=== PATIENT | female | born 2000 | race African-American/Black ===

== ENCOUNTER 2020-12-12 09:48 | Emergency (ER) | payer OTHER, SELFPAY ==
--- NOTE | ~2020-12-12 | US_ITS ---
EXAMINATION: US pelvic complete DATE: 12/12/2020 11:50 INDICATION: Vaginal bleeding with pain Comparison:No prior studies for comparison. TECHNIQUE: Multiple transabdominal sonographic images of the pelvis performed. FINDINGS: The uterus measures 7 x 3 x 3.8 cm. There is a tampon in the vagina causing posterior shado wing. The endometrial complex measures 2 mm. The right ovary measures 3.9 x 3.6 x 2.8 cm and the left ovary measures 2.6 x 1.7 x 1.5 cm. There is a right ovarian cyst measuring 2.6 x 1.7 x 1.5 cm. There are small follicles in each ovary. Normal do ppler signal in both ovaries. There is no free fluid in the pelvis. There are no abnormal masses seen on either side. IMPRESSION: 1. Right ovarian cyst measuring 2.6 cm. Reviewed, dictated and finalized at location B.
[2020-12-12 09:58] VITALS: BP 118/83; PULSE 98; RESP 18; TEMP 36.8; O2SAT 99
[2020-12-12 10:36] LABS: Basophils Percent Auto 0.8 % (0.2-1.2); Eosinophils Absolute Auto 0.1 K/mm3 (0-0.3); Eosinophils Percent Auto 2.1 % (0-4.4); Hematocrit 41.3 % (37.0-47.0); Hemoglobin 13.7 g/dL (12.0-15.0); Immature Granulocyte Absolute 0.01 K/mm3 (0.00-0.031); Immature Granulocyte Percent A 0.2 % (0-0.5); Immature Platelet Fraction Pct 18.7 % (0.9-11.2); Lymphocytes Absolute Auto 1.39 K/mm3 (0.9-3.2); Lymphocytes Percent Auto 26.4 % (18.3-44.2); Mean Corpuscular HGB Conc 33.2 g/dl (32-36); Mean Corpuscular Hemoglobin 30.8 pg (26-34); Mean Corpuscular Volume 92.8 fl (80-100); Mean Platelet Volume 13.5 fl (7.4-10.4); Monocytes Absolute Auto 0.6 K/mm3 (0.1-0.6); Neutrophils Absolute Auto 3.1 K/mm3 (1.3-6.7); Neutrophils Percent Auto 58.5 % (45.5-73.1); Platelet Count Result 163 k/mm3 (150-375); Red Blood Count 4.45 M/mm3 (4.2-5.4); White Blood Count 5.3 K/mm3 (4.5-10.0)
[2020-12-12 10:53] LABS: Add Urine Microscopic? YES; Appearance Urine Clear (Clear); Bilirubin Urine Negative (Negative); Blood Urine 1+ (Negative); Color Urine Yellow (Yellow); Glucose Urine UA Negative (Negative); Ketones Urine Negative (Negative); Leukocyte Esterase Ur Negative LEU/UL (Negative); Mucus Urine Rare /lpf; Nitrate Urine Negative (Negative); Protein Urine 2+ mg/dL (Negative); RBC Urine 0-2 /hpf (0-2); Specific Grav Ur 1.024 (1.001-1.035); Squamous Epithelial Cell Urine Occasional /hpf (Few); Urobilinogen Urine Negative mg/dL (<2.0); WBC Urine 0-3 /hpf
--- NOTE | 2020-12-12 11:21 | ED.GENADULT ---
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 Patient notes she has an Implanon control has typically had very irregular periods. Patient denies injury or trauma vaginal discharge urinary symptoms or other complaints or similar occurrence in the past. On arrival patient in the room in no distress resting comfortably Related Data Allergies Allergy/AdvReac Type Severity Reaction Status Date / Time No Known Allergies Allergy Mild Unverified 11/24/10 11:35 Review of Systems Review of Systems: All systems reviewed & are unremarkable except as noted in HPI and below PMFSH Social History Social History (Updated 12/12/20 @ 11:23 by Alber Honeycutt PA-C) Smoking status: Current every day smoker Exam Narrative: Exam Narrative: GENERAL: Well-appearing, well-nourished, and in no acute distress. HEAD: Normocephalic, atraumatic. EYES: PERRLA and EOMI. ENT: Nares clear, no rhinorrhea or epistaxis. Mucous membranes moist. CHEST: Clear to auscultation. No respiratory distress. No wheezes rales or rhonchi HEART: Regular rate and rhythm. No murmur heard. Normal peripheral pulses. ABDOMEN: Soft, nontender, nondistended EXTREMITIES: Normal range of motion. No edema. SKIN: Warm, dry, no rash. NEURO: No focal deficits. Alert and oriented x3. PSYCH: Normal mood and affect. Course Course Emergency Course: Patient is a 20-year-old female who presents to emergency department for evaluation of vaginal bleeding no high risk changes in the imaging or blood work does have an ovarian cyst unsure as to whether or not this plays into her symptomology patient with unremarkable pelvic exam cultures were taken will be given follow-up with gynecology agrees with this plan ABCs and vital signs intact and stable Vital Signs Vital signs: Vital Signs Temperature 98.3 F 12/12/20 09:58 Pulse Rate 98 12/12/20 09:58 Respiratory Rate 18 12/12/20 09:58 Blood Pressure 118/83 06/08/21 09:58 Pulse Oximetry 99 12/12/20 09:58 Temperature 98.3 F 12/12/20 09:58 Pulse Rate 98 12/12/20 09:58 Respiratory Rate 18 12/12/20 09:58 Blood Pressure 118/83 12/12/20 09:58 Pulse Oximetry 99 12/12/20 09:58 Medical Decision Making MDM Narrative Medical decision making narrative: Patient with vaginal bleeding hemodynamically stable will follow up with gynecology found to have ovarian cyst Vital Signs Vital Signs: Vital Signs Temperature 98.3 F 12/12/20 09:58 Pulse Rate 98 12/12/20 09:58 Respiratory Rate 18 12/12/20 09:58 Blood Pressure 118/83 12/12/20 09:58 Pulse Oximetry 99 12/12/20 09:58 Temperature 98.3 F 12/12/20 09:58 Pulse Rate 98 12/12/20 09:58 Respiratory Rate 18 12/12/20 09:58 Blood Pressure 118/83 12/12/20 09:58 Pulse Oximetry 99 12/12/20 09:58 Lab Data Result diagrams: 12/12/20 10:25 Labs: Lab Results 12/12/20 12/12/20 12/12/20 Range/Units 10:25 10:32 13:08 WBC 5.3 (4.5-10.0) K/mm3 RBC 4.45 (4.2-5.4) M/mm3 Hgb 13.7 (12.0-15.0) g/dL Hct 41.3 (37.0-47.0) % MCV 92.8 (80-100) fl MCH 30.8 (26-34) pg MCHC 33.2 (32-36) g/dl RDW 13.0 (11.5-14.5) % Plt Count 163 (150-375) k/mm3 MPV 13.5 H (7.4-10.4) fl Immature Gran % (Auto) 0.2 (0-0.5) % Neut % (Auto) 58.5 (45.5-73.1) % Lymph % (Auto) 26.4 (18.3-44.2) % [place] % (Auto) 12.0 H (2.6-8.5) % Eos % (Auto) 2.1 (0-4.4) % Baso % (Auto) 0.8 (0.2-1.2) % Lymph # (Auto) 1.39 (0.9-3.2) K/mm3
--- NOTE | 2020-12-12 12:00 | PC.NURSE ---
Arrives via triage accompanied by family, c/o LMP two weeks ago, has been ongoing heavy bleeding now x3 days. Denies urinary s/s. Denies , has implanted BC in arm
[2020-12-12 14:06] VITALS: BP 122/74; PULSE 73; RESP 17; O2SAT 100
== END 2020-12-12 14:10 | disposition home or self-care (01) ==
PROVIDERS: Emergency Medicine Emergency Medical Services; Emergency Provider Emergency Medicine
DX: N83.209 Unspecified ovarian cyst, unspecified side (principal); N93.9 Abnormal uterine and vaginal bleeding, unspecified; F17.210 Nicotine dependence, cigarettes, uncomplicated
CPT/HCPCS: 36415; 76856; 81001; 81025; 85025; 85055; 87070; 87077; 87491; 87591; 87808; 99284

== ENCOUNTER 2021-01-27 11:34 | Emergency (ER) | payer OTHER, SELFPAY ==
--- NOTE | ~2021-01-27 | XR_ITS ---
XR foot LT 2V DATE: 01/27/2021 11:50 INDICATION: Left foot pain, swelling TECHNIQUE: AP and lateral views COMPARISON: None FINDINGS: There is a linear intra-articular fracture of the base of the fifth metatarsal bone. The pr oximal lateral base is mildly laterally displaced. No other fracture or dislocation. No periosteal reaction or bone destruction. Joint spaces are preser chidi. IMPRESSION: Linear intra-articular fracture of the base of the fifth metatarsal bone, with mild later al displacement of the lateral base fracture fragment Reviewed, dictated and finalized at location A. IMPRESSION: Linear intra-articular fracture of the base of the fifth metatarsal bone, with mild lateral displacement of the lateral base fracture fragment
[2021-01-27 11:37] VITALS: BP 132/82; PULSE 88; RESP 18; TEMP 36.6; O2SAT 99
--- NOTE | 2021-01-27 12:30 | ED.LOWEXIN ---
HPI - Extremity Injury (Lower) General Chief Complaint: Extremity Injury, Lower Stated Complaint: left foot pain Time Seen by Provider: 01/27/21 11:48 History of Present Illness HPI Narrative: 20 yo female presents from home for a foot injury. Pain in the left foot after stepping in a hole while running in the yard. minimal at rest. Much worse with bearing weight. No wound, numbness, weakness. Related Data Home Medications Medication Instructions Recorded Confirmed sertraline mg 01/27/21 Allergies Allergy/AdvReac Type Severity Reaction Status Date / Time No Known Allergies Allergy Mild Unverified 01/27/21 11:39 Review of Systems Constitutional: Constitutional: Denies fever(s) Respiratory: Respiratory: Denies dyspnea Musculoskeletal: Musculoskeletal: Denies back pain Neurologic: Denies numbness and Denies weakness Psychiatric: Psychiatric: Reports anxiety and Reports depression [facility] Social History Social History Smoking status: Current every day smoker Exam Const: General: healthy appearing, no acute distress and alert Orientation/consciousness: patient oriented x3 Resp: Effort & Inspection: normal respiratory effort Auscultation: clear to auscultation bilaterally Cardio: Rate: regular rate Rhythm: regular rhythm Skin: General skin exam: normal color Wounds: no wounds Neuro: General: patient oriented x3 and moves all extremities Speech: normal speech Extrem: Other: lateral left foot tenderness. no deformity Course Vital Signs Vital signs: Vital Signs Temperature 36.6 C 01/27/21 11:37 Pulse Rate 88 01/27/21 11:37 Respiratory Rate 18 01/27/21 11:37 Blood Pressure 132/82 01/27/21 11:37 Pulse Oximetry 99 01/27/21 11:37 Temperature 36.6 C 01/27/21 11:37 Pulse Rate 80 01/27/21 12:50 Respiratory Rate 16 01/27/21 12:50 Blood Pressure 126/80 01/27/21 12:50 Pulse Oximetry 100 01/27/21 12:50 MDM - Extremity Injury (Lower) Differential Diagnosis Differential diagnosis: Likely fracture of toe Medical Records Attestation: I reviewed the patient's medical records. Imaging Data Radiologist's impression: ITS Impressions Foot X-Ray 01/27/21 11:53 IMPRESSION: Linear intra-articular fracture of the base of the fifth metatarsal bone, with mild lateral displacement of the lateral base fracture fragment Discharge Plan Discharge Clinical Impression: Metatarsal fracture Qualifiers: Encounter type: initial encounter Metatarsal bone: fifth Fracture type: closed Fracture alignment: displaced Laterality: left Qualified Code(s): S92.352A - Displaced fracture of fifth metatarsal bone, left foot, initial encounter for closed fracture Patient Disposition: Home, Self-Care Condition: Stable Instructions: Foot Fracture in Adults (ED) Prescriptions: New hydrocodone-acetaminophen 5-325 mg tablet 1 tablet PO Q6H PRN (Reason: pain) Qty: 5 RF: 0 No Action sertraline 25 mg tablet RF: 0 Follow-up/Referrals: Shlomo Santana MD [Primary Care Provider] - Ja Roe MD [Physician] -
[2021-01-27 12:50] VITALS: BP 126/80; PULSE 80; RESP 16; O2SAT 100
== END 2021-01-27 12:40 | disposition home or self-care (01) ==
PROVIDERS: Emergency Provider Emergency Medicine; PCP Emergency Medicine
DX: S92.352A Displaced fracture of fifth metatarsal bone, left foot, initial encounter for closed fracture (principal); F17.200 Nicotine dependence, unspecified, uncomplicated; X50.9XXA Other and unspecified overexertion or strenuous movements or postures, initial encounter
CPT/HCPCS: 73620; 99284

== ENCOUNTER 2021-03-10 12:40 | Emergency (ER) | payer OTHER, SELFPAY ==
[2021-03-10 12:44] VITALS: BP 137/91; PULSE 73; RESP 20; TEMP 37.1; O2SAT 100
--- NOTE | 2021-03-10 13:20 | ED.FEMALEGU ---
HPI - Female Genitourinary General Chief complaint: Urogenital-Female Stated complaint: urinary symptoms Time Seen by Provider: 03/10/21 12:53 Source: patient Mode of arrival: ambulatory Limitations: no limitations History of Present Illness HPI Narrative: This is a 21 year old female that presents to the ER for dysuria x 1 week. Reports urinary frequency as well. Reports no concern for STDs. Denies fever, flank pain, vomiting, or hematuria. Related Data Home Medications Medication Instructions Recorded Confirmed sertraline mg 01/27/21 Allergies Allergy/AdvReac Type Severity Reaction Status Date / Time poison luna extract Allergy Unknown Unknown Verified 03/10/21 12:46 Review of Systems Review of Systems: CONSTITUTIONAL: Denies fever GASTROINTESTINAL: Denies abdominal pain, nausea, vomiting GENITOURINARY: Reports dysuria. Denies hematuria. SKIN: Denies rash All systems reviewed & are unremarkable except as noted in HPI and below PMFSH Social History Social History (Updated 03/10/21 @ 13:21 by Leonela uLgo PA-C) Alcohol intake: current Substance use: current Substance use type: marijuana Exam Narrative: GENERAL: Well-appearing, well-nourished, and in no acute distress. HEAD: Normocephalic, atraumatic. EYES: EOMI. CHEST: Clear to auscultation. No respiratory distress. No wheezes rales or rhonchi HEART: Regular rate and rhythm. No murmur heard. Normal peripheral pulses. ABDOMEN: Soft, nontender, nondistended, normal active bowel sounds. No CVA tenderness EXTREMITIES: Normal range of motion. No edema. SKIN: Warm, dry, no rash. NEURO: No focal deficits. Alert and oriented x3. PSYCH: Normal mood and affect Course Vital Signs Vital signs: Vital Signs Temperature 98.7 F 03/10/21 12:44 Pulse Rate 73 03/10/21 12:44 Respiratory Rate 20 03/10/21 12:44 Blood Pressure 137/91 H 03/10/21 12:44 Pulse Oximetry 100 03/10/21 12:44 Temperature 98.7 F 03/10/21 12:44 Pulse Rate 73 03/10/21 12:44 Respiratory Rate 20 03/10/21 12:44 Blood Pressure 137/91 H 03/10/21 12:44 Pulse Oximetry 100 03/10/21 12:44 MDM - Female Genitourinary MDM Narrative Medical decision making narrative: Patient presents emergency department for urinary symptoms noted over the last week. She is afebrile and nontoxic-appearing. Denies any flank pain or abdominal pain. UA with evidence of possible urinary tract infection. This will be sent for culture. Bedside test is negative. Patient will be started on oral antibiotics. She is stable and felt appropriate for further outpatient evaluation. She was given warnings to return to the ER Lab Data Attestation: I reviewed the patient's lab results. Labs: Lab Results 03/10/21 Range/Units 14:40 Urine Color Straw (Yellow) Urine Appearance Clear (Clear) Urine pH 7.0 (5.0-9.0) Ur Specific [place] 1.005 (1.001-1.035) Urine Protein Negative (Negative) mg/dL Urine Glucose (UA) Negative (Negative) mg/dL Urine Ketones Negative (Negative) mg/dL Ur Blood (Man) Negative (Negative) Urine Nitrate Negative (Negative) Urine Bilirubin Negative (Negative) Urine Urobilinogen Negative (<2.0) mg/dL Leukocyte Esterase Rfl 1+ H (Negative) RAYMON/UL Urine RBC 0-2 (0-2) /hpf Urine WBC 7-9 H /hpf Ur Squamous Epith Cells Occasional (Few) /hpf Urine Bacteria Trace /hpf Critical Care Time Critical Care Time Critical Care Time: No Discharge Plan Discharge Clinical Impression: UTI (urinary tract infection) Qualifiers: Urinary tract infection type: acute cystitis Hematuria presence: without hematuria Qualified Code(s): N30.00 - Acute cystitis without hematuria Patient Disposition: Home, Self-Care Condition: Stable Instructions: Antibiotic Form, Urinary Tract Infection in Women (ED) Additional Instructions: Return to the ER if you experience fever, abdominal pain with nausea and vomiting, you are
[2021-03-10 14:55] LABS: Add Urine Microscopic? YES; Appearance Urine Clear (Clear); Bacteria Urine Trace /hpf; Bilirubin Urine Negative (Negative); Color Urine Straw (Yellow); Glucose Urine UA Negative (Negative); Ketones Urine Negative (Negative); Leukocyte Esterase Ur 1+ LEU/UL (Negative); Nitrate Urine Negative (Negative); Protein Urine Negative (Negative); RBC Urine 0-2 /hpf (0-2); Specific Grav Ur 1.005 (1.001-1.035); Squamous Epithelial Cell Urine Occasional /hpf (Few); Urobilinogen Urine Negative mg/dL (<2.0)
[2021-03-10 14:57] LABS: Blood Urine Negative (Negative)
== END 2021-03-10 16:34 | disposition home or self-care (01) ==
PROVIDERS: Physician Assistant; Emergency Provider Emergency Medicine; PCP Emergency Medicine
DX: N30.00 Acute cystitis without hematuria (principal)
CPT/HCPCS: 81001; 81025; 87086; 87088; 87147; 99283

== ENCOUNTER 2021-05-03 15:12 | Emergency (ER) | payer OTHER, SELFPAY ==
[2021-05-03 15:25] VITALS: BP 139/89; PULSE 85; RESP 16; TEMP 36.8; O2SAT 99
[2021-05-03 17:23] VITALS: O2SAT 99
--- NOTE | 2021-05-03 17:33 | ED.GENADULT ---
HPI - General Adult General Chief complaint: Upper Respiratory Infection Stated complaint: soto/abd pain/wants covid testing Time Seen by Provider: 05/03/21 16:28 Source: patient Mode of arrival: ambulatory Limitations: no limitations History of Present Illness HPI narrative: Patient is a 21-year-old female presenting with chief complaint of headache and abdominal cramping today. Patient reports that she was exposed to a Covid positive person last night and wants to be Covid tested. Patient denies any vomiting, fever, chills, shortness of breath or chest pain. She states her symptoms could be premenstrual symptoms but she wants to make sure since she was exposed. Patient reports she is vaccinated. Related Data Home Medications Medication Instructions Recorded Confirmed sertraline mg 01/27/21 Allergies Allergy/AdvReac Type Severity Reaction Status Date / Time poison luna extract Allergy Unknown Unknown Verified 03/10/21 12:46 Review of Systems Review of Systems: CONSTITUTIONAL: Denies fever, chills, or sweats. EYES: Denies visual changes, redness, or discharge. ENT: Denies rhinorrhea, congestion, sore throat, or otalgia. CARDIOVASCULAR: Denies chest pain, palpitations, or edema. RESPIRATORY: Denies cough or dyspnea. GASTROINTESTINAL: Reports abdominal cramps denies nausea, vomiting, or diarrhea. GENITOURINARY: Denies dysuria or hematuria. SKIN: Denies rash or itching. MUSCULOSKELETAL: Denies back pain, joint pain, or myalgia. NEUROLOGIC: Reports mild headache denies numbness, dizziness, or weakness. PSYCHIATRIC: Denies anxiety or depression. [facility] Social History Social History (Updated 03/10/21 @ 13:21 by Leonela Lugo PA-C) Alcohol intake: current Substance use: current Substance use type: marijuana Exam Narrative: GENERAL: Well-appearing, well-nourished, and in no acute distress. HEAD: Normocephalic, atraumatic. EYES: PERRLA and EOMI. NECK: Supple. ROM intact CHEST: Clear to auscultation. No respiratory distress. No wheezes rales or rhonchi HEART: Regular rate and rhythm. No murmur heard. Normal peripheral pulses. EXTREMITIES: Normal range of motion. No edema. SKIN: Warm, dry, no rash. NEURO: No focal deficits. Alert and oriented x3. PSYCH: Normal mood and affect. Course Vital Signs Vital signs: Vital Signs Temperature 98.3 F 05/03/21 15:25 Pulse Rate 85 05/03/21 15:25 Respiratory Rate 16 05/03/21 15:25 Blood Pressure 139/89 05/03/21 15:25 Pulse Oximetry 99 05/03/21 15:25 Temperature 98.3 F 05/03/21 15:25 Pulse Rate 85 05/03/21 15:25 Respiratory Rate 16 05/03/21 15:25 Blood Pressure 139/89 05/03/21 15:25 Pulse Oximetry 99 05/03/21 17:23 Medical Decision Making MDM Narrative Medical decision making narrative: Discussed with patient Covid quarantine instructions. Patient does not have any vomiting at this time. Patient reports her headache is mild. Patient does not show any neurologic deficits. Patient was to be Covid tested. Patient has been instructed to take Tylenol and ibuprofen for discomfort. Patient has been strict instructions to return to emergency department she has any emergent symptoms. Vital Signs Vital Signs: Vital Signs Temperature 98.3 F 05/03/21 15:25 Pulse Rate 85 05/03/21 15:25 Respiratory Rate 16 05/03/21 15:25 Blood Pressure 139/89 05/03/21 15:25 Pulse Oximetry 99 05/03/21 15:25 Temperature 98.3 F 05/03/21 15:25 Pulse Rate 85 05/03/21 15:25 Respiratory Rate 16 05/03/21 15:25 Blood Pressure 139/89 05/03/21 15:25 Pulse Oximetry 99 05/03/21 17:23 Discharge Plan Discharge Clinical Impression: Close exposure to COVID-19 virus Patient Disposition: Home, Self-Care Condition: Improved Instructions: Antibiotic Form, COVID-19 (Coronavirus Disease 2019) (ED) Additional Instructions: Take tylenol or ibuprofen for discomfort as instructed. Follow the health department guidelines r
[2021-05-03 17:50] VITALS: BP 114/82; PULSE 86; RESP 12; O2SAT 100
[2021-05-04 17:01] LABS: SARS-CoV-2 RNA PCR Negative
== END 2021-05-03 17:50 | disposition home or self-care (01) ==
PROVIDERS: Physician Assistant; Emergency Provider Emergency Medicine
DX: Z20.822 Contact with and (suspected) exposure to COVID-19 (principal)
CPT/HCPCS: 99283; C9803; U0003; U0005

== ENCOUNTER 2021-08-20 12:35 | Emergency (ER) | payer OTHER, SELFPAY ==
--- NOTE | ~2021-08-20 | US_ITS ---
EXAMINATION: US pelvic complete w TV DATE: 08/20/2021 14:51 INDICATION: Left adnexal pain, vaginal bleeding TECHNIQUE: Multiple transabdominal and endovaginal sonographic images of the pelvis were obtained. COMPARISON: 12/12/2020 FINDINGS: The uterus measures 6.0 x 2.3 x 4.3 cm. The endometrial complex measures 2 mm. The right ov deanna measures 2.0 x 1.5 x 1.5 cm. There are multiple small cysts of the right ovary, the largest of wh ich measures up to 1.8 cm, decreased in size since the prior examination. The left ovary measures 3.7 x 1.5 x 1.6 cm. There is normal vascular flow in the ovaries. There is no free fluid in the pelvis. IMPRESSION: 1. No sonographic correlate for the patient's symptoms. Reviewed, dictated and finalized at location A. 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
[2021-08-20 12:37] VITALS: BP 142/102; PULSE 91; RESP 18; TEMP 36.5; O2SAT 99
[2021-08-20 13:19] VITALS: BP 139/91; PULSE 87; RESP 12; O2SAT 99
[2021-08-20 13:25] LABS: Basophils Absolute Auto 0.1 K/mm3 (0.0-0.1); Basophils Percent Auto 0.5 % (0.2-1.2); Eosinophils Absolute Auto 0.2 K/mm3 (0-0.3); Eosinophils Percent Auto 2.1 % (0-4.4); Hematocrit 42.3 % (37.0-47.0); Hemoglobin 14.2 g/dL (12.0-15.0); Immature Granulocyte Absolute 0.02 K/mm3 (0.00-0.031); Immature Granulocyte Percent A 0.2 % (0-0.5); Lymphocytes Absolute Auto 2.18 K/mm3 (0.9-3.2); Lymphocytes Percent Auto 22.1 % (18.3-44.2); Mean Corpuscular HGB Conc 33.6 g/dl (32-36); Mean Corpuscular Hemoglobin 31.6 pg (26-34); Mean Platelet Volume 12.5 fl (7.4-10.4); Monocytes Absolute Auto 0.9 K/mm3 (0.1-0.6); Monocytes Percent Auto 8.8 % (2.6-8.5); Neutrophils Absolute Auto 6.5 K/mm3 (1.3-6.7); Neutrophils Percent Auto 66.3 % (45.5-73.1); Platelet Count Result 207 k/mm3 (150-375); Red Cell Distribution Width 13.2 % (11.5-14.5); White Blood Count 9.9 K/mm3 (4.5-10.0)
[2021-08-20 13:35] LABS: Add Urine Microscopic? NO; Appearance Urine Clear (Clear); Bilirubin Urine Negative (Negative); Blood Urine Negative (Negative); Color Urine Yellow (Yellow); Glucose Urine UA Negative (Negative); Ketones Urine Negative (Negative); Leukocyte Esterase Ur Negative LEU/UL (Negative); Nitrate Urine Negative (Negative); Protein Urine Negative (Negative); Specific Grav Ur 1.021 (1.001-1.035); Urobilinogen Urine Negative mg/dL (<2.0)
--- NOTE | 2021-08-20 15:14 | ED.GENADULT ---
HPI - General Adult General Chief complaint: Vaginal Bleeding Stated complaint: vaginal bleeding Time Seen by Provider: 08/20/21 12:50 Source: patient and RN notes reviewed Mode of arrival: ambulatory Limitations: no limitations History of Present Illness HPI narrative: Patient is a 21-year-old female who presents with lower abdominal cramping nine that she has been on her minces off-and-on for the last 2 to 3 weeks she has a history of Implanon she is not followed by gynecology she denies discharge urinary symptoms or other complaints presents nondistressed notes only light bleeding at this time Related Data Home Medications Medication Instructions Recorded Confirmed sertraline mg 01/27/21 Allergies Allergy/AdvReac Type Severity Reaction Status Date / Time poison luna extract Allergy Unknown Unknown Verified 03/10/21 12:46 Review of Systems Review of Systems: All systems reviewed & are unremarkable except as noted in HPI and below PMFSH Social History Social History Alcohol intake: current Substance use: current Substance use type: marijuana Exam Narrative: GENERAL: Well-appearing, well-nourished, and in no acute distress. HEAD: Normocephalic, atraumatic. EYES: PERRLA and EOMI. ENT: Nares clear, no rhinorrhea or epistaxis. Mucous membranes moist. CHEST: Clear to auscultation. No respiratory distress. No wheezes rales or rhonchi HEART: Regular rate and rhythm. No murmur heard. Normal peripheral pulses. ABDOMEN: Soft, left adnexal tenderness, nondistended EXTREMITIES: Normal range of motion. No edema. SKIN: Warm, dry, no rash. NEURO: No focal deficits. Alert and oriented x3. Cranial nerves II through XII grossly intact PSYCH: Normal mood and affect. Course Course Emergency Course: Patient presented with vaginal bleeding no concerning findings in the blood work or imaging vital signs are stable she will be discharged home with gynecological follow-up given indications for return afebrile nontoxic appearing nondistressed Vital Signs Vital signs: Vital Signs Temperature 97.7 F 08/20/21 12:37 Pulse Rate 91 08/20/21 12:37 Respiratory Rate 18 08/20/21 12:37 Blood Pressure 142/102 H 08/20/21 12:37 Pulse Oximetry 99 08/20/21 12:37 Temperature 97.7 F 08/20/21 12:37 Pulse Rate 87 08/20/21 13:19 Respiratory Rate 12 08/20/21 13:19 Blood Pressure 139/91 H 08/20/21 13:19 Pulse Oximetry 99 08/20/21 13:19 Medical Decision Making MDM Narrative Medical decision making narrative: Patient with vaginal bleeding will be discharged pelvic cramping felt consistent with her vaginal bleeding she is afebrile nontoxic-appearing nondistressed. She was given indication for return Vital Signs Vital Signs: Vital Signs Temperature 97.7 F 08/20/21 12:37 Pulse Rate 91 08/20/21 12:37 Respiratory Rate 18 08/20/21 12:37 Blood Pressure 142/102 H 08/20/21 12:37 Pulse Oximetry 99 08/20/21 12:37 Temperature 97.7 F 08/20/21 12:37 Pulse Rate 87 08/20/21 13:19 Respiratory Rate 12 08/20/21 13:19 Blood Pressure 139/91 H 08/20/21 13:19 Pulse Oximetry 99 08/20/21 13:19 Lab Data Result diagrams: 08/20/21 13:06 Labs: Lab Results 08/20/21 08/20/21 Range/Units 13:06 13:06 WBC 9.9 (4.5-10.0) K/mm3 RBC 4.50 (4.2-5.4) M/mm3 Hgb 14.2 (12.0-15.0) g/dL Hct 42.3 (37.0-47.0) % MCV 94.0 (80-100) fl MCH 31.6 (26-34) pg MCHC 33.6 (32-36) g/dl RDW 13.2 (11.5-14.5) % Plt Count 207 (150-375) k/mm3 MPV 12.5 H (7.4-10.4) fl Immature Gran % (Auto) 0.2 (0-0.5) % Neut % (Auto) 66.3 (45.5-73.1) % Lymph % (Auto) 22.1 (18.3-44.2) % [place] % (Auto) 8.8 H (2.6-8.5) % Eos % (Auto) 2.1 (0-4.4) % Baso % (Auto) 0.5 (0.2-1.2) % Lymph # (Auto) 2.18 (0.9-3.2) K/mm3 [place] # (Auto) 0.9 H (0.1-0.6) K/mm3 Eos # (Auto) 0.2 (0-0.3) K/mm3 Baso #
== END 2021-08-20 15:25 | disposition home or self-care (01) ==
PROVIDERS: Emergency Medicine Emergency Medical Services; Emergency Provider Emergency Medicine
DX: N93.9 Abnormal uterine and vaginal bleeding, unspecified (principal)
CPT/HCPCS: 36415; 76830; 76856; 81003; 81025; 85025; 99284

== ENCOUNTER 2022-02-07 22:20 | Emergency (ER) | payer OTHER, SELFPAY ==
[2022-02-07 22:25] VITALS: BP 130/90; PULSE 84; RESP 18; TEMP 36.6; O2SAT 100
[2022-02-07 23:29] LABS: Basophils Percent Auto 0.4 % (0.2-1.2); Eosinophils Absolute Auto 0.1 K/mm3 (0-0.3); Eosinophils Percent Auto 1.8 % (0-4.4); Hematocrit 39.1 % (37.0-47.0); Hemoglobin 12.8 g/dL (12.0-15.0); Immature Granulocyte Absolute 0.01 K/mm3 (0.00-0.031); Immature Granulocyte Percent A 0.1 % (0-0.5); Lymphocytes Absolute Auto 1.99 K/mm3 (0.9-3.2); Lymphocytes Percent Auto 26.3 % (18.3-44.2); Mean Corpuscular HGB Conc 32.7 g/dl (32-36); Mean Corpuscular Hemoglobin 30.8 pg (26-34); Mean Corpuscular Volume 94.2 fl (80-100); Mean Platelet Volume 12.8 fl (7.4-10.4); Monocytes Absolute Auto 0.7 K/mm3 (0.1-0.6); Monocytes Percent Auto 8.6 % (2.6-8.5); Neutrophils Absolute Auto 4.8 K/mm3 (1.3-6.7); Neutrophils Percent Auto 62.8 % (45.5-73.1); Platelet Count Result 170 k/mm3 (150-375); Red Blood Count 4.15 M/mm3 (4.2-5.4); Red Cell Distribution Width 12.8 % (11.5-14.5); White Blood Count 7.6 K/mm3 (4.5-10.0)
[2022-02-07 23:30] VITALS: BP 124/80; PULSE 66; RESP 18; O2SAT 100
[2022-02-07 23:31] LABS: Beta HCG Quantitative < 2.39 mIU/ML
--- NOTE | 2022-02-07 23:53 | ED.GENADULT ---
HPI - General Adult General Chief complaint: Vaginal Bleeding Stated complaint: poss , irreg periods, lethargy, ESPOSITO Time Seen by Provider: 02/07/22 22:43 History of Present Illness HPI narrative: Patient is a 22-year-old female who presents ER with concerns for being . She has been on her period for 5 days and reports that she has irregular periods. She has been sexually active without protection. She took multiple tests over the last couple days. Some of been positive some of been negative. She will urinate out them and then leave for hours and then come back to check them. She is unsure if they have been accurate. No pelvic pain. No vaginal discharge. On the reasons she thought she was as she was having some breast soreness but no redness or swelling or lumps. No additional concerns. Related Data Home Medications Medication Instructions Recorded Confirmed sertraline 25 mg tablet mg 01/27/21 Allergies Allergy/AdvReac Type Severity Reaction Status Date / Time poison luna extract Allergy Unknown Unknown Verified 02/07/22 22:31 Review of Systems Review of Systems: All systems reviewed & are unremarkable except as noted in HPI and below Constitutional: Constitutional: Denies chills and Denies fever(s) Gastrointestinal: Gastrointestinal: Denies abdominal pain, Denies nausea and Denies vomiting Genitourinary: Genitourinary: Reports abnormal vaginal bleeding, Denies nocturia, Denies dysuria and Denies flank pain Integumentary/Breasts: Skin/Breast: Reports breast pain, Denies breast mass, Denies erythema and Denies rash PMFSH Past Medical History Medical History (Updated 02/08/22 @ 00:18 by Earl Topete MD) Healthy female adult Surgical History Surgical History (Updated 02/08/22 @ 00:12 by Earl Topete MD) No pertinent past surgical history Social History Social History Alcohol intake: current Substance use: current Substance use type: marijuana Exam Narrative: GENERAL: Well-appearing, well-nourished, and in no acute distress. HEAD: Normocephalic, atraumatic. ENT: Mucous membranes moist. CHEST: Clear to auscultation. No respiratory distress. HEART: Regular rate and rhythm. Normal peripheral pulses. ABDOMEN: Soft, nontender, nondistended. EXTREMITIES: Normal range of motion. No edema. NEURO: Alert and oriented x3. PSYCH: Normal mood and affect. Course Course Emergency Course: Patient resting comfortably. Urine and blood test negative. Vital Signs Vital signs: Vital Signs Temperature 97.8 F 02/07/22 22:25 Pulse Rate 84 02/07/22 22:25 Respiratory Rate 18 02/07/22 22:25 Blood Pressure 130/90 02/07/22 22:25 Pulse Oximetry 100 02/07/22 22:25 Oxygen Delivery Room Air 02/07/22 22:25 Temperature 97.8 F 02/07/22 22:25 Pulse Rate 66 02/07/22 23:30 Respiratory Rate 18 02/07/22 23:30 Blood Pressure 124/80 02/07/22 23:30 Pulse Oximetry 100 02/07/22 23:30 Oxygen Delivery Room Air 02/07/22 22:25 Medical Decision Making Vital Signs Vital Signs: Vital Signs Temperature 97.8 F 02/07/22 22:25 Pulse Rate 84 02/07/22 22:25 Respiratory Rate 18 02/07/22 22:25 Blood Pressure 130/90 02/07/22 22:25 Pulse Oximetry 100 02/07/22 22:25 Oxygen Delivery Room Air 02/07/22 22:25 Temperature 97.8 F 02/07/22 22:25 Pulse Rate 66 02/07/22 23:30 Respiratory Rate 18 02/07/22 23:30 Blood Pressure 124/80 02/07/22 23:30 Pulse Oximetry 100 02/07/22 23:30 Oxygen Delivery Room Air 02/07/22 22:25 Lab Data Result diagrams: 02/07/22 23:22 Labs: Lab Results 02/07/22 02/07/22 02/07/22 Range/Units 22:56 22:56 23:22 WBC 7.6 (4.5-10.0) K/mm3 RBC 4.15 L (4.2-5.4) M/mm3 Hgb 12.8 (12.0-15.0) g/dL Hct 39.1 (37.0-47.0) % MCV 94.2 (80-100) fl MCH 30.8 (26-34) pg
== END 2022-02-08 00:28 | disposition home or self-care (01) ==
PROVIDERS: Emergency Provider Emergency Medicine
DX: N92.6 Irregular menstruation, unspecified (principal)
CPT/HCPCS: 36415; 84702; 85025; 85461; 99284

== ENCOUNTER 2022-06-07 13:29 | Emergency (ER) | payer OTHER, SELFPAY ==
[2022-06-07 13:35] VITALS: BP 134/87; PULSE 91; RESP 18; TEMP 36.8; O2SAT 100
--- NOTE | 2022-06-07 15:43 | ED.FEMALEGU ---
HPI - Female Genitourinary General Chief complaint: Urogenital-Female Stated complaint: Possible UTI, x1 month Time Seen by Provider: 06/07/22 15:29 History of Present Illness HPI Narrative: Patient is a 22-year-old female here for evaluation of urinary frequency over the past month. Patient states that she has been drinking her usual amount has noted voiding small amounts of urine multiple times an hour. She denies any dysuria, hematuria, back pain, fevers. She was seen in an urgent care upon symptom onset was told that her urinalysis was normal. Denies any shortness of breath, abdominal pain, nausea or vomiting. No concerns for STIs. Related Data Home Medications Medication Instructions Recorded Confirmed sertraline 25 mg tablet mg 01/27/21 Allergies Allergy/AdvReac Type Severity Reaction Status Date / Time poison luna extract Allergy Unknown Unknown Verified 06/07/22 13:38 Review of Systems Review of Systems: Gen.: Denies fevers or chills Eyes: Denies eye pain or visual change ENT: Denies congestion Respiratory: Denies shortness of breath or cough CV: Denies chest pain or palpitations GI: Denies abdominal pain nausea, emesis or diarrhea reports urinary frequency. Denies burning, urgency, or hematuria Musculoskeletal: Denies back pain or muscle pain Neuro: Denies numbness, tingling, weakness or focal weakness Skin: Denies rash Except as documented, all other systems reviewed and negative [facility] Past Medical History Medical History Healthy female adult Surgical History Surgical History No pertinent past surgical history Social History Social History Alcohol intake: current Substance use: current Substance use type: marijuana Exam Narrative: APPEARANCE: Well appearing, no pain in distress, well-nourished. Head: Normocephalic and atraumatic. EYES: PERRLA/EOMI, conjunctivae clear NOSE: No nasal drainage EARS: External ear normal in appearance THROAT: Oropharynx is clear. Mucous membranes are moist. NECK: Supple. No adenopathy, no masses. RESPIRATORY: Airway patent, respirations nonlabored. Clear to auscultation bilaterally, no rales, rhonchi, wheezing. CARDIOVASCULAR: Regular rate and rhythm without murmurs, rubs, or gallops. ABDOMINAL: Normoactive bowel sounds. Soft, nontender, nondistended. No rebound tenderness or guarding. MUSCULOSKELETAL: Extremities are warm and well-perfused. Moves all extremities well. No edema. NEURO: Normal speech. No focal neurologic deficits. SKIN: Skin is warm and dry. No rashes. PSYCHIATRIC: Normal affect/mood. Course Vital Signs Vital signs: Vital Signs Temperature 98.2 F 06/07/22 13:35 Pulse Rate 91 06/07/22 13:35 Respiratory Rate 18 06/07/22 13:35 Blood Pressure 134/87 06/07/22 13:35 Pulse Oximetry 100 06/07/22 13:35 Oxygen Delivery Room Air 06/07/22 13:35 Temperature 98.2 F 06/07/22 13:35 Pulse Rate 91 06/07/22 13:35 Respiratory Rate 18 06/07/22 13:35 Blood Pressure 134/87 06/07/22 13:35 Pulse Oximetry 100 06/07/22 13:35 Oxygen Delivery Room Air 06/07/22 13:35 MDM - Female Genitourinary MDM Narrative Medical decision making narrative: 22-year-old female here for evaluation of urinary frequency over the past month; urinating every 3 hours or so. She is nontoxic-appearing and has normal vital signs, no abdominal tenderness on exam or CVA tenderness. Urine without signs of infection; urinalysis is completely normal. fingerstick glucose is normal. Unclear etiology of patient's symptoms. She will be discharged home to follow-up with a primary care doctor. She was given return precautions and she voiced understanding. Lab Data Labs: Lab Results 06/07/22 06/07/22 Range/Units 15:47 15:53 POC Capillary Glucose 9
[2022-06-07 15:58] LABS: Glucose Point of Care 91 mg/dl (65-105)
[2022-06-07 15:59] LABS: Appearance Urine Clear (Clear); Bilirubin Urine Negative (Negative); Blood Urine Negative (Negative); Color Urine Yellow (Yellow); Glucose Urine UA Negative (Negative); Ketones Urine Trace mg/dL (Negative); Leukocyte Esterase Ur Negative LEU/UL (Negative); Nitrate Urine Negative (Negative); Protein Urine Trace mg/dL (Negative)
[2022-06-07 16:13] LABS: Mucus Urine Rare /lpf; RBC Urine 0-2 /hpf (0-2); Squamous Epithelial Cell Urine Occasional /hpf (Few); WBC Urine 0-3 /hpf
[2022-06-07 16:14] LABS: Add Urine Microscopic? YES
== END 2022-06-07 16:50 | disposition home or self-care (01) ==
PROVIDERS: Emergency Provider Physician Assistant
DX: R35.0 Frequency of micturition (principal)
CPT/HCPCS: 81001; 81025; 82948; 99283

== ENCOUNTER 2023-06-08 23:17 | Emergency (ER) | payer OTHER, SELFPAY ==
[2023-06-08 23:46] VITALS: BP 145/88; PULSE 90; RESP 15; TEMP 36.6; O2SAT 100
[2023-06-09 00:18] LABS: Basophils Absolute Auto 0.1 K/mm3 (0.0-0.1); Basophils Percent Auto 0.8 % (0.2-1.2); Eosinophils Absolute Auto 0.4 K/mm3 (0-0.3); Eosinophils Percent Auto 4.1 % (0-4.4); Hematocrit 40.5 % (37.0-47.0); Hemoglobin 13.2 g/dL (12.0-15.0); Immature Granulocyte Absolute 0.02 K/mm3 (0.00-0.031); Immature Granulocyte Percent A 0.2 % (0-0.5); Lymphocytes Absolute Auto 3.86 K/mm3 (0.9-3.2); Lymphocytes Percent Auto 37.6 % (18.3-44.2); Mean Corpuscular HGB Conc 32.6 g/dl (32-36); Mean Corpuscular Hemoglobin 29.3 pg (26-34); Mean Platelet Volume 12.3 fl (7.4-10.4); Monocytes Absolute Auto 0.9 K/mm3 (0.1-0.6); Monocytes Percent Auto 8.7 % (2.6-8.5); Neutrophils Percent Auto 48.6 % (45.5-73.1); Platelet Count Result 272 k/mm3 (150-375); Red Cell Distribution Width 13.3 % (11.5-14.5); White Blood Count 10.3 K/mm3 (4.5-10.0)
[2023-06-09 00:24] LABS: Appearance Urine Clear (Clear); Bilirubin Urine Negative (Negative); Blood Urine Negative (Negative); Color Urine Yellow (Yellow); Glucose Urine UA Negative (Negative); Ketones Urine 2+ mg/dL (Negative); Leukocyte Esterase Ur Negative LEU/UL (Negative); Nitrate Urine Negative (Negative); Protein Urine Negative (Negative); Specific Grav Ur 1.022 (1.001-1.035); pH Urine 6.5 (5.0-9.0)
[2023-06-09 00:25] LABS: Add Urine Microscopic? NO
[2023-06-09 00:33] LABS: Alanine Aminotransferase 13 U/L (6-35); Albumin Level 4.7 g/dL (3.5-5.1); Alkaline Phosphatase 70 U/L (38-126); Anion Gap 8 mmol/L (8-16); Aspartate Amino Transferase 22 U/L (14-36); Bilirubin,Total 0.4 mg/dL (0.2-1.3); Blood Urea Nitrogen 13 mg/dL (7-17); Calcium 9.2 mg/dL (8.4-10.2); Carbon Dioxide 26 mmol/L (22-30); Chloride 104 mmol/L (98-107); Estimated CRCL calculation 103 ml/min; Estimated Glomerular Filt Rate > 60; Glucose 94 mg/dL (65-110); Potassium 3.8 mmol/L (3.4-5.0); Sodium 138 mmol/L (137-145)
[2023-06-09 00:34] LABS: Acetaminophen < 10 ug/mL (10-30); Ethanol < 10 mg/dL (<10); Salicylate < 1.0 mg/dL (2-20)
[2023-06-09 00:39] LABS: Amphetamine Screen Urine Negative (Negative); Barbiturate Screen Urine Negative (Negative); Benzodiazepines Screen Urine Negative (Negative); Cannabinoid Screen Urine Positive (Negative); Cocaine Screen Urine Negative (Negative); Methadone Screen Urine Negative (Negative); Opiate Screen Urine Negative (Negative); Phencyclidine Screen Urine Negative (Negative)
--- NOTE | 2023-06-09 00:43 | ED.GENADULT ---
HPI - General Adult General Chief complaint: Psychiatric Symptoms Stated complaint: SI, DEPRESSION Time Seen by Provider: 06/08/23 23:49 History of Present Illness HPI narrative: Patient 23-year-old female who presents to emergency department chief complaint of suicidal ideation. Patient reports has been more depressed lately and reports that she has been having thoughts of harming herself but does not have a specific plan. Patient does report that she has prior history of depression reports no recent admissions Related Data Home Medications Medication Instructions Recorded Confirmed sertraline 25 mg tablet mg 01/27/21 Allergies Allergy/AdvReac Type Severity Reaction Status Date / Time poison luna extract Allergy Unknown Unknown Verified 06/07/22 13:38 Review of Systems Review of Systems: A 10 system review of systems was completed on the patient and is negative except for what is stated in the HPI. Nursing and ancillary documentation was reviewed. [facility] Past Medical History Medical History Healthy female adult Surgical History Surgical History No pertinent past surgical history Social History Social History Alcohol intake: current Substance use: current Substance use type: marijuana Exam Narrative: GENERAL: Well-appearing, well-nourished, and in no acute distress. HEAD: Normocephalic, atraumatic. EYES: PERRLA and EOMI. ENT: Nares clear, no rhinorrhea or epistaxis. Mucous membranes moist. NECK: Supple. CHEST: Clear to auscultation. No respiratory distress. HEART: Regular rate and rhythm. No murmur heard. Normal peripheral pulses. ABDOMEN: Soft, nontender, nondistended, normal active bowel sounds. EXTREMITIES: Normal range of motion. No edema. SKIN: Warm, dry, no rash. NEURO: No focal deficits. Alert and oriented x3. PSYCH: Depressed affect. Course Vital Signs Vital signs: Vital Signs Temperature 36.6 C 06/08/23 23:46 Pulse Rate 90 06/08/23 23:46 Respiratory Rate 15 06/08/23 23:46 Blood Pressure 145/88 H 06/08/23 23:46 Pulse Oximetry 100 06/08/23 23:46 Temperature 36.6 C 06/08/23 23:46 Pulse Rate 90 06/08/23 23:46 Respiratory Rate 15 06/08/23 23:46 Blood Pressure 145/88 H 06/08/23 23:46 Pulse Oximetry 100 06/08/23 23:46 Medical Decision Making MDM Narrative Medical decision making narrative: Differential diagnosis includes laboratory abnormality, UTI, substance abuse, Laboratory studies were obtained on the patient showed a normal CBC normal CMP urinalysis showed no evidence UTI salicylate acetaminophen were negative drug screen was negative except for cannabinoids ETOH was negative Patient is medically clear for psychiatric evaluation referral transfer and admission The patient was seen by crisis and was cleared for outpatient follow-up under safety plan Vital Signs Vital Signs: Vital Signs Temperature 36.6 C 06/08/23 23:46 Pulse Rate 90 06/08/23 23:46 Respiratory Rate 15 06/08/23 23:46 Blood Pressure 145/88 H 06/08/23 23:46 Pulse Oximetry 100 06/08/23 23:46 Temperature 36.6 C 06/08/23 23:46 Pulse Rate 90 06/08/23 23:46 Respiratory Rate 15 06/08/23 23:46 Blood Pressure 145/88 H 06/08/23 23:46 Pulse Oximetry 100 06/08/23 23:46 Lab Data 06/08/23 23:58 06/08/23 23:58 Labs: Lab Results 06/08/23 06/08/23 06/09/23 Range/Units 23:50 23:58 23:58 WBC 10.3 H (4.5-10.0) K/mm3 RBC 4.50 (4.2-5.4) M/mm3 Hgb 13.2 (12.0-15.0) g/dL Hct 40.5 (37.0-47.0) % MCV 90.0 (80-100) fl MCH 29.3 (26-34) pg MCHC 32.6 (32-36) g/dl RDW 13.3 (11.5-14.5) % Plt Count 272 D (150-375) k/mm3 MPV 12.3 H (7.4-10.4) fl Immature Gran % (Aut
[2023-06-09 00:52] LABS: Influenza A QL RT-PCR Negative (Negative); Influenza B QL RT-PCR Negative (Negative); RSV RNA, RT-PCR Negative (Negative); SARS-CoV-2 RNA PCR Negative (Negative)
--- NOTE | 2023-06-09 01:34 | PC.NURSE ---
Per EDP Dr. Verde the patient is medically cleared and we can call CRISIS
== END 2023-06-09 04:32 | disposition home or self-care (01) ==
PROVIDERS: Emergency Provider Emergency Medicine; PCP Family Medicine
DX: F32.A Depression, unspecified (principal); Z11.52 Encounter for screening for COVID-19
CPT/HCPCS: 36415; 80053; 80307; 81003; 81025; 84443; 85025; 87637; 99284

== ENCOUNTER 2023-09-09 19:57 | Emergency (ER) | payer OTHER, SELFPAY ==
--- NOTE | ~2023-09-09 | US_ITS ---
EXAMINATION: US OB <= 14 weeks fetus INDICATION: vaginal bleeding, TECHNIQUE: Sonography of the pelvis was performed by transabdominal techniques. COMPARISON: None. RESULT: Uterus: 7.6 x 4.2 x 4.9 cm. Anteverted. Somewhat heterogeneous endometrium measuring up to 17 mm. Angel ogenous myometrium. Intrauterine gestational sac: Not seen. Right ovary: 3.1 x 3.2 x 2.2 cm. Vascular flow is present. No adnexal mass. Left ovary: 3.0 x 1.8 x 1.9 cm. Vascular flow is present. No adnexal mass. Pelvis free fluid: None. IMPRESSION: No visible intrauterine gestational sac, which may be normal in early . Spontaneous and ectopic are not excluded. Serial beta hCGs are recommended. Ultrasound follow-up shoul d be considered as clinically indicated. Mildly thickened somewhat heterogeneous endometrium. Otherwise normal transabdominal pelvic ultrasound findings. Reviewed, dictated and finalized at location [facility]. [facility] [employer] IMPRESSION: No visible intrauterine gestational sac, which may be normal in early . Spontaneous and ectopic are not excluded. Serial beta hCGs are recommended. Ultrasound follow-up should be considered as clinically indic ated. Mildly thickened somewhat heterogeneous endometrium. Otherwise normal transabdominal pelvic ultrasound findings.
[2023-09-09 20:01] VITALS: BP 151/88; PULSE 99; RESP 14; TEMP 36.8; O2SAT 100
[2023-09-09 20:21] LABS: Basophils Absolute Auto 0.1 K/mm3 (0.0-0.1); Basophils Percent Auto 0.6 % (0.2-1.2); Eosinophils Absolute Auto 0.4 K/mm3 (0-0.3); Eosinophils Percent Auto 4.4 % (0-4.4); Hematocrit 36.7 % (37.0-47.0); Hemoglobin 11.9 g/dL (12.0-15.0); Immature Granulocyte Absolute 0.01 K/mm3 (0.00-0.031); Immature Granulocyte Percent A 0.1 % (0-0.5); Lymphocytes Absolute Auto 3.08 K/mm3 (0.9-3.2); Lymphocytes Percent Auto 38.9 % (18.3-44.2); Mean Corpuscular HGB Conc 32.4 g/dl (32-36); Mean Corpuscular Hemoglobin 29.6 pg (26-34); Mean Corpuscular Volume 91.3 fl (80-100); Mean Platelet Volume 12.5 fl (7.4-10.4); Monocytes Absolute Auto 0.7 K/mm3 (0.1-0.6); Monocytes Percent Auto 9.1 % (2.6-8.5); Neutrophils Absolute Auto 3.7 K/mm3 (1.3-6.7); Neutrophils Percent Auto 46.9 % (45.5-73.1); Platelet Count Result 249 k/mm3 (150-375); Red Blood Count 4.02 M/mm3 (4.2-5.4); White Blood Count 7.9 K/mm3 (4.5-10.0)
[2023-09-09 20:32] LABS: INR 1.1; Prothrombin Time 15.3 Seconds (11.1-14.7)
[2023-09-09 20:33] LABS: Partial Thromboplastin Time 30.2 SECONDS (22.3-36.8)
[2023-09-09 20:35] LABS: Alanine Aminotransferase 12 U/L (6-35); Albumin Level 4.4 g/dL (3.5-5.1); Alkaline Phosphatase 69 U/L (38-126); Anion Gap 8 mmol/L (8-16); Aspartate Amino Transferase 23 U/L (14-36); Bilirubin,Total 0.1 mg/dL (0.2-1.3); Blood Urea Nitrogen 12 mg/dL (7-17); Calcium 8.9 mg/dL (8.4-10.2); Carbon Dioxide 26 mmol/L (22-30); Chloride 103 mmol/L (98-107); Estimated CRCL calculation 124 ml/min; Estimated Glomerular Filt Rate > 60; Glucose 99 mg/dL (65-110); Potassium 3.6 mmol/L (3.4-5.0); Sodium 137 mmol/L (137-145)
[2023-09-09 20:48] LABS: Ovalocytes 1+ (NORMAL); Platelet Estimate Adequate (Adequate); Schistocytes None Seen (NORMAL)
[2023-09-09 23:22] VITALS: BP 145/93; PULSE 88; RESP 18; O2SAT 100
--- NOTE | 2023-09-10 00:23 | ED.FEMALEGU ---
HPI - Female Genitourinary General Chief complaint: Vaginal Bleeding Stated complaint: vaginal bleeding, approx 2 months preg Time Seen by Provider: 09/09/23 23:43 History of Present Illness HPI Narrative: Patient is a 23-year-old female who presents to the emergency department this evening due to vaginal bleeding. Patient states that today she noticed that she has been having some spotting, she denies heavy vaginal bleeding. Patient's last menstrual cycle and did approximately mid July of this according to patient. Patient is currently denying any abdominal pain or cramps. She denies any urinary symptoms including dysuria or hematuria. She is currently denying any nausea or vomiting, any headaches, lightheadedness, diarrhea, constipation, melena, hematochezia, fevers or chills. There are no other modifying, alleviating, or precipitating factors at this time. Related Data Home Medications Medication Instructions Recorded Confirmed sertraline 25 mg tablet mg 01/27/21 Allergies Allergy/AdvReac Type Severity Reaction Status Date / Time poison luna extract Allergy Unknown Unknown Verified 09/09/23 23:25 Review of Systems Review of Systems: All systems are reviewed and are negative unless stated otherwise in the HPI. [facility] Past Medical History Medical History Healthy female adult Surgical History Surgical History No pertinent past surgical history Social History Social History Alcohol intake: current Substance use: current Substance use type: marijuana Exam Narrative: General: Alert, awake, afebrile, in no acute distress. HEENT: PERRL, no rhinorrhea, no post nasal drip, oropharynx clear. Neck: Trachea midline, no JVD, no lymphadenopathy. Cardiovascular: Regular rate and rhythm, no murmurs, rubs or gallops, no peripheral edema. Respiratory: Clear to auscultation bilaterally, no tachypnea, no wheezing, no rhonchi, no rubs, no respiratory distress. Abdomen: Soft, nontender, nondistended, no rebound, no guarding, no peritoneal signs. Musculoskeletal: No joint swelling or deformity, normal muscle tone. Skin: No rashes or petechia, no signs of infection. Psychiatric: Alert and oriented, normal behavior and judgment for situation. Neurological: Alert and oriented to person, place, and time. Follows all commands. No focal deficits, speech is clear and fluent. Course Vital Signs Vital signs: Vital Signs Temperature 98.3 F 09/09/23 20:01 Pulse Rate 99 09/09/23 20:01 Respiratory Rate 14 09/09/23 20:01 Blood Pressure 151/88 H 09/09/23 20:01 Pulse Oximetry 100 09/09/23 20:01 Oxygen Delivery Room Air 09/09/23 20:01 Temperature 98.3 F 09/09/23 20:01 Pulse Rate 88 09/09/23 23:22 Respiratory Rate 18 09/09/23 23:22 Blood Pressure 145/93 H 09/09/23 23:22 Pulse Oximetry 100 09/09/23 23:22 Oxygen Delivery Room Air 09/09/23 20:01 MDM - Female Genitourinary MDM Narrative Medical decision making narrative: The patient was evaluated by myself in the emergency department. History is obtained from patient who is an independent historian and physical exam was performed. External medical records were reviewed at this time. IV was established and pertinent tests were ordered. Laboratory results obtained revealing no acute process. Patient's beta hCG level was noted to be 1048. Patient was informed that this level needs to be repeated in 48 hours and patient is agreeable. Imaging studies obtained included a pelvic ultrasound which was independently interpreted by me revealing no visualized gestational sac which is likely due to early gestation, which is pending final radiology interpretation. Differential diagnosis considerations include brand miscarriage versus normal 1st trimester bleeding. [place]
== END 2023-09-10 00:51 | disposition home or self-care (01) ==
PROVIDERS: Emergency Provider Emergency Medicine; PCP Family Medicine
DX: O20.0 Threatened abortion (principal); Z3A.01 Less than 8 weeks gestation of pregnancy
CPT/HCPCS: 36415; 76801; 80053; 81025; 84702; 85025; 85461; 85610; 85730; 86850; 86900; 86901; 99284

== ENCOUNTER 2023-09-12 03:47 | Emergency (ER) | payer OTHER, SELFPAY ==
[2023-09-12 03:55] VITALS: BP 140/80; PULSE 102; RESP 17; TEMP 36.1; O2SAT 100
[2023-09-12 04:01] LABS: Basophils Percent Auto 0.3 % (0.2-1.2); Eosinophils Absolute Auto 0.3 K/mm3 (0-0.3); Eosinophils Percent Auto 1.9 % (0-4.4); Hematocrit 41.3 % (37.0-47.0); Hemoglobin 13.5 g/dL (12.0-15.0); Immature Granulocyte Absolute 0.07 K/mm3 (0.00-0.031); Immature Granulocyte Percent A 0.4 % (0-0.5); Lymphocytes Absolute Auto 2.67 K/mm3 (0.9-3.2); Lymphocytes Percent Auto 17.1 % (18.3-44.2); Mean Corpuscular HGB Conc 32.7 g/dl (32-36); Mean Corpuscular Hemoglobin 29.6 pg (26-34); Mean Corpuscular Volume 90.6 fl (80-100); Mean Platelet Volume 12.5 fl (7.4-10.4); Monocytes Absolute Auto 0.9 K/mm3 (0.1-0.6); Monocytes Percent Auto 5.8 % (2.6-8.5); Neutrophils Absolute Auto 11.7 K/mm3 (1.3-6.7); Neutrophils Percent Auto 74.5 % (45.5-73.1); Platelet Count Result 264 k/mm3 (150-375); Red Blood Count 4.56 M/mm3 (4.2-5.4); Red Cell Distribution Width 13.8 % (11.5-14.5); White Blood Count 15.6 K/mm3 (4.5-10.0)
[2023-09-12 04:12] LABS: Alanine Aminotransferase 16 U/L (6-35); Albumin Level 4.8 g/dL (3.5-5.1); Alkaline Phosphatase 69 U/L (38-126); Anion Gap 8 mmol/L (8-16); Aspartate Amino Transferase 29 U/L (14-36); Bilirubin,Total 0.8 mg/dL (0.2-1.3); Blood Urea Nitrogen 11 mg/dL (7-17); Calcium 9.4 mg/dL (8.4-10.2); Carbon Dioxide 27 mmol/L (22-30); Chloride 101 mmol/L (98-107); Estimated CRCL calculation 124 ml/min; Estimated Glomerular Filt Rate > 60; Glucose 132 mg/dL (65-110); Lipase 896 U/L (23-300); Potassium 3.4 mmol/L (3.4-5.0); Sodium 136 mmol/L (137-145)
[2023-09-12 04:15] LABS: Hypochromasia 1+ (NORMAL); Platelet Estimate Adequate (Adequate)
[2023-09-12 04:16] LABS: Schistocytes None Seen (NORMAL)
[2023-09-12] MEDS: SODIUM CHLORIDE 0.9% IV 1,000 ML 999 ML IV CONT (04:29)
[2023-09-12] MEDS: ONDANSETRON INJ 4 MG/2 ML VIAL IV PUSH (04:29)
[2023-09-12 04:37] LABS: Influenza A QL RT-PCR Negative (Negative); Influenza B QL RT-PCR Negative (Negative); RSV RNA, RT-PCR Negative (Negative); SARS-CoV-2 RNA PCR Negative (Negative)
[2023-09-12 05:06] VITALS: BP 116/74; PULSE 88; RESP 16; O2SAT 99
[2023-09-12 05:39] LABS: SPREG INTERNAL CONTROL Positive; Serum Qual hCG Positive
[2023-09-12 05:58] LABS: Appearance Urine Clear (Clear); Bacteria Urine 1+ /hpf; Bilirubin Urine Negative (Negative); Blood Urine Negative (Negative); Color Urine Yellow (Yellow); Glucose Urine UA Negative (Negative); Ketones Urine 2+ mg/dL (Negative); Leukocyte Esterase Ur Negative LEU/UL (Negative); Nitrate Urine Negative (Negative); Protein Urine 1+ mg/dL (Negative); RBC Urine 0-2 /hpf (0-2); Specific Grav Ur 1.023 (1.001-1.035); Squamous Epithelial Cell Urine Few /hpf (Few); WBC Urine 0-5 /hpf; pH Urine 6.5 (5.0-9.0)
[2023-09-12 05:59] LABS: Add Urine Microscopic? YES
--- NOTE | 2023-09-12 06:27 | ED.GENADULT ---
HPI - General Adult General Chief complaint: Nausea/Vomiting/Diarrhea Stated complaint: n/v/d, Time Seen by Provider: 09/12/23 04:08 History of Present Illness HPI narrative: Patient is a 23-year-old female who presents to the emergency department this evening complaining of nausea, vomiting and diarrhea. Patient was seen in our facility 2 nights ago for threatened miscarriage. Patient states that she is and unsure how far along she is. Last menstrual period ended on July. Two days ago patient started having mild vaginal bleeding and spotting. Rh positive. Her beta-hCG was 1048 and she was instructed to return in 48 hours for repeat beta-hCG. Patient states that since then she has not bled much but this morning she started having some vaginal bleeding again. She denies any dysuria or hematuria, constipation, diarrhea, melena, hematochezia, fevers or chills. Patient is also denying any abdominal pain. There are no other modifying, alleviating, or precipitating factors at this. Related Data Home Medications Medication Instructions Recorded Confirmed sertraline 25 mg tablet mg 01/27/21 Allergies Allergy/AdvReac Type Severity Reaction Status Date / Time poison luna extract Allergy Unknown Unknown Verified 09/12/23 03:47 Review of Systems Review of Systems: All systems are reviewed and are negative unless stated otherwise in the HPI. [facility] Past Medical History Medical History Healthy female adult Surgical History Surgical History No pertinent past surgical history Social History Social History Alcohol intake: current Substance use: current Substance use type: marijuana Exam Narrative: General: Alert, awake, afebrile, in no acute distress. HEENT: PERRL, no rhinorrhea, no post nasal drip, oropharynx clear. Neck: Trachea midline, no JVD, no lymphadenopathy. Cardiovascular: Regular rate and rhythm, no murmurs, rubs or gallops, no peripheral edema. Respiratory: Clear to auscultation bilaterally, no tachypnea, no wheezing, no rhonchi, no rubs, no respiratory distress. Abdomen: Soft, nontender, nondistended, no rebound, no guarding, no peritoneal signs. Musculoskeletal: No joint swelling or deformity, normal muscle tone. Skin: No rashes or petechia, no signs of infection. Psychiatric: Alert and oriented, normal behavior and judgment for situation. Neurological: Alert and oriented to person, place, and time. Follows all commands. No focal deficits, speech is clear and fluent. Course Vital Signs Vital signs: Vital Signs Temperature 97.0 F L 09/12/23 03:55 Pulse Rate 102 H 09/12/23 03:55 Respiratory Rate 17 09/12/23 03:55 Blood Pressure 140/80 09/12/23 03:55 Pulse Oximetry 100 09/12/23 03:55 Oxygen Delivery Room Air 09/12/23 03:55 Temperature 97.0 F L 09/12/23 03:55 Pulse Rate 88 09/12/23 05:06 Respiratory Rate 16 09/12/23 05:06 Blood Pressure 116/74 09/12/23 05:06 Pulse Oximetry 99 09/12/23 05:06 Oxygen Delivery Room Air 09/12/23 03:55 Medical Decision Making MDM Narrative Medical decision making narrative: The patient was evaluated by myself in the emergency department. History is obtained from patient who is an independent historian and physical exam was performed. External medical records were reviewed at this time. IV was established and pertinent tests were ordered. Patient was administered a 1 L IV fluid bolus with normal saline and 4 mg IV Zofran for nausea and vomiting. Laboratory results obtained revealing a leukocytosis of 15, likely reactive. Repeat beta-hCG noted to be 1188. Patient's lipase was elevated at 896 your patient denies any history of pancreatitis and is currently denying any pain, specifically any left upper quadrant abdominal pain. [place]bert
[2023-09-12 06:54] VITALS: BP 134/88; PULSE 76; RESP 15; O2SAT 100
== END 2023-09-12 06:55 | disposition home or self-care (01) ==
PROVIDERS: Emergency Provider Emergency Medicine; PCP Family Medicine
DX: O20.0 Threatened abortion (principal); O21.9 Vomiting of pregnancy, unspecified; O99.119 Other diseases of the blood and blood-forming organs and certain disorders involving the immune mechanism complicating pregnancy, unspecified trimester; D72.829 Elevated white blood cell count, unspecified; O26.899 Other specified pregnancy related conditions, unspecified trimester; R19.7 Diarrhea, unspecified; R74.8 Abnormal levels of other serum enzymes; Z20.822 Contact with and (suspected) exposure to COVID-19; Z3A.00 Weeks of gestation of pregnancy not specified
CPT/HCPCS: 36415; 80053; 81001; 83690; 84702; 84703; 85025; 87637; 96361; 96374; 99284; J2405; J7030

== ENCOUNTER 2023-09-30 07:52 | Emergency (ER) | payer OTHER, SELFPAY ==
--- NOTE | ~2023-09-30 | US_ITS ---
EXAMINATION: US OB <=14 wk fetus w TV DATE: 09/30/2023 10:24 INDICATION: Vaginal bleeding. . Beta-hCG is 4172 mIU/mL. TECHNIQUE: Real-time transabdominal and transvaginal pelvic ultrasound was performed. COMPARISON: Ultrasound 09/09/2023 FINDINGS: TRANSABDOMINAL ULTRASOUND: The uterus measures 8.6 x 4.4 x 5.1 cm. TRANSVAGINAL ULTRASOUND: There is no visible intrauterine gestational sac. The endometrial complex me asures 2.2 cm in thickness. The right ovary measures 2.9 x 2.7 x 2.1 cm. The left ovary measures 3.0 x 1.6 x 2.0 cm. There is physiologic free fluid in the pelvis. IMPRESSION: 1. No visible intrauterine gestational sac. The beta-hCG level is suspicious for spontaneous abortio n or ectopic . Reviewed, dictated and finalized at location E. IMPRESSION: 1. No visible intrauterine gestational sac. The beta-hCG level is suspicious f or spontaneous or ectopic .
[2023-09-30 08:00] VITALS: BP 133/98; PULSE 88; RESP 16; TEMP 36.9; O2SAT 97
[2023-09-30 08:53] LABS: Basophils Absolute Auto 0.1 K/mm3 (0.0-0.1); Basophils Percent Auto 0.5 % (0.2-1.2); Eosinophils Absolute Auto 0.3 K/mm3 (0-0.3); Eosinophils Percent Auto 2.9 % (0-4.4); Hemoglobin 13.4 g/dL (12.0-15.0); Immature Granulocyte Absolute 0.03 K/mm3 (0.00-0.031); Immature Granulocyte Percent A 0.3 % (0-0.5); Lymphocytes Percent Auto 30.1 % (18.3-44.2); Mean Corpuscular HGB Conc 31.9 g/dl (32-36); Mean Corpuscular Hemoglobin 29.1 pg (26-34); Mean Corpuscular Volume 91.3 fl (80-100); Mean Platelet Volume 12.2 fl (7.4-10.4); Monocytes Absolute Auto 0.8 K/mm3 (0.1-0.6); Monocytes Percent Auto 8.1 % (2.6-8.5); Neutrophils Absolute Auto 5.4 K/mm3 (1.3-6.7); Neutrophils Percent Auto 58.1 % (45.5-73.1); Platelet Count Result 309 k/mm3 (150-375); Red Cell Distribution Width 13.6 % (11.5-14.5); White Blood Count 9.3 K/mm3 (4.5-10.0)
[2023-09-30 09:04] LABS: INR 1.1; Prothrombin Time 14.3 Seconds (11.1-14.7)
[2023-09-30 09:07] LABS: Alanine Aminotransferase 12 U/L (6-35); Albumin Level 4.5 g/dL (3.5-5.1); Alkaline Phosphatase 57 U/L (38-126); Anion Gap 5 mmol/L (8-16); Aspartate Amino Transferase 22 U/L (14-36); Bilirubin,Total 0.4 mg/dL (0.2-1.3); Blood Urea Nitrogen 6 mg/dL (7-17); Calcium 9.6 mg/dL (8.4-10.2); Carbon Dioxide 30 mmol/L (22-30); Chloride 103 mmol/L (98-107); Estimated CRCL calculation 146 ml/min; Estimated Glomerular Filt Rate > 60; Glucose 93 mg/dL (65-110); Potassium 3.6 mmol/L (3.4-5.0); Sodium 138 mmol/L (137-145)
--- NOTE | 2023-09-30 11:01 | ED.FEMALEGU ---
HPI - Female Genitourinary General Chief complaint: Vaginal Bleeding Stated complaint: MISCARRIED Time Seen by Provider: 09/30/23 07:59 Source: patient Mode of arrival: ambulatory Limitations: no limitations History of Present Illness HPI Narrative: 23-year-old 1 para 0 about 6 weeks of gestation here with complaints of having vaginal bleeding which is been on and off for past few days. She was told that she may be miscarrying. However this morning she stated that she used the bathroom couple times passed tarsha blood clots , She does has mild lower abdominal pain . pt states she has multiple OB doctor inthe last few days and is scheduled to see tomorrow again. MD elicited complaint: possible miscarriage Onset (ago): day(s) (1) Severity: moderate Quality of pain: dull Vaginal discharge: none Vaginal bleeding: moderate Relieving factors: none Associated symptoms: denies other symptoms Treatment prior to arrival: none Patient : Yes Related Data : 1 Para: 0 Home Medications Medication Instructions Recorded Confirmed sertraline 25 mg tablet mg 01/27/21 Allergies Allergy/AdvReac Type Severity Reaction Status Date / Time poison luna extract Allergy Unknown Unknown Verified 09/30/23 08:10 Review of Systems Review of Systems: All systems reviewed & are unremarkable except as noted in HPI and below Constitutional: Constitutional: Reports no additional constitutional complaints Eyes: Eyes: Reports no additional eye complaints ENT: Reports system reviewed and no additional complaints, except as documented Cardiovascular: Cardiovascular: Reports no additional cardiovascular complaints Respiratory: Respiratory: Reports no additional respiratory complaints Gastrointestinal: Gastrointestinal: Reports as per HPI Neurologic: Reports system reviewed and no additional complaints, except as documented PMFSH Past Medical History Medical History Healthy female adult Surgical History Surgical History No pertinent past surgical history Social History Social History Alcohol intake: current Substance use: current Substance use type: marijuana Exam Narrative: GENERAL: Well-appearing, well-nourished, and in no acute distress. HEAD: Normocephalic, atraumatic. EYES: PERRLA and EOMI. ENT: Nares clear, no rhinorrhea or epistaxis. Mucous membranes moist. NECK: Supple. CHEST: Clear to auscultation. No respiratory distress. HEART: Regular rate and rhythm. No murmur heard. Normal peripheral pulses. ABDOMEN: Soft, nontender, nondistended, normal active bowel sounds. EXTREMITIES: Normal range of motion. No edema. SKIN: Warm, dry, no rash. NEURO: No focal deficits. Alert and oriented x3. PSYCH: Normal mood and affect. Course Course Emergency Course: Patient states the bleeding has not subsided. I did inform her about the lab work, ultrasound findings. I advised her to drink more fluids take Tylenol or ibuprofen for pain. Follow up with her OBGYN tomorrow as scheduled. Vital Signs Vital signs: Vital Signs Temperature 36.9 C 09/30/23 08:00 Pulse Rate 88 09/30/23 08:00 Respiratory Rate 16 09/30/23 08:00 Blood Pressure 133/98 H 09/30/23 08:00 Pulse Oximetry 97 09/30/23 08:00 Oxygen Delivery Room Air 09/30/23 08:00 Temperature 36.9 C 09/30/23 08:00 Pulse Rate 88 09/30/23 08:00 Respiratory Rate 16 09/30/23 08:00 Blood Pressure 133/98 H 09/30/23 08:00 Pulse Oximetry 97 09/30/23 08:00 Oxygen Delivery Room Air 09/30/23 08:00 MDM - Female Genitourinary Differential Diagnosis Differential diagnosis: Likely other (Miscarriage) Lab Data Attestation: I reviewed the patient's lab results. 09/30/23 08:42 09/30/23 08:42 Labs: Lab Results 09/30/23 Range/Uni
== END 2023-09-30 11:14 | disposition home or self-care (01) ==
PROVIDERS: Emergency Provider Family Medicine; PCP Family Medicine
DX: O03.9 Complete or unspecified spontaneous abortion without complication (principal)
CPT/HCPCS: 36415; 76801; 76817; 80053; 84702; 85025; 85461; 85610; 86850; 86900; 86901; 99284

== ENCOUNTER 2023-10-15 08:33 | Emergency (ER) | payer OTHER, SELFPAY ==
[2023-10-15] VITALS (23 sets, daily range): BP systolic 91–129; BP diastolic 52–74; PULSE 66–95; RESP 16–32; TEMP 36.6; O2SAT 100
--- NOTE | ~2023-10-15 | XR_ITS ---
EXAMINATION: XR chest 2V DATE: 10/15/2023 09:43 INDICATION: Syncope. TECHNIQUE: Frontal and lateral views of the chest were obtained on 3 radiographs. COMPARISON: None. FINDINGS: There is no pneumonia, pleural effusion, or pneumothorax. The heart size is normal. IMPRESSION: 1. No acute cardiopulmonary disease. Reviewed, dictated and finalized at location A.
--- NOTE | ~2023-10-15 | CT_ITS ---
Non-contrast Head CT History: Syncope Technique: Axial non-contrast imaging of the brain was performed. Dose reduction technique was used on this scan by utilizing automated exposure control and iterative reconstruction technique. The dose -length product (DLP) was 605.33 mGy-cm. Findings: There is no evidence of intracranial hemorrhage, mass lesion, or acute infarct. Brain par enchyma appears normal. The ventricles and subarachnoid spaces are normal in size. The calvarium ap pears normal. The visualized paranasal sinuses and mastoid air cells are clear. Impression: No significant abnormality seen. Reviewed, dictated and finalized at location . Impression: No significant abnormality seen.
--- NOTE | ~2023-10-15 | CT_ITS ---
Noncontrast CT scan of the cervical spine Technique: Multiple contiguous axial [address] images of the cervical spine were obtained and rec onstructed in 2D sagittal and coronal planes on the acquisition scanner. Dose reduction technique was used on this scan by utilizing automated exposure control, adjustment of the mA and/or kV according to patient size. The dose-length product (DLP) was 205.58 mGy-cm. Clinical History: Pain Findings: No fractures or dislocations. Unremarkable visualized bony structures. The intervertebral disc spaces are preserved. No prevertebral soft tissue swelling. Impression: No fracture or subluxation of the cervical spine. Reviewed, dictated and finalized at location . Impression: No fracture or subluxation of the cervical spine.
--- NOTE | 2023-10-15 08:45 | ECG_ITS ---
Measurements Intervals [place] Rate: 69 P: -10 MI: 1160 QRS: 24 QRSD: 80 T: 20 QT: 428 Avg RR 869 QTc: 446 QTcB 459 QTcF 448 Interpretive Statements SINUS RHYTHM WITH SHORT MI INTERVAL BORDERLINE ECG SEE SCANNED COPY FOR SIGNATURE MTDD
[2023-10-15 08:58] LABS: Basophils Percent Auto 0.5 % (0.2-1.2); Eosinophils Absolute Auto 0.1 K/mm3 (0-0.3); Eosinophils Percent Auto 1.2 % (0-4.4); Hematocrit 39.8 % (37.0-47.0); Hemoglobin 12.8 g/dL (12.0-15.0); Immature Granulocyte Absolute 0.02 K/mm3 (0.00-0.031); Immature Granulocyte Percent A 0.3 % (0-0.5); Lymphocytes Percent Auto 18.5 % (18.3-44.2); Mean Corpuscular HGB Conc 32.2 g/dl (32-36); Mean Corpuscular Hemoglobin 28.6 pg (26-34); Mean Corpuscular Volume 88.8 fl (80-100); Mean Platelet Volume 12.5 fl (7.4-10.4); Monocytes Absolute Auto 0.4 K/mm3 (0.1-0.6); Monocytes Percent Auto 5.7 % (2.6-8.5); Neutrophils Absolute Auto 5.6 K/mm3 (1.3-6.7); Neutrophils Percent Auto 73.8 % (45.5-73.1); Platelet Count Result 306 k/mm3 (150-375); Red Blood Count 4.48 M/mm3 (4.2-5.4); Red Cell Distribution Width 13.8 % (11.5-14.5); White Blood Count 7.6 K/mm3 (4.5-10.0)
--- NOTE | 2023-10-15 08:59 | ED.SYNCOPE ---
HPI - Syncope General Chief Complaint: Syncope Stated Complaint: syncopal Time Seen by Provider: 10/15/23 08:58 Source: patient Mode of arrival: ambulatory Limitations: no limitations History of Present Illness HPI narrative: Maximiliano is a 23-year-old female patient presenting to the emergency room today with complaints of syncopal episode. EMS was called to the scene at [facility] for a 23-year-old female patient had a syncopal episode. States that the syncopal episode was witnessed by staff. Patient passed out fell and hit her head-positive LOC. Is at [facility] for fentanyl use. Last use of fentanyl was 3 days ago per patient/staff. Denies headache or neck pain at this time. Is conscious oriented x4 at the time of my exam. Reports she has had 1 seizure before. Does not take any some antiseizure medicines. Patient is in the process of miscarrying and is using 1-2 tampons per day. Blood sugar was 118 for EMS. BP was initially 106/59 with a heart rate of 67 Related Data Home Medications Medication Instructions Recorded Confirmed sertraline 25 mg tablet mg 01/27/21 Allergies Allergy/AdvReac Type Severity Reaction Status Date / Time poison luna extract Allergy Unknown Unknown Verified 10/15/23 08:41 Review of Systems Review of Systems: Pertinent positives per HPI. Patient denies any fever, chills, rash, headache, visual changes, dizziness, cough, runny nose, sore throat, shortness of breath, chest pain, palpitations, nausea, vomiting, diarrhea, constipation, abdominal pain, or any urinary issues. PMFSH Past Medical History Medical History Healthy female adult Surgical History Surgical History No pertinent past surgical history Social History Social History Alcohol intake: current Substance use: current Substance use type: marijuana Comments At the time of my signature, I reviewed and agree with the nursing past medical, surgical, social, and family history. There is no relevant family history pertinent to the patient complaint. Exam Narrative: General: Well-developed, well nourished, in no apparent distress Head: Normocephalic, atraumatic Eyes: Pupils equally round and reactive to light bilaterally, EOM intact, sclera and conjunctive clear, no discharge, lids normal Ears: TMs intact and clear, ear canals clear, no drainage, grossly hearing normal. Nose: Nares patent, no discharge, no inflammation, no sinus tenderness. Mouth: Oropharynx without lesions or masses, good dentition, MMM. Tongue midline, even rise and fall of uvula Neck: Supple, trachea midline, no enlargement of anterior or posterior cervical nodes, no thyroid masses or goiter palpable. Cardio: Regular rate and rhythm, s1 and s2 normal, no murmur appreciated. Resp: Clear to auscultation bilaterally anteriorly and posteriorly, no rhonchi, rales, wheezing or rubs Musculoskeletal: No deformity, non-tender to palpation, grossly normal range of motion, muscle strength strong and equal, peripheral pulse strong, no edema, no cyanosis Neuro: Alert and oriented x4 with normal speech, no focal deficits, cranial nerves I through XII intact, muscle strength 5 out of 5, sensation intact bilaterally Course Course Emergency Course: Portions of this record may have been created with voice recognition software. Vital Signs Vital signs: Vital Signs Temperature 36.6 C 10/15/23 08:33 Pulse Rate 67 10/15/23 08:33 Respiratory Rate 20 10/15/23 08:33 Blood Pressure 106/59 L 10/15/23 08:33 Pulse Oximetry 100 10/15/23 08:33 Oxygen Delivery Room Air 10/15/23 08:33 Temperature 36.6 C 10/15/23 08:33 Pulse Rate 80 10/15/23 11:15 Respiratory Rate 20 10/15/23 11:15 Blood Pressure 111/57 L 10/15/23 10:30 Pulse Oximetry 100 10/15/23 1
[2023-10-15] MEDS: SODIUM CHLORIDE 0.9% IV 1,000 ML 999 ML IV CONT (09:14)
[2023-10-15 09:16] LABS: Alanine Aminotransferase 15 U/L (6-35); Albumin Level 4.9 g/dL (3.5-5.1); Alkaline Phosphatase 77 U/L (38-126); Anion Gap 6 mmol/L (4-12); Aspartate Amino Transferase 24 U/L (14-36); Bilirubin,Total 0.7 mg/dL (0.2-1.3); Blood Urea Nitrogen 18 mg/dL (7-17); Carbon Dioxide 28 mmol/L (22-30); Chloride 104 mmol/L (98-107); Estimated CRCL calculation 108 ml/min; Estimated Glomerular Filt Rate > 60; Glucose 100 mg/dL (65-110); Sodium 138 mmol/L (137-145)
[2023-10-15 09:56] LABS: Creatine Kinase 61 U/L (30-135)
[2023-10-15 10:10] LABS: Troponin I < 0.012 ng/mL (0.000-0.034)
[2023-10-15 11:16] LABS: Appearance Urine Clear (Clear); Bacteria Urine None Seen /hpf; Bilirubin Urine Negative (Negative); Blood Urine Negative (Negative); Color Urine Dark Yellow (Yellow); Glucose Urine UA Negative (Negative); Ketones Urine 1+ mg/dL (Negative); Leukocyte Esterase Ur Negative LEU/UL (Negative); Mucus Urine Present /lpf; Need Manual Microscopic Reviewed; Nitrate Urine Negative (Negative); Non Pathogenic Casts 0-2; Protein Urine Trace mg/dL (Negative); RBC Urine 0-2 /hpf (0-2); Squamous Epithelial Cell Urine Occasional /hpf (Few); WBC Urine 0-5 /hpf (0-3)
[2023-10-15 11:20] LABS: Amphetamine Screen Urine Negative (Negative); Barbiturate Screen Urine Negative (Negative); Benzodiazepines Screen Urine Positive (Negative); Cannabinoid Screen Urine Positive (Negative); Cocaine Screen Urine Positive (Negative); Methadone Screen Urine Negative (Negative); Opiate Screen Urine Negative (Negative); Phencyclidine Screen Urine Negative (Negative)
[2023-10-15 11:22] LABS: Add Urine Microscopic? YES
== END 2023-10-15 11:48 | disposition home or self-care (01) ==
PROVIDERS: Emergency Medicine; Emergency Provider Nurse Practitioner Family; PCP Family Medicine
DX: R55 Syncope and collapse (principal); F19.10 Other psychoactive substance abuse, uncomplicated
CPT/HCPCS: 36415; 70450; 71046; 72125; 80053; 80307; 81001; 81025; 82550; 84484; 85025; 93005; 96360; 99284; J7030

== ENCOUNTER 2025-03-13 09:15 | Emergency (ER) | payer OTHER, SELFPAY ==
--- OUTSIDE RECORDS SUMMARY | 2024-05-24 10:20 | XMS_ITS ---
Author Organization Pending sale to [facility] Address [address] [place] [address] Care Team Providers Care Senior Administrative Support Name Role Phone Arelis Paz Primary Care Provider [phone] Sherlyn Philip Unavailable [phone] REASON FOR VISIT transfer from Social History Sex Assigned At : Social History Observation Description Sex Assigned At Female Encounters Encounter Location Date Provider Diagnosis [address] [place] [address] 05/24/2024 Sherlyn Philip Plan Of Treatment No Information Progress Notes * Misha GARZAisDOB:2000 (25 yo F)Acc No.[id number]:05/24/2024 UNLOCKED PROGRESS NOTE Patient: Maximiliano ROGERS Provider: Anders Philip DNP, APRN, PIPE COVERER AND INSULATOR-C :2000 A ge:24 Y S ex:Female Date:05/24/2024 Address:[address] [place], [place] [address] Pcp:Arelis Paz Subjective: * Chief Complaints: * 1 . transfer from . * Medical History: Objective: * Vitals: Assessment: Plan: * Treatment: * * Electronic signature of Familia Philip [id number] on 03/13/2025 at 09:20 AM CDT Sign off status: Pending * Provider: Anders Philip DNP FIRER TUNNEL KILN, PIPE COVERER AND INSULATOR-C Date: 1 07/24/2023 Generated for Printing/Faxing/eTransmitting on: 0 03/13/2025 09:20 AM CDT
--- OUTSIDE RECORDS SUMMARY | 2024-06-08 10:40 | XMS_ITS ---
Author Organization [facility] Address [address] [place] [address] Care Team Providers Care Integrated Circuit Design Engineer Name Role Phone Arelis Paz Primary Care Provider Sherlyn Philip Unavailable [phone] Allergies Allergen (clinical drug ingredient) Drug/Non Drug Allergy documented on EMR Reaction Allergy Type Onset Date Status No Known Drug Allergy Unknown Drug Allergy Active No Known Food Allergy Unknown Drug Allergy Active REASON FOR VISIT Transfer from [facility] Medications Medication SIG (Take, Route, Frequency, Duration) [...] Female Encounters Encounter Location Date Provider Diagnosis [facility] [address], [place] [address] 06/08/2024 Sherlyn Philip Plan Of Treatment No Information Progress Notes * Misha GARZAisDOB:2000 (25 yo F)Acc No.[id number]:06/08/2024 UNLOCKED PROGRESS NOTE Patient: Thom Maximiliano LE Provider: Anders Philip DNP, APRN, FNP-C :2000 A ge:24 Y S ex:Female Date:06/08/2024 Address:[address] [place] [address] [facility] Pcp:Arelis Paz Subjective: * Chief Complaints: * 1 . Transfer from [facility]. 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 * Medications: T aking OLANZapine 15 MG [...] * Electronic signature of Familia Philip , [id number] on 03/13/2025 at 09:20 AM CDT Sign off status: Pending * Provider: Anders Philip DNP, APRN, LOURDES Date: 08/09/2023 Generated for Printing/Faxing/eTransmitting on: 0 03/13/2025 09:20 AM CDT
[2025-03-13] VITALS (17 sets, daily range): BP systolic 129–140; BP diastolic 74–95; PULSE 0–104; RESP 13–22; TEMP 36.9; O2SAT 95–100
--- OUTSIDE RECORDS SUMMARY | 2025-03-13 09:19 | XMS_ITS | Encounter Summary ---
Author Organization [employer] Address 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
--- OUTSIDE RECORDS SUMMARY | 2025-03-13 09:19 | XMS_ITS | Encounter Summary ---
Author Organization [facility] Address [address] [place] [address] Care Team Providers Care Supervisor Soakers Name Role Phone Unavailable Primary Care Provider Unavailabl e Encounter Details Date Type Department Care Team (Late st Contact Info) Description 1999 Outpatient Historical [facility] [address] [facility] [address] [address] Herberth No MD NO ADDRESS ON FILE Social History Tobacco Use Types Packs/Day Years Used Date Smoking Tobacco: Never Assessed Comments Unknown Sex and Gender Information Value Date Recorded Sex Assigned at Not on file Legal Sex Female 2:38 AM TISSUE REWINDER Gender Identity Not on file Sexual Orientation Not on file documented as of this encounter Plan of Treatment Not on file documented as of this encounter Visit Diagnoses Not on filedocumented in this encounter
--- OUTSIDE RECORDS SUMMARY | 2025-03-13 09:19 | XMS_ITS | Encounter Summary ---
Author Organization [facility] Address [address] [place] [address] Care Team Providers Care Pricing Strategist Name Role Phone Jaleesa Zarco MD Primary Care Provider [phone] Encounter Details Date Type Department Care Team (Late st Contact Info) Description 10/13/2023 [employer] Message Enc [facility] Family & Internal Medicine [address] [address] [place], [facility] Provider OBGYN Social History Tobacco Use Types Packs/Day Years Used Date Smoking Tobacco: Never Smokeless Tobacco: Current Comments:vape Alcohol Use Standard Drinks/Week Comments Not Currently 11.7 (1 standard drink = 0.6 oz pure alcohol) once a month PHQ-2 Answer Date Recorded Patient Health Questionnaire-2 Score 4 11/22/2022 Comments Yes Sex and Gender Information Value Date Recorded Sex Assigned at Not on file Legal Sex Female 3:12 PM ACTIVITIES LEADER Gender Identity Female 06/26/2022 6:10 AM ACTIVITIES LEADER Sexual Orientation Not on file documented as of this encounter Plan of Treatment Not on file documented as of this encounter Visit Diagnoses Not on filedocumented in this encounter Additional Health Concerns Assessment Noted Time PHQ-9 Depression Total Score: 12 023 11:16 AM CDT documented as of this encounter Care Teams Pricing Strategist Relationship Specialty Start Date End Date J[place]esa Zar[place] [id number] [place] [address]. [address] [place] [address] PCP - General FAMILY PRACTICE 06/10/22 documented as of this encounter
--- OUTSIDE RECORDS SUMMARY | 2025-03-13 09:19 | XMS_ITS | Encounter Summary ---
Author Organization [employer] Address [address] [place] [address] Care Team Providers Care Kier Operator Name Role Phone Unavailable Primary Care Provider Unavailabl e Encounter Details Date Type Department Care Team (Late st Contact Info) Description 1999 Outpatient Historical [facility] JoséDenton MD [address] [place] [address] Nausea with vomiting (Primary Dx) Social History Tobacco Use Types Packs/Day Years Used Date Smoking Tobacco: Never Assessed Comments Unknown Sex and Gender Information Value Date Recorded Sex Assigned at Not on file Legal Sex Female 2:38 AM ENVIRONMENTAL SOLUTIONS ENGINEER Gender Identity Not on file Sexual Orientation Not on file documented as of this encounter Plan of Treatment Not on file documented as of this encounter Visit Diagnoses Diagnosis Nausea with vomiting- Primary documented in this encounter
--- OUTSIDE RECORDS SUMMARY | 2025-03-13 09:19 | XMS_ITS | Encounter Summary ---
Author Organization [facility] Address [address] [place] [address] Care Team Providers Care Gauge Controller Name Role Phone Unavailable Primary Care Provider Unavailabl e Encounter Details Date Type Department Care Team (Late st Contact Info) Description 1999 Outpatient Historical [facility] [address] [facility] [address] [address] Herberth No MD NO ADDRESS ON FILE Social History Tobacco Use Types Packs/Day Years Used Date Smoking Tobacco: Never Assessed Comments Unknown Sex and Gender Information Value Date Recorded Sex Assigned at Not on file Legal Sex Female 2:38 AM DRAW FURNACE 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
--- OUTSIDE RECORDS SUMMARY | 2025-03-13 09:19 | XMS_ITS | Encounter Summary ---
Author Organization [employer] Address [address] [place] [address] Care Team Providers Care Doweler Name Role Phone Unavailable Primary Care Provider [...] on file Legal Sex Female 2:38 AM ONCOLOGY RN Gender Identity Not on file Sexual Orientation Not on file documented as of this encounter Plan of Treatment Not on file documented as of this encounter Visit Diagnoses Not on filedocumented in this encounter
--- OUTSIDE RECORDS SUMMARY | 2025-03-13 09:19 | XMS_ITS | Encounter Summary ---
Author Organization [facility] Address [address] [place] [address] Care Team Providers Care Escort Blind Name Role Phone Unavailable Primary Care Provider Unavailabl e Encounter Details Date Type Department Care Team (Late st Contact Info) Description 1999 Outpatient Historical [facility] [address] [facility] [address] [address] Herberth No MD NO ADDRESS ON FILE Social History Tobacco Use Types Packs/Day Years Used Date Smoking Tobacco: Never Assessed Comments Unknown Sex and Gender Information Value Date Recorded Sex Assigned at Not on file Legal Sex Female 2:38 AM CHOIR TEACHER Gender Identity Not on file Sexual Orientation Not on file documented as of this encounter Plan of Treatment Not on file documented as of this encounter Visit Diagnoses Not on filedocumented in this encounter
--- OUTSIDE RECORDS SUMMARY | 2025-03-13 09:19 | XMS_ITS | Encounter Summary ---
Author Organization [employer] Address 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
--- OUTSIDE RECORDS SUMMARY | 2025-03-13 09:19 | XMS_ITS | Clinical Summary ---
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
--- OUTSIDE RECORDS SUMMARY | 2025-03-13 09:20 | XMS_ITS | Encounter Summary ---
Author Organization [facility] Address [address] [place] [address] Care Team Providers Care Forestry Fire Aide Name Role Phone Jaleesa Zarco MD Primary Care Provider [phone] Encounter Details Date Type Department Care Team (Late st Contact Info) Description 12/12/2022 [employer] Message [facility] Family & Internal Medicine [address] [address] [facility], [facility] Provider REFERRAL Social History Tobacco Use Types Packs/Day Years Used Date Smoking Tobacco: Never Smokeless Tobacco: Current Comments:vape Alcohol Use Standard Drinks/Week Comments Yes 20 (1 standard drink = 0.6 oz pu re alcohol) weekly PHQ-2 Answer Date Recorded Patient Health Questionnaire-2 Score 4 11/22/2022 Comments No Sex and Gender Information Value Date Recorded Sex Assigned at Not on file Legal Sex Female 3:12 PM VENDING MACHINE COLLECTOR Gender Identity Female 06/26/2022 6:10 AM VENDING MACHINE COLLECTOR Sexual Orientation Not on file COVID-19 Exposure Response Date Recorded In the last 10 days, have yo u been in contact with someone who was confirmed or suspected to have Coronavirus/COVID-19? No / Unsure 11/22/2022 10:47 AM CDT documented as of this encounter Plan of Treatment Not on file documented as of this encounter Visit Diagnoses Not on filedocumented in this encounter Additional Health Concerns Assessment Noted Time PHQ-9 Depression Total Score: 12 023 11:16 AM CDT documented as of this encounter Care Teams Forestry Fire Aide Relationship Specialty [place] [id number] [place] [address] PCP - General FAMILY PRACTICE 06/10/22 documented as of this encounter
--- OUTSIDE RECORDS SUMMARY | 2025-03-13 09:20 | XMS_ITS | Patient Health Record ---
Author Organization [facility] Address [address] [place] [address] Care Team Providers Care Professor Of Management Name Role Phone Arelis Paz Primary Care Provider Joe Turner Unavailable [phone] Veronica Murillo Unavailable [phone] Sherlyn Philip Unavailable [phone] Allergies Allergen (clinical drug ingredient) Drug/Non Drug Allergy documented on EMR Reaction Allergy Type Onset Date Status No Known Drug Allergy Unknown Drug Allergy Active No Known Food Allergy Unknown Drug Allergy Active Reason For Referral Reason Referral to [facility] Diagnosis 1 Psychosis (F29) Referral Organization [facility] Referring Provider First Name Referring Provider Last Name Chidi Referring Provider Speciality Psychiatry Referred Provider Specialty Behavioral [facility] Clinical Notes Cat Quiroz 03:18:45 PM > email sent to Richie Solares Heidi L 05/31/2024 03:23:36 PM > Zane is engaged and will have her appt with Sherlyn in June. Amber will reach out to [facility] if she needs further support in engaging Zane if needed Referral Priority Routine Medications Medication SIG (Take, Route, Frequency, Duration) Notes Start Date End Date Status OLANZapine 15 MG 1 tablet Orally Once a day; Duration: 30 days Active hydrOXYzine HCl 50 MG 1 tablet as needed Orally three times a day; Duration: 30 days Active Mirtazapine 45 MG 1 tablet at [...] days on unit- please deliver 12/09/2023 Not-Taking Social History Tobacco Use: Social History Observation Description Date Details (start date - stop date) Current some da y smoker NA - NA Sex Assigned At : Social History Observation Description Sex Assigned At Female PRAPARE Question Answer Notes Date Completed/Updated: 10/16/2023 What is your current housing situation? I have h ousing Are you worried about losing your housing? Yes What is your current work situation? Unemployed and seeking work In the past year, have you o r any family members you live with been unable to get any of the following when it was really needed? Check all that apply I do not have problems meeting my needs Has lack of transportation k ept you from medical appointments, meetings, work or from getting things needed for daily living? No How often do you see or talk to people that you care about and feel close to? (For example: talking to friends on the phone, visiting friends or family, going to sabianism or club meetings) 3 to 5 times a week In the past year have you sp ent more than 2 nights in a row in a penitentiary, shelter, snf center, or juvenile correctional facility? No Are you a refugee? No What country are you from? [place] Do you feel physically and e motionally safe where you currently live? No In the past year, have you b een afraid of your partner or ex-partner? No PRAPARE Score: 7 Tobacco Control (Standard) Question Answer Notes Tobacco use: Current some day smoker Additional Findings: Tobacco user e-cigarette Problems Problem Type SNOMED Code ICD Code Onset Dates Problem Status W/U Status Risk Notes Problem Tobacco user (406955560) Nicotine dependence, unspecified, uncomplicated (F17.200) Active confirmed Problem Posttraumatic stress disorder (47100436) PTSD (post-traumatic stress disorder) (F43.10) Active confirmed Problem Psychosis (74123581) Psychosis (F29) Active confirmed Problem Bipolar 2 disorder (87289873) Bipolar 2 disorder (F31.81) Active confirmed Problem Insomnia due to mental disorder (85488445) Insomnia due to mental disorder (F51.05) Active confirmed Problem Adjustment disorder (94640325) Trauma and stressor-related disorder (F43.9) 03/25/20 23 Active confirmed Problem Opioid dependence (29824668) Opioid use disorder, severe (F11.20) Active confirmed Problem Tobacco use (401118637) Tobacco use disorder (F17.200) Active confirmed Problem Opioid use disorder (9815957361) Opioid use disorder (F11.99) Active confirmed Problem Tobacco use (137816523) Vapes nicotine containing substance (Z72.0) Active confirmed Vital Signs Heart Rate 101 /min 09/03/2024 Temperature 97.6 degrees Fahrenheit 05/14/2024 Respiratory Rate 16 /min 09/03/2024 Blood pressure diastolic 72 mm Hg 09/03/2024 Oximetry 95 % 09/03/2024 Height 68 in in 03/03/2025 Blood pressure systolic 122 mm Hg 09/03/2024 Weight 160 lb lbs 03/03/2025 BMI 24.33 kg/m2 03/03/2025 Encounters Encounter Location Date Provider Diagnosis [address] [address] 05/14/2024 Veronica Murillo Psychosis F29 and Bipolar 2 disorder F31.[address] [address] 09/03/2024 Veronica Murillo Bipolar 2 disorder F31.81 ; Psychosis F29 and Nicotine dependence, unspecified, uncomplicated F17.[address] [address] 03/03/2025 Arelis Paz Bipolar 2 disorder F31.81 ; Psychosis F29 and Nicotine dependence, unspecified, uncomplicated F17.[address] [address] 05/12/2024 Veronica Murillo [address] [address] 05/27/2024 Joe Turner [address] [address] 08/31/2024 Veronica Murillo Assessments Encounter Date Diagnosis (ICD Code) Assessment Notes Treatment Notes Treatment Clinical Notes Section Notes 05/14/2024 Psychosis (ICD-10 - F29) Continue current medications. Continue services as scheduled. Referred to [facility] Labs completed recently. May self-administer medications or be administered own oral medications per [facility] protocols. Provided informed consent with understanding of side effects, adverse effects, risks and benefits as well as alternative treatments as previously discussed and with the above recommended medications & other aspects of the treatment program. Agrees to return sooner if symptoms worsen or suicidal or homicidal ideations occur. 09/03/2024 Bipolar 2 disorder (ICD-10 - F31.81) Continue current medications. Continue services as scheduled. Labs completed recently. May self-administer medications or be administered own oral medications per [facility] protocols. Provided informed consent with understanding of side effects, adverse effects, risks and benefits as well as alternative treatments as previously discussed and with the above recommended medications & other aspects of the treatment program. Agrees to return sooner if symptoms worsen or suicidal or homicidal ideations occur. 03/03/2025 Bipolar 2 disorder (ICD-10 - F31.81) 03/03/2025 Psychosis (ICD-10 - F29) 09/03/2024 Psychosis (ICD-10 - F29) 05/14/2024 Bipolar 2 disorder (ICD-10 - F31.81) 09/03/2024 Nicotine dependence, unspecified, uncomplicated (ICD-10 - F17.200) 03/03/2025 Nicotine dependence, unspecified, uncomplicated (ICD-10 - F17.200) Plan Of Treatment No Information Insurance Providers Payer Name Payer Address Payer Phone Subscriber Number Group Number Insured Name Patient Relationship to Insured Coverage Start Date [facility]age End Date [facility] [address] [place] [phone] [id number] Maximiliano Mchugh Self - patient is the insured 3 [facility] [address] [place] [address] [phone] [id number] Maximiliano Mchugh Self - patient is the insured 3 Medical (General) History Medical History History ICD Code Opioid use disorder Surgical History Surgery Date(Month/Year) Hospitalization History Reason Date(Month/Year)
--- OUTSIDE RECORDS SUMMARY | 2025-03-13 09:20 | XMS_ITS | Clinical Summary ---
Author Organization [facility] Address [address] [place] [address] Care Team Providers Care Filter Washer Name Role Phone Jaleesa Zarco MD Primary Care Provider [phone] Allergies No known active allergies Medications hydrOXYzine (ATARAX) 50 MG tablet 1 tablet (50 mg total). 03/25/2023 Active mirtazapine (REMERON) 30 MG tabletIndicatio ns:Recurrent depression Take 1 tablet (30 mg total) by mouth nightly at bedtime. 30 tablet 5 09/04/2023 Active Active Problems Problem Noted Date Diagnosed Date Opioid use disorder, mild, abuse 06/26/2023 Recurrent depression 06/26/2023 Comments Yes Immunizations Immunization Administration Dates Next Due Adenovirus Vaccine 03/27/2017 Anthrax Vaccine 04/27/2018 Dtp (Generic) 02/26/2003 HPV4 (Gardasil) 02/24/2013,02/12/2010 Hepatitis A/Hepatitis B(Twinrix) 03/18/2018,09/04,03/27/2017 Influenza (FluMist) 04/19/2013 Influenza Adult (Generic) 04/27/2018,08/15/2017, 06/17/2015 Meningcoccal Group B (Trumen ba)(aka Meningitis) 01/24/2017 Meningococcal (Generic) 02/12/2010 Meningococcal (Menactra) 03/27/2017,01/24/2016 PFIZER COVID-19 (ORIGINAL FO RMULATION, PURPLE CAP) mRNA, LNP-S, PF, 30 MCG/0.3 ML DOSE 01/31/2021,01/10/2021 Polio IPV (Ipol) 03/27/2017 Tdap (Generic) 03/27/2017,02/12/2010 Typhoid (Typhim ) 04/27/2018 Varicella (Varivax) 05/27/2002 Social History Tobacco Use Types Packs/Day Years Used Date Smoking Tobacco: Never Smokeless Tobacco: Current Tobacco Cessation:Ready to Q uit: No; Counseling Given: Yes Comments:vape Alcohol Use Standard Drinks/Week Comments Not Currently 11.7 (1 standard drink = 0.6 oz pure alcohol) once a month PHQ-2 Answer Date Recorded Patient Health Questionnaire-2 Score 4 11/22/2022 Comments Yes Sex and Gender Information Value Date Recorded Sex Assigned at Not on file Legal Sex Female 3:12 PM DIRECTOR EQUIPMENT Gender Identity Female 06/26/2022 6:10 AM DIRECTOR EQUIPMENT Sexual Orientation Not on file Last Filed Vital Signs Vital Sign Reading Time Taken Comments Blood Pressure 143/89 09/04/2023 10:23 AM DIRECTOR EQUIPMENT Pulse 85 09/04/2023 9:38 AM DIRECTOR EQUIPMENT Temperature 36.2 C (97.2 F) 09/04/2023 9:38 AM DIRECTOR EQUIPMENT Respiratory Rate 16 09/04/2023 9:38 AM DIRECTOR EQUIPMENT Oxygen Saturation 100% 09/04/2023 9:38 AM DIRECTOR EQUIPMENT Inhaled Oxygen Concentration - - Weight 68 kg (150 lb) 09/04/2023 9:38 AM DIRECTOR EQUIPMENT Height 179.1 cm (5' 10.5) 09/04/2023 9:38 AM CS T Body Mass Index 21.22 09/04/2023 9:38 AM DIRECTOR EQUIPMENT Plan of Treatment Health Maintenance Due Date Last Done Comments Meningococcal B Vaccine (2 o f 2 - Trumenba SCDM 2-dose series) 07/27/2017 01/24/2017 Annual Physical 03/13/2024 03/13/2023 PHQ-2 (Physician Irvona) 07/07/2024 COVID-19 Vaccine (3 - 2024-2 6 season) 2025 01/31/2021, 01/10/2021 Cervical Cancer Screening Pa p Smear (Age 21 to 29) Every 3 Years 03/13/2026 03/13/2023 Cervical Cancer Screening 03/13/2026 DTaP, Tdap and Td Vaccines ( 4 - Td or Tdap) 03/27/2027 03/27/2017, 02/12/2010, 02/26/2003 RSV Immunization or 60+ Years (1 - 1-dose 75+ series) 2074 HPV Vaccines Completed 02/24/2013, 02/12/2010 Meningococcal Vaccine Completed 03/27/2017 , 01/24/2016, 02/12/2010 Hepatitis B Vaccines Completed 03/18/2018, 09/18/2017, 03/27/2017 Hepatitis C Completed 06/26/2023 Pneumococcal Vaccine: Pediatrics (0 to 5 Years) and At-Risk Patients (6 to 49 Years) Aged Out No longer eligible b ased on patient's age to complete this topic RSV Immunizations Under 20 Months Aged Out No longer eligible b ased on patient's age to complete this topic Procedures Procedure Name Priority Date/Time Associated Diagnosis Comments HEPATITIS PANEL,ACUTE Routine 06/26/2023 9:57 AM DIRECTOR EQUIPMENT STD exposure THINPREP IMAGING PAP REFLEX HPV MRNA E6/E7 Routine 03/13/2023 5:05 PM CDT from Last 3 Months or Most Recently Relevant to Health Maintenance Results * HEPATITIS PANEL,ACUTE (06/26/2023 9:57 AM DIRECTOR EQUIPMENT) HAV IGM NON-REACT KEMAL NON-REACT KEMAL [facility] Comment: For additional information, please refer to http://Quotefish.Trudev/faq/ZOQ172 (This link is being provided for informational/ educational purposes only.) HEPATITIS B SURFACE AG NON-REACT KEMAL NON-REACT KEMAL [facility] Comment: For additional information, please refer to http://Quotefish.Trudev/faq/TCO221 (This link is being provided for informational/ educational purposes only.) HEP B CORE IGM NON-REACT KEMAL NON-REACT KEMAL [facility] Comment: For additional information, please refer to http://Quotefish.Trudev/faq/WVC346 (This link is being provided for informational/ educational purposes only.) HEPATITIS C AB NON-REACT KEMAL NON-REACT KEMAL [facility] Comment: HCV antibody was non-reactive. There is no laboratory evidence of HCV infection. In most cases, no further action is required. However, if recent HCV exposure is suspected, a test for HCV RNA (test code 29100) is suggested. For additional information please refer to http://education.Trudev/faq/CYS52c5 (This link is being provided for informational/ educational purposes only.) 06/26/2023 9:57 AM DIRECTOR EQUIPMENT 06/27/2023 12:41 AM DIRECTOR EQUIPMENT Narrative Resulting Agency Comment Performing Organization Information: Site ID: [id number] Name: [facility] Address: [address] [place] [address] Director: Zachery Francisco MD Jaleesa Zarco MD LABORATORY Final Result [facility] [address] [facility] [place] [address], * THINPREP IMAGING PAP REFLEX HPV MRNA E6/E7 (03/13/2023 5:05 PM CDT) CLINICAL INFORMATION: None given [facility] [employer] [place] Clinical Information: NONE GIVEN [facility] [employer] [place] Date of Last Pap NONE GIVEN [facility] [place] Previous Biopsy? NONE GIVEN [facility] [place] SOURCE (QST) None given [facility] [employer] [place] STATEMENT OF ADEQUACY: [facility] [employer] [place] Comment: Satisfactory for evaluation. Endocervical/transformation zone component present. Age and/or menstrual status not provided PAP INTERPRETATION/RESU LTS Cytology Results: Negative for intraepithelial lesion or malignancy. [facility] [employer] [place] INFECTION: Shift in vaginal lorena suggestive of bacterial vaginosis. [facility] [employer] [place] COMMENT: This Pap test has been evaluated with computer assisted technology. [facility] [employer] [place] [employer] [place] Comment: LM, CT(ASCP) CT screening location: [place] [address] [address] [place] [address] COMMENT: [facility] [employer] [place] Comment: EXPLANATORY NOTE: The Pap is a screening test for cervical cancer. It is not a diagnostic test and is subject to false negative and false positive results. It is most reliable when a satisfactory sample, regularly obtained, is submitted with relevant clinical findings and history, and when the Pap result is evaluated along with historic and current clinical information. 03/13/2023 5:05 PM CDT 03/14/2023 4:49 AM CDT Narrative [facility] [place] - 03/16/2023 1:07 PM CDT FASTING: UNKNOWN Resulting Agency Comment Performing Organization Information: Site ID: [id number] Name: [facility] Address: [facility] [place] [address] Director: Zachery Francisco us Jaleesa Zarco MD PATHOLOGY/CYTOLOGY ORDERABLES Final Result [facility] [address], from Last 3 Months or Most Recently Relevant to Health Maintenance [place] [address] [place] [address] Care Teams Filter Washer Relationship Specialty [place] [address] [address] [address] [place] [address] PCP - General FAMILY PRACTICE 06/10/22
--- NOTE | 2025-03-13 09:31 | PC.NURSE ---
asked if patient would be able to provide a urine sample, pt states that they just used the bathroom before coming back so unable to provide sample at this time
--- NOTE | 2025-03-13 10:25 | ED_ITS ---
HPI - General Adult General Chief complaint: Unspecified Stated complaint: N/V, UTI? dry skin on hands Time Seen by Provider: 03/13/25 09:58 History of Present Illness HPI narrative: Patient is a 25-year-old female who presents to the ER with a 2 day history emesis, scaly hands, and increased urination-incomplete emptying. She reports she has been experiencing scaly hands for the past year. Patient reports she drank alcohol on Friday night, 2 days ago and woke up the next morning with intermittent vomiting. She endorses a history of depression, anxiety, and bipolar disorder. Patient reports she did not urinate after having sexual intercourse the other night so she thinks the so she got her UTI. She denies any abdominal pain, back pain, shortness a breath, or recent fevers. Related Data Home Medications ?Medication ?Instructions ?Recorded ?Confirmed ?Last Taken ?Type sertraline 25 mg tablet mg 01/27/21 Unknown History Allergies Allergy/AdvReac Type Severity Reaction Status Date / Time poison luna extract Allergy Unknown Unknown Verified 10/15/23 08:41 Review of Systems 2 Review of Systems: All systems reviewed & are unremarkable except as noted in HPI and below PMFSH Past Medical History Medical History Healthy female adult Surgical History Surgical History No pertinent past surgical history Social History Social History Alcohol intake: current Substance use: current Substance use type: marijuana Exam 2 Narrative: GENERAL: Well appearing, well-nourished, non-toxic, in no acute distress. HEAD: Normocephalic, atraumatic. NECK: Supple. No adenopathy, no masses. RESPIRATORY: Airway patent, respirations nonlabored. Clear to auscultation bilaterally, no rales, rhonchi, wheezing. CARDIOVASCULAR: Regular rate and rhythm without murmurs, rubs, or gallops. Peripheral pulses 2+ and equal bilaterally. ABDOMINAL: Soft, nontender, nondistended, no hepatosplenomegaly. Normoactive BS. MUSCULOSKELETAL: Moves all extremities. Strength/ROM intact without gross deformities. SKIN: Warm, dry, normal color. No rashes. NEURO: A&O X3. Speech clear. Cranial nerves II-XII intact. No ataxic movements. PSYCHIATRIC: Appropriate mood and affect. Normal interaction. Course Vital Signs Vital signs: Vital Signs Pulse Rate 94 03/13/25 09:26 Respiratory Rate 14 03/13/25 09:26 Pulse Oximetry 99 03/13/25 09:26 Temperature 36.9 C 03/13/25 09:28 Pulse Rate 91 03/13/25 11:17 Respiratory Rate 14 03/13/25 11:17 Blood Pressure 133/80 03/13/25 11:17 Pulse Oximetry 99 03/13/25 11:51 Medical Decision Making MDM Narrative Medical decision making narrative: Patient is a 25-year-old female who presents to the ER with a 2 day history emesis, scaly hands, and increased urination-incomplete emptying. She reports she has been experiencing scaly hands for the past year. Patient reports she drank alcohol on Friday night, 2 days ago and woke up the next morning with intermittent vomiting. She endorses a history of depression, anxiety, and bipolar disorder. Patient reports she did not urinate after having sexual intercourse the other night so she thinks the so she got her UTI. She denies any abdominal pain, back pain, shortness a breath, or recent fevers. Labs Ordered: CBC, CMP, UDS, UA, beta hCG Imaging Ordered: None necessary Medications Ordered: 1 L normal saline IV bolus, Zofran 4 mg IV, Keflex 500 mg p.o. Results: Patient's CBC indicates a white blood cell count 11.8. Her CMP indicates a sodium of 134, and creatinine of 0.62. Patient's beta hCG is 121. Her urinalysis indicates patient has UTI pain. Patient's UDS indicates she is positive for cannabinoids. Diagnosis: Urinary tract infection, early Consults:OBGYN (patient reports she already has an established OBGYN) Patient Education/Shared MDM: Results of lab work shared with patient. She endorses improvement of symptoms following medication administration. Patient strongly advised to maintain hydration status upon discharge and follow-up with her OBGYN as soon as possible. She will be discharged home with a prescription for Keflex and Reglan. Patient was advised to use Aquaphor or Vaseline on her hands to help relieve her itching and scaling. Strict return precautions provided. Patient verbalized understanding and is in agreement with plan. Vital signs stable at time of discharge. All questions answered. Differential Diagnosis Differential Diagnosis: Early , cannabinoid hyperemesis, mild dehydration, urinary tract infection, eczema Vital Signs Vital Signs: Vital Signs Pulse Rate 94 03/13/25 09:26 Respiratory Rate 14 03/13/25 09:26 Pulse Oximetry 99 03/13/25 09:26 Temperature 36.9 C 03/13/25 09:28 Pulse Rate 91 03/13/25 11:17 Respiratory Rate 14 03/13/25 11:17 Blood Pressure 133/80 03/13/25 11:17 Pulse Oximetry 99 03/13/25 11:51 Lab Data Lab results reviewed: Yes I reviewed the patient's lab results. 03/13/25 10:42 03/13/25 10:42 Labs: Lab Results 03/13/25 03/13/25 03/13/25 Range/Units 10:24 10:42 11:50 WBC 11.8 H (4.5-10.0) K/mm3 RBC 4.44 (4.2-5.4) M/mm3 Hgb 12.0 (12.0-15.0) g/dL Hct 37.7 (37.0-47.0) % MCV 84.9 (80-100) fl MCH 27.0 (26-34) pg MCHC 31.8 L (32-36) g/dl RDW 16.0 H (11.5-14.5) % Plt Count 299 (150-375) k/mm3 MPV 12.4 H (7.4-10.4) fl Immature Gran % (Auto) 0.3 (0-0.5) % Neut % (Auto) 80.1 H (45.5-73.1) % Lymph % (Auto) 11.7 L (18.3-44.2) % [place] % (Auto) 6.7 (2.6-8.5) % Eos % (Auto) 0.8 (0-4.4) % Baso % (Auto) 0.4 (0.2-1.2) % Lymph # (Auto) 1.38 (0.9-3.2) K/mm3 [place] # (Auto) 0.8 H (0.1-0.6) K/mm3 Eos # (Auto) 0.1 (0-0.3) K/mm3 Baso # (Auto) 0.1 (0.0-0.1) K/mm3 Abs Immat Gran (auto) 0.04 H (0.00-0.031) K/mm3 Absolute Neuts (auto) 9.5 H (1.3-6.7) K/mm3 Absolute Nucleated RBC 0.000 (0.0-0.012) K/mm3 Nucleated RBC % 0.0 (0.0-0.2) % Sodium 134 L (137-145) mmol/L Potassium 3.7 (3.4-5.0) mmol/L Chloride 102 (98-107) mmol/L Carbon Dioxide 24 (22-30) mmol/L Anion Gap 8 (4-12) mmol/L BUN 9 D (7-17) mg/dL Creatinine 0.62 L (0.7-1.0) mg/dL Estim Creat Clear Calc 139 ml/min Estimated GFR > 60 (59 - ) Glucose 103 (65-110) mg/dL Calcium 8.9 (8.4-10.2) mg/dL Total Bilirubin 0.7 (0.2-1.3) mg/dL AST 30 (14-36) U/L ALT 23 (6-35) U/L Alkaline Phosphatase 74 (38-126) U/L Total Protein 7.8 (6.3-8.2) g/dL Albumin 4.5 (3.5-5.1) g/dL Beta HCG, Quant 121.11 mIU/ML Urine Color Yellow (Yellow) Urine Appearance Sl cloudy (Clear) Urine pH 7.0 (5.0-9.0) Ur Specific [place] 1.025 (1.001-1.035) Urine Protein 2+ H (Negative) mg/dL Urine Glucose (UA) Negative (Negative) mg/dL Urine Ketones 3+ H (Negative) mg/dL Ur Blood (Man) Negative (Negative) Urine Nitrate Negative (Negative) Urine Bilirubin 1+ H (Negative) Urine Urobilinogen 1.0 (<2.0) mg/dL Add Ur Microanalysis Reviewed Leukocyte Esterase Rfl Negative (Negative) RAYMON/UL Urine RBC 0-2 (0-2) /hpf Urine WBC 11-20 H (0-3) /hpf Ur Squamous Epith Cells Moderate (Few) /hpf Urine Bacteria 2+ H /hpf Urine Casts 0-2 Urine Mucus Present /lpf POC Urine HCG, Qual Positive (Negative) Urine Opiates Screen Negative (Negative) Urine Methadone Screen Negative (Negative) Ur Barbiturates Screen Negative (Negative) Ur Phencyclidine Scrn Negative (Negative) Ur Amphetamine Screen Negative (Negative) U Benzodiazepines Scrn Negative (Negative) Urine Cocaine Screen Negative (Negative) U Cannabinoids Screen Positive A (Negative) Discharge Plan Discharge Clinical Impression: Urinary tract infection, Early stage of , Dehydration, mild, Eczema of both hands, Cannabis abuse Patient Disposition: Home Condition: Stable Instructions: Antibiotic Form, Urinary Tract Infection in Women (ED) Additional Instructions: Please return to the ER with any worsening symptoms. Follow-up with your OBGYN as soon as possible. Take all medications as prescribed, including regularly scheduled medications. Please complete your full dose of antibiotics. Refrain from further alcohol and drug use. Remember to drink lots of water. Patient Language: Citizen Of [place] Prescriptions: New cephalexin 500 mg capsule 500 mg PO Q8H 7 Days Qty: 21 0RF metoclopramide HCl [Reglan] 10 mg tablet 10 mg PO Q6H PRN (Reason: nausea and vomiting) Qty: 30 0RF No Action sertraline 25 mg tablet hydrocodone-acetaminophen 5-325 mg tablet 1 tablet PO Q6H PRN (Reason: pain) Qty: 5 0RF ondansetron 4 mg tablet,disintegrating 4 mg PO Q8H PRN (Reason: nausea and vomiting) Qty: 14 0RF nitrofurantoin monohyd/m-cryst [Macrobid] 100 mg capsule 100 mg PO Q12H 5 Days Qty: 10 0RF Rx Instructions: must administer with a meal/food Follow-up/Referrals: Alina,MD Jaleesa [Primary Care Provider, Unknown] Time of Disposition: 14:21
[2025-03-13 10:47] LABS: Hematocrit 37.7 % (37.0-47.0); Hemoglobin 12.0 g/dL (12.0-15.0); Immature Granulocyte Percent A 0.3 % (0-0.5); Lymphocytes Absolute Auto 1.38 K/mm3 (0.9-3.2); Mean Corpuscular HGB Conc 31.8 g/dl (32-36); Mean Corpuscular Hemoglobin 27.0 pg (26-34); Mean Corpuscular Volume 84.9 fl (80-100); Nucleated Red Blood Cells Absolute Auto 0.000 K/mm3 (0.0-0.012); Nucleated Red Blood Cells Perc 0.0 % (0.0-0.2); Platelet Count Result 299 k/mm3 (150-375); Red Blood Count 4.44 M/mm3 (4.2-5.4); White Blood Count 11.8 K/mm3 (4.5-10.0)
[2025-03-13] MEDS: ONDANSETRON INJ 4 MG/2 ML VIAL IV PUSH (10:47)
[2025-03-13] MEDS: SODIUM CHLORIDE 0.9% IV 1,000 ML 999 ML IV CONT (10:47)
[2025-03-13 11:03] LABS: Alanine Aminotransferase 23 U/L (6-35); Albumin Level 4.5 g/dL (3.5-5.1); Alkaline Phosphatase 74 U/L (38-126); Anion Gap 8 mmol/L (4-12); Aspartate Amino Transferase 30 U/L (14-36); Bilirubin,Total 0.7 mg/dL (0.2-1.3); Blood Urea Nitrogen 9 mg/dL (7-17); Calcium 8.9 mg/dL (8.4-10.2); Carbon Dioxide 24 mmol/L (22-30); Chloride 102 mmol/L (98-107); Estimated CRCL calculation 139 ml/min; Estimated Glomerular Filt Rate > 60; Glucose 103 mg/dL (65-110); Potassium 3.7 mmol/L (3.4-5.0); Sodium 134 mmol/L (137-145); Total Protein 7.8 g/dL (6.3-8.2)
[2025-03-13 12:03] LABS: BEDSIDEPREGUCG Positive (Negative)
[2025-03-13 12:12] LABS: Appearance Urine Sl Cloudy (Clear); Glucose Urine UA Negative (Negative); Specific Grav Ur 1.025 (1.001-1.035)
[2025-03-13 12:13] LABS: Add Urine Microscopic? YES; Leukocyte Esterase Ur Negative LEU/UL (Negative); Nitrate Urine Negative (Negative)
[2025-03-13 12:24] LABS: Cannabinoid Screen Urine Positive (Negative)
[2025-03-13 12:26] LABS: Need Manual Microscopic Reviewed; Non Pathogenic Casts 0-2
[2025-03-13 12:49] LABS: Beta HCG Quantitative 121.11 mIU/ML
[2025-03-13] MEDS: CEPHALEXIN 500 MG CAPSULE PO (14:10)
== END 2025-03-13 14:43 | disposition home or self-care (01) ==
PROVIDERS: Emergency Provider Registered Nurse; PCP Family Medicine
DX: O23.40 Unspecified infection of urinary tract in pregnancy, unspecified trimester (principal); N39.0 Urinary tract infection, site not specified; O99.280 Endocrine, nutritional and metabolic diseases complicating pregnancy, unspecified trimester; E86.0 Dehydration; O99.719 Diseases of the skin and subcutaneous tissue complicating pregnancy, unspecified trimester; L30.9 Dermatitis, unspecified; O99.320 Drug use complicating pregnancy, unspecified trimester; F12.10 Cannabis abuse, uncomplicated; Z3A.00 Weeks of gestation of pregnancy not specified
CPT/HCPCS: 36415; 80053; 80307; 81001; 81025; 84702; 85025; 96361; 96374; 99284; A9270; J2405; J7030

== ENCOUNTER 2025-03-30 17:08 | Emergency (ER) | payer OTHER, SELFPAY ==
--- OUTSIDE RECORDS SUMMARY | 2024-05-24 10:20 | XMS_ITS ---
Author Organization [facility] Address [address] [place] [address] Care Team Providers Care Walnut Dehydrator Operator Name Role Phone Arelis Paz Primary Care Provider Sherlyn Philip Unavailable [phone] REASON FOR VISIT transfer from Social History Sex Assigned At : Social History Observation Description Sex Assigned At Female Encounters Encounter Location Date Provider Diagnosis [address] [place] [address] 05/24/2024 Sherlyn Philip Plan Of Treatment No Information Progress Notes * Misha GARZAisDOB:2000 (25 yo F)Acc No.[id number]:05/24/2024 UNLOCKED PROGRESS NOTE Patient: Maximiliano ROGERS Provider: Anders Philip DNP, APRN, REAL ESTATE INTERNSHIP-C :2000 A ge:24 Y S ex:Female Date:05/24/2024 Address:[address] [place], [place] [address] Pcp:Arelis Paz Subjective: * Chief Complaints: * 1 . transfer from . * Medical History: Objective: * Vitals: Assessment: Plan: * Treatment: * * Electronic signature of Familia Philip [id number] on 03/30/2025 at 05:48 PM CDT Sign off status: Pending * Provider: Anders Philip DNP METAL SOLDERER, REAL ESTATE INTERNSHIP-C Date: 1 07/24/2023 Generated for Printing/Faxing/eTransmitting on: 0 03/30/2025 05:48 PM CDT
--- OUTSIDE RECORDS SUMMARY | 2024-06-08 10:40 | XMS_ITS ---
Author Organization [facility] Address [address] [place] [address] Care Team Providers Care Branch Or Department Chief Librarian Name Role Phone Arelis Paz Primary Care Provider Sherlyn Philip Unavailable [phone] Allergies Allergen (clinical drug ingredient) Drug/Non Drug Allergy documented on EMR Reaction Allergy Type Onset Date Status No Known Drug Allergy Unknown Drug Allergy Active No Known Food Allergy Unknown Drug Allergy Active REASON FOR VISIT Transfer from [facility] Medications Medication SIG (Take, Route, Frequency, Duration) [...] Female Encounters Encounter Location Date Provider Diagnosis [facility] [address], [place] [address] 06/08/2024 Sherlyn Philip Plan Of Treatment No Information Progress Notes * Misha GARZAisDOB:2000 (25 yo F)Acc No.[id number]:06/08/2024 UNLOCKED PROGRESS NOTE Patient: Thom Maximiliano LE Provider: Anders Philip DNP, APRN, FNP-C :2000 A ge:24 Y S ex:Female Date:06/08/2024 Address:[address] [place] [address] [facility] Pcp:Arelis Paz Subjective: * Chief Complaints: * 1 . Transfer from [facility]. 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 * Medications: T aking OLANZapine 15 MG [...] * Electronic signature of Familia Philip , [id number] on 03/30/2025 at 05:47 PM CDT Sign off status: Pending * Provider: Anders Philip DNP, APRN, LOURDES Date: 08/09/2023 Generated for Printing/Faxing/eTransmitting on: 0 03/30/2025 05:47 PM CDT
--- NOTE | ~2025-03-30 | US_ITS ---
EXAMINATION: US OB transvaginal DATE: 03/30/2025 18:44 INDICATION: TECHNIQUE: Real-time transvaginal obstetric ultrasound. FINDINGS: No prior studies for comparison. The uterus measures 7.8 x 5.1 x 5.6 cm. There is an intrauterine gestational sac, with pole identified. The crown rump length measures 0.36 cm, which correlates with a estimated gestational age of 6 weeks 0 days. heart tones are identified measuring 115 BPM. There is free fluid in the pelvis. There is a left ovarian cyst simple cyst measuring 4.6 cm, likely corpus luteal cyst. IMPRESSION: 1. SL IUP with an EGA of 6 weeks, 0 days (EDC by current ultrasound of 11/23/2025). 2: Corpus luteal cyst of the left ovary measuring 4.6 cm. Reviewed, dictated and finalized at location O. IMPRESSION: 1. SL IUP with an EGA of 6 weeks, 0 days (EDC by current ultrasound of ). 2: Corpus luteal cyst of the left ovary measuring 4.6 cm.
[2025-03-30 17:09] VITALS: BP 138/82; PULSE 97; RESP 16; TEMP 36.2; O2SAT 100
--- NOTE | 2025-03-30 17:45 | ED_ITS ---
HPI - Nausea/Vomiting/Diarrhea General Chief complaint: Nausea/Vomiting/Diarrhea Stated complaint: n/v Time Seen by Provider: 03/30/25 17:27 History of Present Illness HPI Narrative: Patient is a 25-year-old female who presents to the ER with continual emesis during . She was seen in this ER approximately two weeks ago and was informed she is . Pt also reported scaly hands at that time and continues to endorse this symptom. During her last exam she was diagnosed with a urinary tract infection. Pt reports she has completed her full dose of antibiotics. She endorses a history of depression, anxiety, and bipolar disorder. Patient denies any abdominal pain, back pain, shortness of breath, vaginal bleeding or recent fevers. Related Data Home Medications ?Medication ?Instructions ?Recorded ?Confirmed ?Last Taken ?Type sertraline 25 mg tablet mg 01/27/21 Unknown History Allergies Allergy/AdvReac Type Severity Reaction Status Date / Time poison luna extract Allergy Unknown Unknown Verified 10/15/23 08:41 Review of Systems 2 Review of Systems: All systems reviewed & are unremarkable except as noted in HPI and below PMFSH Past Medical History Medical History Healthy female adult Surgical History Surgical History No pertinent past surgical history Social History Social History Alcohol intake: current Substance use: current Substance use type: marijuana Exam 2 Narrative: GENERAL: Well appearing, well-nourished, non-toxic, in no acute distress. HEAD: Normocephalic, atraumatic. NECK: Supple. No adenopathy, no masses. RESPIRATORY: Airway patent, respirations nonlabored. Clear to auscultation bilaterally, no rales, rhonchi, wheezing. CARDIOVASCULAR: Regular rate and rhythm without murmurs, rubs, or gallops. Peripheral pulses 2+ and equal bilaterally. ABDOMINAL: Soft, nontender, nondistended, no hepatosplenomegaly. Normoactive BS. MUSCULOSKELETAL: Moves all extremities. Strength/ROM intact without gross deformities. SKIN: Warm, dry, normal color. No rashes. NEURO: A&O X3. Speech clear. Cranial nerves II-XII intact. No ataxic movements. PSYCHIATRIC: Appropriate mood and affect. Normal interaction. Course Vital Signs Vital signs: Vital Signs Temperature 36.2 C L 03/30/25 17:09 Pulse Rate 97 03/30/25 17:09 Respiratory Rate 16 03/30/25 17:09 Blood Pressure 138/82 03/30/25 17:09 Pulse Oximetry 100 03/30/25 17:09 Temperature 36.2 C L 03/30/25 17:09 Pulse Rate 97 03/30/25 17:09 Respiratory Rate 16 03/30/25 17:09 Blood Pressure 138/82 03/30/25 17:09 Pulse Oximetry 100 03/30/25 17:09 MDM - Nausea/Vomiting/Diarrhea MDM Narrative Medical decision making narrative: Patient is a 25-year-old female who presents to the ER with continual emesis during . She was seen in this ER approximately two weeks ago and was informed she is . Pt also reported scaly hands at that time and continues to endorse this symptom. During her last exam she was diagnosed with a urinary tract infection. Pt reports she has completed her full dose of antibiotics. She endorses a history of depression, anxiety, and bipolar disorder. Patient denies any abdominal pain, back pain, shortness of breath, vaginal bleeding or recent fevers. Labs Ordered: CBC, CMP, UA, beta hCG Imaging Ordered: Ultrasound Ob transvaginal Medications Ordered: 1 L normal saline IV bolus, Benadryl IV, Reglan IV Diagnosis: Intrauterine , hyperemesis Consults: OBGYN (outpatient), already established Differential Diagnosis Differential diagnosis: Likely dehydration and other (Intrauterine , missed ) Lab Data Attestation: I reviewed the patient's lab results. 03/30/25 18:50 03/30/25 18:50 Labs: Lab Results 03/30/25 Range/Units 18:50 WBC 10.8 H (4.5-10.0) K/mm3 RBC 4.64 (4.2-5.4) M/mm3 Hgb 12.5 (12.0-15.0) g/dL Hct 38.4 (37.0-47.0) % MCV 82.8 (80-100) fl MCH 26.9 (26-34) pg MCHC 32.6 (32-36) g/dl RDW 16.1 H (11.5-14.5) % Plt Count 247 (150-375) k/mm3 MPV 13.6 H (7.4-10.4) fl Immature Gran % (Auto) 0.3 (0-0.5) % Neut % (Auto) 75.9 H (45.5-73.1) % Lymph % (Auto) 13.6 L (18.3-44.2) % [place] % (Auto) 8.7 H (2.6-8.5) % Eos % (Auto) 0.9 (0-4.4) % Baso % (Auto) 0.6 (0.2-1.2) % Lymph # (Auto) 1.47 (0.9-3.2) K/mm3 [place] # (Auto) 0.9 H (0.1-0.6) K/mm3 Eos # (Auto) 0.1 (0-0.3) K/mm3 Baso # (Auto) 0.1 (0.0-0.1) K/mm3 Abs Immat Gran (auto) 0.03 (0.00-0.031) K/mm3 Absolute Neuts (auto) 8.2 H (1.3-6.7) K/mm3 Absolute Nucleated RBC 0.000 (0.0-0.012) K/mm3 Nucleated RBC % 0.0 (0.0-0.2) % % Immature Plt Fraction 18.1 H (0.9-11.2) % Sodium 133 L (137-145) mmol/L Potassium 3.6 (3.4-5.0) mmol/L Chloride 102 (98-107) mmol/L Carbon Dioxide 17 L (22-30) mmol/L Anion Gap 14 H (4-12) mmol/L BUN 5 L (7-17) mg/dL Creatinine 0.45 L (0.7-1.0) mg/dL Estim Creat Clear Calc 157 ml/min Estimated GFR > 60 (59 - ) Glucose 85 (65-110) mg/dL Calcium 9.2 (8.4-10.2) mg/dL Total Bilirubin 0.4 (0.2-1.3) mg/dL AST 36 (14-36) U/L ALT 19 (6-35) U/L Alkaline Phosphatase 56 (38-126) U/L Total Protein 8.7 H (6.3-8.2) g/dL Albumin 4.8 (3.5-5.1) g/dL Beta HCG, Quant 75591.00 mIU/ML Urine Color Dark yellow (Yellow) Urine Appearance Cloudy H (Clear) Urine pH 6.5 (5.0-9.0) Ur Specific [place] 1.034 (1.001-1.035) Urine Protein 1+ H (Negative) mg/dL Urine Glucose (UA) Negative (Negative) mg/dL Urine Ketones 4+ H (Negative) mg/dL Ur Blood (Man) Negative (Negative) Urine Nitrate Negative (Negative) Urine Bilirubin Negative (Negative) Urine Urobilinogen 1.0 (<2.0) mg/dL Add Ur Microanalysis Reviewed Leukocyte Esterase Rfl Negative (Negative) RAYMON/UL Urine RBC 0-2 (0-2) /hpf Urine WBC 0-5 (0-3) /hpf Ur Squamous Epith Cells Occasional (Few) /hpf Urine Bacteria None seen /hpf Urine Casts 0-2 Urine Mucus Present /lpf Imaging Data Attestation: I personally reviewed and interpreted this imaging study as follows: Radiologist's impression: Impressions Transvaginal US 03/30/25 18:52 IMPRESSION: 1. SL IUP with an EGA of 6 weeks, 0 days (EDC by current ultrasound of 11/23/2025). 2: Corpus luteal cyst of the left ovary measuring 4.6 cm. Discharge Plan Discharge Clinical Impression: Normal intrauterine on ultrasound in first trimester, Dehydration, mild, Hyperemesis arising during Patient Disposition: Home Condition: Stable Instructions: Antibiotic Form, Nausea and Vomiting in (ED) Additional Instructions: Please return to the ER with any worsening symptoms. Follow-up with your OBGYN as scheduled. You may take Reglan as needed for pain control. Patient Language: Vietnamese Prescriptions: No Action sertraline 25 mg tablet hydrocodone-acetaminophen 5-325 mg tablet 1 tablet PO Q6H PRN (Reason: pain) Qty: 5 0RF ondansetron 4 mg tablet,disintegrating 4 mg PO Q8H PRN (Reason: nausea and vomiting) Qty: 14 0RF cephalexin 500 mg capsule 500 mg PO Q8H 7 Days Qty: 21 0RF metoclopramide HCl [Reglan] 10 mg tablet 10 mg PO Q6H PRN (Reason: nausea and vomiting) Qty: 30 0RF nitrofurantoin monohyd/m-cryst [Macrobid] 100 mg capsule 100 mg PO Q12H 5 Days Qty: 10 0RF Rx Instructions: must administer with a meal/food Follow-up/Referrals: Haroldo,MD Jaleesa [Primary Care Provider, Unknown]
--- OUTSIDE RECORDS SUMMARY | 2025-03-30 17:48 | XMS_ITS | Encounter Summary ---
Author Organization [facility] Address 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
--- OUTSIDE RECORDS SUMMARY | 2025-03-30 17:48 | XMS_ITS | Encounter Summary ---
Author Organization [facility] Address 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
--- OUTSIDE RECORDS SUMMARY | 2025-03-30 17:48 | XMS_ITS | Encounter Summary ---
Author Organization [facility] Address [address] [place] [address] Care Team Providers Care Oracle Etl Developer Name Role Phone Unavailable Primary Care Provider [...] on file Legal Sex Female 2:38 AM VALIDATION SOFTWARE FACILITATOR Gender Identity Not on file Sexual Orientation Not on file documented as of this encounter Plan of Treatment Not on file documented as of this encounter Visit Diagnoses Not on filedocumented in this encounter
--- OUTSIDE RECORDS SUMMARY | 2025-03-30 17:48 | XMS_ITS | Encounter Summary ---
Author Organization [facility] Address 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
--- OUTSIDE RECORDS SUMMARY | 2025-03-30 17:48 | XMS_ITS | Encounter Summary ---
Author Organization [facility] Address 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
--- OUTSIDE RECORDS SUMMARY | 2025-03-30 17:48 | XMS_ITS | Encounter Summary ---
Author Organization [facility] Address 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
--- OUTSIDE RECORDS SUMMARY | 2025-03-30 17:48 | XMS_ITS | Patient Health Record ---
Author Organization [facility] Address [address] [place] [address] Care Team Providers Care Food Service Substitute Name Role Phone Arelis Paz Primary Care Provider [phone] Joe Turner Unavailable [phone] Veronica Murillo Unavailable [phone] Sherlyn Philip Unavailable [phone] Allergies Allergen (clinical drug ingredient) Drug/Non Drug Allergy documented on EMR Reaction Allergy Type Onset Date Status No Known Drug Allergy Unknown Drug Allergy Active No Known Food Allergy Unknown Drug Allergy Active Reason For Referral Reason Referral to [facility] Diagnosis 1 Psychosis (F29) Referral Organization [facility] Referring Provider First Name Referring Provider Last Name Chidi Referring Provider Speciality Psychiatry Referred Provider Specialty Behavioral [facility] Clinical Notes Cat Quiroz 03:18:45 PM > email sent to Richie Solares Heidi L 05/31/2024 03:23:36 PM > Zane is engaged and will have her appt with Sherlyn in June. Amber will reach out to [facility] if she needs further support in engaging [...] phone, visiting friends or family, going to holiness or club meetings) 3 to 5 times a week In the past year have you sp ent more than 2 nights in a row in a senior care, senior living, senior care center, or juvenile correctional facility? No Are [...] W/U Status Risk Notes Problem Tobacco user (600122990) Nicotine dependence, unspecified, uncomplicated (F17.200) Active confirmed Problem Posttraumatic stress disorder (29065995) PTSD (post-traumatic stress disorder) (F43.10) Active confirmed Problem Psychosis (01922125) Psychosis (F29) Active confirmed Problem Bipolar 2 disorder (57738351) Bipolar 2 disorder (F31.81) Active confirmed Problem Insomnia due to mental disorder (23786287) Insomnia due to mental disorder (F51.05) Active confirmed Problem Adjustment disorder (72146823) Trauma and stressor-related disorder (F43.9) 03/25/20 23 Active confirmed Problem Opioid dependence (27330613) Opioid use disorder, severe (F11.20) Active confirmed Problem Tobacco use (928467136) Tobacco use disorder (F17.200) Active confirmed Problem Opioid use disorder (2082548181) Opioid use disorder (F11.99) Active confirmed Problem Tobacco use (329299178) Vapes nicotine containing substance (Z72.0) Active confirmed Vital Signs Heart Rate 101 /min 09/03/2024 Temperature 97.6 degrees Fahrenheit 05/14/2024 Respiratory Rate 16 /min 09/03/2024 Blood pressure diastolic 72 mm Hg 09/03/2024 Oximetry 95 % 09/03/2024 Height 68 in in 03/03/2025 Blood pressure systolic 122 mm Hg 09/03/2024 Weight 160 lb lbs 03/03/2025 BMI 24.33 kg/m2 03/03/2025 Encounters Encounter Location Date Provider Diagnosis [address] [address] 05/14/2024 Veronica Murillo Psychosis F29 and Bipolar [address] [address] 09/03/2024 Veronica Murillo Bipolar 2 disorder F31.81 ; Psychosis F29 and Nicotine dependence, unspecified, uncomplicated F17.[address] [address] 03/03/2025 Arelis Paz Bipolar 2 disorder F31.81 ; Psychosis F29 and Nicotine dependence, unspecified, uncomplicated F17.[address] [address] 05/12/2024 Veroinca Murillo [address] [address] 05/27/2024 Joe Turner [address] [address] 08/31/2024 Veronica Murillo Assessments Encounter Date Diagnosis (ICD Code) Assessment Notes Treatment Notes Treatment Clinical Notes Section Notes 05/14/2024 Psychosis (ICD-10 - F29) Continue current medications. Continue services as scheduled. Referred to [facility] completed recently. May self-administer medications or be administered own oral medications per [facility] protocols. Provided informed consent with understanding of [...] or be administered own oral medications per [facility] protocols. Provided informed consent with understanding of [...] Insured Coverage Start Date Coverage End Date [facility] [address] [place] [phone] [id number] Maximiliano Mchugh Self - patient is the insured 3 [facility] [address] [place] [address] [id number] Maximiliano Mchugh Self - patient is the insured 3 Medical (General) History Medical History History ICD Code Opioid use disorder Surgical History Surgery Date(Month/Year) Hospitalization History Reason Date(Month/Year)
--- OUTSIDE RECORDS SUMMARY | 2025-03-30 17:48 | XMS_ITS | Encounter Summary ---
Author Organization [facility] Address 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
--- OUTSIDE RECORDS SUMMARY | 2025-03-30 17:48 | XMS_ITS | Clinical Summary ---
Author Organization [facility] Address [address] [place] [address] Care Team Providers Care Produce Team Member Name Role Phone Jaleesa Zarco MD Primary Care Provider [phone] Allergies No known active allergies Medications hydrOXYzine (ATARAX) 50 MG tablet 1 tablet (50 mg total). 03/25/2023 Active mirtazapine (REMERON) 30 MG tabletIndicatio ns:Recurrent depression Take 1 tablet (30 mg total) by mouth nightly at bedtime. 30 tablet 5 09/04/2023 Active Active Problems Problem Noted Date Diagnosed Date Opioid use disorder, mild, abuse 06/26/2023 Recurrent depression 06/26/2023 Comments Yes Encounters Date Type Department Care Team Description 03/13/2025 Scan [facility] Scanned, Doc Med Group from Last 3 Months Immunizations Immunization Administration Dates Next Due Adenovirus [...] on file Legal Sex Female 3:12 PM COMPONENT PREP OPERATOR Gender Identity Female 06/26/2022 6:10 AM COMPONENT PREP OPERATOR Sexual Orientation Not on file Last Filed Vital Signs Vital Sign Reading Time Taken Comments Blood Pressure 143/89 09/04/2023 10:23 AM COMPONENT PREP OPERATOR Pulse 85 09/04/2023 9:38 AM COMPONENT PREP OPERATOR Temperature 36.2 C (97.2 F) 09/04/2023 9:38 AM COMPONENT PREP OPERATOR Respiratory Rate 16 09/04/2023 9:38 AM COMPONENT PREP OPERATOR Oxygen Saturation 100% 09/04/2023 9:38 AM COMPONENT PREP OPERATOR Inhaled Oxygen Concentration - - Weight 68 kg (150 lb) 09/04/2023 9:38 AM COMPONENT PREP OPERATOR Height 179.1 cm (5' 10.5) 09/04/2023 9:38 AM CS T Body Mass Index 21.22 09/04/2023 9:38 AM COMPONENT PREP OPERATOR Plan of Treatment Health Maintenance Due Date Last Done Comments Meningococcal B Vaccine (2 o f 2 - Trumenba SCDM 2-dose series) 07/27/2017 01/24/2017 Annual Physical 03/13/2024 03/13/2023 PHQ-2 (Physician [place]) 07/07/2024 COVID-19 Vaccine (2024-08 6 season) 2025 01/31/2021, 01/10/2021 Cervical Cancer [...] Comments HEPATITIS PANEL,ACUTE Routine 06/26/2023 9:57 AM COMPONENT PREP OPERATOR STD exposure THINPREP IMAGING PAP REFLEX HPV MRNA E6/E7 Routine 03/13/2023 5:05 PM CDT from Last 3 Months or Most Recently Relevant to Health Maintenance Results * HEPATITIS PANEL,ACUTE (06/26/2023 9:57 AM COMPONENT PREP OPERATOR) HAV IGM NON-REACT KEMAL NON-REACT KEMAL [facility] Comment: For additional information, please refer to http://Geewa.Solicore/faq/QOF073 (This link is being provided for informational/ educational purposes only.) HEPATITIS B SURFACE AG NON-REACT KEMAL NON-REACT KEMAL [facility] Comment: For additional information, please refer to http://Geewa.Solicore/faq/AXL860 (This link is being provided for informational/ educational purposes only.) HEP B CORE IGM NON-REACT KEMAL NON-REACT KEMAL [facility] Comment: For additional information, please refer to http://Geewa.Solicore/faq/LUP500 (This link is being provided for informational/ educational purposes only.) HEPATITIS C AB NON-REACT KEMAL NON-REACT KEMAL [employer] [facility] Comment: HCV antibody was non-reactive. There is no laboratory evidence of HCV infection. In most cases, no further action is required. However, if recent HCV exposure is suspected, a test for HCV RNA (test code 19564) is suggested. For additional information please refer to http://education.Solicore/faq/PXP67a5 (This link is being provided for informational/ educational purposes only.) 06/26/2023 9:57 AM COMPONENT PREP OPERATOR 06/27/2023 12:41 AM COMPONENT PREP OPERATOR Narrative Resulting Agency Comment Performing Organization Information: Site ID: [id number] Name: [facility] Address: [address] [place] [address] Director: Zachery Francisco MD Jaleesa Zarco MD LABORATORY Final Result [employer] [place] MELINDA ANNA [facility] [place] [address], [place] * THINPREP IMAGING PAP REFLEX HPV MRNA E6/E7 (03/13/2023 5:05 PM CDT) CLINICAL INFORMATION: None given [facility] [employer] [place] Clinical Information: NONE GIVEN [facility] [employer] [place] Date of Last Pap NONE GIVEN [facility] [place] Previous Biopsy? NONE GIVEN [facility] [place] SOURCE (QST) None given [employer] [place] STATEMENT OF ADEQUACY: [employer] [place] Comment: Satisfactory for evaluation. Endocervical/transformation zone component present. Age and/or menstrual status not provided PAP INTERPRETATION/RESU LTS Cytology Results: Negative for intraepithelial lesion or malignancy. [facility] [employer] [place] INFECTION: Shift in vaginal lorena suggestive of bacterial vaginosis. [facility] [employer] [place] COMMENT: This Pap test has been evaluated with computer assisted technology. [employer] [place] [employer] [facility] [place], [place] Comment: LM, CT(ASCP) CT screening location: [place] [address] Administration ANDREIA [place] [address] COMMENT: [employer] [place] Comment: EXPLANATORY NOTE: The Pap is [...] Performing Organization Information: Site ID: [id number] Name: [facility] Address: [address] [place] [address] Director: Zachery Francisco Jaleesa Zarco MD PATHOLOGY/CYTOLOGY ORDERABLES Final Result [facility] [place] [address] [address], from Last 3 Months or Most Recently Relevant to Health Maintenance Insurance [facility] Care Teams Produce Team Member Relationship Specialty [place] [id number] [place] [address] PCP - General FAMILY PRACTICE 06/10/22
--- OUTSIDE RECORDS SUMMARY | 2025-03-30 17:48 | XMS_ITS | Clinical Summary ---
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
--- OUTSIDE RECORDS SUMMARY | 2025-03-30 17:48 | XMS_ITS | Encounter Summary ---
Author Organization [facility] Address [address] [place] [address] Care Team Providers Care Legal Intern Name Role Phone Jaleesa Zarco MD Primary Care Provider [phone] Encounter Details Date Type Department Care Team (Late st Contact Info) Description 12/12/2022 [employer] Message [facility] Family & Internal Medicine [address] [address] [facility], [facility] Provider REFERRAL Social History Tobacco Use [...] on file Legal Sex Female 3:12 PM AFTER SCHOOL COORDINATOR Gender Identity Female 06/26/2022 6:10 AM AFTER SCHOOL COORDINATOR Sexual Orientation Not on file COVID-19 Exposure [...] documented as of this encounter Care Teams Legal Intern Relationship Specialty [place] [address] [place] [address] PCP - General FAMILY PRACTICE 06/10/22 documented as of this encounter
--- NOTE | 2025-03-30 18:11 | PC.NURSE ---
Pt. to ultrasound.
[2025-03-30] MEDS: SODIUM CHLORIDE 0.9% IV 1,000 ML 999 ML IV CONT (18:49)
[2025-03-30] MEDS: METOCLOPRAMIDE HCL INJ 10 MG/2 ML VIAL IV PUSH (18:50)
[2025-03-30 19:05] LABS: Hematocrit 38.4 % (37.0-47.0); Hemoglobin 12.5 g/dL (12.0-15.0); Immature Granulocyte Percent A 0.3 % (0-0.5); Immature Platelet Fraction Pct 18.1 % (0.9-11.2); Lymphocytes Absolute Auto 1.47 K/mm3 (0.9-3.2); Mean Corpuscular HGB Conc 32.6 g/dl (32-36); Mean Corpuscular Hemoglobin 26.9 pg (26-34); Mean Corpuscular Volume 82.8 fl (80-100); Nucleated Red Blood Cells Absolute Auto 0.000 K/mm3 (0.0-0.012); Nucleated Red Blood Cells Perc 0.0 % (0.0-0.2); Platelet Count Result 247 k/mm3 (150-375); Red Blood Count 4.64 M/mm3 (4.2-5.4); White Blood Count 10.8 K/mm3 (4.5-10.0)
[2025-03-30 19:13] LABS: Add Urine Microscopic? YES; Appearance Urine Cloudy (Clear); Glucose Urine UA Negative (Negative); Leukocyte Esterase Ur Negative LEU/UL (Negative); Need Manual Microscopic Reviewed; Nitrate Urine Negative (Negative); Non Pathogenic Casts 0-2; Specific Grav Ur 1.034 (1.001-1.035)
[2025-03-30 19:31] LABS: Alanine Aminotransferase 19 U/L (6-35); Albumin Level 4.8 g/dL (3.5-5.1); Alkaline Phosphatase 56 U/L (38-126); Anion Gap 14 mmol/L (4-12); Aspartate Amino Transferase 36 U/L (14-36); Bilirubin,Total 0.4 mg/dL (0.2-1.3); Blood Urea Nitrogen 5 mg/dL (7-17); Calcium 9.2 mg/dL (8.4-10.2); Carbon Dioxide 17 mmol/L (22-30); Chloride 102 mmol/L (98-107); Estimated CRCL calculation 157 ml/min; Estimated Glomerular Filt Rate > 60; Glucose 85 mg/dL (65-110); Potassium 3.6 mmol/L (3.4-5.0); Sodium 133 mmol/L (137-145); Total Protein 8.7 g/dL (6.3-8.2)
--- NOTE | 2025-03-30 20:16 | PC.NURSE ---
R. ear irrigated again. More ear wax removed from canal. Part of TM visualized. Dr. Shanks updated.
[2025-03-30 20:17] LABS: Beta HCG Quantitative 35484.00 mIU/ML
--- NOTE | 2025-03-30 20:17 | PC.NURSE ---
Pt. reports improvement in nausea. PIPE CONNECTOR Ekta at bedside updating pt. and pt. Mom.
[2025-03-30 20:40] VITALS: BP 134/98; PULSE 95; RESP 16; TEMP 36.6; O2SAT 100
== END 2025-03-30 20:42 | disposition home or self-care (01) ==
PROVIDERS: Emergency Provider Registered Nurse; PCP Family Medicine
DX: O21.1 Hyperemesis gravidarum with metabolic disturbance (principal); E86.0 Dehydration; Z3A.00 Weeks of gestation of pregnancy not specified
CPT/HCPCS: 36415; 76817; 80053; 81001; 84702; 85025; 85055; 96361; 96374; 96375; 99284; J1200; J2765; J7030

== ENCOUNTER 2025-04-11 10:51 | Emergency (ER) | payer OTHER, SELFPAY ==
--- OUTSIDE RECORDS SUMMARY | 2024-05-24 10:20 | XMS_ITS ---
Author Organization [facility] Address [address] [place] [address] Care Team Providers Care Block Captain Name Role Phone Arelis Paz Primary Care Provider [phone] Sherlyn Philip Unavailable [phone] REASON FOR VISIT transfer from Social History Sex Assigned At : Social History Observation Description Sex Assigned At Female Encounters Encounter Location Date Provider Diagnosis [address] [place] [address] 05/24/2024 hSerlyn Philip Plan Of Treatment No Information Progress Notes * Misha GARZAisDOB:2000 (25 yo F)Acc No.[id number]:05/24/2024 UNLOCKED PROGRESS NOTE Patient: Maximiliano ROGERS Provider: Anders Philip DNP, APRN, WATCH CASER-C :2000 A ge:24 Y S ex:Female Date:05/24/2024 Address:[address] [place], [place] [address] Pcp:Arelis Paz Subjective: * Chief Complaints: * 1 . transfer from . * Medical History: Objective: * Vitals: Assessment: Plan: * Treatment: * * Electronic signature of Familia Philip [id number] on 04/11/2025 at 12:29 PM CDT Sign off status: Pending * Provider: Anders Philip DNP, JEWEL LATHE OPERATOR, WATCH CASER-C Date: 07/24/2023 Generated for Printing/Faxing/eTransmitting on: 12:29 PM CDT
--- OUTSIDE RECORDS SUMMARY | 2024-06-08 10:40 | XMS_ITS ---
Author Organization [facility] Address [address] [place] [address] Care Team Providers Care Bulldogger Name Role Phone Arelis Paz Primary Care Provider Sherlyn Philip Unavailable [phone] Allergies Allergen (clinical drug ingredient) Drug/Non Drug Allergy documented on EMR Reaction Allergy Type Onset Date Status No Known Drug Allergy Unknown Drug Allergy Active No Known Food Allergy Unknown Drug Allergy Active REASON FOR VISIT Transfer from [facility] Medications Medication SIG (Take, Route, Frequency, Duration) [...] Female Encounters Encounter Location Date Provider Diagnosis [facility] [address], [place] [address] 06/08/2024 Sherlyn Philip Plan Of Treatment No Information Progress Notes * Misha GARZAisDOB:2000 (25 yo F)Acc No.[id number]:06/08/2024 UNLOCKED PROGRESS NOTE Patient: Thom Maximiliano LE Provider: Anders Philip DNP, APRN, FNP-C :2000 A ge:24 Y S ex:Female Date:06/08/2024 Address:[address] [place] [address] [facility] Pcp:Arelis Paz Subjective: * Chief Complaints: * 1 . Transfer from [facility]. * Medical History: O pioid use disorder. 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 * Medications: T aking OLANZapine 15 MG [...] * Electronic signature of Familia Philip , [id number] on 04/11/2025 at 12:29 PM CDT Sign off status: Pending * Provider: Anders Philip DNP, APRN, LOURDES Date: 08/09/2023 Generated for Printing/Faxing/eTransmitting on: 1 12:29 PM CDT
[2025-04-11 11:07] VITALS: BP 131/86; PULSE 106; RESP 18; TEMP 36.6; O2SAT 100
--- OUTSIDE RECORDS SUMMARY | 2025-04-11 12:29 | XMS_ITS | Encounter Summary ---
Author Organization [facility] Address [address] [place] [address] Care Team Providers Care Valving Machine Operator Name Role Phone Jaleesa Zarco MD Primary Care Provider [phone] Encounter Details Date Type Department Care Team (Late st Contact Info) Description 10/13/2023 [facility] - [facility] Reviews & Information Message [facility] Family & Internal Medicine [address] [address] [place], [facility] Provider OBGYN Social History Tobacco Use Types [...] on file Legal Sex Female 3:12 PM PLASTIC FIXTURE BUILDER Gender Identity Female 06/26/2022 6:10 AM PLASTIC FIXTURE BUILDER Sexual Orientation Not on file documented as of this encounter Plan of Treatment Not on file documented as of this encounter Visit Diagnoses Not on filedocumented in this encounter Additional Health Concerns Assessment Noted Time PHQ-9 Depression Total Score: 12 023 11:16 AM CDT documented as of this encounter Care Teams Valving Machine Operator Relationship Specialty Start Date End [place] J[place] [id number] [place] [address]. [address] [place] [address] PCP - General FAMILY PRACTICE 06/10/22 documented as of this encounter
--- OUTSIDE RECORDS SUMMARY | 2025-04-11 12:29 | XMS_ITS | Patient Health Record ---
Author Organization [facility]ly [facility] Address [address] [place] [address] Care Team Providers Care Mysql Developer Name Role Phone Arelis Paz Primary Care Provider Joe Turner Unavailable [phone] Veronica Murillo Unavailable [phone] Sherlyn Philip Unavailable [phone] Allergies Allergen (clinical drug ingredient) Drug/Non Drug Allergy documented on EMR Reaction Allergy Type Onset Date Status No Known Drug Allergy Unknown Drug Allergy Active No Known Food Allergy Unknown Drug Allergy Active Reason For Referral Reason Referral to [facility].[place] Diagnosis 1 Psychosis (F29) Referral Organization [facility] Referring Provider First Name Referring Provider Last Name Chidi Referring Provider Speciality Psychiatry Referred Provider Specialty Behavioral [facility] Clinical Notes Cat Quiroz 03:18:45 PM > email sent to Richie Solares Heidi L 05/31/2024 03:23:36 PM > Zane is engaged and will have her appt with Sherlyn in June. Amber will reach out to [facility] if she needs further support in engaging [...] phone, visiting friends or family, going to lutheran or club meetings) 3 to 5 times a week In the past year have you sp ent more than 2 nights in a row in a detention, fdc, fpc center, or juvenile correctional facility? 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 confirmed Problem Adjustment disorder (21172563) Trauma and stressor-related disorder (F43.9) 03/25/20 23 Active confirmed Problem Opioid dependence (16084248) Opioid use disorder, severe (F11.20) Active confirmed Problem Tobacco use (709049475) Tobacco use disorder (F17.200) Active confirmed Problem Opioid use disorder (7456183134) Opioid use disorder (F11.99) Active confirmed Problem Tobacco use (937747982) Vapes nicotine containing substance (Z72.0) Active confirmed Vital Signs Heart Rate 101 /min 09/03/2024 Temperature 97.6 degrees Fahrenheit 05/14/2024 Respiratory Rate 16 /min 09/03/2024 Oximetry 95 % 09/03/2024 Blood pressure diastolic 72 mm Hg 09/03/2024 Height 68 in in 03/03/2025 Blood pressure systolic 122 mm Hg 09/03/2024 Weight 160 lb lbs 03/03/2025 BMI 24.33 kg/m2 03/03/2025 Encounters Encounter Location Date Provider Diagnosis [address] [address] 05/12/2024 Veronica Murillo [address] [address] 05/27/2024 Joe Turner [address] [address] 08/31/2024 Veronica Murillo [address] [address] 05/14/2024 Veronica Murillo Psychosis F29 and Bipolar 2 disorder F31.[address] [address] 09/03/2024 Veronica Murillo Bipolar 2 disorder F31.81 ; Psychosis F29 and Nicotine dependence, unspecified, uncomplicated F17.[address] [address] 03/03/2025 Arelis Paz Bipolar 2 disorder F31.81 ; Psychosis F29 and Nicotine dependence, unspecified, uncomplicated F17.200 Assessments Encounter Date Diagnosis (ICD Code) Assessment Notes Treatment Notes Treatment Clinical Notes Section Notes 09/03/2024 Bipolar 2 disorder (ICD-10 - F31.81) Continue current medications. Continue services as scheduled. Labs completed recently. May self-administer medications or be administered own oral medications per [facility] protocols. Provided informed consent with understanding of side effects, adverse effects, risks and benefits as well as alternative treatments as previously discussed and with the above recommended medications & other aspects of the treatment program. Agrees to return sooner if symptoms worsen or suicidal or homicidal ideations occur. 03/03/2025 Bipolar 2 disorder (ICD-10 - F31.81) 05/14/2024 Psychosis (ICD-10 - F29) Continue current medications. Continue services as scheduled. Referred to [facility].[place] Labs completed recently. May self-administer medications or be administered own oral medications per [facility] protocols. Provided informed consent with understanding of side effects, adverse effects, risks and benefits as well as alternative treatments as previously discussed and with the above recommended medications & other aspects of the treatment program. Agrees to return sooner if symptoms worsen or suicidal or homicidal ideations occur. 05/14/2024 Bipolar 2 disorder (ICD-10 - F31.81) 09/03/2024 Psychosis (ICD-10 - F29) 03/03/2025 Psychosis (ICD-10 - F29) 03/03/2025 Nicotine dependence, unspecified, uncomplicated (ICD-10 - F17.200) 09/03/2024 Nicotine dependence, unspecified, uncomplicated (ICD-10 - F17.200) Plan Of Treatment No Information Insurance Providers Payer Name Payer Address Payer Phone Subscriber Number Group Number Insured Name Patient Relationship to Insured Coverage Start Date Coverage End Date [facility] [address] [place] [address] [id number] Maximiliano Mchugh Self - patient is the insured 3 [facility] [address] [place] [address] [id number] Maximiliano Mchugh Self - patient is the insured 3 Medical (General) History Medical History History ICD Code Opioid use disorder Surgical History Surgery Date(Month/Year) Hospitalization History Reason Date(Month/Year)
--- OUTSIDE RECORDS SUMMARY | 2025-04-11 12:29 | XMS_ITS | Encounter Summary ---
Author Organization [facility] Address [address] [place] [address] Care Team Providers Care Loom Blower Name Role Phone Unavailable Primary Care Provider Unavailabl e Encounter Details Date Type Department Care Team (Late st Contact Info) Description 1999 Outpatient Historical [facility] [address] [address] Herberth No MD NO ADDRESS ON FILE Social History Tobacco Use Types Packs/Day Years Used Date Smoking Tobacco: Never Assessed Comments Unknown Sex and Gender Information Value Date Recorded Sex Assigned at Not on file Legal Sex Female 2:38 AM FIRE CONTROLMAN Gender Identity Not on file Sexual Orientation Not on file documented as of this encounter Plan of Treatment Not on file documented as of this encounter Visit Diagnoses Not on filedocumented in this encounter
--- OUTSIDE RECORDS SUMMARY | 2025-04-11 12:29 | XMS_ITS | Encounter Summary ---
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 [place] [address] PCP - General FAMILY PRACTICE 06/10/22 documented as of this encounter
--- OUTSIDE RECORDS SUMMARY | 2025-04-11 12:29 | XMS_ITS | Encounter Summary ---
Author Organization [employer] Address 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
--- OUTSIDE RECORDS SUMMARY | 2025-04-11 12:29 | XMS_ITS | Encounter Summary ---
Author Organization [employer] Address 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
--- OUTSIDE RECORDS SUMMARY | 2025-04-11 12:29 | XMS_ITS | Clinical Summary ---
Author Organization [facility] Address [address] [place] [address] Care Team Providers Care Interstate Bus Driver Name Role Phone Jaleesa Zarco MD Primary Care Provider [phone] Allergies No known active allergies Medications hydrOXYzine [...] Encounters Date Type Department Care Team Description 03/30/2025 Scan [facility] Scanned, Doc [facility] Ultrasound (SCAN) 03/13/2025 Scan [facility] Scanned, [...] on file Legal Sex Female 3:12 PM SCHOOL PHOTOGRAPH EDITOR Gender Identity Female 06/26/2022 6:10 AM SCHOOL PHOTOGRAPH EDITOR Sexual Orientation Not on file Last Filed Vital Signs Vital Sign Reading Time Taken Comments Blood Pressure 143/89 09/04/2023 10:23 AM SCHOOL PHOTOGRAPH EDITOR Pulse 85 09/04/2023 9:38 AM SCHOOL PHOTOGRAPH EDITOR Temperature 36.2 C (97.2 F) 09/04/2023 9:38 AM SCHOOL PHOTOGRAPH EDITOR Respiratory Rate 16 09/04/2023 9:38 AM SCHOOL PHOTOGRAPH EDITOR Oxygen Saturation 100% 09/04/2023 9:38 AM SCHOOL PHOTOGRAPH EDITOR Inhaled Oxygen Concentration - - Weight 68 kg (150 lb) 09/04/2023 9:38 AM SCHOOL PHOTOGRAPH EDITOR Height 179.1 cm (5' 10.5) 09/04/2023 9:38 AM CS T Body Mass Index 21.22 09/04/2023 9:38 AM SCHOOL PHOTOGRAPH EDITOR Plan of Treatment Health Maintenance Due Date Last Done Comments Meningococcal B Vaccine (2 of 2 - Trumenba SCDM 2-dose series) 07/27/2017 01/24/2017 Annual Physical 03/13/2024 03/13/2023 PHQ-2 (Physician [place]) 07/07/2024 COVID-19 Vaccine ( season) 2025 01/31/2021, 01/10/2021 Influenza Adult (#1) 2025 04/27/2018, 08/15/2017, 06/17/2015, Additional history exists Cervical Cancer Screening Pap Smear (Age 21 to 29) Every 3 Years 03/13/2026 03/13/2023 Cervical Cancer Screening 03/13/2026 DTaP, Tdap and Td Vaccines (4 - Td or Tdap) 03/27/2027 03/27/2017, 02/12/2010, 02/26/2003 RSV Immunization or 60+ Years (1 - 1-dose 75+ series) 2074 HPV Vaccines Completed 02/24/2013, 02/12/2010 Meningococcal Vaccine Completed 03/27/2017 , 01/24/2016, 02/12/2010 Hepatitis B Vaccines Completed 03/18/2018, 09/18/2017, 03/27/2017 Hepatitis C Completed 06/26/2023 Pneumococcal Vaccine: Pediatrics (0 to 5 Years) and At-Risk Patients (6 to 49 Years) Aged Out No longer eligible based on patient's age to complete this topic RSV Immunizations Under 20 Months Aged Out No longer eligible based on patient's age to complete this topic Procedures Procedure Name Priority Date/Time Associated Diagnosis Comments ULTRASOUND GENERIC (SCAN ORDER) 03/30/2025 HEPATITIS PANEL,ACUTE Routine 06/26/2023 9:57 AM SCHOOL PHOTOGRAPH EDITOR STD exposure THINPREP IMAGING PAP REFLEX HPV MRNA E6/E7 Routine 03/13/2023 5:05 PM CDT from Last 3 Months or Most Recently Relevant to Health Maintenance Results * ULTRASOUND GENERIC (SCAN ORDER) (03/30/2025) Anatomical Region Laterality Modality Other 03/30/2025 us Doc Med Group Scanned SCANNING Final Resu lt * HEPATITIS PANEL,ACUTE (06/26/2023 9:57 AM SCHOOL PHOTOGRAPH EDITOR) HAV IGM NON-REACT KEMAL NON-REACT KEMAL [facility] Comment: For additional information, please refer to http://education.Huxiu.com/faq/VMW518 (This link is being provided for informational/ educational purposes only.) HEPATITIS B SURFACE AG NON-REACT KEMAL NON-REACT KEMAL [facility] Comment: For additional information, please refer to http://Mixamo/faq/TDW466 (This link is being provided for informational/ educational purposes only.) HEP B CORE IGM NON-REACT KEMAL NON-REACT KEMAL [facility] Comment: For additional information, please refer to http://Mixamo/faq/JLW835 (This link is being provided for informational/ educational purposes only.) HEPATITIS C AB NON-REACT KEMAL NON-REACT KEMAL [facility] Comment: HCV antibody was non-reactive. There is no laboratory evidence of HCV infection. In most cases, no further action is required. However, if recent HCV exposure is suspected, a test for HCV RNA (test code 16740) is suggested. For additional information please refer to http://Mixamo/faq/CSH82f5 (This link is being provided for informational/ educational purposes only.) 06/26/2023 9:57 AM SCHOOL PHOTOGRAPH EDITOR 06/27/2023 12:41 AM SCHOOL PHOTOGRAPH EDITOR Narrative Resulting Agency Comment Performing Organization Information: Site ID: [id number] Name: [facility] Address: [id number] [place] [address] Director: Zachery Francisco MD Jaleesa Zarco MD LABORATORY Final Result [facility] [address] [place] [address], * THINPREP IMAGING PAP REFLEX HPV MRNA E6/E7 (03/13/2023 5:05 PM CDT) CLINICAL INFORMATION: None given [facility] [place] Clinical Information: NONE GIVEN [facility] [place] Date of Last Pap NONE GIVEN REHAPP EST [employer] [facility] [place] Previous Biopsy? NONE GIVEN QU EST [employer] [facility] [place] SOURCE (QST) None given [facility] [place] STATEMENT OF ADEQUACY: [facility] [place] Comment: Satisfactory for evaluation. Endocervical/transformation zone component present. Age and/or menstrual status not provided PAP INTERPRETATION/RESU LTS Cytology Results: Negative for intraepithelial lesion or malignancy. [place] INFECTION: Shift in vaginal lorena suggestive of bacterial vaginosis. [place] COMMENT: This Pap test has been evaluated with computer assisted technology. [place] AGRICULTURE ENGINEER [facility] [place] Comment: LM, CT(ASCP) CT screening location: [place] [address] [place] [address] COMMENT: [place] Comment: EXPLANATORY NOTE: The Pap is [...] PM CDT 03/14/2023 4:49 AM CDT Narrative [facility] [place] - 03/16/2023 1:07 PM CDT FASTING: UNKNOWN Resulting Agency Comment Performing Organization Information: Site ID: [id number] Name: [facility] Address: [facility] [place] [address] Director: Zachery Francisco us Jaleesa Zarco MD PATHOLOGY/CYTOLOGY ORDERABLES Final Result [facility] [place] [address] [address], from Last 3 Months or Most Recently Relevant to Health Maintenance Insurance [employer] MEDICAID Care Teams Interstate Bus Driver Relationship Specialty [place] [address] [place] [address] PCP - General FAMILY PRACTICE 06/10/22
--- OUTSIDE RECORDS SUMMARY | 2025-04-11 12:29 | XMS_ITS | Encounter Summary ---
Author Organization [employer] Address [address] [place] [address] Care Team Providers Care Infrastructure 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 Name Role Phone Unavailable Primary Care Provider [...] on file Legal Sex Female 2:38 AM SURVEY METHODOLOGIST Gender Identity Not on file Sexual Orientation Not on file documented as of this encounter Plan of Treatment Not on file documented as of this encounter Visit Diagnoses Not on filedocumented in this encounter
--- OUTSIDE RECORDS SUMMARY | 2025-04-11 12:29 | XMS_ITS | Encounter Summary ---
Author Organization [facility] Address [address] [place] [address] Care Team Providers Care Tromper Name Role Phone Unavailable Primary Care Provider Unavailabl e Encounter Details Date Type Department Care Team (Late st Contact Info) Description 1999 Outpatient Historical [facility] [address] [address] Herberth No MD NO ADDRESS ON FILE Social History Tobacco Use Types Packs/Day Years Used Date Smoking Tobacco: Never Assessed Comments Unknown Sex and Gender Information Value Date Recorded Sex Assigned at Not on file Legal Sex Female 2:38 AM TEENAGE BABYSITTER Gender Identity Not on file Sexual Orientation Not on file documented as of this encounter Plan of Treatment Not on file documented as of this encounter Visit Diagnoses Not on filedocumented in this encounter
--- OUTSIDE RECORDS SUMMARY | 2025-04-11 12:29 | XMS_ITS | Encounter Summary ---
Author Organization [facility] Address [address] [place] [address] Care Team Providers Care Infantry Assaultman Name Role Phone Unavailable Primary Care Provider Unavailabl e Encounter Details Date Type Department Care Team (Late st Contact Info) Description 1999 Outpatient Historical [facility] [address] [address] Herberth No MD NO ADDRESS ON FILE Social History Tobacco Use Types Packs/Day Years Used Date Smoking Tobacco: Never Assessed Comments Unknown Sex and Gender Information Value Date Recorded Sex Assigned at Not on file Legal Sex Female 2:38 AM MANAGER SAFE Gender Identity Not on file Sexual Orientation Not on file documented as of this encounter Plan of Treatment Not on file documented as of this encounter Visit Diagnoses Not on filedocumented in this encounter
--- OUTSIDE RECORDS SUMMARY | 2025-04-11 12:29 | XMS_ITS | Clinical Summary ---
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
--- OUTSIDE RECORDS SUMMARY | 2025-04-11 12:29 | XMS_ITS | Encounter Summary ---
Author Organization [employer] Address [address] [place] [address] Care Team Providers Care Jewelry Mold Maker Name Role Phone Unavailable Primary Care Provider Unavailabl e Encounter Details Date Type Department Care Team (Late st Contact Info) Description 1999 Outpatient Historical [facility] JoséDenton MD [address] [place] [address] Nausea with vomiting (Primary Dx) Social History Tobacco Use Types Packs/Day Years Used Date Smoking Tobacco: Never Assessed Comments Unknown Sex and Gender Information Value Date Recorded Sex Assigned at Not on file Legal Sex Female 2:38 AM 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
--- NOTE | 2025-04-11 14:09 | ED.NAVMDI ---
HPI - Nausea/Vomiting/Diarrhea General Chief complaint: Nausea/Vomiting/Diarrhea <Vidal Mcqueen APRN - Last Filed: 04/11/25 14:10> Stated complaint: N/V/D 7 weeks preg <Vidal Mcqueen APRN - Last Filed: 04/11/25 14:10> Time Seen by Provider: 04/11/25 15:55 <Vidal Mcqueen APRN - Last Filed: 04/11/25 14:10> Focused HPI: 25-year-old female who is 7 weeks presents ER with nausea vomiting. Admits to decreased oral intake. GENERAL: Well-appearing, well-nourished, and in no acute distress. HEAD: Normocephalic, atraumatic. CHEST: Clear to auscultation. No respiratory distress. HEART: Regular rate and rhythm. NEURO: Alert and oriented x3. Patient screened in triage and initial orders placed. Additional care and disposition to be based upon diagnostic testing and treatment. <Vidal Mcqueen APRN - Last Filed: 04/11/25 14:10> History of Present Illness HPI Narrative: Agree with HPI. Seven weeks . No vaginal bleeding or vaginal discharge. No urinary symptoms. Unable to keep anything down and has had no accessed antiemetics. She is supposed to follow-up at [facility] tomorrow for her 1st OB appointment. No pelvic pain. <Earl Topete MD - Last Filed: 04/11/25 18:48> Related Data Home medications: Home Medications ?Medication ?Instructions ?Recorded ?Confirmed ?Last Taken ?Type sertraline 25 mg tablet mg 01/27/21 Unknown History <Vidal Mcqueen APRN - Last Filed: 04/11/25 14:10> Allergies/Adverse reactions: Allergies Allergy/AdvReac Type Severity Reaction Status Date / Time poison luna extract Allergy Unknown Unknown Verified 04/11/25 15:13 <Vidal Mcqueen APRN - Last Filed: 04/11/25 14:10> Review of Systems Review of Systems: All systems reviewed & are unremarkable except as noted in HPI and below <Earl Topete MD - Last Filed: 04/11/25 18:48> Constitutional: Constitutional: Reports no additional constitutional complaints <Earl Topete MD - Last Filed: 04/11/25 18:48> ENT: Reports system reviewed and no additional complaints, except as documented <Earl Topete MD - Last Filed: 04/11/25 18:48> Cardiovascular: Cardiovascular: Reports no additional cardiovascular complaints <Earl Topete MD - Last Filed: 04/11/25 18:48> Respiratory: Respiratory: Reports no additional respiratory complaints <Earl Topete MD - Last Filed: 04/11/25 18:48> Gastrointestinal: Gastrointestinal: Reports no additional gastrointestinal complaints <Earl Topete MD - Last Filed: 04/11/25 18:48> Musculoskeletal: Musculoskeletal: Reports no additional musculoskeletal complaints <Earl Topete MD - Last Filed: 04/11/25 18:48> PMFSH Past Medical History Medical History: Medical History Healthy female adult <Vidal Mcqueen APRN - Last Filed: 04/11/25 14:10> Surgical History Surgical History: Surgical History No pertinent past surgical history <Vidal Mcqueen APRN - Last Filed: 04/11/25 14:10> Social History Social History: Social History Alcohol intake: current Substance use: current Substance use type: marijuana <Vidal Mcqueen APRN - Last Filed: 04/11/25 14:10> Exam Narrative: GENERAL: Fatigued-appearing, well-nourished, and in no acute distress. HEAD: Normocephalic, atraumatic. ENT: Mucous membranes moist. CHEST: Clear to auscultation. No respiratory distress. HEART: Regular rate and rhythm. Normal peripheral pulses. ABDOMEN: Soft, nontender, nondistended. EXTREMITIES: Normal range of motion. No edema. SKIN: Warm, dry, no rash. NEURO: Alert and oriented x3. PSYCH: Normal mood and affect. <Earl Topete MD - Last Filed: 04/11/25 18:48> Course Course Emergency Course: Patient has received Zofran and Phenergan as well as 2 L IV fluid. She is able to tolerate fluid and pretzels. Abdomen is soft nontender. 4+ ketones in urine. No evidence of infection the 1+ bacteria. Contacted Dr. Nunez patient may follow-up. Will discharge with antiemetics. Patient feels comfortable going home. <Earl Topete MD - Last Filed: 04/11/25 18:48> Vital Signs Vital signs: Vital Signs Temperature 97.8 F 04/11/25 11:07 Pulse Rate 106 H 04/11/25 11:07 Respiratory Rate 18 04/11/25 11:07 Blood Pressure 131/86 04/11/25 11:07 Pulse Oximetry 100 04/11/25 11:07 Temperature 97.8 F 04/11/25 11:07 Pulse Rate 67 04/11/25 16:31 Respiratory Rate 14 04/11/25 16:31 Blood Pressure 128/81 04/11/25 16:31 Pulse Oximetry 100 04/11/25 16:31 <Vidal Mcqueen HELP DESK ASSOCIATE - Last Filed: 04/11/25 14:10> Vital Signs Temperature 97.8 F 04/11/25 11:07 Pulse Rate 106 H 04/11/25 11:07 Respiratory Rate 18 04/11/25 11:07 Blood Pressure 131/86 04/11/25 11:07 Pulse Oximetry 100 04/11/25 11:07 Temperature 97.8 F 04/11/25 11:07 Pulse Rate 67 04/11/25 16:31 Respiratory Rate 14 04/11/25 16:31 Blood Pressure 128/81 04/11/25 16:31 Pulse Oximetry 100 04/11/25 16:31 <Earl Topete MD - Last Filed: 04/11/25 18:48> MDM - Nausea/Vomiting/Diarrhea Lab Data Result diagrams: 04/11/25 14:10 04/11/25 15:23 <Vidal Mcqueen APRN - Last Filed: 04/11/25 14:10> Labs: Lab Results 04/11/25 04/11/25 04/11/25 Range/Units 14:09 14:10 15:23 WBC 14.8 H (4.5-10.0) K/mm3 RBC 5.44 H (4.2-5.4) M/mm3 Hgb 14.6 (12.0-15.0) g/dL Hct 44.8 (37.0-47.0) % MCV 82.4 (80-100) fl MCH 26.8 (26-34) pg MCHC 32.6 (32-36) g/dl RDW 16.2 H (11.5-14.5) % Plt Count 312 (150-375) k/mm3 MPV TNP Immature Gran % (Auto) 0.5 (0-0.5) % Neut % (Auto) 89.4 H (45.5-73.1) % Lymph % (Auto) 5.5 L (18.3-44.2) % Schleicher % (Auto) 4.2 (2.6-8.5) % Eos % (Auto) 0.1 (0-4.4) % Baso % (Auto) 0.3 (0.2-1.2) % Lymph # (Auto) 0.81 L (0.9-3.2) K/mm3 Schleicher # (Auto) 0.6 (0.1-0.6) K/mm3 Eos # (Auto) 0.0 (0-0.3) K/mm3 Baso # (Auto) 0.1 (0.0-0.1) K/mm3 Abs Immat Gran (auto) 0.07 H (0.00-0.031) K/mm3 Absolute Neuts (auto) 13.3 H (1.3-6.7) K/mm3 Absolute Nucleated RBC 0.000 (0.0-0.012) K/mm3 Band Neutrophils % 0 (0-6) % Nucleated RBC % 0.0 (0.0-0.2) % Platelet Estimate Adequate (Adequate) Large Platelets Present % Immature Plt Fraction 21.2 H (0.9-11.2) % Anisocytosis 2+ Schistocytes None seen Sodium 134 L (137-145) mmol/L Potassium 3.7 (3.4-5.0) mmol/L Chloride 103 (98-107) mmol/L Carbon Dioxide 9 L (22-30) mmol/L Anion Gap 22 H (4-12) mmol/L BUN 4 L (7-17) mg/dL Creatinine 0.52 L (0.7-1.0) mg/dL Estim Creat Clear Calc 139 ml/min Estimated GFR > 60 (59 - ) Glucose 107 (65-110) mg/dL Calcium 9.9 (8.4-10.2) mg/dL Total Bilirubin 0.9 (0.2-1.3) mg/dL AST 39 H (14-36) U/L ALT 83 H (6-35) U/L Alkaline Phosphatase 89 (38-126) U/L Total Protein 9.7 H (6.3-8.2) g/dL Albumin 5.2 H (3.5-5.1) g/dL Lipase 87 (23-300) U/L Beta HCG, Quant 749720.00 mIU/ML Urine Color Yellow (Yellow) Urine Appearance Cloudy H (Clear) Urine pH 5.5 (5.0-9.0) Ur Specific Herald 1.030 (1.001-1.035) Urine Protein 3+ H (Negative) mg/dL Urine Glucose (UA) Negative (Negative) mg/dL Urine Ketones 4+ H (Negative) mg/dL Ur Blood (Man) Negative (Negative) Urine Nitrate Negative (Negative) Urine Bilirubin Negative (Negative) Urine Urobilinogen 1.0 (<2.0) mg/dL Add Ur Microanalysis Reviewed Leukocyte Esterase Rfl Negative (Negative) RAYMON/UL Urine RBC 0-2 (0-2) /hpf Urine WBC 0-5 (0-3) /hpf Ur Squamous Epith Cells Few (Few) /hpf Urine Bacteria 1+ H /hpf Urine Casts 6-10 Hyaline Casts Present (None) /lpf POC Urine HCG, Qual Positive (Negative) <Vidal Mcqueen, HELP DESK ASSOCIATE - Last Filed: 04/11/25 14:10> Lab Results 04/11/25 04/11/25 04/11/25 Range/Units 14:09 14:10 15:23 WBC 14.8 H (4.5-10.0) K/mm3 RBC 5.44 H (4.2-5.4) M/mm3 Hgb 14.6 (12.0-15.0) g/dL Hct 44.8 (37.0-47.0) % MCV 82.4 (80-100) fl MCH 26.8 (26-34) pg MCHC 32.6 (32-36) g/dl RDW 16.2 H (11.5-14.5) % Plt Count 312 (150-375) k/mm3 MPV TNP Immature Gran % (Auto) 0.5 (0-0.5) % Neut % (Auto) 89.4 H (45.5-73.1) % Lymph % (Auto) 5.5 L (18.3-44.2) % Schleicher % (Auto) 4.2 (2.6-8.5) % Eos % (Auto) 0.1 (0-4.4) % Baso % (Auto) 0.3 (0.2-1.2) % Lymph # (Auto) 0.81 L (0.9-3.2) K/mm3 Schleicher # (Auto) 0.6 (0.1-0.6) K/mm3 Eos # (Auto) 0.0 (0-0.3) K/mm3 Baso # (Auto) 0.1 (0.0-0.1) K/mm3 Abs Immat Gran (auto) 0.07 H (0.00-0.031) K/mm3 Absolute Neuts (auto) 13.3 H (1.3-6.7) K/mm3 Absolute Nucleated RBC 0.000 (0.0-0.012) K/mm3 Band Neutrophils % 0 (0-6) % Nucleated RBC % 0.0 (0.0-0.2) % Platelet Estimate Adequate (Adequate) Large Platelets Present % Immature Plt Fraction 21.2 H (0.9-11.2) % Anisocytosis 2+ Schistocytes None seen Sodium 134 L (137-145) mmol/L Potassium 3.7 (3.4-5.0) mmol/L Chloride 103 (98-107) mmol/L Carbon Dioxide 9 L (22-30) mmol/L Anion Gap 22 H (4-12) mmol/L BUN 4 L (7-17) mg/dL Creatinine 0.52 L (0.7-1.0) mg/dL Estim Creat Clear Calc 139 ml/min Estimated GFR > 60 (59 - ) Glucose 107 (65-110) mg/dL Calcium 9.9 (8.4-10.2) mg/dL Total Bilirubin 0.9 (0.2-1.3) mg/dL AST 39 H (14-36) U/L ALT 83 H (6-35) U/L Alkaline Phosphatase 89 (38-126) U/L Total Protein 9.7 H (6.3-8.2) g/dL Albumin 5.2 H (3.5-5.1) g/dL Lipase 87 (23-300) U/L Beta HCG, Quant 843301.00 mIU/ML Urine Color Yellow (Yellow) Urine Appearance Cloudy H (Clear) Urine pH 5.5 (5.0-9.0) Ur Specific Herald 1.030 (1.001-1.035) Urine Protein 3+ H (Negative) mg/dL Urine Glucose (UA) Negative (Negative) mg/dL Urine Ketones 4+ H (Negative) mg/dL Ur Blood (Man) Negative (Negative) Urine Nitrate Negative (Negative) Urine Bilirubin Negative (Negative) Urine Urobilinogen 1.0 (<2.0) mg/dL Add Ur Microanalysis Reviewed Leukocyte Esterase Rfl Negative (Negative) RAYMON/UL Urine RBC 0-2 (0-2) /hpf Urine WBC 0-5 (0-3) /hpf Ur Squamous Epith Cells Few (Few) /hpf Urine Bacteria 1+ H /hpf Urine Casts 6-10 Hyaline Casts Present (None) /lpf POC Urine HCG, Qual Positive (Negative) <Earl Topete MD - Last Filed: 04/11/25 18:48> Discharge Plan Discharge Clinical Impression: Nausea/vomiting in <Vidal Mcqueen APRN - Last Filed: 04/11/25 14:10> Patient Disposition: Home <Vidal Mcqueen APRN - Last Filed: 04/11/25 14:10> Condition: Stable <Vidal Mcqueen APRN - Last Filed: 04/11/25 14:10> Instructions: Nausea and Vomiting in (ED) <Vidal Mcqueen APRN - Last Filed: 04/11/25 14:10> Additional Instructions: Return ER if he cannot keep down food or water, you have fever over 100.4? F, you have vaginal bleeding, or you have additional concerns. Contact Dr. Slater office in the morning to schedule close follow-up. <Vidal Mcqueen APRN - Last Filed: 04/11/25 14:10> Patient Language: Mauritanian <Vidal Mcqueen, HELP DESK ASSOCIATE - Last Filed: 04/11/25 14:10> Prescriptions: New ondansetron 4 mg tablet,disintegrating 4 mg PO Q6H PRN (Reason: nausea and vomiting) Qty: 10 0RF No Action sertraline 25 mg tablet hydrocodone-acetaminophen 5-325 mg tablet 1 tablet PO Q6H PRN (Reason: pain) Qty: 5 0RF ondansetron 4 mg tablet,disintegrating 4 mg PO Q8H PRN (Reason: nausea and vomiting) Qty: 14 0RF cephalexin 500 mg capsule 500 mg PO Q8H 7 Days Qty: 21 0RF metoclopramide HCl [Reglan] 10 mg tablet 10 mg PO Q6H PRN (Reason: nausea and vomiting) Qty: 30 0RF nitrofurantoin monohyd/m-cryst [Macrobid] 100 mg capsule 100 mg PO Q12H 5 Days Qty: 10 0RF Rx Instructions: must administer with a meal/food ondansetron 4 mg tablet,disintegrating 4 mg PO Q8H PRN (Reason: nausea and vomiting) Qty: 20 0RF <Vidal Mcqueen, HELP DESK ASSOCIATE - Last Filed: 04/11/25 14:10> Follow-up/Referrals: Ady Velez MD [Physician, [facility]HER] - 3 Days Zarco,MD Jaleesa [Primary Care Provider, Unknown] <Vidal Mcqueen, HELP DESK ASSOCIATE - Last Filed: 04/11/25 14:10>
[2025-04-11 14:11] LABS: BEDSIDEPREGUCG Positive (Negative)
[2025-04-11 14:23] LABS: Hematocrit 44.8 % (37.0-47.0); Hemoglobin 14.6 g/dL (12.0-15.0); Immature Granulocyte Percent A 0.5 % (0-0.5); Immature Platelet Fraction Pct 21.2 % (0.9-11.2); Lymphocytes Absolute Auto 0.81 K/mm3 (0.9-3.2); Mean Corpuscular HGB Conc 32.6 g/dl (32-36); Mean Corpuscular Hemoglobin 26.8 pg (26-34); Mean Corpuscular Volume 82.4 fl (80-100); Nucleated Red Blood Cells Absolute Auto 0.000 K/mm3 (0.0-0.012); Nucleated Red Blood Cells Perc 0.0 % (0.0-0.2); Platelet Count Result 312 k/mm3 (150-375); Red Blood Count 5.44 M/mm3 (4.2-5.4); White Blood Count 14.8 K/mm3 (4.5-10.0)
[2025-04-11 14:37] LABS: Add Urine Microscopic? YES; Appearance Urine Cloudy (Clear); Glucose Urine UA Negative (Negative); Leukocyte Esterase Ur Negative LEU/UL (Negative); Need Manual Microscopic Reviewed; Nitrate Urine Negative (Negative); Specific Grav Ur 1.030 (1.001-1.035)
[2025-04-11 14:50] LABS: Band Neutrophils Percent 0 % (0-6); Schistocytes None Seen
[2025-04-11 14:51] LABS: Anisocytosis 2+
[2025-04-11] MEDS: ONDANSETRON INJ 4 MG/2 ML VIAL IV PUSH (15:17)
[2025-04-11] MEDS: SODIUM CHLORIDE 0.9% IV 1,000 ML 999 ML IV CONT ×2 (15:17→16:30)
[2025-04-11 15:44] LABS: Alanine Aminotransferase 83 U/L (6-35); Albumin Level 5.2 g/dL (3.5-5.1); Alkaline Phosphatase 89 U/L (38-126); Anion Gap 22 mmol/L (4-12); Aspartate Amino Transferase 39 U/L (14-36); Bilirubin,Total 0.9 mg/dL (0.2-1.3); Blood Urea Nitrogen 4 mg/dL (7-17); Calcium 9.9 mg/dL (8.4-10.2); Carbon Dioxide 9 mmol/L (22-30); Chloride 103 mmol/L (98-107); Estimated CRCL calculation 139 ml/min; Estimated Glomerular Filt Rate > 60; Glucose 107 mg/dL (65-110); Lipase 87 U/L (23-300); Potassium 3.7 mmol/L (3.4-5.0); Sodium 134 mmol/L (137-145); Total Protein 9.7 g/dL (6.3-8.2)
--- OUTSIDE RECORDS SUMMARY | 2025-04-11 16:17 | XMS_ITS | Encounter Summary ---
Author Organization [email or web address] Address [address] [place] [address] Care Team Providers Care Power Shovel Operator Helper Name Role Phone Unavailable Primary Care Provider [...] on file Legal Sex Female 2:38 AM PLANNING MANAGER Gender Identity Not on file Sexual Orientation Not on file documented as of this encounter Plan of Treatment Not on file documented as of this encounter Visit Diagnoses Not on filedocumented in this encounter
--- OUTSIDE RECORDS SUMMARY | 2025-04-11 16:17 | XMS_ITS | Encounter Summary ---
Author Organization [employer] Address 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
--- OUTSIDE RECORDS SUMMARY | 2025-04-11 16:17 | XMS_ITS | Encounter Summary ---
Author Organization [facility] Address 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
--- OUTSIDE RECORDS SUMMARY | 2025-04-11 16:17 | XMS_ITS | Encounter Summary ---
Author Organization [facility] Address [address] [place] [address] Care Team Providers Care Digester Cook Name Role Phone Unavailable Primary Care Provider Unavailabl e Encounter Details Date Type Department Care Team (Late st Contact Info) Description 1999 Outpatient Historical [facility] 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
--- OUTSIDE RECORDS SUMMARY | 2025-04-11 16:17 | XMS_ITS | Encounter Summary ---
Author Organization [facility] Address 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
--- OUTSIDE RECORDS SUMMARY | 2025-04-11 16:17 | XMS_ITS | Encounter Summary ---
Author Organization [email or web address] Address 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
--- OUTSIDE RECORDS SUMMARY | 2025-04-11 16:17 | XMS_ITS | Encounter Summary ---
Author Organization [employer] Address 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
--- OUTSIDE RECORDS SUMMARY | 2025-04-11 16:17 | XMS_ITS | Clinical Summary ---
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
[2025-04-11] MEDS: PROMETHAZINE HCL 25 MG/ML AMPUL 12.5 MG IV PUSH (16:30)
[2025-04-11 16:31] VITALS: BP 128/81; PULSE 67; RESP 14; O2SAT 100
[2025-04-11 16:42] LABS: Beta HCG Quantitative 100370.00 mIU/ML
[2025-04-11 19:21] VITALS: BP 130/72; PULSE 67; RESP 16; O2SAT 99
== END 2025-04-11 19:23 | disposition home or self-care (01) ==
PROVIDERS: Nurse Practitioner Family; Emergency Provider Emergency Medicine; PCP Family Medicine
DX: O21.9 Vomiting of pregnancy, unspecified (principal); Z3A.01 Less than 8 weeks gestation of pregnancy
CPT/HCPCS: 36415; 80053; 81001; 81025; 83690; 84702; 85025; 85055; 96361; 96374; 96375; 99284; J2405; J2550; J7030

== ENCOUNTER 2025-05-19 09:24 | Emergency (ER) | payer OTHER, SELFPAY ==
--- OUTSIDE RECORDS SUMMARY | 2024-05-24 09:20 | XMS_ITS ---
Author Organization [facility] Address [address] [place] [address] Care Team Providers Care Senior Network Architect Name Role Phone Arelis Paz Primary Care Provider Sherlyn Philip Unavailable [phone] REASON FOR VISIT transfer from Social History Sex Assigned At : Social History Observation Description Sex Assigned At Female Encounters Encounter Location Date Provider Diagnosis [address] [place] [address] 05/24/2024 Sherlyn Philip Plan Of Treatment No Information Progress Notes * Misha GARZAisDOB:2000 (25 yo F)Acc No.[id number]:05/24/2024 UNLOCKED PROGRESS NOTE Patient: Maximiliano ROGERS Provider: Anders Philip DNP, APRN, ACCOUNTANT CERTIFIED PUBLIC-C :2000 A ge:24 Y S ex:Female Date:05/24/2024 Address:[address] [place], [place] [address] Pcp:Arelis Paz Subjective: * Chief Complaints: * 1 . transfer from . * Medical History: Objective: * Vitals: Assessment: Plan: * Treatment: * * Electronic signature of Familia Philip [id number] on 05/19/2025 at 09:57 AM TIP PRINTER Sign off status: Pending * Provider: Anders Philip DNP, DIGITAL CONTENT MARKETING MANAGER, ACCOUNTANT CERTIFIED PUBLIC-C Date: 07/24/2023 Generated for Printing/Faxing/eTransmitting on: 07/19/2024 09:57 AM TIP PRINTER
--- OUTSIDE RECORDS SUMMARY | 2024-06-08 09:40 | XMS_ITS ---
Author Organization [facility] Address [address] [place] [address] Care Team Providers Care Cad Detailer Name Role Phone Arelis Paz Primary Care Provider Sherlyn Philip Unavailable [phone] Allergies Allergen (clinical drug ingredient) Drug/Non Drug Allergy documented on EMR Reaction Allergy Type Onset Date Status No Known Drug Allergy Unknown Drug Allergy Active No Known Food Allergy Unknown Drug Allergy Active REASON FOR VISIT Transfer from [facility] Medications Medication SIG (Take, Route, Frequency, Duration) Notes Start Date End Date Status hydrOXYzine HCl 50 MG 1 tablet as needed Orally three times a day Active Mirtazapine 45 MG 1 tablet at bedtime Orally Once a day; Duration: 30 days Active Buprenorphine HCl-Naloxone HCl 4-1 MG 1 film under the tongue and allow to dissolve Sublingual twice daily client on CRU 11/21/2023 Not-Taking Multivitamin - 1 tablet Orally Once a day Not-Taking Hydrocortisone 1 % 1 application Externally Once a day; Duration: 14 days on unit- please deliver 12/09/2023 Not-Taking OLANZapine 15 MG 1 tablet Orally Once a day; Duration: 30 days 10/23/2023 Active Social History Sex Assigned At : Social History Observation Description Sex Assigned At Female Encounters Encounter Location Date Provider Diagnosis [address], [place] [address] 06/08/2024 Sherlyn Philip Plan Of Treatment No Information Progress Notes * Bhavani GARZAOB:2000 (25 yo F)Acc No.[id number]:06/08/2024 UNLOCKED PROGRESS NOTE Patient: Thom REYMishais Provider: Anders Philip DNP, APRN, RADHAC :2000 A ge:24 Y S ex:Female Date:06/08/2024 [facility] Pcp:Arelis Paz Subjective: * Chief Complaints: * 1 . Transfer from [facility]. * Medical History: O pioid use disorder. * Surgical History: D enies Past Surgical History. * Hospitalization/Major Diagno stic Procedure: D enies Past Hospitalization. * Family History: F ather: alive, Healthy. M other: alive, Lupus. 3 brother(s) , 1 sister(s) - healthy. . * Social History: P rimary Social History: L iving Arrangement L iving Arrangement: D ependent Living, L iving with: G randparent(s), I s this a supportive environment? Y es. A lcohol Use A lcohol Use Frequency: L ast Use the end of November 2023. I llicit Substance Usage I llicit Substance Usage: Y es, S ubstance Used: C annabis, Prescription Drugs. 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 * Medications: T aking OLANZapine 15 MG Tablet 1 tablet Orally Once a day , Taking hydrOXYzine HCl 50 MG Tablet 1 tablet as needed Orally three times a day , Taking Mirtazapine 45 MG Tablet 1 tablet at bedtime Orally Once a day , Not-Taking Buprenorphine HCl- Naloxone HCl 4-1 MG Film 1 film under the tongue and allow to dissolve Sublingual twice daily , Notes to Pharmacist: client on CRU, Not-Taking Multivitamin - Tablet 1 tablet Orally Once a day , Not-Taking Hydrocortisone 1 % Cream 1 application Externally Once a day , Notes to Pharmacist: on unit- please deliver * Allergies: N o Known Drug Allergy, No Known Food Allergy. Objective: * Vitals: Assessment: Plan: * Treatment: * * Electronic signature of Familia Philip , [id number] on 05/19/2025 at 09:57 AM PROJECT MANAGER/TEAM COACH Sign off status: Pending * Provider: Anders Philip DNP, APRN, SAUD-C Date: 1 08/09/2023 Generated for Printing/Faxing/eTransmitting on: 07/19/2024 09:57 AM PROJECT MANAGER/TEAM COACH
[2025-05-19 09:31] VITALS: BP 128/69; PULSE 86; RESP 16; TEMP 36.6; O2SAT 99
--- OUTSIDE RECORDS SUMMARY | 2025-05-19 09:57 | XMS_ITS | Encounter Summary ---
Author Organization [facility] Address [address] [place] [address] Care Team Providers Care Photo Technologist Name Role Phone Unavailable Primary Care Provider Unavailabl e Encounter Details Date Type Department Care Team (Late st Contact Info) Description 1999 Outpatient Historical [facility] 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
--- OUTSIDE RECORDS SUMMARY | 2025-05-19 09:57 | XMS_ITS | Encounter Summary ---
Author Organization [employer] Address [address] [place] [address] Care Team Providers Care Fiber Designer Name Role Phone Unavailable Primary Care Provider Unavailabl e Encounter Details Date Type Department Care Team (Late st Contact Info) Description 1999 Outpatient Historical [facility] JoséDenton MD 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
--- OUTSIDE RECORDS SUMMARY | 2025-05-19 09:57 | XMS_ITS | Encounter Summary ---
Author Organization [employer] Address 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
--- OUTSIDE RECORDS SUMMARY | 2025-05-19 09:57 | XMS_ITS | Encounter Summary ---
Author Organization [facility] Address 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
--- OUTSIDE RECORDS SUMMARY | 2025-05-19 09:57 | XMS_ITS | Clinical Summary ---
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
--- OUTSIDE RECORDS SUMMARY | 2025-05-19 09:57 | XMS_ITS | Encounter Summary ---
Author Organization [facility] Address [address] [place] [address] Care Team Providers Care Installer Name Role Phone Unavailable Primary Care Provider Unavailabl e Encounter Details Date Type Department Care Team (Late st Contact Info) Description 1999 Outpatient Historical [facility] [address] [address] Herberth No MD NO ADDRESS ON FILE Social History Tobacco Use Types Packs/Day Years Used Date Smoking Tobacco: Never Assessed Comments Unknown Sex and Gender Information Value Date Recorded Sex Assigned at Not on file Legal Sex Female 2:38 AM COMMUNITY RELATIONS REP Gender Identity Not on file Sexual Orientation Not on file documented as of this encounter Plan of Treatment Not on file documented as of this encounter Visit Diagnoses Not on filedocumented in this encounter
--- OUTSIDE RECORDS SUMMARY | 2025-05-19 09:57 | XMS_ITS | Data Portability ---
Author Organization [facility] Address [address] [place] [address] Assessment Encounter Date Assessment Date Assessment LastModified by Organization Details LastModified Time 05/13/2025 05/13/2025 Total time spent caring for the patient today was 60 minutes. This includes time spent before the visit reviewing the chart, time spent during the visit, and time spent after the visit on documentation and prescribing medication. Clinical Impression: The patient meets DSM-5 criteria for Bipolar II Disorder, characterized by recurrent major depressive episodes and at least one hypomanic episode lasting four or more days, without a history of full manic episodes. She also meets criteria for Post-Traumatic Stress Disorder (PTSD), as evidenced by a history of trauma exposure, occasional intrusive memories, avoidance behaviors, hypervigilance, exaggerated startle response, and psychological distress upon exposure to triggers. Additionally, she presents with symptoms consistent with Generalized Anxiety Disorder (BETO), including excessive worry, restlessness, irritability, and avoidance behaviors occurring most days. Her history further includes Alcohol Use Disorder, severe, in early remission, Opioid Use Disorder, severe, in early remission , and episodic, non-dependent cocaine use. She is currently in her first trimester of (Z34.01). Safety Assessment: -Suicidal Ideation: Denied. -Homicidal Ideation: Denied. -Access to Means: None reported. -Protective Factors: , engagement in care, insight, family support (grandmother). -Risk Factors: Bipolar disorder, trauma history, family history of suicide, early recovery from LEONEL. -Overall Risk: Low acute risk, moderate chronic risk due to psychiatric history and . The patient consented to the following treatment plan: - Declines initiating medication at this time. She will consider her options and decide by the next appointment. Not available 05/17/2025 13:22:44 Plan of Treatment Reminders Order Date Submit Date Provider Last Modified By Organization Details Last Modified Time Details Appointments OB 1ST VISIT EST 2024 10:45A M JUAN KEE, SAUD Not available Not available Not available SUPPLY PERSON EST 2024 04:15P M SHARMILA Gale Not available Not available Not available Lab pregnanc y test, urine 2024 025 [email or web address], [address] [place], [address], 05/03/2025 11:31:29 beta-HCG , quantita tive, serum or plasma 2023 024 [facility], [address] [place], [address], 09/25/2023 12:21:24 pregnanc y test, urine 2023 024 [email or web address] [facility], [address] [place], [address], 09/15/2023 16:26:59 beta-HCG , quantita tive, serum or plasma 2023 024 [facility], [address] [place], [address], 09/16/2023 12:26:00 abo group + rh type, blood 2023 024 [employer] [facility], [address] [facility], [place], [address], 09/16/2023 18:37:14 Referral mental health clinic referral - Hx of bipolar, anxiety/ depressi on. Was on Zyprexa, hydroyxi ne, and mirtazap ine. Stopped because she is pregnanc y and feels moods decreasi ng. No thoughts of self harm and does not really care for chestnut that she was getting the medicati on from. 2024 Wilfredo Bowles [facility], [address] [place], [address], 05/03/2025 12:31:22 Procedures None recorded . Surgeries None recorded . Imaging US, obstetri c 2024 025 [email or web address] [facility], [address] [place], [address], 05/03/2025 13:15:22 US, transvag inal 2023 024 JOSE Not available 10/01/2023 20:09:44 US, obstetri c, transvag inal 2023 024 [email or web address] Not available 09/24/2023 20:02:06 US, transvag inal 2023 024 [email or web address] Not available 09/15/2023 16:26:57 Medication Orders 28 mg-800 mcg tablet 2024 025 [facility][id number], [address] [place], [address], 05/03/2025 11:31:44 ondanset rajeev 4 mg disinteg rating tablet 2024 025 [facility]armacy #[id number], [address] [place], [address], 05/03/2025 11:31:43 Patient TargetsNo targets recorded. Patient Instructions Encounter Date Encounter Id Patient Instructions Last Modified By Organization Details Last Modified Time 05/13/2025 [id number] BETO-7 anxiety scale* [email or web address] Not maria teresa ilable 05/17/2025 14:16:00 Patient Health Questionnaire-9* [email or web address] Not available 05/17/2025 14:16:00 Safety: -The pat ient denies SI, SIB, psychosis, and tierra -Denies access to firearms or other lethal means -The patient appears future-oriented and, based on the assessment, does not exhibit signs of significant psychosis, tierra, or depression that would warrant a higher level of care at this time. -The patient was advised to seek emergency services if experiencing any thoughts of self-harm, harm to others, or a medical emergency. Follow-up: - appointment scheduled for 05/24/25 - RTC/call sooner as needed [email or web address] Not available 05/17/2025 14:07:27 Discussed medica tion use in : Lamotrigine was recommended as a mood stabilizer during : -Lamotrigine is well-studied and is not known to harm your baby when used in . -Babies exposed to lamotrigine around the time of delivery might have some withdrawal symptoms after . These can be treated if necessary and usually pass quickly. SGAs and Mirtazapine were discussed because the patient did well on these meds prior to discontinuing them, and we may have to consider restarting them. Discussed the current available data regarding SGAs in . Recent studies have not shown a significantly increased risk for major malformations and adverse neurodevelopmental outcomes. Previous studies suggested an increased risk for GDM while on SGAs in ; however, a more recent study did not find an increased risk for metabolic complications. Data on antipsychotic medication use in is limited. Reviewed risks in with untreated PMADS in , including bipolar relapse, poor self and OB care, , low weight, and long-term behavioral effects in offspring d/t stress and HPA-axis dysregulation. Mirtazapine Every has a natural 3 5 % chance of defects, known as the background risk. Studies involving about 5,000 pregnancies where mirtazapine was used have not shown an increased risk beyond this baseline. Some research indicates a potential association between mirtazapine use during and a slightly higher likelihood of or low weight. However, untreated depression during is also linked to similar complications, including delivery, low weight, and pre-eclampsia. This makes it difficult to determine whether the risks are due to the medication itself, the underlying condition, or other contributing factors. Babies exposed to mirtazapine in the womb may experience short-term symptoms after , sometimes referred to as withdrawal. These symptoms can include sensitivity to light and sound, tremors, a rapid heart rate, and difficulty regulating body temperature. In most cases, these symptoms are mild and resolve without intervention, though some newborns may need temporary care in a special nursery. It's important to note that not all babies exposed to the medication will be affected. At this time, there is no evidence showing whether mirtazapine use during has any impact on a child s long-term behavior or learning. Not available 05/17/2025 14:08:53 Reason for Referral Mental Health Clinic Referra l for Bipolar II disorder Hx of bipolar, anxiety/depression. Was on Zyprexa, hydroyxine, and mirtazapine. Stopped because she is and feels moods decreasing. No thoughts of self harm and does not really care for chestnut that she was getting the medication from. Referring Physician: Leonela Wilhelm, CLINICAL RN MANAGER, Encounter Date: 05/03/2025 Results Created Date Observation Date Name Description Value Unit Range Abnormal Flag Note LastModifiedBy Organization Detail LastModifiedTime 09/16/1909/16/2023 ABO GROUP AND RH TYPE ABO group B Not Available [facility] [address] [place], [address], 09/16/2023 18:37:14 09/16/1909/16/2023 ABO GROUP AND RH TYPE Rh type RH(D) POSITI VE For addit ional infor mariya farr refer to http: //[facility] arnoldo ryan.Que stDia gnost ics.c om/fa q/FAQ 111 (This link is being provi ded for infor romel mendez/ educjennifer le purpo ses only. ) NO COLLE CTION DATE RECEI ITALO. WE HAVE USED THE DATE THE SPECI MEN WAS RECEI ITALO BY THIS LABOR ATORY THE COLLE CTION DATE. IF THIS IS INCOR RECTMARIYA CONTJennifer CT CLIEN T SERVI VICKY. PHONE EMIR R: [phone] [phone] Not Available [facility] [address] [place], [address], 09/16/2023 18:37:14 09/11/1909/12/2023 HCG, TOTAL , QUANT HCG, total, quant 1530 mIU/m L <5 high Refer ence Range s are for femal es aged 18 years - Adult Nonpr egnan t or preme nopau alex <5 Postm enopa usal <10 Value s from diffe rent assay metho ds may vary. The use of this assay to monit or or to diagn ose patie nts with cance r or any other condi tion unrel ated to pregn cee has not been valid ated by [facility] act[facility] of this assay . Not Available [address], [address], 09/12/2023 11:28:13 09/11/19 24 09/11/2023 pregn cee test, urine HCG positi ve Not Available [address], [address], 09/10/2023 21:03:01 09/15/19 24 09/16/2023 HCG, TOTAL , QUANT HCG, total, quant 1777 mIU/m L <5 high Refer ence Range s are for femal es aged 18 years - Adult Nonpr egnan t or preme nopau alex <5 Postm enopa usal <10 Value s from diffe rent assay metho ds may vary. The use of this assay to monit or or to diagn ose patie nts with cance r or any other condi tion unrel ated to pregn cee has not been valid ated by the [facility] actur er of this assay . Not Available [address], [address], 09/16/2023 12:26:00 09/15/19 24 09/15/2023 pregn cee test, urine HCG positi ve Not Available [address], [address], 09/15/2023 15:38:03 09/24/19 24 09/25/2023 HCG, TOTAL , QUANT HCG, total, quant 5111 mIU/m L <5 high Refer ence Range s are for femal es aged 18 years - Adult Nonpr egnan t or preme nopau alex <5 Postm enopa usal <10 Value s from diffe rent assay metho ds may vary. The use of this assay to monit or or to diagn ose patie nts with cance r or any other condi tion unrel ated to pregn cee has not been valid ated by the manu actur er of this assay . Not Available [place] [facility] [address] [place], [address], 09/25/2023 12:21:24 05/03/20 25 05/03/2025 pregn cee test, urine HCG positi ve Not Available [address], [address], 05/03/2025 11:00:38 09/15/19 24 09/15/2023 US, trans vagin al No observ ation record ed. [email or web address] [place] [address], [place], [address], 09/17/2023 13:47:48 09/24/19 24 09/24/2023 US, obste tric, trans vagin al No observ ation record ed. [email or web address] [address] [place] [address], [place], [address], 09/24/2023 21:24:52 10/01/19 24 10/01/2023 US, trans vagin al No observ ation record ed. [email or web address] [address], [place], [address], 10/02/2023 09:49:09 05/03/20 US, obste tric No observ ation record ed. [email or web address] [address], [address], 05/03/2025 10:40:38 1005/03/2025 , obste tric No observ ation record ed. [email or web address] [facility] [place] [address], [place], [address], 05/03/2025 15:17:03 Result Notes None recorded. Problems Name Problem SNOMED Code Status Onset Date Resolution Date Notes Provider Name and Address Organization Details Recorded Time Bipolar II disorder 14445054 Active 2024 SAUD JESSICA [address] [place], [address] , [facility] [employer] [facility] 5 11:24:29 Bipolar affective disorder, currently depressed, moderate 877748878 Active 2024 SHARMILA Gale [address] [place] [address], [address] , [facility] [employer] [facility] IV 5 13:04:40 Generalized anxiety disorder 83996798 Active 2024 SHARMILA Gale [address] [place] [address], [address] , [facility] [employer] [facility] IV 5 13:04:44 Post-traumati c stress disorder 22735234 Active 2024 SHARMILA Gale [address] [place] [address], [address] , [facility] [employer] [facility] 5 13:04:49 Alcohol use disorder Active 2024 SHARMILA Gale [address] [place] [address], [address] , [facility] [employer] [facility] 5 13:04:55 Opioid use disorder Active 2024 SHARMILA Gale [address] [place] [address], [address] , [facility] [employer] [facility] 5 13:05:02 Problem Notes None recorded. Procedures Surgical History Date Name Laterality Status Provider Name and Address Organization Details Recorded Time 3 Nexplanon Removal completed Marisa Munoz CNM [facility] [place], [address], [facility] [employer] [facility] 01/14/2023 11:42:37 3 Nexplanon Removal cancelled Leonela Wilhelm MD [address] [place], [address], [facility] [employer] [facility] 07/28/2022 06:31:48 3 Nexplanon Insertion cancelled Leonela Wilhelm MD [address] [place], [address], [facility] [employer] [facility] 07/28/2022 06:31:47 Imaging Results None recorded. Procedure Notes None recorded. Medical Equipment None Reported. Allergies No known drug allergies Medications Name Sig Start Date Stop Date Status Note LastModified by Organization Details LastModified Time clonidine HCl 0.1 mg tablet 09/14 completed Not Available Not Available Not Available gabapentin 600 mg tablet 09/14 completed Not Available Not Available Not Available loperamide 2 mg capsule 09/14 completed Not Available Not Available Not Available trazodone 50 mg tablet TAKE 1 TABLET (50 MG TOTAL) BY MOUTH NIGHTLY AT BEDTIME 09/14 completed Not Available Not Available Not Available tizanidine 4 mg tablet 09/14 completed Not Available Not Available Not Available metronidazo le 500 mg tablet TAKE 1 TABLET BY MOUTH TWICE A DAY FOR 7 DAYS 09/14 completed Not Available Not Available Not Available hydroxyzine HCl 50 mg tablet TAKE ONE TO TWO TABLETS BY MOUTH AT NIGHT NEEDED FOR 30 DAYS. 09/14 completed Not Available Not Available Not Available cephalexin 500 mg capsule TAKE 1 CAPSULE BY MOUTH EVERY 8 HOURS FOR 7 DAYS 04/30 completed Not Available Not Available Not Available mirtazapine 30 mg tablet TAKE 1 TABLET BY MOUTH NIGHTLY AT BEDTIME. 05/03 completed Not Available Not Available Not Available gabapentin 300 mg capsule 09/14 completed Not Available Not Available Not Available folic acid 1 mg tablet 09/14 completed Not Available Not Available Not Available mirtazapine 15 mg tablet TAKE 1 TABLET BY MOUTH EVERYDAY AT BEDTIME 09/14 completed Not Available Not Available Not Available lorazepam 1 mg tablet 09/14 completed Not Available Not Available Not Available ondansetron 4 mg disintegrat ing tablet PLACE 1 TABLET BY TRANSLING UAL ROUTE EVERY 6 TO 8 HOURS active Not Available Not Available No t Available metoclopram mansi 10 mg tablet TAKE 1 TABLET BY MOUTH EVERY 6 HOURS NEEDED FOR NAUSEA AND VOMITING 05/03 completed Not Available Not Available Not Available hydroxyzine pamoate 25 mg capsule 09/14 completed Not Available Not Available Not Available Zyprexa active Not Available Not Avail able Not Available hydroxyzine HCl active Not Available Not Available Not Available mirtazapine active Not Available Not A vailable Not Available 28 mg iron-800 mcg tablet TAKE 1 TABLET BY MOUTH EVERY DAY active Not Available Not Available No t Available naloxone 4 mg/actuatio n nasal spray 09/14 completed Not Available Not Available Not Available 28 mg-800 mcg tablet Take 1 tablet every day by oral route. 2024 active Not Available Not Available Not Avai lable Lucemyra 0.18 mg tablet 09/14 completed Not Available Not Available Not Available Vitals Date Recorded Body height Body mass index (BMI) Body weight Body temperature Systolic And Diastolic Provider Name and Address Organization Details Last Updated DateTime 09/15/2023 172.72 cm 22.5 kg/m2 80773.9 5 g 97.9 [degF] 114/68 mm[Hg] Hilary Jonas [facility] [employer] [facility] 15:58:07 Date Recorded Body height Body mass index (BMI) Body weight Systolic And Diastolic Provider Name and Address Organization Details Last Updated DateTime 09/24/2023 172.72 cm 22.2 kg/m2 19079.49 g 120/70 mm[Hg] Madelyn [place] [facility] [employer] [facility] 09/24/2023 16:50:13 Date Recorded Body height Body mass index (BMI) Body weight Systolic And Diastolic Provider Name and Address Organization Details Last Updated DateTime 10/01/2023 172.72 cm 22.2 kg/m2 78936.49 g 122/80 mm[Hg] Madelyn [place] [facility] [employer] [facility] 10/01/2023 16:21:57 Date Recorded Body weight Body mass index (BMI) Body height Systolic And Diastolic Provider Name and Address Organization Details Last Updated DateTime 05/03/2025 02811.91 g 26.6 kg/m2 175.26 cm 100/60 mm[Hg] Aline Bean [facility] [employer] [facility] 05/03/2025 11:00:32 Date Recorded Body height Body mass index (BMI) Body weight Body temperature Systolic And Diastolic Provider Name and Address Organization Details Last Updated DateTime 05/13/2025 175.26 cm 26.7 kg/m2 64419.7 8 g 98.7 [degF] 104/72 mm[Hg] Edil Freed [facility] [employer] [facility] 16:56:56 Social History Question Answer Notes LastModified by Organizat ion Details LastModified Time Tobacco Smoking Status Never Smoker Gaye [place], [place] [employer] [facility] 01/14/2023 11:24:09 If You Are , What Was Your Level Of Alcohol Consumption Prior To ? None [email or web address] Information not available 09/11/2023 Are You Blind Or Do You Have Difficulty Seeing? No Information not available 01/14/2023 Are You Deaf Or Do You Have Serious Difficulty Hearing? No Information not available 01/14/2023 What Type Of Diet Are You Following? REGULAR Information not available 01/14/2023 How Many Children Do You Have? 0 Information not available 01/14/2023 What Is Your Relationship Status? Single Information not available 01/14/2023 Are You Sexually Active? Yes Information not available 01/14/2023 Sex: Unknown Functional Status Question Answer Note LastModified by Organizat ion Details LastModified Time Do you use any illicit or recreational drugs? No Information not available 01/14/2023 Do you or have you ever used any other forms of tobacco or nicotine? Yes Information not available 01/14/2023 What is your level of alcohol consumption? None Information not available 01/14/2023 Are you currently employed? No Information not available 05/03/2025 Do you or have you ever used e-cigarettes or vape? Current user of electronic cigarettes Information not available 01/14/2023 What is your exercise level? None Information not available 01/14/2023 Mental Status None recorded. Family History Relationship Description Onset Age of this Age Resolved Age Notes LastModified by Organization Details LastModified Time Father No current problems or disability [email or web address] Not available 09/14 15:59:20 Mother No current problems or disability [email or web address] Not available 09/14 15:59:20 Medical History Condition Response Other Cancer N High Blood Pressure N Colon Cancer N Cytomegalovirus N Hyperthyroidism N Breast Cancer N Herpes (HSV) N MRSA N Blood Transfusion N Lung Cancer N Depression Y Hypothyroidism N Incontinence N Panic Attacks N Neurological Disorder N Deep Vein Thrombosis N Anxiety Disorder Y Autoimmune disease N Arthritis N Tuberculosis/Positive PPD N Shingles N Polycystic Ovarian Syndrome N Infertility N Cervical Cancer N Hematuria N Chlamydia N Varicosities N Stroke N Crohn's Disease N Seasonal allergies N Alzheimer's/Dementia N COPD/Emphysema N HPV/Genital Warts N Endometriosis N IBS (Irritable Bowel Syndrome) N History of Abnormal Pap N High Cholesterol N Liver Disease N Fibromyalgia N Kidney Infection N Ulcer N Kidney Disease N HIV N Gallbladder disease N Von Willebrand disease N Sickle Cell Disease/Trait N ADD/ADHD N Eating Disorder N Diabetes Mellitus (non-insulin dependent ) N Anemia N Ovarian Problems N Multiple Sclerosis N Gonorrhea N Frequent Urinary Tract infections N Osteopenia N Headaches/migraines N GERD (reflux) Y Ovarian Cancer N Diabetes (insulin dependent) N Seizures/Epilepsy N Breast Problems N Fibroids N Asthma N Heart Attack N Endometrial Cancer N Lupus N Rubella N Blood Clotting Disorder N Bipolar Disorder N Diabetes Mellitus (during ) N Ulcerative Colitis N Hepatitis N Heart Disease N Pulmonary Embolism N RPR N Chicken Pox N Osteoporosis N Gynecological History Statement/Question Response Date of Last Colonoscopy Flow Moderate Date of LMP 02/12/2025 Most Recent Bone Density HPV Vaccine N Date of Last Pap Smear Duration of Flow (days) 9 Most Recent Mammogram Current Control Method Obstetrics History GPAL:G 1 P 0 0 1 0 Type Value Spontaneous 1 Total 1 Past Encounters Encounter ID Performer Location Encounter Start Date Encounter Closed Date Diagnosis/Indication Diagnosis SNOMED-CT Code Diagnosis ICD10 Code Diagnosis IMO Codes Diagnosis Note [id number] Marisa gilman, BRITANY [facility] [address] [place] [address] 01/14/2023 11:00:14 01/14/2023 17:43:32 Contraception care 977894708 Z30.40 PNV recommende d,tollerat ed removal of Nexplanon well [id number] JUAN KEE, SCROLL SAW OPERATOR [facility] [address] [place] [address] 09/11/2023 12:36:30 09/11/2023 16:36:32 Missed period 80548000 N92.5 -First positive HCG 2-Seen in ER on 09/08 at [place] for bleeding and cramping. Had US but was not told anything concerning US. States HCG level was 1048 then. UPT in positive today-repe at HCG level today and Friday, advised we want to see it double every 48 hours.-RTC in 2 weeks for TVUS for confirmati on of - Continue to take PNV. Opioid dependence 279103 00 F11.20 - States has not used since June, but does still have cravings.- Boyfriend is not aware and is concerned about discussing in front of him-Discus sed will do confirmati on visit with Dr. Galindo to also discuss opioid dependence treatment during . [id number] SHARMILA AKBAR-BC [facility] [address] [place] [address] 09/15/2023 15:33:03 09/16/2023 10:58:06 test positive 049467224 Z32.01 Missed period 60345450 N 92.5 TVUS today shows Gestationa l Sac with what appears to be pole and yolk sac. No heart motion identified . -First positive HCG 09/03 -Seen in ER on 09/08 at [facility] for bleeding and cramping. Had US but was not told anything concerning US. Pt states HCG level was 1048 then. We have no record of this.- Quant done on 09/10: 1530. Pt was advised to come back for repeat Quant and US in 2 weeks. She did not, US was scheduled today. Education given. Pt requesting quant today. She states she was told her numbers were going down. Based on pt informatio n her Quant did not double, but it did not decrease. Will RTC in 14 days for repeat US. Opioid dependence 765562 00 F11.20 - States has not used since June, but does still have cravings.- Boyfriend is not aware and is concerned about discussing in front of him-Discus sed will do confirmati on visit with Dr. Galindo to also discuss opioid dependence treatment during . [id number] Geno Galindo MD [place] [address] [place] [address] 09/24/2023 16:05:36 09/24/2023 20:02:06 Threatened miscarriage 78717485 O20.0 discussed with patient that her ultrasound today has the appearance of missed ab. There has not been growth since last week and an embryo is seen but no cardiac activity.P t is not accepting of this informatio n, states that she thinks she sees that the embryo has grown.will follow up quant and repeat u/s next weekmiscar riage precaution s reviewed, adv to ER if severe cramping or heavy bleeding starts [id number] Geno Galindo MD [place] [place] [address] 10/01/2023 15:46:35 10/01/2023 18:26:06 Missed miscarriage 81534740 O02.1 ultrasound images reviewed. appears to be a completed miscarriag e.Pt desires to conceive again and so declines control [id number] Leonela Wilhelm MD [address] [address] 05/03/2025 10:25:49 05/03/2025 12:31:22 test positive 534957804 Z32.01 591313 25 yo @ 11w 4d based on LMP c/w 1T USFHT's: 151 Confirmati on of today. has not been previously confirmed at another healthcare facility. 1) First trimester teaching provided.- --foods and activities to avoid---sa fe meds---robert entation to practice-- -delivery locations- --ARY visit progressio n---prenat al vitamins daily 2) Review previous OBGYN and health history that may affect - 1st - Bipolar, mixed anxiety/de pression 3) S/S SAB reviewed and when to seek NOB care 4) NIPT/Mariella er screen-PA case sent 5) Pap:needs pap at 1st OB visit 6)RTC 2 weeks ARY with NOB labs 7) EDC: 11/18/2025 8) Confirmati on BMI: 26.6 Bipolar II disorder [id number] F31.81 087910 Mixed anxi ety and depressive disorder [id number] F41.8 959577 Nausea and vomiting in [id number] O21.9 [id number] SHARMILA Gale [facility] [address] [place] [address] 05/13/2025 16:45:46 05/13/2025 17:43:30 Bipolar affective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
--- OUTSIDE RECORDS SUMMARY | 2025-05-19 09:57 | XMS_ITS | Encounter Summary ---
Author Organization [employer] Address [address] [place] [address] Care Team Providers Care Artisan Plasterer Name Role Phone Unavailable Primary Care Provider [...] file Legal Sex Female 2:38 AM MANAGER ADOBE Gender Identity Not on file Sexual Orientation Not on file documented as of this encounter Plan of Treatment Not on file documented as of this encounter Visit Diagnoses Not on filedocumented in this encounter
--- OUTSIDE RECORDS SUMMARY | 2025-05-19 09:57 | XMS_ITS | Patient Health Record ---
Author Organization [facility] Address [address] [place] [address] Care Team Providers Care Relay Record Clerk Name Role Phone Arelis Paz Primary Care Provider [phone] Joe Turner Unavailable [phone] Veronica Murillo Unavailable [phone] Sherlyn Philip Unavailable [phone] Allergies Allergen (clinical drug ingredient) Drug/Non Drug Allergy documented on EMR Reaction Allergy Type Onset Date Status No Known Drug Allergy Unknown Drug Allergy Active No Known Food Allergy Unknown Drug Allergy Active Reason For Referral No Information Medications Medication SIG (Take, Route, Frequency, Duration) [...] phone, visiting friends or family, going to zoroastrian or club meetings) 3 to 5 times a week In the past year have you sp ent more than 2 nights in a row in a custodial, [facility], [place] [facility], or juvenile correctional facility? No Are [...] W/U Status Risk Notes Problem Tobacco user (133634015) Nicotine dependence, unspecified, uncomplicated (F17.200) Active confirmed Problem Posttraumatic stress disorder (72907007) PTSD (post-traumatic stress disorder) (F43.10) Active confirmed Problem Psychosis (06612326) Psychosis (F29) Active confirmed Problem Bipolar 2 disorder (49439038) Bipolar 2 disorder (F31.81) Active confirmed Problem Insomnia due to mental disorder (15320203) Insomnia due to mental disorder (F51.05) Active confirmed Problem Adjustment disorder (65118186) Trauma and stressor-related disorder (F43.9) 03/25/20 23 Active confirmed Problem Opioid dependence (18593698) Opioid use disorder, severe (F11.20) Active confirmed Problem Tobacco use (294481466) Tobacco use disorder (F17.200) Active confirmed Problem Opioid use disorder (5431962135) Opioid use disorder (F11.99) Active confirmed Problem Tobacco use (603235814) Vapes nicotine containing substance (Z72.0) Active confirmed Vital Signs Heart Rate 101 /min 09/03/2024 Respiratory Rate 16 /min 09/03/2024 Blood pressure diastolic 72 mm Hg 09/03/2024 Oximetry 95 % 09/03/2024 Height 68 in in 03/03/2025 Blood pressure systolic 122 mm Hg 09/03/2024 Weight 160 lb lbs 03/03/2025 BMI 24.33 kg/m2 03/03/2025 Encounters Encounter Location Date Provider Diagnosis [address] [place] [address] 09/03/2024 Veronica Murillo Bipolar 2 disorder F31.81 ; Psychosis F29 and Nicotine dependence, unspecified, uncomplicated F17.[address] [place] [address] 03/03/2025 Arelis Paz Bipolar 2 disorder F31.81 ; Psychosis F29 and Nicotine dependence, unspecified, uncomplicated F17.[address] [address] 05/27/2024 Joe Turner [address] [address] 08/31/2024 Veronica Murillo Assessments Encounter Date Diagnosis (ICD Code) Assessment Notes Treatment Notes Treatment Clinical Notes Section Notes 09/03/2024 Bipolar 2 disorder (ICD-10 - F31.81) Continue current medications. Continue services as scheduled. Labs completed recently. May self-administer medications or be administered own oral medications per [place] protocols. Provided informed consent with understanding of side effects, adverse effects, risks and benefits as well as alternative treatments as previously discussed and with the above recommended medications & other aspects of the treatment program. Agrees to return sooner if symptoms worsen or suicidal or homicidal ideations occur. 03/03/2025 Bipolar 2 disorder (ICD-10 - F31.81) 09/03/2024 Psychosis (ICD-10 - F29) 03/03/2025 Psychosis (ICD-10 - F29) 09/03/2024 Nicotine dependence, unspecified, uncomplicated (ICD-10 - F17.200) 03/03/2025 Nicotine dependence, unspecified, uncomplicated (ICD-10 - F17.200) Plan Of Treatment No Information Insurance Providers Payer Name Payer Address Payer Phone Subscriber Number Group Number Insured Name Patient Relationship to Insured Coverage Start Date Coverage End Date [facility] [address] [facility] [place] [phone] [id number] Jeison Maximiliano Self - patient is the insured 3 [facility] [address] [place] [phone] [id number] Maximiliano Mchugh Self - patient is the insured 3 Medical (General) History Medical History History ICD Code Opioid use disorder Surgical History Surgery Date(Month/Year) Hospitalization History Reason Date(Month/Year)
--- OUTSIDE RECORDS SUMMARY | 2025-05-19 09:57 | XMS_ITS | Encounter Summary ---
Author Organization [employer] Address 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
[2025-05-19 11:47] VITALS: BP 129/85; PULSE 91; RESP 16; TEMP 36.8; O2SAT 100
[2025-05-19] MEDS: ONDANSETRON INJ 4 MG/2 ML VIAL IV PUSH (12:23)
[2025-05-19] MEDS: LACTATED RINGERS 1,000 ML 999 ML IV CONT ×2 (12:23→13:21)
[2025-05-19 12:38] LABS: Hematocrit 38.2 % (37.0-47.0); Hemoglobin 12.3 g/dL (12.0-15.0); Immature Granulocyte Percent A 0.3 % (0-0.5); Immature Platelet Fraction Pct 15.4 % (0.9-11.2); Lymphocytes Absolute Auto 1.12 K/mm3 (0.9-3.2); Mean Corpuscular HGB Conc 32.2 g/dl (32-36); Mean Corpuscular Hemoglobin 27.0 pg (26-34); Mean Corpuscular Volume 83.8 fl (80-100); Nucleated Red Blood Cells Absolute Auto 0.000 K/mm3 (0.0-0.012); Nucleated Red Blood Cells Perc 0.0 % (0.0-0.2); Platelet Count Result 241 k/mm3 (150-375); Red Blood Count 4.56 M/mm3 (4.2-5.4); White Blood Count 11.5 K/mm3 (4.5-10.0)
[2025-05-19 12:50] LABS: Add Urine Microscopic? YES; Appearance Urine Clear (Clear); Glucose Urine UA Negative (Negative); Leukocyte Esterase Ur Negative LEU/UL (Negative); Nitrate Urine Negative (Negative); Non Pathogenic Casts 0-2; Specific Grav Ur 1.033 (1.001-1.035)
--- OUTSIDE RECORDS SUMMARY | 2025-05-19 12:56 | XMS_ITS | Encounter Summary ---
Author Organization [employer] Address [address] [place] [address] Care Team Providers Care Brake Tester Name Role Phone Unavailable Primary Care Provider [...] on file Legal Sex Female 2:38 AM FIRST AID TEACHER Gender Identity Not on file Sexual Orientation Not on file documented as of this encounter Plan of Treatment Not on file documented as of this encounter Visit Diagnoses Not on filedocumented in this encounter
--- OUTSIDE RECORDS SUMMARY | 2025-05-19 12:56 | XMS_ITS | Clinical Summary ---
Author Organization [facility] Address [address] [facility] Attn: Epic Prelude ADT ANDREIA VELOZ [address] Care Team Providers Care Supervisor Slashing Department Name Role Phone Unavailable Primary Care Provider Unavailabl e Social History Tobacco Use Types Packs/Day Years Used Date Smoking Tobacco: Never Assessed Comments Unknown Sex and Gender Information Value Date Recorded Sex Assigned at Not on file Legal Sex Female 2:38 AM BREAKER TENDER Gender Identity Not on file Sexual [...]
--- OUTSIDE RECORDS SUMMARY | 2025-05-19 12:56 | XMS_ITS | Encounter Summary ---
Author Organization [employer] Address 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
--- OUTSIDE RECORDS SUMMARY | 2025-05-19 12:56 | XMS_ITS | Encounter Summary ---
Author Organization [employer] Address [address] [place] [address] Care Team Providers Care Bill Checker Name Role Phone Unavailable Primary Care Provider [...] on file Legal Sex Female 2:38 AM CQ DEVELOPER Gender Identity Not on file Sexual Orientation Not on file documented as of this encounter Plan of Treatment Not on file documented as of this encounter Visit Diagnoses Not on filedocumented in this encounter
--- OUTSIDE RECORDS SUMMARY | 2025-05-19 12:56 | XMS_ITS | Encounter Summary ---
Author Organization [facility] Address [address] [place] [address] Care Team Providers Care Survey Chief Name Role Phone Unavailable Primary Care Provider Unavailabl e Encounter Details Date Type Department Care Team (Late st Contact Info) Description 1999 Outpatient Historical [facility] [address] [facility] [address] [address] [place] No MD NO ADDRESS ON FILE Social History Tobacco Use Types Packs/Day Years Used Date Smoking Tobacco: Never Assessed Comments Unknown Sex and Gender Information Value Date Recorded Sex Assigned at Not on file Legal Sex Female 2:38 AM POLITICAL ANALYST Gender Identity Not on file Sexual Orientation Not on file documented as of this encounter Plan of Treatment Not on file documented as of this encounter Visit Diagnoses Not on filedocumented in this encounter
--- OUTSIDE RECORDS SUMMARY | 2025-05-19 12:56 | XMS_ITS | Encounter Summary ---
Author Organization [employer] Address 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
--- OUTSIDE RECORDS SUMMARY | 2025-05-19 12:56 | XMS_ITS | Encounter Summary ---
Author Organization [facility] Address [address] [place] [address] Care Team Providers Care Puppet Developer Name Role Phone Jaleesa Zarco MD Primary Care Provider [phone] Encounter Details Date Type Department Care Team (Late st Contact Info) Description 10/13/2023 Guavus Message Enc [facility] Family & Internal Medicine [address] [address] [place], [facility] Provider OBGYN Social History Tobacco Use Types [...] on file Legal Sex Female 3:12 PM POACHER OPERATOR Gender Identity Female 06/26/2022 6:10 AM POACHER OPERATOR Sexual Orientation Not on file documented as of this encounter Plan of Treatment Not on file documented as of this encounter Visit Diagnoses Not on filedocumented in this encounter Additional Health Concerns Assessment Noted Time PHQ-9 Depression Total Score: 12 023 11:16 AM CDT documented as of this encounter Care Teams Puppet Developer Relationship Specialty Start Date End Date Jaleesa Zar[place] [id number] [place] [address]. [address] [place] [address] PCP - General FAMILY PRACTICE 06/10/22 documented as of this encounter
--- OUTSIDE RECORDS SUMMARY | 2025-05-19 12:56 | XMS_ITS | Encounter Summary ---
Author Organization [facility] Address [address] [place] [address] Care Team Providers Care Inspector Fibrous Wallboard Name Role Phone Unavailable Primary Care Provider Unavailabl e Encounter Details Date Type Department Care Team (Late st Contact Info) Description 1999 Outpatient Historical [facility] [address] [facility] [address] [address] Her[place] No MD NO ADDRESS ON FILE Social History Tobacco Use Types Packs/Day Years Used Date Smoking Tobacco: Never Assessed Comments Unknown Sex and Gender Information Value Date Recorded Sex Assigned at Not on file Legal Sex Female 2:38 AM DIRECTOR RECORDS MANAGEMENT Gender Identity Not on file Sexual Orientation Not on file documented as of this encounter Plan of Treatment Not on file documented as of this encounter Visit Diagnoses Not on filedocumented in this encounter
--- OUTSIDE RECORDS SUMMARY | 2025-05-19 12:56 | XMS_ITS | Encounter Summary ---
Author Organization [facility] Address 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
--- OUTSIDE RECORDS SUMMARY | 2025-05-19 12:56 | XMS_ITS | Clinical Summary ---
Author Organization [facility] Address [address] [place] [address] Care Team Providers Care Aerobics Teacher Name Role Phone Jaleesa Zarco MD Primary Care Provider [phone] Allergies No known active allergies Medications hydrOXYzine [...] Encounters Date Type Department Care Team Description 04/11/2025 Scan [facility] Scanned, Doc [facility] 03/30/2025 Scan [facility] Scanned, [...] on file Legal Sex Female 3:12 PM BILLET RECORDER Gender Identity Female 06/26/2022 6:10 AM BILLET RECORDER Sexual Orientation Not on file Last Filed Vital Signs Vital Sign Reading Time Taken Comments Blood Pressure 143/89 09/04/2023 10:23 AM BILLET RECORDER Pulse 85 09/04/2023 9:38 AM BILLET RECORDER Temperature 36.2 C (97.2 F) 09/04/2023 9:38 AM BILLET RECORDER Respiratory Rate 16 09/04/2023 9:38 AM BILLET RECORDER Oxygen Saturation 100% 09/04/2023 9:38 AM BILLET RECORDER Inhaled Oxygen Concentration - - Weight 68 kg (150 lb) 09/04/2023 9:38 AM BILLET RECORDER Height 179.1 cm (5' 10.5) 09/04/2023 9:38 AM CS T Body Mass Index 21.22 09/04/2023 9:38 AM BILLET RECORDER Plan of Treatment Health Maintenance Due Date Last Done Comments Meningococcal B Vaccine (2 of 2 - Trumenba SCDM 2-dose series) 07/27/2017 01/24/2017 Hepatitis A Vaccines (2 of 2 - 2-dose series) 09/15/2018 03/18/2018, 09/18/2017, 03/27/2017 Annual Physical 03/13/2024 03/13/2023 PHQ-2 (Physician [place]) 07/07/2024 COVID-19 Vaccine (3 - season) 2025 01/31/2021, 01/10/2021 Influenza Adult (#1) [...] 03/30/2025 HEPATITIS PANEL,ACUTE Routine 06/26/2023 9:57 AM BILLET RECORDER STD exposure THINPREP IMAGING PAP REFLEX HPV MRNA E6/E7 Routine 03/13/2023 5:05 PM CDT from Last 3 Months or Most Recently Relevant to Health Maintenance Results * ULTRASOUND GENERIC (SCAN ORDER) (03/30/2025) Anatomical Region Laterality Modality Other 03/30/2025 us Doc [facility] Scanned SCANNING Final Resu lt * HEPATITIS PANEL,ACUTE (06/26/2023 9:57 AM BILLET RECORDER) Pathologist [facility] HAV IGM NON-REACT KEMAL NON-REACT KEMAL [facility] Comment: For additional information, please refer to http://RORE [employer]/faq/GGW994 (This link is being provided for informational/ educational purposes only.) HEPATITIS B SURFACE AG NON-REACT KEMAL NON-REACT KEMAL [facility] Comment: For additional information, please refer to http://[employer]ORE [employer]/faq/FAZ475 (This link is being provided for informational/ educational purposes only.) HEP B CORE IGM NON-REACT KEMAL NON-REACT KEMAL [facility] Comment: For additional information, please refer to http://[employer]ORE [employer]/faq/YZP663 (This link is being provided for informational/ educational purposes only.) HEPATITIS C AB NON-REACT KEMAL NON-REACT KEMAL [facility] Comment: HCV antibody was non-reactive. There is no laboratory evidence of HCV infection. In most cases, no further action is required. However, if recent HCV exposure is suspected, a test for HCV RNA (test code 22799) is suggested. For additional information please refer to http://[employer]/faq/GRX70e0 (This link is being provided for informational/ educational purposes only.) 06/26/2023 9:57 AM BILLET RECORDER 06/27/2023 12:41 AM BILLET RECORDER Narrative Resulting Agency Comment Performing Organization Information: Site ID: [id number] Name: [facility] Address: [address] [place] [address] Director: Zachery Francisco MD Jaleesa Zarco MD LABORATORY Final Result [facility] [address] [place] [address], * THINPREP IMAGING PAP REFLEX HPV MRNA E6/E7 (03/13/2023 5:05 PM CDT) [facility] CLINICAL INFORMATION: None given [facility] [place] Clinical Information: NONE GIVEN [place] Date of Last Pap NONE GIVEN [employer] [facility] [place] Previous Biopsy? NONE GIVEN [facility] [place] SOURCE (QST) None given [place] STATEMENT OF ADEQUACY: [place] Comment: Satisfactory for evaluation. Endocervical/transformation zone component present. Age and/or menstrual status not provided PAP INTERPRETATION/RESU LTS Cytology Results: Negative for intraepithelial lesion or malignancy. [place] INFECTION: Shift in vaginal lorena suggestive of bacterial vaginosis. [place] COMMENT: This Pap test has been evaluated with computer assisted technology. [place] [facility] [place] Comment: LM, CT(ASCP) CT screening location: [place] [address] [place] [address] COMMENT: [place] Comment: EXPLANATORY NOTE: The Pap is [...] PM CDT 03/14/2023 4:49 AM CDT Narrative [facility] [place] - 03/16/2023 1:07 PM CDT FASTING: UNKNOWN Resulting Agency Comment Performing Organization Information: Site ID: [id number] Name: [facility] Address: [facility] [place] [address] Director: Zachery Francisco us Jaleesa Zarco MD PATHOLOGY/CYTOLOGY ORDERABLES Final Result [facility] [place] [address] [address], from Last 3 Months or Most Recently Relevant to Health Maintenance Insurance [employer] MEDICAID Care Teams Aerobics Teacher Relationship Specialty [place] [id number] [address] [facility] [address] [place] [address] PCP - General FAMILY PRACTICE 06/10/22
--- OUTSIDE RECORDS SUMMARY | 2025-05-19 12:56 | XMS_ITS | Encounter Summary ---
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 [place] [address] PCP - General FAMILY PRACTICE 06/10/22 documented as of this encounter
--- NOTE | 2025-05-19 12:57 | ED_ITS ---
HPI - General Adult General Chief complaint: Nausea/Vomiting/Diarrhea Stated complaint: /vomiting Time Seen by Provider: 05/19/25 11:56 History of Present Illness HPI narrative: 25-year-old female present to the emergency department for evaluation for nausea and vomiting. Patient is 12 weeks has been on Zofran for nausea control but ran out yesterday. Patient is going to follow up with [facility] but has not yet seen her OB Gyne. This is the patient's 2nd . Patient denies any abdominal pain. Patient denies any vaginal bleeding vaginal discharge. Patient denies any pain with urination. Patient's primary complaint is nausea and vomiting. Patient is resting comfortably at time of evaluation but patient had been treated with IV fluids and IV Zofran prior to my initial evaluation. Patient is present with her mother. Patient denies any other significant past medical history. Related Data Home Medications ?Medication ?Instructions ?Recorded ?Confirmed ?Last Taken ?Type sertraline 25 mg tablet mg 01/27/21 Unknown History Allergies Allergy/AdvReac Type Severity Reaction Status Date / Time poison luna extract Allergy Unknown Unknown Verified 05/19/25 09:33 Review of Systems 2 Review of Systems: All systems reviewed & are unremarkable except as noted in HPI and below PMFSH Past Medical History Medical History Healthy female adult Surgical History Surgical History No pertinent past surgical history Social History Social History Alcohol intake: current Substance use: current Substance use type: marijuana Exam 2 Narrative: APPEARANCE: Well appearing, no pain, no distress, well-nourished. HEAD: normocephalic, atraumatic. EYES: PERRLA/EOMI, conjunctivae clear. NOSE: Normal no drainage EARS:TMS clear with good light reflex. THROAT: Pharynx clear, no exudate. NECK: Supple. No adenopathy, no masses. RESPIRATORY: Airway patent, respirations nonlabored. Clear to auscultation bilaterally, no rales, rhonchi, wheezing. CARDIOVASCULAR: Regular rate and rhythm without murmurs rubs or gallops. ABDOMINAL: Soft, nontender, nondistended, normal bowel sounds MUSCULOSKELETAL: Moves all extremities. Strength/ROM intact, No edema, No calf tenderness. NEURO: Alert. Cranial nerves II through XII intact. Good gait. Good coordination SKIN: Warm, dry. Normal Color Course Vital Signs Vital signs: Vital Signs Temperature 97.9 F 05/19/25 09:31 Pulse Rate 86 05/19/25 09:31 Respiratory Rate 16 05/19/25 09:31 Blood Pressure 128/69 05/19/25 09:31 Pulse Oximetry 99 05/19/25 09:31 Temperature 98.3 F 05/19/25 11:47 Pulse Rate 85 05/19/25 14:14 Respiratory Rate 18 05/19/25 14:14 Blood Pressure 126/71 05/19/25 14:14 Pulse Oximetry 100 05/19/25 14:14 Medical Decision Making MDM Narrative Medical decision making narrative: 25-year-old female present to the emergency department for evaluation for nausea and vomiting associated with her 12 week . Patient is afebrile but does have a leukocytosis of 11.5 which is normal for her . Patient is does have + for ketones but no significant evidence of underlying infection. Patient does have squamous cells and +1 bacteria, urine culture was ordered. Patient was treated with 2 L of lactated Ringer's. Patient is also requesting a Zofran for home. Differential Diagnosis Differential Diagnosis: UTI, dehydration, hyperemesis gravidarum, intractable nausea and vomiting Vital Signs Vital Signs: Vital Signs Temperature 97.9 F 05/19/25 09:31 Pulse Rate 86 05/19/25 09:31 Respiratory Rate 16 05/19/25 09:31 Blood Pressure 128/69 05/19/25 09:31 Pulse Oximetry 99 05/19/25 09:31 Temperature 98.3 F 05/19/25 11:47 Pulse Rate 85 05/19/25 14:14 Respiratory Rate 18 05/19/25 14:14 Blood Pressure 126/71 05/19/25 14:14 Pulse Oximetry 100 05/19/25 14:14 Lab Data Lab results reviewed: Yes I reviewed the patient's lab results. 05/19/25 12:28 05/19/25 12:28 Labs: Lab Results 05/19/25 Range/Units 12:28 WBC 11.5 H (4.5-10.0) K/mm3 RBC 4.56 (4.2-5.4) M/mm3 Hgb 12.3 (12.0-15.0) g/dL Hct 38.2 (37.0-47.0) % MCV 83.8 (80-100) fl MCH 27.0 (26-34) pg MCHC 32.2 (32-36) g/dl RDW 17.1 H (11.5-14.5) % Plt Count 241 (150-375) k/mm3 MPV 13.4 H (7.4-10.4) fl Immature Gran % (Auto) 0.3 (0-0.5) % Neut % (Auto) 84.1 H (45.5-73.1) % Lymph % (Auto) 9.8 L (18.3-44.2) % [place] % (Auto) 5.2 (2.6-8.5) % Eos % (Auto) 0.3 (0-4.4) % Baso % (Auto) 0.3 (0.2-1.2) % Lymph # (Auto) 1.12 (0.9-3.2) K/mm3 [place] # (Auto) 0.6 (0.1-0.6) K/mm3 Eos # (Auto) 0.0 (0-0.3) K/mm3 Baso # (Auto) 0.0 (0.0-0.1) K/mm3 Abs Immat Gran (auto) 0.04 H (0.00-0.031) K/mm3 Absolute Neuts (auto) 9.6 H (1.3-6.7) K/mm3 Absolute Nucleated RBC 0.000 (0.0-0.012) K/mm3 Nucleated RBC % 0.0 (0.0-0.2) % % Immature Plt Fraction 15.4 H (0.9-11.2) % Sodium 132 L (137-145) mmol/L Potassium 3.4 (3.4-5.0) mmol/L Chloride 102 (98-107) mmol/L Carbon Dioxide 18 L (22-30) mmol/L Anion Gap 12 (4-12) mmol/L BUN 3 L (7-17) mg/dL Creatinine 0.41 L (0.7-1.0) mg/dL Estim Creat Clear Calc 171 ml/min Estimated GFR > 60 (59 - ) Glucose 81 (65-110) mg/dL Calcium 8.9 (8.4-10.2) mg/dL Total Bilirubin 0.6 (0.2-1.3) mg/dL AST 23 (14-36) U/L ALT 16 (6-35) U/L Alkaline Phosphatase 56 (38-126) U/L Total Protein 7.7 (6.3-8.2) g/dL Albumin 4.5 (3.5-5.1) g/dL Urine Color Dark yellow (Yellow) Urine Appearance Clear (Clear) Urine pH 6.0 (5.0-9.0) Ur Specific [place] 1.033 (1.001-1.035) Urine Protein 1+ H (Negative) mg/dL Urine Glucose (UA) Negative (Negative) mg/dL Urine Ketones 4+ H (Negative) mg/dL Ur Blood (Man) Negative (Negative) Urine Nitrate Negative (Negative) Urine Bilirubin Negative (Negative) Urine Urobilinogen 1.0 (<2.0) mg/dL Leukocyte Esterase Rfl Negative (Negative) RAYMON/UL Urine RBC 0-2 (0-2) /hpf Urine WBC 0-5 (0-3) /hpf Ur Squamous Epith Cells Few (Few) /hpf Urine Bacteria 1+ H /hpf Urine Casts 0-2 Urine Mucus Present /lpf Discharge Plan Discharge Clinical Impression: Hyperemesis gravidarum Patient Disposition: Home Condition: Stable Instructions: Antibiotic Form, Hyperemesis Gravidarum (ED) Additional Instructions: Clear liquid diet for the next 1-3 days. Advance to bland diet as tolerated. Zofran as needed for nausea control. Continue to have close follow-up with OB Gyne as scheduled. If you have any worsening symptoms then please call or return to the emergency department Patient Language: Liberian Prescriptions: New ondansetron 4 mg tablet,disintegrating 4 mg PO Q8H PRN (Reason: nausea and vomiting) Qty: 14 0RF No Action sertraline 25 mg tablet hydrocodone-acetaminophen 5-325 mg tablet 1 tablet PO Q6H PRN (Reason: pain) Qty: 5 0RF ondansetron 4 mg tablet,disintegrating 4 mg PO Q8H PRN (Reason: nausea and vomiting) Qty: 14 0RF cephalexin 500 mg capsule 500 mg PO Q8H 7 Days Qty: 21 0RF metoclopramide HCl [Reglan] 10 mg tablet 10 mg PO Q6H PRN (Reason: nausea and vomiting) Qty: 30 0RF ondansetron 4 mg tablet,disintegrating 4 mg PO Q6H PRN (Reason: nausea and vomiting) Qty: 10 0RF nitrofurantoin monohyd/m-cryst [Macrobid] 100 mg capsule 100 mg PO Q12H 5 Days Qty: 10 0RF Rx Instructions: must administer with a meal/food ondansetron 4 mg tablet,disintegrating 4 mg PO Q8H PRN (Reason: nausea and vomiting) Qty: 20 0RF Follow-up/Referrals: Haroldo,MD Jaleesa [Primary Care Provider, Unknown]
[2025-05-19 12:58] LABS: Alanine Aminotransferase 16 U/L (6-35); Albumin Level 4.5 g/dL (3.5-5.1); Alkaline Phosphatase 56 U/L (38-126); Anion Gap 12 mmol/L (4-12); Aspartate Amino Transferase 23 U/L (14-36); Bilirubin,Total 0.6 mg/dL (0.2-1.3); Blood Urea Nitrogen 3 mg/dL (7-17); Calcium 8.9 mg/dL (8.4-10.2); Carbon Dioxide 18 mmol/L (22-30); Chloride 102 mmol/L (98-107); Estimated CRCL calculation 171 ml/min; Estimated Glomerular Filt Rate > 60; Glucose 81 mg/dL (65-110); Potassium 3.4 mmol/L (3.4-5.0); Sodium 132 mmol/L (137-145); Total Protein 7.7 g/dL (6.3-8.2)
[2025-05-19 14:14] VITALS: BP 126/71; PULSE 85; RESP 18; O2SAT 100
[2025-05-19] MEDS: METOCLOPRAMIDE HCL INJ 10 MG/2 ML VIAL IV PUSH (14:16)
== END 2025-05-19 14:26 | disposition home or self-care (01) ==
PROVIDERS: Emergency Provider Emergency Medicine; PCP Family Medicine
DX: O21.0 Mild hyperemesis gravidarum (principal); Z3A.12 12 weeks gestation of pregnancy
CPT/HCPCS: 36415; 80053; 81001; 85025; 85055; 96361; 96374; 96375; 99284; J2405; J2765; J7120

== ENCOUNTER 2025-07-01 06:44 | Emergency (ER) | payer OTHER, SELFPAY ==
--- OUTSIDE RECORDS SUMMARY | 2024-05-24 15:20 | XMS_ITS ---
Author Organization [facility] Address [address] [place] [address] Phone [phone] Care Team Providers Care Allergy Physician Name Role Phone Arelis Paz Primary Care Provider Sherlyn Philip Unavailable [phone] REASON FOR VISIT transfer from Social History Sex Observation Social History Observation Description Sex Observation Female Sexual Orientation Social History Observation Description Sexual Orientation Bisexual Gender Identity Social History Observation Description Gender Identity Female Encounters Date Time Type Facility Location Provider Diagnosis 05/24/2024 03:20 PM Office Visit [place] [address] [place] [address] Sherlyn Philip Plan Of Treatment No Information Medical (General) History Medical History History ICD Code Opioid use disorder Surgical History Surgery Date(Month/Year) Hospitalization History Reason Date(Month/Year) Progress Notes * Misha GARZAisDOB:2000 (25 yo F)Acc No.[id number]:05/24/2024 UNLOCKED PROGRESS NOTE Patient: Maximiliano ROGERS Provider: Anders Philip, DNP, CORE WINDING OPERATOR, SHRINK PIT SUPERVISOR-C :2000 A ge:24 Y S ex:Female Date:05/24/2024 Address:[address] [place], [place] [address] Pcp:Arelis Paz Subjective: * Chief Complaints: * 1 . transfer from . * Screening: * * Medical History: Objective: * Vitals: Assessment: Plan: * Treatment: * * Electronic signature of Familia Philip , [id number] on 07/01/2025 at 09:01 AM INDIGO VAT TENDER CLOTH Sign off status: Pending * Provider: Anders Philip, NANNETTE, CORE WINDING OPERATOR, SHRINK PIT SUPERVISOR-C Date: 07/24/2023 Generated for Printing/Faxing/eTransmitting on: 09/01/2024 09:01 AM INDIGO VAT TENDER CLOTH
--- OUTSIDE RECORDS SUMMARY | 2024-06-08 15:40 | XMS_ITS ---
Author Organization [facility] Address [address] [place] [address] Phone [phone] Care Team Providers Care Transfer Operator Name Role Phone Arelis Paz Primary Care Provider Sherlyn Philip Unavailable [phone] Allergies Allergen (clinical drug ingredient) Drug/Non Drug Allergy documented on EMR Reaction Allergy Type Onset Date Status No Known Drug Allergy Unknown Drug Allergy Active No Known Food Allergy Unknown Drug Allergy Active REASON FOR VISIT [facility] Medications Medication SIG (Take, Route, Frequency, Duration) Notes Start Date End Date Diagnosis (ICD Code) Status hydrOXYzine HCl 50 MG Tablet 1 tablet as needed Orally three times a day Psychosis (ICD_10 - F29) Active Mirtazapine 45 MG Tablet 1 tablet at bedtime Orally Once a day; Duration: 30 days Psychosis (ICD_10 - F29) Active Buprenorphine HCl-Naloxone HCl 4-1 MG Film 1 film under the tongue and allow to dissolve Sublingual twice daily client on CRU 4 Opioid use disorder (ICD_10 - F11.99) Not-Taking Multivitamin - Tablet 1 tablet Orally Once a day Not-Taking Hydrocortisone 1 % Cream 1 application Externally Once a day; Duration: 14 days on unit- please deliver 4 Dermatitis (ICD_10 - L30.9) Not-Taking OLANZapine 15 MG Tablet 1 tablet Orally Once a day; Duration: 30 days 4 Psychosis (ICD_10 - F29) Active Social History Sex Observation Social History Observation Description Sex Observation Female Sexual Orientation Social History Observation Description Sexual Orientation Bisexual Gender Identity Social History Observation Description Gender Identity Female Social History Primary Social History Social Info Question Answer Notes Living Arrangement Living Arrangement: Dependent Romel ackerman Living with: Grandparent(s) Is this a supportive environment? Yes Employment Status Employment Status: Employed Full [employer] Illicit Substance Usage Illicit Substance Usage: Yes Substance Used: Cannabis, Prescription Drugs Alcohol Use Alcohol Use Frequency: Last Use the end November 2023 Encounters Date Time Type Facility Location Provider Diagnosis 06/08/2024 03:40 PM Office Visit [address] [address] Sherlyn Philip Plan Of Treatment No Information Medical (General) History Medical History History ICD Code Opioid use disorder Surgical History Surgery Date(Month/Year) Hospitalization History Reason Date(Month/Year) Progress Notes * Misha GARZAAngelaOB:2000 (25 yo F)Acc No.[id number]:06/08/2024 UNLOCKED PROGRESS NOTE Patient: Maximiliano ROGERS Provider: Anders Philip, NANNETTE, DIRECTOR CORRECTIONAL AGENCY, PARTS FINISHER-C :2000 A ge:24 Y S ex:Female Date:06/08/2024 Address:[address] [place], [place] [id number] Pcp:Arelis Paz Subjective: * Chief Complaints: * 1 . Transfer from [facility]. * Screening: * * Medical History: O pioid use disorder. * Surgical History: D enies Past Surgical History. * Hospitalization/Major Diagno stic Procedure: D enies Past Hospitalization. * Family History: F ather: alive, Healthy. M other: alive, Lupus. 3 brother(s) , 1 sister(s) - healthy. . * Social History: P rimary Social History: L iving Arrangement L iving Arrangement: D ependent Living, L iving with: Aydee randparent(s), I s this a supportive environment? Y es. A lcohol Use A lcohol Use Frequency: L ast Use the end of November 2023. I llicit Substance Usage I llicit Substance Usage: Y es, S ubstance Used: C annabis, Prescription Drugs. 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 * Medications: T aking OLANZapine 15 MG [...] * Electronic signature of Familia Philip , [id number] on 07/01/2025 at 09:01 AM C2 TACTICAL ANALYSIS TECHNICIAN Sign off status: Pending * Provider: Anders Philip, DNP, DIRECTOR CORRECTIONAL AGENCY, PARTS FINISHER-C Date: 08/09/2023 Generated for Printing/Faxing/eTransmitting on: 09/01/2024 09:01 AM C2 TACTICAL ANALYSIS TECHNICIAN
--- NOTE | ~2025-07-01 | XR_ITS ---
Examination: XR chest 1V Clinical History: cough Comparison: Technique: Portable AP Findings: Heart size normal. Lungs clear. No acute bony abnormality. IMPRESSION: 1. No acute cardiopulmonary findings given portable technique. Reviewed, dictated and finalized at location R. ONOMY DEPARTMENT CHAIR
[2025-07-01 06:49] VITALS: BP 112/60; PULSE 105; RESP 18; TEMP 36.9; O2SAT 98
--- NOTE | 2025-07-01 07:38 | ED.GENADULT ---
HPI - General Adult General Chief complaint: Upper Respiratory Infection Stated complaint: weakness, cough, n/v (20weeks preg) x Time Seen by Provider: 07/01/25 07:03 History of Present Illness HPI narrative: Patient is a 25-year-old female who is 20 weeks that presents ER with body aches weakness. She has also been having cough for 1 day. Weakness for 2 days. She has no abdominal pain. Her nephew has flu a. No alleviating factors Related Data Home Medications ?Medication ?Instructions ?Recorded ?Confirmed ?Last Taken ?Type sertraline 25 mg tablet mg 01/27/21 Unknown History Allergies Allergy/AdvReac Type Severity Reaction Status Date / Time poison luna extract Allergy Unknown Unknown Verified 05/19/25 09:33 Review of Systems Review of Systems: All systems reviewed & are unremarkable except as noted in HPI and below Constitutional: Constitutional: Reports no additional constitutional complaints Cardiovascular: Cardiovascular: Reports no additional cardiovascular complaints Respiratory: Respiratory: Reports no additional respiratory complaints Gastrointestinal: Gastrointestinal: Reports no additional gastrointestinal complaints Genitourinary: Genitourinary: Reports no additional female genitourinary complaints [facility] Past Medical History Medical History Healthy female adult Surgical History Surgical History No pertinent past surgical history Social History Social History Alcohol intake: current Substance use: current Substance use type: marijuana Exam Narrative: GENERAL: Fatigued-appearing, well-nourished, and in no acute distress. HEAD: Normocephalic, atraumatic. ENT: Mucous membranes moist. CHEST: Clear to auscultation. No respiratory distress. Frequent coughing HEART: Regular rate and rhythm. Normal peripheral pulses. ABDOMEN: Soft, nontender, nondistended. EXTREMITIES: Normal range of motion. No edema. SKIN: Warm, dry, no rash. NEURO: Alert and oriented x3. PSYCH: Normal mood and affect. Course Course Emergency Course: Patient hydrated. No pneumonia on chest x-ray. Influenza A positive. Discharge home with Tamiflu and antiemetics. Recommend Tylenol for body aches and fever. Follow-up with dividend deposit voucher clerk. Vital Signs Vital signs: Vital Signs Temperature 98.5 F 07/01/25 06:49 Pulse Rate 105 H 07/01/25 06:49 Respiratory Rate 18 07/01/25 06:49 Blood Pressure 112/60 07/01/25 06:49 Pulse Oximetry 98 07/01/25 06:49 Oxygen Delivery Room Air 07/01/25 06:49 Temperature 98.5 F 07/01/25 06:49 Pulse Rate 105 H 07/01/25 06:49 Respiratory Rate 18 07/01/25 06:49 Blood Pressure 112/60 07/01/25 06:49 Pulse Oximetry 98 07/01/25 06:49 Oxygen Delivery Room Air 07/01/25 09:18 MDM Differential Diagnosis Differential Diagnosis: Influenza, COVID, pneumonia, dehydration, electrolyte imbalance Lab Data [facility] Lab Attestation statement: I personally reviewed the patient's lab results. 07/01/25 08:32 07/01/25 08:32 Labs: Lab Results 07/01/25 Range/Units 08:32 WBC 10.3 H (4.5-10.0) K/mm3 RBC 3.98 L (4.2-5.4) M/mm3 Hgb 11.1 L (12.0-15.0) g/dL Hct 34.2 L (37.0-47.0) % MCV 85.9 (80-100) fl MCH 27.9 (26-34) pg MCHC 32.5 (32-36) g/dl RDW 16.5 H (11.5-14.5) % Plt Count 214 (150-375) k/mm3 MPV 13.6 H (7.4-10.4) fl Immature Gran % (Auto) 0.7 H (0-0.5) % Neut % (Auto) 90.2 H (45.5-73.1) % Lymph % (Auto) 2.7 L (18.3-44.2) % [place] % (Auto) 5.9 (2.6-8.5) % Eos % (Auto) 0.2 (0-4.4) % Baso % (Auto) 0.3 (0.2-1.2) % Lymph # (Auto) 0.28 L (0.9-3.2) K/mm3 [place] # (Auto) 0.6 (0.1-0.6) K/mm3 Eos # (Auto) 0.0 (0-0.3) K/mm3 Baso # (Auto) 0.0 (0.0-0.1) K/mm3 Abs Immat Gran (auto) 0.07 H (0.00-0.031) K/mm3 Absolute Neuts (auto) 9.3 H (1.3-6.7) K/mm3 Absolute Nucleated RBC 0.000 (0.0-0.012) K/mm3 Nucleated RBC % 0.0 (0.0-0.2) % % Immature Plt Fraction 14.8 H (0.9-11.2) % Sodium 134 L (137-145) mmol/L Potassium 3.5 (3.4-5.0) mmol/L Chloride 104 (98-107) mmol/L Carbon Dioxide 19 L (22-30) mmol/L Anion Gap 11 (4-12) mmol/L BUN 3 L (7-17) mg/dL Creatinine 0.45 L (0.7-1.0) mg/dL Estim Creat Clear Calc Not Reportable Estimated GFR > 60 (59 - ) Glucose 111 H (65-110) mg/dL Calcium 9.2 (8.4-10.2) mg/dL Total Bilirubin 0.3 (0.2-1.3) mg/dL AST 22 (14-36) U/L ALT 16 (6-35) U/L Alkaline Phosphatase 61 (38-126) U/L Total Protein 7.5 (6.3-8.2) g/dL Albumin 4.2 (3.5-5.1) g/dL Influenza A (RT-PCR) Positive A (Negative) Influenza B (RT-PCR) Negative (Negative) RSV (RT-PCR) Negative (Negative) SARS-CoV-2 RNA (RT-PCR) Negative (Negative) Imaging Data Radiologist's impression: ITS Impressions Chest X-Ray 07/01/25 08:06 IMPRESSION: 1. No acute cardiopulmonary findings given portable technique. Discharge Plan Discharge Clinical Impression: Influenza Patient Disposition: Home Condition: Stable Instructions: Influenza (ED) Additional Instructions: You have influenza. You have been prescribed Tamiflu to help with your illness. Also take Zofran (ondansetron) to help with nausea. Return the ER if he cannot keep down food/water/medication, he began having vaginal bleeding, or you have additional concerns. You may use [id number]-fbjaods guaifenesin as an expectorant and mental cough drops to soothe your sore throat. Patient Language: Polish Prescriptions: New oseltamivir 75 mg capsule 75 mg PO BID Qty: 10 0RF ondansetron 4 mg tablet,disintegrating 4 mg PO Q6H PRN (Reason: nausea and vomiting) Qty: 10 0RF No Action sertraline 25 mg tablet hydrocodone-acetaminophen 5-325 mg tablet 1 tablet PO Q6H PRN (Reason: pain) Qty: 5 0RF ondansetron 4 mg tablet,disintegrating 4 mg PO Q8H PRN (Reason: nausea and vomiting) Qty: 14 0RF cephalexin 500 mg capsule 500 mg PO Q8H 7 Days Qty: 21 0RF metoclopramide HCl [Reglan] 10 mg tablet 10 mg PO Q6H PRN (Reason: nausea and vomiting) Qty: 30 0RF ondansetron 4 mg tablet,disintegrating 4 mg PO Q6H PRN (Reason: nausea and vomiting) Qty: 10 0RF ondansetron 4 mg tablet,disintegrating 4 mg PO Q8H PRN (Reason: nausea and vomiting) Qty: 14 0RF nitrofurantoin monohyd/m-cryst [Macrobid] 100 mg capsule 100 mg PO Q12H 5 Days Qty: 10 0RF Rx Instructions: must administer with a meal/food ondansetron 4 mg tablet,disintegrating 4 mg PO Q8H PRN (Reason: nausea and vomiting) Qty: 20 0RF Follow-up/Referrals: Haroldo,MD Jaleesa [Primary Care Provider, Unknown] - 1 Week
[2025-07-01] MEDS: SODIUM CHLORIDE 0.9% IV 1,000 ML 999 ML IV CONT (08:37)
[2025-07-01 08:40] VITALS: PULSE 98; RESP 16; O2SAT 100
[2025-07-01 08:43] LABS: Hematocrit 34.2 % (37.0-47.0); Hemoglobin 11.1 g/dL (12.0-15.0); Immature Granulocyte Percent A 0.7 % (0-0.5); Immature Platelet Fraction Pct 14.8 % (0.9-11.2); Lymphocytes Absolute Auto 0.28 K/mm3 (0.9-3.2); Mean Corpuscular HGB Conc 32.5 g/dl (32-36); Mean Corpuscular Hemoglobin 27.9 pg (26-34); Mean Corpuscular Volume 85.9 fl (80-100); Nucleated Red Blood Cells Absolute Auto 0.000 K/mm3 (0.0-0.012); Nucleated Red Blood Cells Perc 0.0 % (0.0-0.2); Platelet Count Result 214 k/mm3 (150-375); Red Blood Count 3.98 M/mm3 (4.2-5.4); White Blood Count 10.3 K/mm3 (4.5-10.0)
--- OUTSIDE RECORDS SUMMARY | 2025-07-01 09:01 | XMS_ITS | Encounter Summary ---
Author Organization [facility] Address 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
--- OUTSIDE RECORDS SUMMARY | 2025-07-01 09:01 | XMS_ITS | Encounter Summary ---
Author Organization [facility] Address [address] [place] [address] Care Team Providers Care Machine Operator Hop Worker Name Role Phone Unavailable Primary Care Provider Unavailabl e Encounter Details Date Type Department Care Team (Late st Contact Info) Description 1999 Outpatient Historical [facility] [address] [facility] [address] [address] [place] No MD NO ADDRESS ON FILE Social History Tobacco Use Types Packs/Day Years Used Date Smoking Tobacco: Never Assessed Comments Unknown Sex and Gender Information Value Date Recorded Sex Assigned at Not on file Legal Sex Female 2:38 AM FIRST HELPER Gender Identity Not on file Sexual Orientation Not on file documented as of this encounter Plan of Treatment Not on file documented as of this encounter Visit Diagnoses Not on filedocumented in this encounter
--- OUTSIDE RECORDS SUMMARY | 2025-07-01 09:01 | XMS_ITS | Data Portability ---
Author Organization [facility] , [facility] Address [address] [place] [address] Assessment No assessment recorded. Plan of Treatment Reminders Order Date Submit Date Provider Last Modified By Organization Details Last Modified Time Details Appointments OB SONOGRA M 30 2025 08:45A M Ultrasound [place] 4 Not available Not available Not available OB RETURN EST 2025 09:45A M JUAN KEE, VAULT ATTENDANT Not available Not available Not available Lab urinaly sis, dipstic k 2024 025 [email or web address] [facility], [address] [place], [address], 05/20/2025 12:59:50 hemoglo bin A1c, QN, blood 2024 025 [facility], [address] [place], [address], 05/21/2025 10:59:18 abo group + rh type, blood 2024 025 [facility], [address] [facility], [place], [address], 05/23/2025 18:01:18 CBC w/ auto diff 2024 025 Mippin Antwon, [address] [place], [address], 05/21/2025 11:24:57 CT + NG DNA, PCR, unspeci fied specime n 2024 [place] [facility], [address] [place], [address], 05/23/2025 16:38:07 obstetr ic screen + HIV, serum or blood 2024 [facility], [address] [place], [address], 05/21/2025 11:35:14 measles igg Ab, serum 2024 [facility], [address] [place], [address], 05/23/2025 18:01:17 culture , urine 2024 [facility], [address] [place], [address], 05/23/2025 18:01:19 varicel la-zost er igg Ab screen, serum 2024 [facility], [address] [place], [address], 05/23/2025 18:01:17 antibod y screen, serum or plasma 2024 [facility], [address] [place], [address], 05/23/2025 18:01:18 Referral None recorde d. Procedures IV infusio n, hydrati on, 31-60 min (PROC) 2024 025 [email or web address] Not available 06/17/2025 11:16:31 IV infusio n, hydrati on; each additio nal hour (PROC) 2024 025 [email or web address] Not available 06/17/2025 11:16:31 IV infusio n, hydrati on, 31-60 min (PROC) 2024 025 [email or web address] Not available 06/01/2025 19:01:54 IV inserti on (PROC) 2024 025 [email or web address] Not available 06/20/2025 04:36:03 IV infusio n, hydrati on; each additio nal hour (PROC) 2024 025 [email or web address] Not available 06/01/2025 19:01:54 Surgeries None recorde d. Imaging None recorde d. Medication Orders sodium chlorid e 0.9 % intrave nous solutio n 2024 025 Not available 06/16/2025 10:56:00 sodium chlorid e 0.9 % intrave nous solutio n 2024 025 Not available 06/16/2025 10:56:00 ondanse becky HCl 2 mg/mL intrave nous solutio n 2024 025 Not available 06/16/2025 10:55:52 ondanse becky 4 mg disinte grating tablet 2024 025 JOSESAN CARLOS [id number], [address] [place], [address], 05/31/2025 16:17:32 ondanse becky HCl 2 mg/mL intrave nous solutio n 2024 025 Not available 06/16/2025 10:55:52 dextros e 5 % in water (D5W) intrave nous solutio n 2024 025 [email or web address] [facility]/Ph[facility]acy #[id number], [address] [place], [address], 06/16/2025 10:55:48 sodium chlorid e 0.9 % intrave nous solutio n 2024 025 Not available 06/16/2025 10:56:00 metoclo pramide 10 mg tablet 2024 025 JOSE [id number], [address] [place], [address], 06/16/2025 10:51:12 Patient TargetsNo targets recorded. Patient InstructionsNo instructions recorded. Reason for Referral None Reported. Results Created Date Observation Date Name Description Value Unit Range Abnormal Flag Note LastModifiedBy Organization Detail LastModifiedTime 05/03/2005/03/2025 pregn cee test, urine HCG positi ve Not Available [facility] [address] [place], [address], 05/03/2025 11:00:38 05/20/2005/21/2025 HEMOG LOBIN A1C hemoglobin A1C 5.2 % <5.7 normal The refer ence range for HbA1c is indic ated in the table below . Sugge sted Diagn osis >=6.5 % Consi stent with diabe gerson 5.7 6.4% Consi stent with incre ased risk for diabe gerson (pred iabet ic) <5.7% Consi stent with the absen ce of diabe gerson Not Available [facility] [address] [place], [address], 05/21/2025 10:59:18 05/20/2005/21/2025 CBC (INCL UDES DIFF/ PLT) WBC 13.3 thous and/u L 4.0 - 10.0 high Not Available [facility] [address] [place], [address], 05/21/2025 11:24:57 05/20/20 25 05/21/2025 CBC (INCL UDES DIFF/ PLT) RBC 4.5 vidya on/uL 3.9 - 4.9 normal Not Available [facility] [address] [place], [address], 05/21/2025 11:24:57 05/20/20 25 05/21/2025 CBC (INCL UDES DIFF/ PLT) hemoglobin 12.4 g/dL 11.8 - 14.8 normal Not Available [address], [address], 05/21/2025 11:24:57 05/20/2005/21/2025 CBC (INCL UDES DIFF/ PLT) hematocrit 38.9 % 35.5 - 44.0 normal Not Available [address], [address], 05/21/2025 11:24:57 05/20/20 25 05/21/2025 CBC (INCL UDES DIFF/ PLT) MCV 85.7 fL 82.0 - 99.0 normal Not Available [address], [address], 05/21/2025 11:24:57 05/20/2005/21/2025 CBC (INCL UDES DIFF/ PLT) MCH 27.3 pg 27.2 - 32.6 normal Not Available [address], [address], 05/21/2025 11:24:57 05/20/20 25 05/21/2025 CBC (INCL UDES DIFF/ PLT) MCHC 31.9 g/dL 31.5 - 35.5 normal Not Available [address], [address], 05/21/2025 11:24:57 05/20/20 25 05/21/2025 CBC (INCL UDES DIFF/ PLT) RDW-CV 17.3 % 11.5 - 14.5 high Not Available [address], [address], 05/21/2025 11:24:57 05/20/20 25 05/21/2025 CBC (INCL UDES DIFF/ PLT) platelet 267 thous and/u L 140 - 350 normal COMME NT: PLT = Micro scopi c plate let clump s prese nt on smear revie w. Plate let count may be sligh tly highe r than indic ated. Not Available [address], [address], 05/21/2025 11:24:57 05/20/20 25 05/21/2025 CBC (INCL UDES DIFF/ PLT) MPV ---- fL normal COMME NT: MPV = Resul t remov ed due to large varia bilit y in plate let size distr ibuti on. Plate let size distr ibuti on verif ied by smear revie w. Large r plate lets prese nt on smear revie w (plts size 4-7 um). Not Available [address], [address], 05/21/2025 11:24:57 05/20/2005/21/2025 CBC (INCL UDES DIFF/ PLT) absolute neutrophil 10.53 thous and/u L 1.90 - 7.00 high Not Available [address], [address], 05/21/2025 11:24:57 05/20/20 25 05/21/2025 CBC (INCL UDES DIFF/ PLT) absolute lymphocyte 1.76 thous and/u L 0.70 - 4.50 normal Not Available [address], [address], 05/21/2025 11:24:57 05/20/20 25 05/21/2025 CBC (INCL UDES DIFF/ PLT) absolute monocyte 0.76 thous and/u L 0.10 - 1.30 normal Not Available [address], [address], 05/21/2025 11:24:57 05/20/20 25 05/21/2025 CBC (INCL UDES DIFF/ PLT) absolute eosinophil 0.04 thous and/u L <0.70 normal Not Available [address], [address], 05/21/2025 11:24:57 05/20/20 25 05/21/2025 CBC (INCL UDES DIFF/ PLT) absolute basophil 0.19 thous and/u L <0.20 normal Not Available [address], [address], 05/21/2025 11:24:57 05/20/20 25 05/21/2025 CBC (INCL UDES DIFF/ PLT) absolute immature granulocyte 0.05 thous and/u L <0.03 high Not Available [address], [address], 05/21/2025 11:24:57 05/20/20 25 05/21/2025 OB PANEL - STD BLOOD WORK hep BS Ag Non-Re active non-re active normal Not Available [address], [address], 05/21/2025 11:35:14 05/20/20 25 05/21/2025 OB PANEL - STD BLOOD WORK hep C Ab Non-Re active non-re active normal Not Available [address], [address], 05/21/2025 11:35:14 05/20/20 25 05/21/2025 OB PANEL - STD BLOOD WORK HIV 1/2 Ag/Ab Non-Re active non-re active normal Not Available [address], [address], 05/21/2025 11:35:14 05/20/20 25 05/21/2025 OB PANEL - STD BLOOD WORK syphilis Ab Non-Re active non-re active normal Not Available [address], [address], 05/21/2025 11:35:14 05/20/20 25 05/21/2025 OB PANEL - STD BLOOD WORK rubella Ab IgG, immune status Immune immune normal INTER PRETI VE INFOR MATIO N: Rubel la Antib avis, IgG, Immun e Statu s. Not Immun e ..... .Not Detec peace Equiv ocal ..... ....I ndete rmina te - Repea t testi ng in 10-14 days may be helpf ul. Immun e.... ..... ...De tecte d The prese nce of Rubel la IgG antib avis sugge st respo nse to immun izati on or prior /curr ent expos ure to the Rubel la virus . The best evide nce for curre nt infec tion is a signi hany villafana on two appro priat omega timed speci mens, where both tests are done in the same labor atory at the same time. Not Available [facility] [address] [place], [address], 05/21/2025 11:35:14 05/20/2005/23/2025 CT/NG chlamydia trachomatis CT neg negati ve normal This repor t is inten ded for use in clini diya monit oring and manag ement of patie nts. It is not inten ded for use in medic al-le gal appli catio n. Not Available [address], [address], 05/23/2025 16:38:07 05/20/2005/23/2025 CT/NG neisseria gonorrhoeae GC neg negati ve normal This repor t is inten ded for use in clini diya monit oring and manag ement of patie nts. It is not inten ded for use in medic al-le gal appli catio n. Not Available [address], [address], 05/23/2025 16:38:07 05/20/2005/23/2025 VARIC BRODERICK ZOSTE R VIRUS ANTIB AVIS (IGG) varicella zoster virus antibody (IgG) 7.91 S/co normal Signa l to Cut-o ff S/CO Inter preta tion ----- ---- ----- ----- ----- ----- -- <1.00 Negat bob - Antib avis not detec peace > or = 1.00 Posit bob - Antib avis detec peace A posit bob resul t indic ates that the patie nt has antib avis to VZV but does not diffe renti ate betwe en an activ e or past infec tion. The clini diya diagn osis must be inter prete d in conju nctio n with the clini diya signs and sympt oms of the patie nt. This assay relia kenny measu res immun ity due to previ ous infec tion but may not be sensi tive enoug h to detec t antib odies induc ed by vacci natio n. Thus, a negat bob resul t in a vacci nated indiv idual does not neces saril y indic ate susce ptibi lity to VZV infec tion. A more sensi tive test for vacci natio n-ind uced immun ity is Varic broderick Zoste r Virus Antib avis Immun ity Scree n, ACIF. Not Available [facility] [address] [address] [place], [address], 05/23/2025 18:01:16 05/20/2005/23/2025 MEASL ES AB (IGG) , IMMUN E STATU S measles Ab (IgG), immune status >300.0 0 AU/mL normal AU/mL Inter preta tion ----- ----- ----- ---- <13.5 0 Not consi stent with immun ity 13.50 -16.4 9 Equiv ocal >16.4 9 Consi stent with immun ity The prese nce of measl es IgG sugge sts immun izati on or past or curre nt infec tion with measl es virus . For addit ional infor mariya farr e refer to http: //liana ryan.Que stDia gnost ics.c om/fa q/FAQ 162 (This link is being provi ded for infor romel mendez/ mariah le purpo ses only. ) Not Available [facility] [address] [place], [address], 05/23/2025 18:01:17 05/20/2005/23/2025 ANTIB AVIS SCREE N, RBC W/REF L ID, TITER AND AG antibody screen, RBC w/refl id, titer and Ag NO ANTIBO DIES DETECT ED normal Refer ence range No antib odies detec peace This assay is a scree esperanza test for the detec tion of red blood cell antib odies . The test is not to be used for pretr ansfu sury scree esperanza or for the medic al manag ement of an alloi mmuni zed pregn cee. Not Available [address], [address], 05/23/2025 18:01:18 05/20/2005/23/2025 ABO GROUP AND RH TYPE ABO group B Not Available [address] [place], [address], 05/23/2025 18:01:18 05/20/2005/23/2025 ABO GROUP AND RH TYPE Rh type RH(D) POSITI VE For addit ional infor mariya farr e refer to http: //[facility] arnoldo Bernard stDia gnost ics.c om/fa q/FAQ 111 (This link is being provi ded for infor romel mendez/ mariah le purpo ses only. ) Not Available [address] [address] [place], [address], 05/23/2025 18:01:18 05/20/2005/23/2025 CULTU RE, URINE , ROUTI NE culture, urine, routine SEE NOTE CULTU RE, URINE , ROUTI NE Micro Numbe r: [id number] Test Statu s: Final Speci men Sourc e: Urine Speci men Quali ty: Adequ ate Resul t: No Growt h Not Available [address] [address] [place], [address], 05/23/2025 18:01:19 05/20/20 25 05/20/2025 urina lysis , dipst ick Leukocytes Small Not Available [facility] [address] [place], [address], 05/20/2025 12:22:17 05/20/20 25 05/20/2025 urina lysis , dipst ick Nitrite negati ve Not Available [address], [place], [address], 05/20/2025 12:22:17 05/20/20 25 05/20/2025 urina lysis , dipst ick Urobilinogen 1 Not Available [address], [place], [address], 05/20/2025 12:22:17 05/20/2005/20/2025 urina lysis , dipst ick Protein 30 Not Available [address], [place], [address], 05/20/2025 12:22:17 05/20/20 25 05/20/2025 urina lysis , dipst ick pH 6.0 Not Available [address], [place], [address], 05/20/2025 12:22:17 05/20/20 25 05/20/2025 urina lysis , dipst ick Blood Negati ve Not Available [address], [facility], [address], 05/20/2025 12:22:17 05/20/20 25 05/20/2025 urina lysis , dipst ick Specific [place] 1.020 Not Available [address], [place], [address], 05/20/2025 12:22:17 05/20/20 25 05/20/2025 urina lysis , dipst ick Ketone Large (160) Not Available [address], [place], [address], 05/20/2025 12:22:17 05/20/20 25 05/20/2025 urina lysis , dipst ick Bilirubin Small Not Available [facility] [address], [place], [address], 05/20/2025 12:22:17 05/20/20 25 05/20/2025 urina lysis , dipst ick Glucose Negati ve Not Available [facility] [address] [facility], [place], [address], 05/20/2025 12:22:17 05/20/20 25 05/20/2025 urina lysis , dipst ick Appearance Cloudy Not Available [facility] [address] [facility], [place], [address], 05/20/2025 12:22:17 05/20/20 25 05/20/2025 urina lysis , dipst ick Color Dark Yellow Not Available [facility] [address] [facility], [place], [address], 05/20/2025 12:22:17 05/21/20 25 05/21/2025 CHROM OSOME S 13, 18, 21 + SEX CHROM OSOME KI SIS chromosomes 13, 18, 21 + sex chromosome analysis Negati ve normal See PDF for compl ete resul ts. Overa ll Resul t: Negat bob Negat bob for all order ed condi tions Clini diya Notes : * The resid ual risks provi ded repre sent the [facility] e that the pregn cee is affec peace with the indic ated chrom osome aneup loidy in view of a negat bob resul t. * This is a scree esperanza test; there fore, false posit bob and false negat bob resul ts can occur . No irrev ersib le decis ion shoul d be made based on these findi ngs alone . Clini diya corre latio n with ultra sound findi ngs and histo ry is indic ated. If defin itive diagn osis is jeremy ed, chori onic villu s sampl ing or amnio cente sis is eleanor liu. fract ion: 21.2% - fract ion is one compo nent of the algor ithm used and is combi gregory with other quali ty metri cs to deter mine the aneup loidy scree esperanza resul t. Not Available [facility] [address], [place], [address], 05/24/2025 16:41:49 05/23/2005/23/2025 ZOYA MENTA L (CF + SMA) [871] fundamental (CF + sma) [871] Positi ve: Fadia r abnormal See PDF for compl ete resul ts. Overa ll Resul t: Posit bob: Mariella er TIFFANIE PRINGLE S: * Posit bob: Mariella er: cysti c fibro sis Not Available [facility] [address], [place], [address], 05/29/2025 06:12:10 05/03/20 US, obste tric No observ ation record ed. [email or web address] [facility] [address] [place], [address], 05/03/2025 10:40:38 05/03/2005/03/2025 US, obste tric No observ ation record ed. [email or web address] [facility] [address], [place], [address], 05/03/2025 15:17:03 Result Notes None recorded. Problems Name Problem SNOMED Code Status Onset Date Resolution Date Notes Provider Name and Address Organization Details Recorded Time Bipolar II disorder 60247052 Active 2024 JUAN KEE, VAULT ATTENDANT [address] [facility], [place], [address] , [facility] ice IV 11:24:29 Bipolar affective disorder, currently depressed , moderate 318857853 Active 2024 Wilfredo Bowles JUAN [address] [place], [address] , [email or web address] IV 5 13:04:40 Generaliz ed anxiety disorder 09299055 Active 2024 Wilfredo Bowles [facility] [address] [place] [address], [address] , [email or web address] IV 5 13:04:44 Post-trau matic stress disorder 40151986 Active 2024 Wilfredo Bowles [address], [address] , [email or web address] IV 5 13:04:49 Alcohol use disorder Active 2024 Wilfredo Bowles [address], [address] , [email or web address] IV 5 13:04:55 Opioid use disorder Active 2024 Wilfredo Bowles [address], [address] , [email or web address] IV 5 13:05:02 93963998 Active 2024 Aurea de la cruz, MD - [email or web address] IV 5 12:02:42 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 Procedures Surgical History Date Name Laterality Status Provider Name and Address Organization Details Recorded Time 12/05/202 5 IV Infusion completed Malaika Sanon, BRITANY [address] [facility], [place], [address], [email or web address] IV 06/12/2025 06:53:59 5 IV Infusion completed Malaika Sanon, BRITANY [address] [place], [address], [email or web address] IV 05/20/2025 15:25:44 3 Nexplanon Removal completed Marisa Munoz, BRITANY [address] [place], [address], [email or web address] IV 01/14/2023 11:42:37 3 Nexplanon Removal cancelled Leonela Wilhelm MD [facility] [place], [address], [email or web address] IV 07/28/2022 06:31:48 3 Nexplanon Insertion cancelled Leonela Wilhelm MD [facility] [place], [address], [email or web address] IV 07/28/2022 06:31:47 Imaging Results None recorded. [...] Not Available Not Available Not Available ondansetron HCl 2 mg/mL intravenous solution Inject 4 mg by intraveno us route. 06/16 completed Not Available Not Available Not Available [...] completed Not Available Not Available Not Available sodium chloride 0.9 % intravenous solution Inject 1000 mL by intraveno us route. 06/16 completed Not Available Not Available Not Available lorazepam 1 mg tablet 09/14 completed Not Available Not Available Not Available ondansetron 4 mg disintegrat ing tablet PLACE 1 TABLET EVERY 6-8 HOURS BY TRANSLING UAL ROUTE FOR 10 DAYS. active Not Available Not Available No t Available metoclopram mansi 10 mg tablet Take 1 tablet 4 times a day by oral route for 30 days. 06/16 completed Not Available Not Available Not Available hydroxyzine pamoate 25 mg capsule 09/14 completed Not Available Not Available Not Available dextrose 5 % in water (D5W) intravenous solution Inject 500 mL by intraveno us route. 06/16 completed Not Available Not Available Not Available Zyprexa 06/16 completed Not Available Not Available Not Available hydroxyzine HCl 06/16 completed Not Available Not Available Not Available mirtazapine 06/16 completed Not Available Not Available Not Available 28 mg iron-800 mcg tablet TAKE 1 TABLET BY MOUTH EVERY DAY active Not Available Not Available No t Available naloxone 4 mg/actuatio n nasal spray 09/14 completed Not Available Not Available Not Available 28 mg-800 mcg tablet Take 1 tablet every day by oral route. 05/20 completed Not Available Not Available Not Available Lucemyra 0.18 mg tablet 09/14 completed Not Available Not Available Not Available Vitals Date Recorded Systolic And Diastolic Provider Name and Address Organization Details Last Updated DateTime 05/20/2025 106/66 mm[Hg] Lourdes Kerr MD [facility] 05/20/2025 14:27:09 Date Recorded Body height Provider Name an d Address Organization Details Last Updated DateTime 05/20/2025 175.26 cm Gaye Veras [facility] 05/20/2025 13:15:00 Date Recorded Body weight Body mass index (BMI) Body height Systolic And Diastolic Provider Name and Address Organization Details Last Updated DateTime 05/20/2025 12283.227 802 g 25.8 kg/m2 175.26 cm 102/62 mm[Hg] [facility] 05/20/2025 12:14:58 Date Recorded Body height Body mass index (BMI) Body weight Systolic And Diastolic Provider Name and Address Organization Details Last Updated DateTime 05/31/2025 175.26 cm 26.1 kg/m2 91258.41 g 110/60 mm[Hg] Gaye Veras [facility] 05/31/2025 15:49:16 Date Recorded Body height Body mass index (BMI) Body weight Systolic And Diastolic Provider Name and Address Organization Details Last Updated DateTime 06/10/2025 175.26 cm 25 kg/m2 48294.27 g 110/60 mm[Hg] Gaye Veras [facility] 06/10/2025 13:05:52 Date Recorded Body weight Body mass index (BMI) Body height Systolic And Diastolic Provider Name and Address Organization Details Last Updated DateTime 06/16/2025 25183.441 86 g 26.3 kg/m2 175.26 cm 108/68 mm[Hg] [facility] 06/16/2025 10:55:25 Social History Question Answer Notes LastModified by Organizat ion Details LastModified Time Tobacco Smoking Status Never Smoker Gaye Veras [facility] 01/14/2023 11:24:09 If You Are , [...] Time Father No current problems or disability [email or web address] Not available 09/14 15:59:20 Mother No current problems or disability [email or web address] Not available 09/14 15:59:20 Medical History Condition Response Other Cancer N High Blood Pressure N Colon Cancer N Cytomegalovirus N Hyperthyroidism N MRSA N Blood Transfusion N Herpes (HSV) N Breast Cancer N Lung Cancer N Hypothyroidism N Depression Y Incontinence N Panic Attacks N Neurological Disorder N Deep Vein Thrombosis N Anxiety Disorder Y Autoimmune disease N Arthritis N Shingles N Tuberculosis/Positive PPD N Infertility N Polycystic Ovarian Syndrome N Cervical Cancer N Chlamydia N Hematuria N Stroke N Varicosities N Seasonal allergies N Crohn's Disease N Alzheimer's/Dementia N COPD/Emphysema N Endometriosis N HPV/Genital Warts N IBS (Irritable Bowel Syndrome) N History of Abnormal Pap N High Cholesterol N Liver Disease N Kidney Infection N Fibromyalgia N Ulcer N Kidney Disease N HIV [...] N Blood Clotting Disorder N Bipolar Disorder Y Diabetes Mellitus (during ) N Ulcerative Colitis N Hepatitis N Heart Disease N Pulmonary Embolism N RPR N Chicken Pox N Osteoporosis N Gynecological History Statement/Question Response Flow Moderate Date of last HPV Date of LMP 02/12/2025 HPV Vaccine N Duration of Flow (days) 9 Most Recent Mammogram Current Control Method Age at Menarche 10 Date of Last Colonoscopy Most Recent Bone Density Date of Last Pap Smear Obstetrics History GPAL:G 2 P 0 0 1 0 Type Value Spontaneous 1 Total 2 Past Encounters Encounter ID Performer Location Encounter Start Date Encounter Closed Date Diagnosis/Indication Diagnosis SNOMED-CT Code Diagnosis ICD10 Code Diagnosis IMO Codes Diagnosis Note [id number] Marisa Husain-Yovany gilman, [facility] [address] [place] [address] 01/14/2023 11:00:14 01/14/2023 17:43:32 Contraception care 280391315 Z30.40 PNV starr medellin ed removal of Nexplanon well [id number] JUAN KEE, VAULT ATTENDANT [facility] [address] [place] [address] 09/11/2023 12:36:30 09/11/2023 16:36:32 Missed period 45179840 N92.5 -First positive HCG 09/03-Seen in ER on 09/08 at [facility] for bleeding and cramping. Had US but was not told anything concerning US. States HCG level was 1048 then. UPT in positive today-repe at HCG level today and Friday, advised we want to see it double every 48 hours.-RTC in 2 weeks for TVUS for confirmati on of - Continue to take PNV. Opioid dependence 182306 00 F11.20 - States has not used since June, but does still have cravings.- Boyfriend is not aware and is concerned about discussing in front of him-Discus sed will do confirmati on visit with Dr. Galindo to also discuss opioid dependence treatment during . [id number] ANIL PATRICIA, SHARMILA[facility] [address] [place] [address] 09/15/2023 15:33:03 09/16/2023 10:58:06 test positive [id number] Z32.01 Missed period 16782157 N 92.5 TVUS today shows Gestationa l Sac with what appears to be pole and yolk sac. No heart motion identified . -First positive HCG 09/03 -Seen in ER on 09/08 at [facility] for bleeding and cramping. Had US but [...] 14 days for repeat US. Opioid dependence 859505 00 F11.20 - States has not used since June, but does still have cravings.- Boyfriend is not aware and is concerned about discussing in front of him-Discus sed will do confirmati on visit with Dr. Galindo to also discuss opioid dependence treatment during . [id number] Geno Galindo MD [address] [place] [address] 09/24/2023 16:05:36 09/24/2023 20:02:06 Threatened miscarriage 16297376 O20.0 discussed with patient that her ultrasound [...] if severe cramping or heavy bleeding starts [id number] Geno Galindo MD [address] [address] 10/01/2023 15:46:35 10/01/2023 18:26:06 Missed miscarriage 62487488 O02.1 ultrasound images reviewed. appears to be a completed miscarriag e.Pt desires to conceive again and so declines control [id number] Leonela Wilhelm MD [facility] [address] [place] [address] 05/03/2025 10:25:49 05/03/2025 12:31:22 test positive 755793308 Z32.01 567065 25 yo @ 11w 4d based on [...] 26.6 Bipolar II disorder 8322 5003 F31.81 694437 Mixed anxi ety and depressive disorder 148224280 F41.8 938144 Nausea and vomiting in 5608464492 O21.9 08122809 [id number] SHARMILA Gale [facility] [address] [place] [address] 05/13/2025 16:45:46 05/13/2025 17:43:30 Bipolar affective disorder, currently depressed, moderate 384935393 F31.32 347106 Problem 1- Active- Discussed restarting medication ; consider Lamotrigin e as a mood stabilizer compatible with ; may reintroduc e Olanzapine (Zyprexa) if inadequate response. Mood stabilizat ion reduces relapse risk during and , minimizing harm to mother and fetus. - Patient will consider- provided resources ([facility], wom[facility]ment [facility], MotherToBa by). Generalize d anxiety disorder 78926442 F41.1 169407 Problem 2- Active- Provided psychoeduc ation re: Mirtazapin e safety in ; - Consider reinitiati on if depression /anxiety symptoms persist. Mirtazapin e is low risk for teratogeni city and can improve sleep, mood, and appetite. Post-traum atic stress disorder 93164462 F43.10 523056 Problem 3- Chronic- Recommend referral to therapy; declines at this time Alcohol use disorder 812 7337364 F10.90 70706600 Problem 4- in early remissionD enies cravings- Encouraged sober support. Opioid use disorder 1336 857420 F11.90 59401240 Problem 5- in early remissionD enies cravings- encouraged sober supports. Medication management is available and we will further discuss if the patient agrees to medication Mental [facility] screening 225216459 Z13.30 7477715301 BETO-7: 11PHQ-9: 11 [id number] JUAN KEE, VAULT ATTENDANT [facility] [address] [place] [address] 05/20/2025 11:26:12 05/20/2025 12:54:43 screening 196558810 Z36.89 Z36.0 Hyperemesi s gravidarum 90703959 O21.0 44596 -Was seen at [facility] 05/19/2025 and was given 2 IV bags, 2 medication s and d/c home. Patient states she is having trouble keeping anything down. Has been using Zofran at home-Has lost 6lbs since last visit-Urin e dip today remarkable for SG 1.020 and Large Ketones-Wi ll send to for IV fluid replacemen t-Discusse d may need to do weekly appointmen ts until HG is under control. Patient voices understand ing. Normal 4112469 2 Z34.82 9908220 - - PMH: Anxiety, Depression -Seeing Anja for management --Unsure of FOB, possible 2 choices. Pt reports good support system-- Medication s: Taking daily PNV, Zofran when she can keep it down-- Previous OB History: -- History of Genital HSV: Declines-- Genetic Questions in OB Episode Done--Conf irmation BMI: 25.8 [id number] Malaika Sanon CNM [facility]_[address] [address] 05/20/2025 13:05:20 05/20/2025 15:50:20 Hyperemesis gravidarum 58421874 O21.0 01787 Pt was sent from the office for nausea/vom iting.IV hydration started.Pt was able to tolerate juice after 1000 mL NS & D5LR 500 mLIV discontinu ed intact.F/u as needed.Radu sea of - advised patient to keep cracker at the bedside to eat before getting out of bed in the morning, eat smaller more frequent meals during the day, and avoid mixing solids and liquids in the same meal. Eat protein snack at bedtime. Vitamin B6 4 x daily and can take 1/2 tablet of unisom during the day w/VitB6 and 1 tablet unisom w/Vit B6 at night [id number] Malaika Sanon CNM [address] [address] 05/31/2025 14:55:41 05/31/2025 17:14:22 Gestation period, 15 weeks 8679777 Z3A.15 4351708 Advised pt to f/u immediatel y if temp>101.; abdominal pain, vaginal bleeding greater than 1 pad/hr for greater than 2 hours; vaginal bleeding with or without cramping; bleeding w/clots; cramping like a period. Nausea 917387369 R11.0 66463 [id number] Malaika Sanon CNM [address] [address] 06/10/2025 12:49:07 06/13/2025 14:20:18 Nausea and vomiting in 6862711838 O21.9 87639796 IV hydration w/administ ration of antiemetic .Pt able to tolerate snacks and water after 2000 mL NS & IV ondansetro n.IV discontinu ed intactF/u as needed Gestation period, 17 weeks 85897029 Z3A.17 8908089 Routine 2nd trimester precaution s given. FM awareness discussed. F/u in L&D if experienci ng leaking fluid, cramping not relieved by rest and fluids, bleeding with or without cramping; fever 100.4 x 24 hrs or 101 or greater anytime. [id number] SAUD JESSICA [facility] [address] [place] [address] 06/16/2025 10:37:20 06/16/2025 11:45:41 Gestation period, 17 weeks 50445053 Z3A.17 7844916 Normal 3664411 2 Z34.82 4169428 Health Concerns Section Related Observation LastModified by Organization Detai ls LastModified Time None Recorded Concern Status LastModified by Organization Details LastModified Time None Recorded Advance Directives Directive None Recorded Payers Insurance Date Sequence Insurance Name Policy Number Policy Mark Covered Member ID Mark Member ID Guarantor Name 06/13/2025 1 [employer] [place] AFTER 2020 (MEDICAID REPLACEMENT - HMO) Maximiliano Jeison [id number] Maximiliano Jeison 09/10/2023 1 [employer] [place] (MEDICAID REPLACEMENT - [place]MO) Maximiliano Jeison [id number] Maximiliano Jeison Notes Date Note Type Note Provider Name and Address Organization Details Recorded Time 05/20/2025 text/html ROS as noted in the HPI Maximiliano is here today for ARY visit. She is currently at 14weeks gestation. She is taking vitamins. She has not felt movement. She denies the presence of vaginal bleed, leaking fluid, abdominal cramps. Pt is unable to keep anything down for the past 4-5days. Went to ER yesterday at [facility] and was given fluids and nausea meds, stated ineffective. Pt is fatigued and weak. Pt denies any cramping or bleeding. SAUD JESSICA [address] [facility], [place], [address], [facility] ice 05/20/2025 13:00:02 05/31/2025 text/html OB ProblemReport ed by PatientPatient c/o here for IV fluids, but she has been feeling better with her medication zofranpatient c/o she is able to keep foods down and drinksROS as noted in the HPI Malaika Sanon, BRITANY [address] [facility], [place], [address], [facility] [employer] IV 05/31/2025 16:20:25 06/10/2025 text/html OB ProblemReport ed by PatientHPIFor onset/timing, patient reportssymptoms present for 1-2 days.patient c/o cant keep anything down and feeling nausea, patient state she has been taking reglan but not helping todayROS as noted in the HPI Malaika Sanon CNM [address] [facility], [place], [address], [facility] [employer] IV 06/12/2025 07:00:18 06/16/2025 text/html ROS as noted in the HPI Maximiliano is here today for ARY visit. She is currently at 17.6 weeks gestation. She is taking vitamins. She has not felt movement. She denies the presence of vaginal bleed, leaking fluid, abdominal cramps, vomiting. Pt voice no concerns. There are no identifiable risk factors for pre-term labor. JUAN KEE, [facility] [address] [facility], [place], [address], [facility] [employer] IV 06/16/2025 11:13:25 OBGyn Episode Ob Episode Information Episode Created Date Number of Fetuses Patient Bloodtype Patient rh Status Prepregnancy Weight lbs Domestic Partner Domestic Partner Phone Father Name Fourdrinier Wire Weaver Status 05/03/20 25 1 DELETED Fetus Data First Name Last Name Admitted to NICU Weight (g) Sex Living Outcome Pediatric Complications Fetus ID Race Codes Race Delivery Type [id number] Bobby Calculation Initial Bobby Date Initial Exam [...] Domestic Partner Domestic Partner Phone Father Name Fourdrinier Wire Weaver Status 05/03/20 25 1 CLOSED Fetus Data First Name Last Name Admitted to NICU Weight (g) Sex Living Outcome Pediatric Complications Fetus ID Race Codes Race Delivery Type , Spontane ous [id number] Bobby Calculation Initial Bobby Date Initial Exam [...] Domestic Partner Domestic Partner Phone Father Name Fourdrinier Wire Weaver Status 05/20/20 25 1 B Positive OPEN Fetus Data First Name Last Name Admitted to NICU Weight (g) Sex Living Outcome Pediatric Complications Fetus ID Race Codes Race Delivery Type [id number] Problems Problem Notes Problem Name Start Date End Date Resolution Snomed Code Not e Carrier of cystic fibrosis gene mutation 06/16/2025 [id number] Recom mend FOB get tested Hyperemesis gravidarum 05/20/2025 587649 01 -Taking Zofran Bobby Calculation Initial Bobby Date Initial Exam Date Initial Exam Provider Initial Ultrasound Date Last Menstrual Period Date Ultra Sound Weeks Gestation 05/20/2025 0 Eighteen To Twenty Week Bobby Update Ultra Sound Date Fundal Height At Umbil Quickening Date Ultra Sound Latest Weeks Gestation Final Bobby Confirmed By Final Bobby Confirmed Date Final Bobby Date Ultra Sound Latest Days Gestation 0 11/19/19 26 0 Pre- Flowsheet Flowsheet Date 05/20/2025 Salguero Score Blood Edema Fundus Height Fundus Units Glucose Ketones Leukocytes Nitrite Labor Signs Protein Cervic Dilation Cervic Effacement Cervic Station none none none 1+ Type Weight in lbs Pre/Post Dialysis Refused With clothes 174.644763979125 BP Diastolic BP Location Tested BP Systolic BP Type 62 102 sitting Fetus Heart Rate Present A 150 Present Fetus Movement A No Comments -1st OB visit. NOB and NIPT today. Needs pap at next visit, not feeling well today. Confirmation BMI: 25.8-Was seen at [facility] 05/19/2025 for hyperemesis and was given 2 IV bags, 2 medications and d/c home. Patient states she is having trouble keeping anything down. Has been using Zofran at home. Has lost 6lbs since last visit -Urine dip today remarkable for SG 1.020 and Large Ketones-Sent to to for IV fluid replacement-Seeing Anja for anxiety/depression. Patient states moods are doing fine.-Unsure of FOB, has a good support system-RTC in 4 weeks Flowsheet Date 05/20/2025 Salguero Score Blood Edema Fundus Height Fundus Units Glucose Ketones Leukocytes Nitrite Labor Signs Protein Cervic Dilation Cervic Effacement Cervic Station Type Weight in lbs Pre/Post Dialysis Refused With clothes 0.0 BP Diastolic BP Location Tested BP Systolic BP Type 66 L arm 106 sitting Fetus Heart Rate Present Fetus Movement Comments Flowsheet Date 05/31/2025 Salguero Score Blood Edema Fundus Height Fundus Units Glucose Ketones Leukocytes Nitrite Labor Signs Protein Cervic Dilation Cervic Effacement Cervic Station Type Weight in lbs Pre/Post Dialysis Refused With clothes 176.884405709093 BP Diastolic BP Location Tested BP Systolic BP Type 60 110 sitting Fetus Heart Rate Present A 150 Fetus Movement Comments Pt able to tolerate po intak e w/antiemetics. IV hydration if unable to tolerate po intake for 12 or more hours. F/u in 4 wks for anatomy scan. Flowsheet Date 06/10/2025 Salguero Score Blood Edema Fundus Height Fundus Units Glucose Ketones Leukocytes Nitrite Labor Signs Protein Cervic Dilation Cervic Effacement Cervic Station Type Weight in lbs Pre/Post Dialysis Refused With clothes 169.229179808339 BP Diastolic BP Location Tested BP Systolic BP Type 60 110 sitting Fetus Heart Rate Present A 157 Fetus Movement Comments UC visit for hyperemesis Flowsheet Date 06/16/2025 Salguero Score Blood Edema Fundus Height Fundus Units Glucose Ketones Leukocytes Nitrite Labor Signs Protein Cervic Dilation Cervic Effacement Cervic Station none none none neg Type Weight in lbs Pre/Post Dialysis Refused With clothes 178.725836528526 BP Diastolic BP Location Tested BP Systolic BP Type 68 108 sitting Fetus Heart Rate Present A 143 Present Fetus Movement A No Comments -No OB concerns, feeling bet ter since last OB visit. Pt was getting IV infusions at . -Reviewed NOB, carrier for cystic fibrosis. Recommend FOB get tested, pt is unsure of FOB.-PTL/PROM precautions-RTC in 3 weeks for anatomy scan, will need AFP as well Menstrual History Last Menstrual Date Menses Monthly On Bcp Conception Prior Menses Frequency Hcg Plus Date Menarche Onset Age Genetic Screening And Infection History Question Response Note Patient's Age Will Be 35 Years Or Older At Estim ated Date of Delivery false Personal or Family History o f Neural Tube Defect (Meningomyelocele, Spina Bifida, Or Anencephaly) false Personal or Family History of Congenital Heart D efect false Maternal Metabolic Disorder (eg, Type 1 Diabetes , PKU) false Recurrent Loss, Or A Stillbirth false Patient Or Partner Has History Of Genital Herpes false Prior GBS-infected child false History of HIV false History of Hepatitis false Genetic Carrier Screen positive false Delivery Information Delivery Date Delivery Type Labor Anesthesia Weeks Gestation Incision Type Labor Labor Length Hrs Delivered By Post Complications Tubal Sterilization Discharge Date Comments Discharge Information Feeding Method Contraceptive Method Maternal HG B and HCT Levels
--- OUTSIDE RECORDS SUMMARY | 2025-07-01 09:01 | XMS_ITS | Encounter Summary ---
Author Organization [facility] Address [address] [place] [address] Care Team Providers Care Surveyor Rod Helper Name Role Phone Unavailable Primary Care Provider Unavailabl e Encounter Details Date Type Department Care Team (Late st Contact Info) Description 1999 Outpatient Historical [facility] JoséDenton MD 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
--- OUTSIDE RECORDS SUMMARY | 2025-07-01 09:01 | XMS_ITS | Patient Health Record ---
Author Organization [facility] Address [address] [place] [address] Phone [phone] Care Team Providers Care Makeup Instructor Name Role Phone Arelis Paz Primary Care Provider Veronica Murillo Unavailable Allergies Allergen (clinical drug ingredient) Drug/Non Drug Allergy documented on EMR Reaction Allergy Type Onset Date Status No Known Drug Allergy Unknown Drug Allergy Active No Known Food Allergy Unknown Drug Allergy Active Reason For Referral No Information Medications Medication SIG (Take, Route, Frequency, Duration) Notes Start Date End Date Diagnosis (ICD Code) Status OLANZapine 15 MG Tablet 1 tablet Orally Once a day; Duration: 30 days Bipolar 2 disorder (ICD_10 - F31.81) Active hydrOXYzine HCl 50 MG Tablet 1 tablet as needed Orally three times a day; Duration: 30 days Bipolar 2 disorder (ICD_10 - F31.81) Active Mirtazapine 45 MG Tablet 1 tablet at bedtime Orally Once a day; Duration: 30 days Bipolar 2 disorder (ICD_10 - F31.81) Active Buprenorphine HCl-Naloxone HCl 4-1 MG Film 1 film under the tongue and allow to dissolve Sublingual twice daily client on CRU 4 Opioid use disorder (ICD_10 - F11.99) Not-Taking Multivitamin - Tablet 1 tablet Orally Once a day Not-Taking Hydrocortisone 1 % Cream 1 application Externally Once a day; Duration: 14 days on unit- please deliver 4 Dermatitis (ICD_10 - L30.9) Not-Taking Social History Tobacco Use: Social History Observation Description Date Details (start date - stop date) Current some da y smoker NA - NA Sex Observation Social History Observation Description Sex Observation Female Sexual Orientation Social History Observation Description Sexual Orientation Bisexual Gender Identity Social History Observation Description Gender Identity Female SDOH Assessments Date Tool Assessment Assessment LOINC Value Assessment Notes Goals Interventions 03/03/20 25 PRAPARE (LOINC: 90281-1) Total Score: 7 Date Completed/Upda peace: 10/16/19 24 What is your current housing situation? 85592-4 I have housing (LI63276-3) Are you worried about losing your housing? 23839-2 Yes (LA33-6) What is your current work situation? 96086-3 Unemployed and seeking work (ST24476-2) In the past year, have you o r any family members you live with been unable to get any of the following when it was really needed? Check all that apply 56539-7 I do not have problems meeting my needs Has lack of transportation k ept you from medical appointments, meetings, work or from getting things needed for daily living? 76161-3 No (LA32-8) How often do you see or talk to people that you care about and feel close to? (For example: talking to friends on the phone, visiting friends or family, going to holiness or club meetings) 26412-0 3 to 5 times a week (WF61815-7) In the past year have you sp ent more than 2 nights in a row in a alf, custodial, senior living center, or juvenile correctional facility? 30645-8 No (LA32-8) Do you feel physically and emotionally safe where you currently live? 51439-5 No (LA32-8) In the past year, have you b een afraid of your partner or ex-partner? 26196-2 No (LA32-8) Are you a refugee? No What country are you from? [facility] PRAPARE Score: 7 Social History Social Determinants Social Info Question Answer Notes PRAPARE Date Completed/Updated: 10/16/2023 What is your current [...] 2 nights in a row in a alf, custodial, senior living center, or juvenile correctional facility? No Are you a refugee? No What country are you from? [place] Do you feel physically and e motionally safe where you currently live? No In the past year, have you b een afraid of your partner or ex-partner? No PRAPARE Score: 7 Miscellaneous Social Info Question Answer Notes Method of learning: Preferred method of learning: Demo nstration Primary Social History Social Info Question Answer Notes Living Arrangement Living Arrangement: Dependent Romel g Living with: Grandparent(s) Is this a supportive environment? Yes Single Question Alcohol Screening How many times in the past year have you had (4 for women, or 5 for men) or more drinks in a day? 0 Employment Status Employment Status: Employed Full [employer] Illicit Substance Usage Illicit Substance Usage: Yes Substance Used: Cannabis, Prescription Drugs Alcohol Use Alcohol Use Frequency: Last Use the end of November 2023 Tobacco Use: Social Info Question Answer Notes Tobacco Control (Standard) Tobacco use: Current some day smoker Additional Findings: Tobacco user e-cigarette Problems Problem Type SNOMED Code ICD Code Dates Problem Status W/U Status Risk Notes Problem Tobacco user (405054756) Nicotine dependence, unspecified, uncomplicated (F17.200) Added On:04/30 Active confirmed Problem Posttraumatic stress disorder (16521679) PTSD (post-traumatic stress disorder) (F43.10) Added On:10/22 Active confirmed Problem Psychosis (71435922) Psychosis (F29) Added On:05/14 Active confirmed Problem Bipolar 2 disorder (47254434) Bipolar 2 disorder (F31.81) Added On:10/22 Active confirmed Problem 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) Added On:03/25 Active confirmed Problem Adjustment disorder (60756595) Trauma and stressor-related disorder (F43.9) Added On:03/25 Onset Date: 03/25/20 Active confirmed Problem Opioid dependence (98595933) Opioid use disorder, severe (F11.20) Added On:03/25 Active confirmed Problem Tobacco use (882825487) Tobacco use disorder (F17.200) Added On:03/19 Active confirmed Problem Opioid use disorder (8349067186) Opioid use disorder (F11.99) Added On:10/15 Active confirmed Problem Tobacco use (645864284) Vapes nicotine containing substance (Z72.0) Added On:03/25 Active confirmed Vital Signs Vital Sign Value Notes Appt Date Heart Rate 101 /min 09/03/2024 Respiratory Rate 16 /min 09/03/2024 Blood pressure diastolic 72 mm Hg Oximetry 95 % 09/03/2024 Height 68 in in 03/03/2025 Blood pressure systolic 122 mm Hg 08/08 Weight 160 lb lbs 03/03/2025 BMI 24.33 kg/m2 03/03/2025 Encounters Date Time Type Facility Location Provider Diagnosis 09/03/19 01:20 PM Office Visit, Est Pt., Level 4 (63952) [address] [place] [address] Veronica Murillo Bipolar 2 disorder F31.81 ; Psychosis F29 and Nicotine dependence, unspecified, uncomplicated F17.200 03/03/20 11:00 AM Telehealth Office Visit, Est Pt., Level 4 (10581) [address] [place] [address] Arelis Paz Bipolar 2 disorder F31.81 ; Psychosis F29 and Nicotine dependence, unspecified, uncomplicated F17.200 08/31/19 12:08 PM Telephone Encounter [address] [place] [address] Veronica Murillo Assessments Encounter Date Diagnosis (ICD Code) Assessment Notes Treat ment Notes Section Notes 09/03/2024 Bipolar 2 disorder (ICD-10 - F31.81) Continue current medications. Continue services as scheduled. Labs completed recently. May self-administer medications or be administered own oral medications per [facility] protocols. Provided informed consent with understanding of [...] Insured Coverage Start Date Coverage End Date [facility] [employer] [address] [place] [address] [id number] Maximiliano Mchugh Self - patient is the insured [address] [facility] [address] [place] [address] [id number] Maximiliano Mchugh Self - patient is the insured 3 Medical (General) History Medical History History ICD Code Opioid use disorder Surgical History Surgery Date(Month/Year) Hospitalization History Reason Date(Month/Year)
--- OUTSIDE RECORDS SUMMARY | 2025-07-01 09:01 | XMS_ITS | Encounter Summary ---
Author Organization [facility] Address 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
--- OUTSIDE RECORDS SUMMARY | 2025-07-01 09:01 | XMS_ITS | Encounter Summary ---
Author Organization Narrative Address 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
--- OUTSIDE RECORDS SUMMARY | 2025-07-01 09:01 | XMS_ITS | Encounter Summary ---
Author Organization [facility] Address [address] [place] [address] Care Team Providers Care Engineering Technician Parking Name Role Phone Jaleesa Zarco MD Primary Care Provider [phone] Encounter Details Date Type Department Care Team (Late st Contact Info) Description 10/13/2023 [facility] Message Enc [facility] Family & Internal Medicine [address] [address] [place], [facility] Provider OBGYN Social History Tobacco Use Types [...] on file Legal Sex Female 3:12 PM HOUSE PAINTER HELPER Gender Identity Female 06/26/2022 6:10 AM HOUSE PAINTER HELPER Sexual Orientation Not on file documented as of this encounter Plan of Treatment Not on file documented as of this encounter Visit Diagnoses Not on filedocumented in this encounter Additional Health Concerns Assessment Noted Time PHQ-9 Depression Total Score: 12 023 11:16 AM CDT documented as of this encounter Care Teams Engineering Technician Parking Relationship Specialty Start Date End [place] J[place] [id number] [place] [address]. [address] [place] [id number] PCP - General FAMILY PRACTICE 06/10/22 documented as of this encounter
--- OUTSIDE RECORDS SUMMARY | 2025-07-01 09:01 | XMS_ITS | Encounter Summary ---
Author Organization [facility] Address 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
--- OUTSIDE RECORDS SUMMARY | 2025-07-01 09:01 | XMS_ITS | Continuity of Care Document ---
Author Organization [facility] Address [address] [place] [address] Assessment Encounter Date Assessment Date Assessment LastModified [...] options and decide by the next appointment. 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 Referral None recorde d. Procedures None recorde d. Surgeries None recorde d. Imaging None recorde d. Medication Orders None recorde d. Patient TargetsNo targets recorded. Patient Instructions Encounter Date Encounter Id Patient Instructions Last Modified By Organization Details Last Modified Time 05/13/2025 [id number] BETO-7 anxiety scale* Not avai lable 05/24/2025 10:35:51 Patient Health Questionnaire-9* [email or web address] Not available 05/24/2025 10:35:51 Safety: -The pat ient denies SI, SIB, [...] for 05/24/25 - RTC/call sooner as needed [email or web address] Not available 05/17/2025 14:07:27 Discussed medica tion [...] a child s long-term behavior or learning. [email or web address] Not available 05/17/2025 14:08:53 Reason for Referral None Reported. Problems Name Problem SNOMED Code Status Onset Date Resolution Date Notes Provider Name and Address Organization Details Recorded Time Bipolar II disorder 20643548 Active 2024 SAUD JESSICA [address] [place], [address] , [facility] 11:24:29 Bipolar affective disorder, currently depressed , moderate 554262841 Active 2024 SHARMILA Gale [address] [place], [address] , [facility] 11/11/202 5 13:04:40 Generaliz ed anxiety disorder 45655792 Active 2024 Wilfredo Ramsay Bhaskarevette [facility] [address] [place] [address], [address] , [facility] 5 13:04:44 Post-trau matic stress disorder 93211983 Active 2024 [address], [address] , [facility] 5 13:04:49 Alcohol use disorder Active 2024 Wilfredo Ramsay Wilbur [address], [address] , [facility] 5 13:04:55 Opioid use disorder Active 2024 Luciacristiano Bowles [address], [address] , [facility] 5 13:05:02 14329435 Active 2024 Aurea Crespo [facility] [place] [facility] 5 12:02:42 Hyperemes is gravidaru m 67736733 Active 2024 -Taking Antonino KEE, [place] [address] [place], [address] , [facility] 5 12:44:34 Carrier of cystic fibrosis gene mutation 315562846 Active 2024 Recommend FOB get tested JUAN KEE [address], [address] , [facility] 5 11:01:43 Problem Notes None recorded. Procedures Surgical History Date Name Laterality Status Provider Name and Address Organization Details Recorded Time 5 IV Infusion completed Malaika Sanon CNM [address] [place], [address], [facility] 06/12/2025 06:53:59 5 IV Infusion completed Malaika Sanon CNM [address] [facility], [place], [address], [facility] 05/20/2025 15:25:44 3 Nexplanon Removal completed Marisa Munoz, CNM [address] [facility], [place], [address], [facility] 01/14/2023 11:42:37 3 Nexplanon Removal cancelled Leonela Wilhelm MD [address] [place], [address], [facility] 07/28/2022 06:31:48 3 Nexplanon Insertion cancelled Leonela Wilhelm MD [address] [place], [address], [facility] 07/28/2022 06:31:47 Imaging Results None [...] Updated DateTime 05/13/2025 175.26 cm 26.7 kg/m2 54246.7 8 g 98.7 [degF] 104/72 mm[Hg] Edil [facility] 16:56:56 Social History Question Answer Notes LastModified by [employer] Details LastModified Time Tobacco Smoking Status Never Smoker Gaye de la cruz [facility] 01/14/2023 11:24:09 If You Are , [...] Functional Status Question Answer Note LastModified by [employer] Details LastModified Time Do you use any illicit or recreational drugs? No Information not available 01/14/2023 Do you or have you ever used any other forms of tobacco or nicotine? Yes Information not available 01/14/2023 What is your level of alcohol consumption? None Information not available 01/14/2023 Are you currently employed? No [email or web address] Information not available 05/03/2025 Do you or have you ever used e-cigarettes or vape? Current user of electronic cigarettes Information not available 01/14/2023 What is your exercise level? None Information not available 01/14/2023 Mental Status None recorded. Family History Relationship Description Onset Age of this Age Resolved Age Notes LastModified by Organization Details LastModified Time Father No current problems or disability [email or web address] Not available 09/14 15:59:20 Mother No current problems or disability [email or web address] Not available 09/14 15:59:20 Medical History Condition Response Other Cancer N High Blood Pressure N Colon Cancer N Cytomegalovirus N Hyperthyroidism N Herpes (HSV) N Breast Cancer N Blood Transfusion N MRSA N Lung Cancer N Hypothyroidism N Depression [...] Disease N HIV N Gallbladder disease N Sickle Cell Disease/Trait N Von Willebrand disease N ADD/ADHD N Eating Disorder N Diabetes Mellitus (non-insulin dependent ) N Anemia N Ovarian Problems N Multiple Sclerosis N Gonorrhea N Frequent Urinary Tract infections N Osteopenia N Headaches/migraines N GERD (reflux) Y Ovarian Cancer N Diabetes (insulin dependent) N Seizures/Epilepsy N Breast Problems N Fibroids N Asthma N Heart Attack N Lupus N Endometrial Cancer N Rubella N Blood Clotting Disorder N [...] ICD10 Code Diagnosis IMO Codes Diagnosis Note [id number] Leonela Wilhelm MD [facility] [address] [place] [address] 05/03/2025 10:25:49 05/03/2025 12:31:22 test positive 216375319 Z32.01 227197 25 yo @ 11w 4d based on [...] 26.6 Bipolar II disorder 8322 5003 F31.81 862753 Mixed anxi ety and depressive disorder 888941021 F41.8 703387 Nausea and vomiting in 8747579314 O21.9 [id number] SHARMILA Gale [facility] [address] [place] [address] 05/13/2025 16:45:46 05/13/2025 17:43:30 Bipolar affective disorder, currently depressed, moderate 691836141 F31.32 016277 Problem 1- Active- Discussed restarting medication ; consider Lamotrigin e as a mood stabilizer compatible with ; may reintroduc e Olanzapine (Zyprexa) if inadequate response. Mood stabilizat ion reduces relapse risk during and , minimizing harm to mother and fetus. - Patient will consider- provided resources ([facility], [email or web address] , [facility]ToBa by). Generalize d anxiety disorder 12600216 F41.1 834027 Problem 2- Active- Provided psychoeduc ation re: Mirtazapin e safety in ; - Consider reinitiati on if depression /anxiety symptoms persist. Mirtazapin e is low risk for teratogeni city and can improve sleep, mood, and appetite. Post-traum atic stress disorder 84215859 F43.10 936691 Problem 3- Chronic- Recommend referral to therapy; declines at this time Alcohol use disorder 209 2523006 F10.90 91545602 Problem 4- in early remissionD enies cravings- Encouraged sober support. Opioid use disorder 1336 789620 F11.90 37540347 Problem 5- in early remissionD enies cravings- encouraged sober supports. Medication management is available and we will further discuss if the patient agrees to medication Mental [facility] screening 750686801 Z13.30 [id number] BETO-7: 11PHQ-9: 11 Health Concerns Section Related Observation LastModified by Organization Detai ls LastModified Time None Recorded Concern Status LastModified by Organization Details LastModified Time None Recorded Payers Encounter Date Sequence Insurance Name Policy Number Policy Mark Covered Member ID Mark Member ID Guarantor Name 05/13/2025 1 [employer] [place] - DOS ON OR AFTER 2020 (MEDICAID REPLACEMENT - HMO) Maximiliano Mchugh [id number] Maximiliano Mchugh OBGyn Episode Ob Episode Information Episode Created Date Number of Fetuses Patient Bloodtype Patient rh Status Prepregnancy Weight lbs Domestic Partner Domestic Partner Phone Father Name Materials Director Status 05/20/20 25 1 B Positive OPEN Fetus Data First Name Last Name Admitted to NICU Weight (g) Sex Living Outcome Pediatric Complications Fetus ID Race Codes Race Delivery Type [id number] Problems Problem Notes Problem Name Start Date End Date Resolution Snomed Code Not e Carrier of cystic fibrosis gene mutation 06/16/2025 [id number] Recom mend FOB get tested Hyperemesis gravidarum 05/20/2025 020934 01 -Taking Zofran Bobby Calculation Initial Bobby [...] in lbs Pre/Post Dialysis Refused With clothes 174.280100276665 BP Diastolic BP Location Tested BP Systolic BP Type 62 102 sitting Fetus Heart Rate Present A 150 Present Fetus Movement A No Comments -1st OB visit. NOB and NIPT today. Needs pap at next visit, not feeling well today. Confirmation BMI: 25.8-Was seen at [facility] 05/19/2025 for hyperemesis and was given [...] in lbs Pre/Post Dialysis Refused With clothes 176.233143021175 BP Diastolic BP Location Tested BP Systolic [...] in lbs Pre/Post Dialysis Refused With clothes 169.511859361916 BP Diastolic BP Location Tested BP Systolic BP Type 60 110 sitting Fetus Heart Rate Present A 157 Fetus Movement Comments visit for hyperemesis Flowsheet Date 06/16/2025 Salguero Score Blood Edema Fundus Height Fundus Units Glucose Ketones Leukocytes Nitrite Labor Signs Protein Cervic Dilation Cervic Effacement Cervic Station none none none neg Type Weight in lbs Pre/Post Dialysis Refused With clothes 178.443386593363 BP Diastolic BP Location Tested BP Systolic [...]
--- OUTSIDE RECORDS SUMMARY | 2025-07-01 09:01 | XMS_ITS | Continuity of Care Document ---
Author Organization [facility], [facility] Address [address] [place] [address] Assessment No assessment recorded. Plan of Treatment Reminders Order Date Submit Date Provider Last Modified By Organization Details Last Modified Time Details Appointments OB SONOGRA M 30 2025 08:45A M Ultrasound [place] 4 Not available Not available Not available OB RETURN EST 2025 09:45A M JUAN KEE, FRUIT CHECKER Not available Not available Not available Lab None recorde d. Referral None recorde d. Procedures None recorde d. Surgeries None recorde d. Imaging None recorde d. Medication Orders None recorde d. Patient TargetsNo targets recorded. Patient InstructionsNo instructions recorded. Reason for Referral None Reported. Results Created Date Observation Date Name Description Value Unit Range Abnormal Flag Note LastModifiedBy Organization Detail LastModifiedTime 05/20/2005/21/2025 HEMOG LOBIN A1C hemoglobin A1C 5.2 % <5.7 normal The refer ence range for HbA1c is indic ated in the table below . Sugge sted Diagn osis >=6.5 % Consi stent with diabe gerson 5.7 6.4% Consi stent with incre ased risk for diabe gerson (pred iabet ic) <5.7% Consi stent with the absen ce of diabe gerson Not Available [facility] [address] [place], [address], 05/21/2025 10:59:18 05/20/2005/21/2025 CBC (INCL UDES DIFF/ PLT) WBC 13.3 thous and/u L 4.0 - 10.0 high Not Available [address], [address], 05/21/2025 11:24:57 05/20/2005/21/2025 CBC (INCL UDES DIFF/ PLT) RBC 4.5 vidya on/uL 3.9 - 4.9 normal Not Available [address], [address], 05/21/2025 11:24:57 05/20/2005/21/2025 CBC (INCL UDES DIFF/ PLT) hemoglobin 12.4 g/dL 11.8 - 14.8 normal Not Available [address], [address], 05/21/2025 11:24:57 05/20/2005/21/2025 CBC (INCL UDES DIFF/ PLT) hematocrit 38.9 % 35.5 - 44.0 normal Not Available [address], [address], 05/21/2025 11:24:57 05/20/2005/21/2025 CBC (INCL UDES DIFF/ PLT) MCV 85.7 fL 82.0 - 99.0 normal Not Available [address], [address], 05/21/2025 11:24:57 05/20/2005/21/2025 CBC (INCL UDES DIFF/ PLT) MCH 27.3 pg 27.2 - 32.6 normal Not Available [address], [address], 05/21/2025 11:24:57 05/20/2005/21/2025 CBC (INCL UDES DIFF/ PLT) MCHC 31.9 g/dL 31.5 - 35.5 normal Not Available [address], [address], 05/21/2025 11:24:57 05/20/20 25 05/21/2025 CBC (INCL UDES DIFF/ PLT) RDW-CV 17.3 % 11.5 - 14.5 high Not Available [address], [address], 05/21/2025 11:24:57 05/20/20 25 05/21/2025 CBC (INCL UDES DIFF/ PLT) platelet 267 thous and/u L 140 - 350 normal COMME NT: PLT = Micro scopi c plate let clump s prese nt on smear revie w. Plate let count may be sligh tly highe r than indic ated. Not Available [address], [address], 05/21/2025 11:24:57 05/20/20 25 05/21/2025 CBC (INCL UDES DIFF/ PLT) MPV ---- fL normal COMME NT: MPV = Resul t remov ed due to large varia bilit y in plate let size distr ibuti on. Plate let size distr ibuti on verif ied by smear revie w. Large r plate lets prese nt on smear revie w (plts size 4-7 um). Not Available [address], [address], 05/21/2025 11:24:57 05/20/20 25 05/21/2025 CBC (INCL UDES DIFF/ PLT) absolute neutrophil 10.53 thous and/u L 1.90 - 7.00 high Not Available [address], [address], 05/21/2025 11:24:57 05/20/20 25 05/21/2025 CBC (INCL UDES DIFF/ PLT) absolute lymphocyte 1.76 thous and/u L 0.70 - 4.50 normal Not Available [address], [address], 05/21/2025 11:24:57 05/20/20 25 05/21/2025 CBC (INCL UDES DIFF/ PLT) absolute monocyte 0.76 thous and/u L 0.10 - 1.30 normal Not Available [address], [address], 05/21/2025 11:24:57 05/20/20 25 05/21/2025 CBC (INCL UDES DIFF/ PLT) absolute eosinophil 0.04 thous and/u L <0.70 normal Not Available [address], [address], 05/21/2025 11:24:57 05/20/20 25 05/21/2025 CBC (INCL UDES DIFF/ PLT) absolute basophil 0.19 thous and/u L <0.20 normal Not Available [address], [address], 05/21/2025 11:24:57 05/20/20 25 05/21/2025 CBC (INCL UDES DIFF/ PLT) absolute immature granulocyte 0.05 thous and/u L <0.03 high Not Available [address], [address], 05/21/2025 11:24:57 05/20/20 25 05/21/2025 OB PANEL - STD BLOOD WORK hep BS Ag Non-Re active non-re active normal Not Available [address], [address], 05/21/2025 11:35:14 05/20/20 25 05/21/2025 OB PANEL - STD BLOOD WORK hep C Ab Non-Re active non-re active normal Not Available [address], [address], 05/21/2025 11:35:14 05/20/20 25 05/21/2025 OB PANEL - STD BLOOD WORK HIV 1/2 Ag/Ab Non-Re active non-re active normal Not Available [address], [address], 05/21/2025 11:35:14 11/14/05/21/2025 OB PANEL - STD BLOOD WORK syphilis Ab Non-Re active non-re active normal Not Available [employer] [address] [place], [address], 05/21/2025 11:35:14 05/20/20 25 05/21/2025 OB PANEL [...] atory at the same time. Not Available [employer] [address] [place], [address], 05/21/2025 11:35:14 05/20/2005/23/2025 CT/NG chlamydia trachomatis CT neg negati ve normal This repor t is inten ded for use in clini diya monit oring and manag ement of patie nts. It is not inten ded for use in medic al-le gal appli catio n. [place], [address], 05/23/2025 16:38:07 05/20/2005/23/2025 CT/NG neisseria gonorrhoeae GC neg negati ve normal This repor t is inten ded for use in clini diya monit oring and manag ement of patie nts. It is not inten ded for use in medic al-le gal appli catio n. [place], [address], 05/23/2025 16:38:07 05/20/20 25 05/23/2025 VARIC BRODERICK ZOSTE R VIRUS ANTIB AVIS [...] Immun ity Scree n, ACIF. Not Available [facility] [address] [place], [address], 05/23/2025 18:01:16 05/20/20 25 05/23/2025 MEASL ES AB (IGG) , IMMUN E [...] infor mariya farr e refer to http: //[facility] arnoldo Bernard stDia gnost ics.c om/fa q/FAQ 162 (This link is being provi ded for infor matio nal/ educa patti l purpo ses only. ) Not Available [address] [place], [address], 05/23/2025 18:01:17 05/20/2005/23/2025 ANTIB AVIS SCREE N, [...] alloi mmuni zed pregn cee. Not Available [address] [place], [address], 05/23/2025 18:01:18 05/20/2005/23/2025 ABO GROUP AND RH TYPE ABO group B Not Available [address] [address] [place], [address], 05/23/2025 18:01:18 05/20/2005/23/2025 ABO GROUP AND RH TYPE Rh type RH(D) POSITI VE For addit ional infor mariya farr refer to http: //[facility] arnoldo Bernard stDia gnost ics.c om/fa q/FAQ 111 (This link is being provi ded for infor matio nal/ educa patti l purpo ses only. ) Not Available [facility] [address] [address] [place], [address], 05/23/2025 18:01:18 05/20/20 25 05/23/2025 CULTU RE, URINE , ROUTI NE culture, urine, routine SEE NOTE CULTU RE, URINE , ROUTI NE Micro Numbe r: [id number] Test Statu s: Final Speci men Sourc e: Urine Speci men Quali ty: Adequ ate Resul t: No Growt h Not Available [address] [address] [place], [address], 05/23/2025 18:01:19 05/20/2005/20/2025 urina lysis , dipst ick Leukocytes Small Not Available [address], [address], 05/20/2025 12:22:17 05/20/20 25 05/20/2025 urina lysis , dipst ick Nitrite negati ve Not Available [address], [address], 05/20/2025 12:22:17 05/20/20 25 05/20/2025 urina lysis , dipst ick Urobilinogen 1 Not Available [address], [address], 05/20/2025 12:22:17 05/20/20 25 05/20/2025 urina lysis , dipst ick Protein 30 Not Available [address], [address], 05/20/2025 12:22:17 05/20/20 25 05/20/2025 urina lysis , dipst ick pH 6.0 Not Available [address], [address], 05/20/2025 12:22:17 05/20/20 25 05/20/2025 urina lysis , dipst ick Blood Negati ve Not Available [facility] [address], [place], [address], 05/20/2025 12:22:17 05/20/2005/20/2025 urina lysis , dipst ick Specific Dillon 1.020 Not Available [facility] [address], [place], [address], 05/20/2025 12:22:17 05/20/2005/20/2025 urina lysis , dipst ick Ketone Large (160) Not Available [facility] [address], [place], [address], 05/20/2025 12:22:17 05/20/20 25 05/20/2025 urina lysis , dipst ick Bilirubin Small Not Available [facility] [address], [place], [address], 05/20/2025 12:22:17 05/20/20 25 05/20/2025 urina lysis , dipst ick Glucose Negati ve Not Available [facility] [address], [place], [address], 05/20/2025 12:22:17 05/20/20 25 05/20/2025 urina lysis , dipst ick Appearance Cloudy Not Available [facility] [address], [place], [address], 05/20/2025 12:22:17 05/20/2005/20/2025 urina lysis , dipst ick Color Dark Yellow Not Available [facility] [address], [place], [address], 05/20/2025 12:22:17 05/21/20 25 05/21/2025 CHROM OSOME S 13, 18, 21 + SEX CHROM OSOME KI SIS chromosomes 13, 18, 21 + sex chromosome analysis Negati ve normal See PDF for compl ete resul ts. Overa ll Resul t: Negat bob Negat bob for all order ed condi tions Clini diya Notes : * The resid ual risks provi ded repre sent the remai esperanza [facility] e that the pregn cee is affec [...] sampl ing or amnio cente sis is neces alexa. fract ion: 21.2% - fract ion is one compo nent of the algor ithm used and is combi gregory with other quali ty metri cs to deter mine the aneup loidy scree esperanza resul t. Not Available [facility] [address], [place], [address], 05/24/2025 16:41:49 05/23/20 25 05/23/2025 ZOYA MENTA L (CF + SMA) [871] fundamental (CF + sma) [871] Positi ve: Fadia r abnormal See PDF for compl ete resul ts. Overa ll Resul t: Posit bob: Mariella er TIFFANIE PRINGLE S: * Posit bob: Mariella er: cysti c fibro sis Not Available [facility] [address], [place], [address], 05/29/2025 06:12:10 Result Notes None recorded. Problems Name Problem SNOMED Code Status Onset Date Resolution Date Notes Provider Name and Address Organization Details Recorded Time Bipolar II disorder 65647351 Active 2024 JUAN KEE, FRUIT CHECKER [address] [place], [address] , [facility] 5 11:24:29 Bipolar affective disorder, currently depressed , moderate 234891841 Active 2024 Wilfredo Bowles JUAN Formerly [facility] [place], [address] , [facility] IV 5 13:04:40 Generaliz ed anxiety disorder 71252934 Active 2024 Wilfredo Bowles JUAN [address] [place] [address], [address] , [facility] IV 5 13:04:44 Post-trau matic stress disorder 79877880 Active 2024 Wilfredo Bowles JUAN [address] [place] [address], [address] , [facility] IV 5 13:04:49 Alcohol use disorder Active 2024 Wilfredo Bowles JUAN [address] [place] [address], [address] , [facility] IV 5 13:04:55 Opioid use disorder Active 2024 Wilfredo Bowles JUAN [address] [place] [address], [address] , [facility] IV 5 13:05:02 72894601 Active 2024 Aurea de la cruz, [place] [facility] IV 5 12:02:42 Hyperemes is gravidaru m 75787396 Active 2024 -Taking Antonino KEE, [address] [place], [address] , [facility] IV 5 12:44:34 Carrier of cystic fibrosis gene mutation 485747562 Active 2024 Recommend FOB get tested JUAN KEE, [facility] [address] [place], [address] , [facility] IV 5 11:01:43 Problem Notes None recorded. Procedures Surgical History Date Name Laterality Status Provider Name and Address Organization Details Recorded Time 5 IV Infusion completed Malaika Sanon CNM [address] [place], [address], [facility] [employer] IV 06/12/2025 06:53:59 5 IV Infusion completed Malaika Sanon CNM [address] [place], [address], [facility] [employer] [facility] IV 05/20/2025 15:25:44 3 Nexplanon Removal completed Marisa Munoz, [facility] [address] [place] [address], [address], [facility] [employer] IV 01/14/2023 11:42:37 3 Nexplanon Removal cancelled Leonela Wilhelm MD [address] [place] [address], [address], [facility] [employer] [facility] IV 07/28/2022 06:31:48 3 Nexplanon Insertion cancelled Leonela Wilhelm MD [address] [place] [address], [address], [facility] [employer] IV 07/28/2022 06:31:47 Imaging Results None recorded. [...] Available Not Available Vitals Date Recorded Body weight Body mass index (BMI) Body height Systolic And Diastolic Provider Name and Address Organization Details Last Updated DateTime 06/16/2025 98342.441 86 g 26.3 kg/m2 175.26 cm 108/68 mm[Hg] Aurea Crespo [facility] [employer] 06/16/2025 10:55:25 Social History Question Answer Notes LastModified by [employer] Details LastModified Time Tobacco Smoking Status Never Smoker Gaye de la cruz, [facility] [employer] [facility] 01/14/2023 11:24:09 If You Are , [...] Functional Status Question Answer Note LastModified by [employer] Details LastModified Time Do you use any [...] Time Father No current problems or disability Not available 09/14 15:59:20 Mother No current problems or disability [email or web address] Not available 09/14 15:59:20 Medical History Condition Response Other Cancer N High Blood Pressure N Colon Cancer N Cytomegalovirus N Hyperthyroidism N MRSA N Breast Cancer N Herpes (HSV) N Blood Transfusion N Lung Cancer N Depression Y Hypothyroidism N Incontinence N Panic Attacks N Neurological Disorder N Deep Vein Thrombosis N Anxiety Disorder Y Autoimmune disease N Arthritis N Tuberculosis/Positive PPD N Shingles N Polycystic Ovarian Syndrome N Infertility N Cervical Cancer N Hematuria N Chlamydia N Stroke N Varicosities N Seasonal allergies [...] disease N ADD/ADHD N Eating Disorder N Anemia N Diabetes Mellitus (non-insulin dependent ) N Multiple Sclerosis N Ovarian Problems N Gonorrhea N Frequent Urinary Tract infections [...] ICD10 Code Diagnosis IMO Codes Diagnosis Note [id number] [facility] [address] [place] [address] 05/20/2025 11:26:12 05/20/2025 12:54:43 screening 355918807 Z36.89 Z36.0 Hyperemesi s gravidarum 89701945 O21.0 30967 -Was seen at [place] [facility] 05/19/2025 and was given 2 IV bags, [...] under control. Patient voices understand ing. Normal 1721159 2 Z34.82 1530585 - - PMH: Anxiety, Depression -Seeing Anja for management --Unsure of FOB, possible 2 choices. Pt reports good support system-- Medication s: Taking daily PNV, Zofran when she can keep it down-- Previous OB History: -- History of Genital HSV: Declines-- Genetic Questions in OB Episode Done--Conf irmation BMI: 25.8 [id number] Malaika Sanon CNM [address] [address] 05/20/2025 13:05:20 05/20/2025 15:50:20 Hyperemesis gravidarum 57620796 O21.0 71596 Pt was sent from the office for [...] 1 tablet unisom w/Vit B6 at night [id number] Malaika Sanon CNM [address] [address] 05/31/2025 14:55:41 05/31/2025 17:14:22 Gestation period, 15 weeks 0591219 Z3A.15 9602093 Advised pt to f/u immediatel y if temp>101.; abdominal pain, vaginal bleeding greater than 1 pad/hr for greater than 2 hours; vaginal bleeding with or without cramping; bleeding w/clots; cramping like a period. Nausea 054606225 R11.0 90523 [id number] Malaika Sanon CNM [facility] [place] [address] [place] [address] 06/10/2025 12:49:07 06/13/2025 14:20:18 Nausea and vomiting in 6906404497 O21.9 59274826 IV hydration w/administ ration of antiemetic .Pt able to tolerate snacks and water after 2000 mL NS & IV ondansetro n.IV discontinu ed intactF/u as needed Gestation period, 17 weeks 83681566 Z3A.17 0304587 Routine 2nd trimester precaution s given. FM awareness discussed. F/u in L&D if experienci ng leaking fluid, cramping not relieved by rest and fluids, bleeding with or without cramping; fever 100.4 x 24 hrs or 101 or greater anytime. [id number] JUAN KEE, [facility] [address] [place] [address] 06/16/2025 10:37:20 06/16/2025 11:45:41 Gestation period, 17 weeks 75770841 Z3A.17 0459800 Normal 9592551 2 Z34.82 0560138 Health Concerns Section Related Observation LastModified by Organization Detai ls LastModified Time None Recorded Concern Status LastModified by Organization Details LastModified Time None Recorded Payers Encounter Date Sequence Insurance Name Policy Number Policy Mark Covered Member ID Mark Member ID Guarantor Name 06/16/2025 1 [employer] [place] - [place] ON OR AFTER 2020 (MEDICAID REPLACEMENT - HMO) Maximiliano Mchugh [id number] Maximiliano Mchugh Notes Date Note Type Note Provider Name and Address Organization Details Recorded Time 06/16/2025 text/html ROS as noted in the HPI Maximiliano is here today for ARY visit. She is currently at 17.6 weeks gestation. She is taking vitamins. She has not felt movement. She denies the presence of vaginal bleed, leaking fluid, abdominal cramps, vomiting. Pt voice no concerns. There are no identifiable risk factors for pre-term labor. JUAN KEE, FRUIT CHECKER [address] [facility], [place], [address], [facility] [employer] [facility] 06/16/2025 11:13:25 OBGyn Episode Ob Episode Information Episode Created Date Number of Fetuses Patient Bloodtype Patient rh Status Prepregnancy Weight lbs Domestic Partner Domestic Partner Phone Father Name Office Helper Status 05/20/20 25 1 B Positive OPEN Fetus Data First Name Last Name Admitted to NICU Weight (g) Sex Living Outcome Pediatric Complications Fetus ID Race Codes Race Delivery Type [id number] Problems Problem Notes Problem Name Start Date End Date Resolution Snomed Code Not e Carrier of cystic fibrosis gene mutation 06/16/2025 576799813 Recom mend FOB get tested Hyperemesis gravidarum 05/20/2025 307690 01 -Taking Zofran Bobby Calculation Initial Bobby [...] in lbs Pre/Post Dialysis Refused With clothes 174.475336166891 BP Diastolic BP Location Tested BP Systolic BP Type 62 102 sitting Fetus Heart Rate Present A 150 Present Fetus Movement A No Comments -1st OB visit. NOB and NIPT today. Needs pap at next visit, not feeling well today. Confirmation BMI: 25.8-Was seen at [place] [facility] 05/19/2025 for hyperemesis and was given [...] in lbs Pre/Post Dialysis Refused With clothes 176.240416266293 BP Diastolic BP Location Tested BP Systolic [...] in lbs Pre/Post Dialysis Refused With clothes 169.400451896544 BP Diastolic BP Location Tested BP Systolic BP Type 60 110 sitting Fetus Heart Rate Present A 157 Fetus Movement Comments visit for hyperemesis Flowsheet Date 06/16/2025 Salguero Score Blood Edema Fundus Height Fundus Units Glucose Ketones Leukocytes Nitrite Labor Signs Protein Cervic Dilation Cervic Effacement Cervic Station none none none neg Type Weight in lbs Pre/Post Dialysis Refused With clothes 178.004160746369 BP Diastolic BP Location Tested BP Systolic [...]
--- OUTSIDE RECORDS SUMMARY | 2025-07-01 09:01 | XMS_ITS | Clinical Summary ---
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
--- OUTSIDE RECORDS SUMMARY | 2025-07-01 09:01 | XMS_ITS | Encounter Summary ---
Author Organization [employer] Address 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
--- OUTSIDE RECORDS SUMMARY | 2025-07-01 09:02 | XMS_ITS | Encounter Summary ---
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 [place] [address] PCP - General FAMILY PRACTICE 06/10/22 documented as of this encounter
--- OUTSIDE RECORDS SUMMARY | 2025-07-01 09:02 | XMS_ITS | Clinical Summary ---
Author Organization [facility] Address [address] [place] [address] Care Team Providers Care Director Television News Name Role Phone Jaleesa Zarco MD Primary Care Provider [phone] Allergies No known active allergies Medications hydrOXYzine [...] Encounters Date Type Department Care Team Description 05/19/2025 Scan [facility] Scanned, [facility] 04/11/2025 Scan [facility] Scanned, [...] on file Legal Sex Female 3:12 PM MACHINE [employer]ER [employer]IP[employer] Gender Identity Female 06/26/2022 6:10 AM MACHINE B[employer]ER [employer]IP[employer] Sexual Orientation Not on file Last Filed Vital Signs Vital Sign Reading Time Taken Comments Blood Pressure 143/89 09/04/2023 10:23 AM MACHINE BINDER STRIPPER Pulse 85 09/04/2023 9:38 AM MACHINE BINDER STRIPPER Temperature 36.2 C (97.2 F) 09/04/2023 9:38 AM MACHINE BINDER STRIPPER Respiratory Rate 16 09/04/2023 9:38 AM MACHINE BINDER STRIPPER Oxygen Saturation 100% 09/04/2023 9:38 AM MACHINE BINDER STRIPPER Inhaled Oxygen Concentration - - Weight 68 kg (150 lb) 09/04/2023 9:38 AM MACHINE BINDER STRIPPER Height 179.1 cm (5' 10.5) 09/04/2023 9:38 AM CS T Body Mass Index 21.22 09/04/2023 9:38 AM MACHINE BINDER STRIPPER Plan of Treatment Health Maintenance Due Date Last Done Comments Meningococcal B Vaccine (2 of 2 - Trumenba SCDM 2-dose series) 07/27/2017 01/24/2017 Hepatitis A Vaccines (2 of 2 - 2-dose series) 09/15/2018 03/18/2018, 09/18/2017, 03/27/2017 Annual Physical 03/13/2024 03/13/2023 PHQ-2 (Physician [place]) 07/07/2024 COVID-19 Vaccine ( season) 2025 01/31/2021, [...] Comments HEPATITIS PANEL,ACUTE Routine 06/26/2023 9:57 AM MACHINE BINDER STRIPPER STD exposure THIN[facility]P [facility]AGING PAP REFLEX HPV MRNA E6/E7 Routine 03/13/2023 5:05 PM CDT from Last 3 Months or Most Recently Relevant to Health Maintenance Results * HEPATITIS PANEL,ACUTE (06/26/2023 9:57 AM MACHINE BINDER STRIPPER) HAV IGM NON-REACT KEMAL NON-REACT KEMAL [facility] Comment: For additional information, please refer to http://s0cket.LaunchKey.iHealthHome/faq/IPN110 (This link is being provided for informational/ educational purposes only.) HEPATITIS B SURFACE AG NON-REACT KEMAL NON-REACT KEMAL [facility] Comment: For additional information, please refer to http://education.LaunchKey.iHealthHome/faq/WHP530 (This link is being provided for informational/ educational purposes only.) HEP B CORE IGM NON-REACT KEMAL NON-REACT KEMAL [employer] [facility] Comment: For additional information, please refer to http://OnVantage/faq/XCG072 (This link is being provided for informational/ educational purposes only.) HEPATITIS C AB NON-REACT KEMAL NON-REACT KEMAL [employer] [facility] Comment: HCV antibody was non-reactive. There is no laboratory evidence of HCV infection. In most cases, no further action is required. However, if recent HCV exposure is suspected, a test for HCV RNA (test code 19556) is suggested. For additional information please refer to http://OnVantage/faq/LLQ27n6 (This link is being provided for informational/ educational purposes only.) 06/26/2023 9:57 AM MACHINE BINDER STRIPPER 06/27/2023 12:41 AM MACHINE BINDER STRIPPER Narrative Resulting Agency Comment Performing Organization Information: Site ID: [place] Name: [employer] [place] Address: [id number] [place] [address] [place] [address] Director: Zachery Francisco MD Jaleesa Zaroc MD LABORATORY Final Result [facility] [id number] [place] [address] [place] [address], * THINPREP IMAGING PAP REFLEX HPV MRNA E6/E7 (03/13/2023 5:05 PM CDT) CLINICAL INFORMATION: None given [employer] [place] Clinical Information: NONE GIVEN [employer] [place] Date of Last Pap NONE GIVEN [facility] [place] Previous Biopsy? NONE GIVEN [facility] [employer] [place] SOURCE (QST) None given [employer] [place] STATEMENT OF ADEQUACY: [employer] [place] Comment: Satisfactory for evaluation. Endocervical/transformation zone component present. Age and/or menstrual status not provided PAP INTERPRETATION/RESU LTS Cytology Results: Negative for intraepithelial lesion or malignancy. [employer] [place] INFECTION: Shift in vaginal lorena suggestive of bacterial vaginosis. [place] COMMENT: This Pap test has been evaluated with computer assisted technology. 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 [address] COMMENT: [place] Comment: EXPLANATORY NOTE: The Pap is [...] PM CDT 03/14/2023 4:49 AM CDT Narrative [facility] [place] - 03/16/2023 1:07 PM CDT FASTING: UNKNOWN Resulting Agency Comment Performing Organization Information: Site ID: Name: [facility] Address: [facility] [place] [address] Director: Zachery Francisco us Jaleesa Zarco MD PATHOLOGY/CYTOLOGY ORDERABLES Final Result [facility] [place] [address] [address], [place] from Last 3 Months or Most Recently Relevant to Health Maintenance Insurance [facility] MEDICAID Care Teams Director Television News Relationship Specialty [place] [address] [place] [address] PCP - General FAMILY PRACTICE 06/10/22
--- OUTSIDE RECORDS SUMMARY | 2025-07-01 09:02 | XMS_ITS | Continuity of Care Document ---
Author Organization [facility], [facility] [place] Address [address] [place] [address] Assessment No assessment recorded. Plan of Treatment Reminders Order Date Submit Date Provider Last Modified By Organization Details Last Modified Time Details Appointments OB SONOGRA M 30 2025 08:45A M Ultrasound [place] 4 Not available Not available Not available OB RETURN EST 2025 09:45A M JUAN KEE, [employer] Not available Not available Not available Lab None recorde d. Referral None recorde d. Procedures IV infusio n, hydrati on, 31-60 min (PROC) 2024 025 Not available 06/01/2025 19:01:54 IV inserti on (PROC) 2024 025 Not available 06/20/2025 04:36:03 IV infusio n, hydrati on; each additio nal hour (PROC) 2024 025 [email or web address] Not available 06/01/2025 19:01:54 Surgeries None recorde d. Imaging None recorde d. Medication Orders ondanse becky HCl 2 mg/mL intrave nous solutio n 2024 025 Not available 06/16/2025 10:55:52 dextros e 5 % in water (D5W) intrave nous solutio n 2024 025 [email or web address] [facility]/Pharmacy #[id number], [address] [place], [address], 06/16/2025 10:55:48 sodium chlorid e 0.9 % intrave nous solutio n 2024 025 Not available 06/16/2025 10:56:00 metoclo pramide 10 mg tablet 2024 025 [facility]/Pharmacy #3259, [address] [place], [address], 06/16/2025 10:51:12 Patient TargetsNo targets recorded. Patient [...] absen ce of diabe gerson Not Available [facility] [address] [place], [address], 05/21/2025 10:59:18 05/20/2005/21/2025 CBC (INCL UDES DIFF/ PLT) WBC 13.3 thous and/u L 4.0 - 10.0 high Not Available [facility] [address] [place], [address], 05/21/2025 11:24:57 05/20/2005/21/2025 CBC (INCL UDES DIFF/ PLT) RBC 4.5 vidya on/uL 3.9 - 4.9 normal Not Available [facility] [address] [place], [address], 05/21/2025 11:24:57 11/14/20 25 05/21/2025 CBC (INCL UDES DIFF/ PLT) hemoglobin 12.4 g/dL 11.8 - 14.8 normal Not Available [address], [address], 05/21/2025 11:24:57 05/20/20 25 05/21/2025 CBC (INCL UDES DIFF/ PLT) hematocrit 38.9 % 35.5 - 44.0 normal Not Available [address], [address], 05/21/2025 11:24:57 05/20/2005/21/2025 CBC (INCL UDES DIFF/ PLT) MCV 85.7 fL 82.0 - 99.0 normal Not Available [address], [address], 05/21/2025 11:24:57 05/20/2005/21/2025 CBC (INCL UDES DIFF/ PLT) MCH 27.3 pg 27.2 - 32.6 normal Not Available [address], [address], 05/21/2025 11:24:57 05/20/20 25 05/21/2025 CBC (INCL UDES DIFF/ PLT) MCHC 31.9 g/dL 31.5 - 35.5 normal Not Available [address], [address], 05/21/2025 11:24:57 05/20/2005/21/2025 CBC (INCL UDES DIFF/ PLT) RDW-CV 17.3 % 11.5 - 14.5 high Not Available [address], [address], 05/21/2025 11:24:57 05/20/20 25 05/21/2025 CBC (INCL UDES DIFF/ PLT) platelet 267 thous and/u L 140 - 350 normal COMME NT: PLT = Micro scopi c plate let clump s prese nt on smear revie w. Plate let count may be sligh tly highe r than indic ated. Not Available [address], [address], 05/21/2025 11:24:57 05/20/2005/21/2025 CBC (INCL UDES DIFF/ PLT) MPV ---- fL normal COMME NT: MPV = Resul t remov ed due to large varia bilit y in plate let size distr ibuti on. Plate let size distr ibuti on verif ied by smear revie w. Large r plate lets prese nt on smear revie w (plts size 4-7 um). Not Available [address], [address], 05/21/2025 11:24:57 05/20/2005/21/2025 CBC (INCL UDES DIFF/ PLT) absolute neutrophil 10.53 thous and/u L 1.90 - 7.00 high Not Available [address], [address], 05/21/2025 11:24:57 05/20/20 25 05/21/2025 CBC (INCL UDES DIFF/ PLT) absolute lymphocyte 1.76 thous and/u L 0.70 - 4.50 normal Not Available [address], [address], 05/21/2025 11:24:57 05/20/20 25 05/21/2025 CBC (INCL UDES DIFF/ PLT) absolute monocyte 0.76 thous and/u L 0.10 - 1.30 normal Not Available [address], [address], 05/21/2025 11:24:57 05/20/2005/21/2025 CBC (INCL UDES DIFF/ PLT) absolute eosinophil 0.04 thous and/u L <0.70 normal Not Available [address], [address], 05/21/2025 11:24:57 05/20/20 25 05/21/2025 CBC (INCL UDES DIFF/ PLT) absolute basophil 0.19 thous and/u L <0.20 normal Not Available [address], [address], 05/21/2025 11:24:57 05/20/20 25 05/21/2025 CBC (INCL UDES DIFF/ PLT) absolute immature granulocyte 0.05 thous and/u L <0.03 high Not Available [address], [address], 05/21/2025 11:24:57 05/20/20 25 05/21/2025 OB PANEL - STD BLOOD WORK hep BS Ag Non-Re active non-re active normal Not Available [address], [address], 05/21/2025 11:35:14 05/20/20 25 05/21/2025 OB PANEL - STD BLOOD WORK hep C Ab Non-Re active non-re active normal Not Available [address], [address], 05/21/2025 11:35:14 05/20/2005/21/2025 OB PANEL - STD BLOOD WORK HIV 1/2 Ag/Ab Non-Re active non-re active normal Not Available [address], [address], 05/21/2025 11:35:14 05/20/2005/21/2025 OB PANEL - STD BLOOD WORK syphilis Ab Non-Re active non-re active normal Not Available [address], [address], 05/21/2025 11:35:14 05/20/2005/21/2025 OB PANEL - STD BLOOD WORK rubella [...] atory at the same time. Not Available [facility] [address] [place], [address], 05/21/2025 11:35:14 05/20/2005/23/2025 CT/NG chlamydia trachomatis CT neg negati ve normal This repor t is inten ded for use in clini diya monit oring and manag ement of patie nts. It is not inten ded for use in medic al-le gal appli catio n. Not Available [facility] [address] [place], [address], 05/23/2025 16:38:07 05/20/2005/23/2025 CT/NG neisseria gonorrhoeae GC neg negati ve normal This repor t is inten ded for use in clini diya monit oring and manag ement of patie nts. It is not inten ded for use in medic al-le gal appli catio n. Not Available [facility] [address] [place], [address], 05/23/2025 16:38:07 05/20/2005/23/2025 VARIC BRODERICK ZOSTE R [...] Immun ity Scree n, ACIF. Not Available [employer] [address], [address], 05/23/2025 18:01:16 05/20/2005/23/2025 MEASL ES AB (IGG) [...] mariya farr e refer to http: //liana Bernard stDia gnost ics.c om/fa q/FAQ 162 (This link is being provi ded for infor romel mendez/ educa patti l purpo ses only. ) Not Available [facility] [address] [place], [address], 05/23/2025 18:01:17 05/20/20 25 05/23/2025 ANTIB AVIS SCREE N, RBC W/REF L [...] alloi mmuni zed pregn cee. Not Available [place] [address] [place], [address], 05/23/2025 18:01:18 05/20/2005/23/2025 ABO GROUP AND RH TYPE ABO group B Not Available [address] [address] [place], [address], 05/23/2025 18:01:18 05/20/2005/23/2025 ABO GROUP AND RH TYPE Rh type RH(D) POSITI VE For addit ional infor mariya farr e refer to http: //[facility] arnoldo Bernard stDia gnost ics.c om/fa q/FAQ 111 (This link is being provi ded for infor romel mendez/ mariah le purpo ses only. ) Not Available [place] [address] [place], [address], 05/23/2025 18:01:18 05/20/2005/23/2025 CULTU RE, URINE , ROUTI NE culture, urine, routine SEE NOTE CULTU RE, URINE , ROUTI NE Micro Numbe r: [id number] Test Statu s: Final Speci men Sourc e: Urine Speci men Quali ty: Adequ ate Resul t: No Growt h Not Available [address] [address] [place], [address], 05/23/2025 18:01:19 05/20/20 25 05/20/2025 urina lysis , dipst ick Leukocytes Small Not Available [facility] [address], [place], [address], 05/20/2025 12:22:17 05/20/20 25 05/20/2025 urina lysis , dipst ick Nitrite negati ve Not Available [place] [address], [place], [address], 05/20/2025 12:22:17 05/20/2005/20/2025 urina lysis , dipst ick Urobilinogen 1 Not Available [facility] [address], [place], [address], 05/20/2025 12:22:17 05/20/20 25 05/20/2025 urina lysis , dipst ick Protein 30 Not Available [address], [place], [address], 05/20/2025 12:22:17 05/20/20 25 05/20/2025 urina lysis , dipst ick pH 6.0 Not Available [address], [place], [address], 05/20/2025 12:22:17 05/20/20 25 05/20/2025 urina lysis , dipst ick Blood Negati ve Not Available [address], [place], [address], 05/20/2025 12:22:17 05/20/20 25 05/20/2025 urina lysis , dipst ick Specific Balm 1.020 Not Available [facility] [address], [place], [address], 05/20/2025 12:22:17 05/20/20 25 05/20/2025 urina lysis , dipst ick Ketone Large (160) Not Available [address], [address], 05/20/2025 12:22:17 05/20/20 25 05/20/2025 urina lysis , dipst ick Bilirubin Small Not Available [address], [address], 05/20/2025 12:22:17 05/20/20 25 05/20/2025 urina lysis , dipst ick Glucose Negati ve Not Available [address], [address], 05/20/2025 12:22:17 05/20/20 25 05/20/2025 urina lysis , dipst ick Appearance Cloudy Not Available [address], [address], 05/20/2025 12:22:17 05/20/2005/20/2025 urina lysis , dipst ick Color Dark Yellow Not Available [address], [address], 05/20/2025 12:22:17 Result Notes None recorded. Problems Name Problem SNOMED Code Status Onset Date Resolution Date Notes Provider Name and Address Organization Details Recorded Time Bipolar II disorder 09159976 Active 2024 JUAN KEE, [employer] [address] [place], [address] , [employer] [facility] 11:24:29 Bipolar affective disorder, currently depressed , moderate 891535766 Active 2024 Wilfredo Bowles, SHARMILA [address] [place], [address] , [facility] [employer] [facility] 13:04:40 Generaliz ed anxiety disorder 35095955 Active 2024 Wilfredo Rodriguezbrunoevette, [address], [address] , [facility] - [facility] [employer] 13:04:44 Post-trau matic stress disorder 71511222 Active 2024 Wilfredo Rodriguezbrunoevette, [address], [address] , [facility] - [facility] 5 13:04:49 Alcohol use disorder Active 2024 Wilfredo Rodriguezaparna [address], [address] , [facility] - [facility] 5 13:04:55 Opioid use disorder Active 2024 Wilfredo Ramsay Wilbur [address], [address] , [facility] - [facility] 5 13:05:02 25056362 Active 2024 Aurea Crespo [facility], [place] - [facility] 5 12:02:42 Hyperemes is gravidaru m 50371969 Active 2024 -Taking Antonino KEE [address], [address] , [facility] - [facility] 5 12:44:34 Carrier of cystic fibrosis gene mutation 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 Procedures Surgical History Date Name Laterality Status Provider Name and Address Organization Details Recorded Time 5 IV Infusion completed Malaika Sanon CNM [address] [place] [address], [address], [facility] [employer] [facility] 06/12/2025 06:53:59 5 IV Infusion completed Malaika Sanon CNM [address] [place] [address], [address], [facility] - [employer] [facility] 05/20/2025 15:25:44 3 Nexplanon Removal completed Marisa HusainGalo, M [address] [facility], [place], [address], [facility] [employer] 01/14/2023 11:42:37 3 Nexplanon Removal cancelled Leonela Wilhelm MD [address] [place], [address], [facility] [employer] 07/28/2022 06:31:48 3 Nexplanon Insertion cancelled Leonela Wilhelm MD [facility] [place], [address], [facility] [employer] [facility] 07/28/2022 06:31:47 Imaging Results None [...] Updated DateTime 05/20/2025 106/66 mm[Hg] Lourdes Kerr [facility] 05/20/2025 14:27:09 Date Recorded Body height Provider Name an d Address Organization Details Last Updated DateTime 05/20/2025 175.26 cm Gaye Veras [facility] [employer] [facility] 05/20/2025 13:15:00 Date Recorded Body weight Body mass index (BMI) Body height Systolic And Diastolic Provider Name and Address Organization Details Last Updated DateTime 05/20/2025 23560.227 802 g 25.8 kg/m2 175.26 cm 102/62 mm[Hg] Aurea Crespo [facility] 05/20/2025 12:14:58 Social History Question Answer Notes LastModified by [employer] Details LastModified Time Tobacco Smoking Status Never Smoker Gaye Veras null, [facility] [employer] [facility] 01/14/2023 11:24:09 If You Are , [...] Functional Status Question Answer Note LastModified by [employer] Details LastModified Time Do you use any illicit or recreational drugs? No Information not available 01/14/2023 Do you or have you ever used any other forms of tobacco or nicotine? Yes Information not available 01/14/2023 What is your level of alcohol consumption? None Information not available 01/14/2023 Are you currently employed? No [email or web address] Information not available 05/03/2025 Do you or have you ever used e-cigarettes or vape? Current user of electronic cigarettes Information not available 01/14/2023 What is your exercise level? None Information not available 01/14/2023 Mental Status None recorded. Family History Relationship Description Onset Age of this Age Resolved Age Notes LastModified by Organization Details LastModified Time Father No current problems or disability [email or web address] Not available 09/14 15:59:20 Mother No current problems or disability [email or web address] Not available 09/14 15:59:20 Medical History Condition [...] ICD10 Code Diagnosis IMO Codes Diagnosis Note [id number] Leonela Wilhelm MD [facility] [address] [place] [address] 05/03/2025 10:25:49 05/03/2025 12:31:22 test positive 864274152 Z32.01 543539 25 yo @ 11w 4d based on [...] 26.6 Bipolar II disorder 8322 5003 F31.81 608153 Mixed anxi ety and depressive disorder 888949341 F41.8 764167 Nausea and vomiting in 1848228005 O21.9 53177920 [id number] SHARMILA Gale [facility] [address] [place] [address] 05/13/2025 16:45:46 05/13/2025 17:43:30 Bipolar affective disorder, currently depressed, moderate 847744015 F31.32 460618 Problem 1- Active- Discussed restarting medication ; consider Lamotrigin e as a mood stabilizer compatible with ; may reintroduc e Olanzapine (Zyprexa) if inadequate response. Mood stabilizat ion reduces relapse risk during and , minimizing harm to mother and fetus. - Patient will consider- provided resources ([facility], womensment [facility], MotherToBa by). Generalize d anxiety disorder 57814066 F41.1 025946 Problem 2- Active- Provided psychoeduc ation re: Mirtazapin e safety in ; - Consider reinitiati on if depression /anxiety symptoms persist. Mirtazapin e is low risk for teratogeni city and can improve sleep, mood, and appetite. Post-traum atic stress disorder 61409778 F43.10 040401 Problem 3- Chronic- Recommend referral to therapy; declines at this time Alcohol use disorder 390 0425839 F10.90 75056570 Problem 4- in early remissionD enies cravings- Encouraged sober support. Opioid use disorder 1336 098188 F11.90 39524431 Problem 5- in early remissionD enies cravings- encouraged sober supports. Medication management is available and we will further discuss if the patient agrees to medication Mental hea [facility] screening 454431511 Z13.30 4565220170 BETO-7: 11PHQ-9: 11 [id number] SAUD JESSICA [facility] h [address] [place] [address] 05/20/2025 11:26:12 05/20/2025 12:54:43 screening 775189913 Z36.89 Z36.0 Hyperemesi s gravidarum 72362711 O21.0 79410 -Was seen at [facility] 05/19/2025 and was given 2 IV [...] under control. Patient voices understand ing. Normal 3119939 2 Z34.82 4908836 - - PMH: Anxiety, Depression -Seeing Anja for management --Unsure of FOB, possible 2 choices. Pt reports good support system-- Medication s: Taking daily PNV, Zofran when she can keep it down-- Previous OB History: -- History of Genital HSV: Declines-- Genetic Questions in OB Episode Done--Conf irmation BMI: 25.8 [id number] Malaika Sanon CNM [facility] [place] [address] [place] [address] 05/20/2025 13:05:20 05/20/2025 15:50:20 Hyperemesis gravidarum 37887961 O21.0 82991 Pt was sent from the office for [...] 1 tablet unisom w/Vit B6 at night Health Concerns Section Related Observation LastModified by Organization Detai ls LastModified Time None Recorded Concern Status LastModified by Organization Details LastModified Time None Recorded Payers Encounter Date Sequence Insurance Name Policy Number Policy Mark Covered Member ID Mark Member ID Guarantor Name 05/20/2025 1 [employer] [place] - DOS ON OR AFTER 2020 (MEDICAID REPLACEMENT - HMO) Maximiliano Mchugh [id number] Maximiliano Jeison Notes Date Note Type Note [...] past 4-5days. Went to ER yesterday at [place] and was given fluids and nausea meds, stated ineffective. Pt is fatigued and weak. Pt denies any cramping or bleeding. 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 Status 05/20/20 25 1 B Positive OPEN Fetus Data First Name Last Name Admitted to NICU Weight (g) Sex Living Outcome Pediatric Complications Fetus ID Race Codes Race Delivery Type [id number] Problems Problem Notes Problem Name Start Date End Date Resolution Snomed Code Not e Carrier of cystic fibrosis gene mutation 06/16/2025 558235094 Recom mend FOB get tested Hyperemesis gravidarum 05/20/2025 507341 01 -Taking Zofran Bobby Calculation Initial Bobby [...] in lbs Pre/Post Dialysis Refused With clothes 174.221832880214 BP Diastolic BP Location Tested BP Systolic BP Type 62 102 sitting Fetus Heart Rate Present A 150 Present Fetus Movement A No Comments -1st OB visit. NOB and NIPT today. Needs pap at next visit, not feeling well today. Confirmation BMI: 25.8-Was seen at [place] ER 05/19/2025 for hyperemesis and was given 2 IV bags, 2 medications and d/c home. Patient states she is having trouble keeping anything down. Has been using Zofran at home. Has lost 6lbs since last visit -Urine dip today remarkable for SG 1.020 and Large Ketones-Sent to to for IV fluid replacement-Seeing Wilfredo for anxiety/depression. Patient states moods are doing [...] in lbs Pre/Post Dialysis Refused With clothes 176.924951264962 BP Diastolic BP Location Tested BP Systolic [...] in lbs Pre/Post Dialysis Refused With clothes 169.056709407237 BP Diastolic BP Location Tested BP Systolic BP Type 60 110 sitting Fetus Heart Rate Present A 157 Fetus Movement Comments visit for hyperemesis Flowsheet Date 06/16/2025 Salguero Score Blood Edema Fundus Height Fundus Units Glucose Ketones Leukocytes Nitrite Labor Signs Protein Cervic Dilation Cervic Effacement Cervic Station none none none neg Type Weight in lbs Pre/Post Dialysis Refused With clothes 178.140802365049 BP Diastolic BP Location Tested BP Systolic [...]
--- OUTSIDE RECORDS SUMMARY | 2025-07-01 09:02 | XMS_ITS | Continuity of Care Document ---
Author Organization [facility] Address [address] [place] [phone] Assessment No assessment recorded. Plan of Treatment Reminders Order Date Submit Date Provider Last Modified By Organization Details Last Modified Time Details Appointments OB SONOGRA M 30 2025 08:45A M Ultrasound [place] 4 Not available Not available Not available OB RETURN EST 2025 09:45A M JUAN KEE, EXPERIMENTAL PSYCHOLOGIST Not available Not available Not available Lab urinaly sis, dipstic k 2024 025 [email or web address] [facility], [address] [place], [address], 05/20/2025 12:59:50 hemoglo bin A1c, QN, blood 2024 025 [facility], [address] [place], [address], 05/21/2025 10:59:18 abo group + rh type, blood 2024 025 [facility], [address] [facility], [place], [address], 05/23/2025 18:01:18 CBC w/ auto diff 2024 025 [facility], [address] [place], [address], 05/21/2025 11:24:57 CT + NG DNA, PCR, unspeci fied specime n 2024 025 [facility], [address] [place], [address], 05/23/2025 16:38:07 obstetr ic screen + HIV, serum or blood 2024 [facility], [address] [place], [address], 05/21/2025 11:35:14 measles igg Ab, serum 2024 [facility], [address] [place], [address], 05/23/2025 18:01:17 culture , urine 2024 025 [facility], [address] [place], [address], 05/23/2025 18:01:19 varicel la-zost er igg Ab screen, serum 2024 025 [facility], [address] [place], [address], 05/23/2025 18:01:17 antibod y screen, serum or plasma 2024 [facility], [address] [place], [address], 05/23/2025 18:01:18 Referral None recorde d. Procedures None recorde d. Surgeries None recorde d. Imaging None recorde d. Medication Orders None recorde d. Patient TargetsNo targets recorded. Patient InstructionsNo instructions recorded. Reason for Referral None Reported. Results Created Date Observation Date Name Description Value Unit Range Abnormal Flag Note LastModifiedBy Organization Detail LastModifiedTime 05/20/20 25 05/21/2025 HEMOG LOBIN A1C hemoglobin A1C 5.2 % <5.7 normal The refer ence range for HbA1c is indic ated in the table below . Sugge sted Diagn osis >=6.5 % Consi stent with diabe gerson 5.7 6.4% Consi stent with incre ased risk for diabe gerson (pred iabet ic) <5.7% Consi stent with the absen ce of diabe gerson Not Available [facility] [address] [place], [address], 05/21/2025 10:59:18 05/20/2005/21/2025 CBC (INCL UDES DIFF/ PLT) WBC 13.3 thous and/u L 4.0 - 10.0 high Not Available [address], [address], 05/21/2025 11:24:57 05/20/2005/21/2025 CBC (INCL UDES DIFF/ PLT) RBC 4.5 vidya on/uL 3.9 - 4.9 normal Not Available [address], [address], 05/21/2025 11:24:57 05/20/20 25 05/21/2025 CBC (INCL UDES DIFF/ PLT) hemoglobin 12.4 g/dL 11.8 - 14.8 normal Not Available [facility] [address] [place] [address], [address], 05/21/2025 11:24:57 05/20/20 25 05/21/2025 CBC (INCL UDES DIFF/ PLT) hematocrit 38.9 % 35.5 - 44.0 normal Not Available [facility] [address] [place] [address], [address], 05/21/2025 11:24:57 05/20/20 25 05/21/2025 CBC (INCL UDES DIFF/ PLT) MCV 85.7 fL 82.0 - 99.0 normal Not Available [facility] [address] [place] [address], [address], 05/21/2025 11:24:57 05/20/20 25 05/21/2025 CBC (INCL UDES DIFF/ PLT) MCH 27.3 pg 27.2 - 32.6 normal Not Available [address], [address], 05/21/2025 11:24:57 05/20/2005/21/2025 CBC (INCL UDES DIFF/ PLT) MCHC 31.9 g/dL 31.5 - 35.5 normal Not Available [address], [address], 05/21/2025 11:24:57 05/20/20 25 05/21/2025 CBC (INCL UDES DIFF/ PLT) RDW-CV 17.3 % 11.5 - 14.5 high Not Available [address], [address], 05/21/2025 11:24:57 05/20/2005/21/2025 CBC (INCL UDES DIFF/ PLT) platelet 267 thous and/u L 140 - 350 normal COMME NT: PLT = Micro scopi c plate let clump s prese nt on smear revie w. Plate let count may be sligh tly highe r than indic ated. Not Available [address], [address], 05/21/2025 11:24:57 05/20/2005/21/2025 CBC (INCL UDES DIFF/ PLT) MPV ---- fL normal COMME NT: MPV = Resul t remov ed due to large varia bilit y in plate let size distr ibuti on. Plate let size distr ibuti on verif ied by smear revie w. Large r plate lets prese nt on smear revie w (plts size 4-7 um). Not Available [address], [address], 05/21/2025 11:24:57 05/20/20 25 05/21/2025 CBC (INCL UDES DIFF/ PLT) absolute neutrophil 10.53 thous and/u L 1.90 - 7.00 high Not Available [address], [address], 05/21/2025 11:24:57 05/20/20 25 05/21/2025 CBC (INCL UDES DIFF/ PLT) absolute lymphocyte 1.76 thous and/u L 0.70 - 4.50 normal Not Available [address], [address], 05/21/2025 11:24:57 05/20/20 25 05/21/2025 CBC (INCL UDES DIFF/ PLT) absolute monocyte 0.76 thous and/u L 0.10 - 1.30 normal Not Available [address], [address], 05/21/2025 11:24:57 05/20/20 25 05/21/2025 CBC (INCL UDES DIFF/ PLT) absolute eosinophil 0.04 thous and/u L <0.70 normal Not Available [address], [address], 05/21/2025 11:24:57 05/20/20 25 05/21/2025 CBC (INCL UDES DIFF/ PLT) absolute basophil 0.19 thous and/u L <0.20 normal Not Available [address], [address], 05/21/2025 11:24:57 05/20/20 25 05/21/2025 CBC (INCL UDES DIFF/ PLT) absolute immature granulocyte 0.05 thous and/u L <0.03 high Not Available [address], [address], 05/21/2025 11:24:57 05/20/20 25 05/21/2025 OB PANEL - STD BLOOD WORK hep BS Ag Non-Re active non-re active normal Not Available [address], [address], 05/21/2025 11:35:14 05/20/20 25 05/21/2025 OB PANEL - STD BLOOD WORK hep C Ab Non-Re active non-re active normal Not Available [address], [address], 05/21/2025 11:35:14 05/20/2005/21/2025 OB PANEL - STD BLOOD WORK HIV 1/2 Ag/Ab Non-Re active non-re active normal Not Available [address], [address], 05/21/2025 11:35:14 05/20/20 25 05/21/2025 OB PANEL - STD BLOOD WORK syphilis Ab Non-Re active non-re active normal Not Available [address], [address], 05/21/2025 11:35:14 05/20/2005/21/2025 OB PANEL - STD [...] for curre nt infec tion is a alicei hany villafana on two appro priat omega timed speci mens, where both tests are done in the same labor atory at the same time. Not Available [address], [address], 05/21/2025 11:35:14 05/20/2005/23/2025 CT/NG chlamydia trachomatis CT neg negati ve normal This repor t is inten ded for use in clini diya monit oring and manag ement of patie nts. It is not inten ded for use in medic al-le gal appli catio n. Not Available [address] [place], [address], 05/23/2025 16:38:07 05/20/2005/23/2025 CT/NG neisseria gonorrhoeae GC neg negati ve normal This repor t is inten ded for use in clini diya monit oring and manag ement of patie nts. It is not inten ded for use in medic al-le gal appli catio n. Not Available [address], [address], 05/23/2025 16:38:07 05/20/20 25 05/23/2025 VARIC BRODERICK [...] Immun ity Scree n, ACIF. Not Available [facility] [address] [place], [address], 05/23/2025 18:01:16 05/20/2005/23/2025 MEASL ES AB (IGG) [...] . For addit ional infor mariya farr refer to http: //[facility] arnoldo Bernard stDia gnost ics.c om/fa q/FAQ 162 (This link is being provi ded for infor romel mendez/ educa patti l purpo ses only. ) Not Available [facility] [address], [address], 05/23/2025 18:01:17 05/20/2005/23/2025 ANTIB AVIS SCREE N, [...] alloi mmuni zed pregn cee. Not Available [employer] [address] [address] [place], [address], 05/23/2025 18:01:18 05/20/2005/23/2025 ABO GROUP AND RH TYPE ABO group B Not Available [employer] [address] [place], [address], 05/23/2025 18:01:18 05/20/2005/23/2025 ABO GROUP AND RH TYPE Rh type RH(D) POSITI VE For addit ional infor mariya farr e refer to http: //[facility] arnoldo cohn ics.c om/fa q/FAQ 111 (This link is being provi ded for infor romel mendez/ mariah huynho ses only. ) Not Available [facility] [address] [place], [address], 05/23/2025 18:01:18 05/20/2005/23/2025 CULTU RE, URINE , ROUTI NE culture, urine, routine SEE NOTE CULTU RE, URINE , ROUTI NE Micro Numbe r: [id number] Test Statu s: Final Speci men Sourc e: Urine Speci men Quali ty: Adequ ate Resul t: No Growt h Not Available [employer] [address] [place], [address], 05/23/2025 18:01:19 05/20/2005/20/2025 urina lysis , dipst ick Leukocytes Small Not Available [address], [address], 05/20/2025 12:22:17 05/20/20 25 05/20/2025 urina lysis , dipst ick Nitrite negati ve Not Available [address], [address], 05/20/2025 12:22:17 05/20/20 25 05/20/2025 urina lysis , dipst ick Urobilinogen 1 Not Available [address], [address], 05/20/2025 12:22:17 05/20/20 25 05/20/2025 urina lysis , dipst ick Protein 30 Not Available [address], [address], 05/20/2025 12:22:17 05/20/20 25 05/20/2025 urina lysis , dipst ick pH 6.0 Not Available [facility] [address], [place], [address], 05/20/2025 12:22:17 05/20/20 25 05/20/2025 urina lysis , dipst ick Blood Negati ve Not Available [facility] [address], [place], [address], 05/20/2025 12:22:17 05/20/2005/20/2025 urina lysis , dipst ick Specific [place] 1.020 Not Available [address], [place], [address], 05/20/2025 12:22:17 05/20/2005/20/2025 urina lysis , dipst ick Ketone Large (160) Not Available [address], [place], [address], 05/20/2025 12:22:17 05/20/20 25 05/20/2025 urina lysis , dipst ick Bilirubin Small Not Available [facility] [address] [place] [address] [address], [place], [address], 05/20/2025 12:22:17 05/20/20 25 05/20/2025 urina lysis , dipst ick Glucose Negati ve Not Available [facility] [address], [place], [address], 05/20/2025 12:22:17 05/20/20 25 05/20/2025 urina lysis , dipst ick Appearance Cloudy Not Available [facility] [address] [place], [address], 05/20/2025 12:22:17 05/20/20 25 05/20/2025 urina lysis , dipst ick Color Dark Yellow Not Available [facility] [address] [place], [address], 05/20/2025 12:22:17 Result Notes None recorded. Problems Name Problem SNOMED Code Status Onset Date Resolution Date Notes Provider Name and Address Organization Details Recorded Time Bipolar II disorder 03432757 Active 2024 SAUD JESSICA [address] [place], [address] , [facility] 11:24:29 Bipolar affective disorder, currently depressed , moderate 284378009 Active 2024 SHARMILA Gale [address] [place] [address], [address] , [facility] 13:04:40 Generaliz ed anxiety disorder 95452155 Active 2024 SHARMILA Gale [address] [place] [address], [address] , [facility] 13:04:44 Post-trau matic stress disorder 33446482 Active 2024 SHARMILA Gale [address] [place] [address], [address] , [facility] 13:04:49 Alcohol use disorder Active 2024 Wilfredo Bowles JUAN [address] [place] [address], [address] , [facility] 13:04:55 Opioid use disorder Active 2024 SHARMILA Gale [address] [place] [address], [address] , [facility] 13:05:02 32855663 Active 2024 Aurea Crespo null, [place] - [facility] 12:02:42 Hyperemes kalina beck m 84913787 Active 2024 -Taking Antonino KEE, [facility] [address] [place], [address] , [facility] 5 12:44:34 Carrier of cystic fibrosis gene mutation 362378274 Active 2024 Recommend FOB get tested JUAN KEE, [address], [address] , [facility] 11:01:43 Problem Notes None recorded. Procedures Surgical History Date Name Laterality Status Provider Name and Address Organization Details Recorded Time 5 IV Infusion completed Malaika Sanon [address], [address], [facility] 06/12/2025 06:53:59 5 IV Infusion completed Malaika Sanon, [address], [address], [facility] 05/20/2025 15:25:44 3 Nexplanon Removal completed Marisa Munoz [facility] [address] [place] [address], [address], [facility] 01/14/2023 11:42:37 3 Nexplanon Removal cancelled Leonela Wilhelm MD [address] [place] [address], [address], [facility] 07/28/2022 06:31:48 3 Nexplanon Insertion cancelled Leonela Wilhelm MD [address] [place] [address], [address], [facility] 07/28/2022 06:31:47 Imaging Results None [...] Updated DateTime 05/20/2025 106/66 mm[Hg] Lourdes Kerr [place] [employer] 05/20/2025 14:27:09 Date Recorded Body height Provider Name an d Address Organization Details Last Updated DateTime 05/20/2025 175.26 cm Kelseychacorta Ver[facility] 05/20/2025 13:15:00 Date Recorded Body weight Body mass index (BMI) Body height Systolic And Diastolic Provider Name and Address Organization Details Last Updated DateTime 05/20/2025 69159.227 802 g 25.8 kg/m2 175.26 cm 102/62 mm[Hg] Aurea Crespo [place] [employer] [facility] 05/20/2025 12:14:58 Social History Question Answer Notes LastModified by Organizat ion Details LastModified Time Tobacco Smoking Status Never Smoker [facility] null, [facility] 01/14/2023 11:24:09 If You Are , [...] available 01/14/2023 Are you currently employed? No [email or web address] Information not available 05/03/2025 Do you or have you ever used e-cigarettes or vape? Current user of electronic cigarettes Information not available 01/14/2023 What is your exercise level? None Information not available 01/14/2023 Mental Status None recorded. Family History Relationship Description Onset Age of this Age Resolved Age Notes LastModified by Organization Details LastModified Time Father No current problems or disability [email or web address] Not available 09/14 15:59:20 Mother No current problems or disability [email or web address] Not available 09/14 15:59:20 Medical History Condition Response Other Cancer N High Blood Pressure N Colon Cancer N Cytomegalovirus N Hyperthyroidism N MRSA N Blood Transfusion N Herpes (HSV) N Breast Cancer N Lung Cancer N Depression Y Hypothyroidism [...] ICD10 Code Diagnosis IMO Codes Diagnosis Note [id number] Leonela Wilhelm MD [facility] h [address] [place] [address] 05/03/2025 10:25:49 05/03/2025 12:31:22 test positive 242712816 Z32.01 017297 25 yo @ 11w 4d based on [...] 26.6 Bipolar II disorder 8322 5003 F31.81 518832 Mixed anxi ety and depressive disorder 919556711 F41.8 428166 Nausea and vomiting in 0463564028 O21.9 33200843 [id number] SHARMILA Gale [facility] [address] [place] [address] 05/13/2025 16:45:46 05/13/2025 17:43:30 Bipolar affective disorder, currently depressed, moderate 223508097 F31.32 532161 Problem 1- Active- Discussed restarting medication ; consider Lamotrigin e as a mood stabilizer compatible with ; may reintroduc e Olanzapine (Zyprexa) if inadequate response. Mood stabilizat ion reduces relapse risk during and , minimizing harm to mother and fetus. - Patient will consider- provided resources ([facility], [facility], MotherToBa by). Generalize d anxiety disorder 85187449 F41.1 966745 Problem 2- Active- Provided psychoeduc ation re: Mirtazapin e safety in ; - Consider reinitiati on if depression /anxiety symptoms persist. Mirtazapin e is low risk for teratogeni city and can improve sleep, mood, and appetite. Post-traum atic stress disorder 02205930 F43.10 474322 Problem 3- Chronic- Recommend referral to therapy; declines at this time Alcohol use disorder 868 9913850 F10.90 22740422 Problem 4- in early remissionD enies cravings- Encouraged sober support. Opioid use disorder 1336 795083 F11.90 44995861 Problem 5- in early remissionD enies cravings- encouraged sober supports. Medication management is available and we will further discuss if the patient agrees to medication Mental [facility] screening 628739387 Z13.30 [id number] BETO-7: 11PHQ-9: 11 [id number] SAUD JESSICA [facility] [address] [place] [address] 05/20/2025 11:26:12 05/20/2025 12:54:43 screening 265548354 Z36.89 Z36.0 Hyperemesi s gravidarum 12382927 O21.0 18407 -Was seen at [facility] 05/19/2025 and was given 2 IV [...] under control. Patient voices understand ing. Normal 6511926 2 Z34.82 0582031 - - PMH: Anxiety, Depression -Seeing Anja for management --Unsure of FOB, possible 2 choices. Pt reports good support system-- Medication s: Taking daily PNV, Zofran when she can keep it down-- Previous OB History: -- History of Genital HSV: Declines-- Genetic Questions in OB Episode Done--Conf irmation BMI: 25.8 5255950 Malaika Sanon CNM [facility] [place] [address] [place] [address] 05/20/2025 13:05:20 05/20/2025 15:50:20 Hyperemesis gravidarum 92975457 O21.0 89457 Pt was sent from the office for [...] Name 05/20/2025 1 [employer] BETTER HEALTH OF PASTOR AVELAR ON OR AFTER 06/06/2020 (MEDICAID REPLACEMENT - HMO) Maximiliano Mchugh [id number] Maximiliano Mchugh Notes Date Note Type Note [...] past 4-5days. Went to ER yesterday at [facility] and was given fluids and nausea meds, stated ineffective. Pt is fatigued and weak. Pt denies any cramping or bleeding. JUAN KEE, EXPERIMENTAL PSYCHOLOGIST [address] [place], [address], [facility] 05/20/2025 13:00:02 OBGyn Episode Ob Episode Information Episode Created Date Number of Fetuses Patient Bloodtype Patient rh Status Prepregnancy Weight lbs Domestic Partner Domestic Partner Phone Father Name Vp Publisher Development Status 05/20/20 25 1 B Positive OPEN Fetus Data First Name Last Name Admitted to NICU Weight (g) Sex Living Outcome Pediatric Complications Fetus ID Race Codes Race Delivery Type [id number] Problems Problem Notes Problem Name Start Date End Date Resolution Snomed Code Not e Carrier of cystic fibrosis gene mutation 06/16/2025 [id number] Recom mend FOB get tested Hyperemesis gravidarum 05/20/2025 504270 01 -Taking Zofran Bobby Calculation Initial Bobby [...] in lbs Pre/Post Dialysis Refused With clothes 174.792445030827 BP Diastolic BP Location Tested BP Systolic BP Type 62 102 sitting Fetus Heart Rate Present A 150 Present Fetus Movement A No Comments -1st OB visit. NOB and NIPT today. Needs pap at next visit, not feeling well today. Confirmation BMI: 25.8-Was seen at [facility] 05/19/2025 for hyperemesis and was given [...] in lbs Pre/Post Dialysis Refused With clothes 176.617187530702 BP Diastolic BP Location Tested BP Systolic [...] in lbs Pre/Post Dialysis Refused With clothes 169.069798052474 BP Diastolic BP Location Tested BP Systolic BP Type 60 110 sitting Fetus Heart Rate Present A 157 Fetus Movement Comments UC visit for hyperemesis Flowsheet Date 06/16/2025 Salguero Score Blood Edema Fundus Height Fundus Units Glucose Ketones Leukocytes Nitrite Labor Signs Protein Cervic Dilation Cervic Effacement Cervic Station none none none neg Type Weight in lbs Pre/Post Dialysis Refused With clothes 178.940441288645 BP Diastolic BP Location Tested BP Systolic [...]
--- OUTSIDE RECORDS SUMMARY | 2025-07-01 09:02 | XMS_ITS | Continuity of Care Document ---
Author Organization [facility] [place] Address [address] [place] [address] Assessment No assessment recorded. Plan of Treatment Reminders Order Date Submit Date Provider Last Modified By Organization Details Last Modified Time Details Appointments OB SONOGRA M 30 2025 08:45A M Ultrasound [place] 4 Not available Not available Not available OB RETURN EST 2025 09:45A M JUAN KEE, CHAIR TRIMMER Not available Not available Not available Lab None recorde d. Referral None recorde d. Procedures None recorde d. Surgeries None recorde d. Imaging None recorde d. Medication Orders ondanse becky 4 mg disinte grating tablet 2024 025 [facility] #[id number], [address] [place], [address], 05/31/2025 16:17:32 Patient TargetsNo targets recorded. Patient InstructionsNo instructions [...] absen ce of diabe gerson Not Available [facility], [address], 05/21/2025 10:59:18 05/20/2005/21/2025 CBC (INCL UDES DIFF/ PLT) WBC 13.3 thous and/u L 4.0 - 10.0 high Not Available [address], [address], 05/21/2025 11:24:57 05/20/2005/21/2025 CBC (INCL UDES DIFF/ PLT) RBC 4.5 vidya on/uL 3.9 - 4.9 normal Not Available [address], [address], 05/21/2025 11:24:57 05/20/2005/21/2025 CBC (INCL UDES DIFF/ PLT) hemoglobin 12.4 g/dL 11.8 - 14.8 normal Not Available [address], [address], 05/21/2025 11:24:57 05/20/2005/21/2025 CBC (INCL UDES DIFF/ PLT) hematocrit 38.9 % 35.5 - 44.0 normal Not Available [address], [address], 05/21/2025 11:24:57 05/20/2005/21/2025 CBC (INCL UDES DIFF/ PLT) MCV 85.7 fL 82.0 - 99.0 normal Not Available [address], [address], 05/21/2025 11:24:57 05/20/2005/21/2025 CBC (INCL UDES DIFF/ PLT) MCH 27.3 pg 27.2 - 32.6 normal Not Available [address], [address], 05/21/2025 11:24:57 05/20/20 25 05/21/2025 CBC (INCL UDES DIFF/ PLT) MCHC 31.9 g/dL 31.5 - 35.5 normal Not Available [address], [address], 05/21/2025 11:24:57 05/20/20 25 05/21/2025 CBC (INCL UDES DIFF/ PLT) RDW-CV 17.3 % 11.5 - 14.5 high Not Available [address], [address], 05/21/2025 11:24:57 05/20/20 25 05/21/2025 CBC (INCL UDES DIFF/ PLT) platelet 267 thous and/u L 140 - 350 normal COMME NT: PLT = Micro scopi c plate let clump s prese nt on smear revie w. Plate let count may be sligh tly highe r than indic ated. Not Available [address], [address], 05/21/2025 11:24:57 05/20/20 25 05/21/2025 CBC (INCL UDES DIFF/ PLT) MPV ---- fL normal COMME NT: MPV = Resul t remov ed due to large varia bilit y in plate let size distr ibuti on. Plate let size distr ibuti on verif ied by smear revie w. Large r plate lets prese nt on smear revie w (plts size 4-7 um). Not Available [address], [address], 05/21/2025 11:24:57 05/20/20 25 05/21/2025 CBC (INCL UDES DIFF/ PLT) absolute neutrophil 10.53 thous and/u L 1.90 - 7.[address] [facility] [address] [place] [address], [address], 05/21/2025 11:24:57 05/20/20 25 05/21/2025 CBC (INCL UDES DIFF/ PLT) absolute lymphocyte 1.76 thous and/u L 0.70 - 4.50 normal Not Available [address], [address], 05/21/2025 11:24:57 05/20/20 25 05/21/2025 CBC (INCL UDES DIFF/ PLT) absolute monocyte 0.76 thous and/u L 0.10 - 1.30 normal Not Available [address], [address], 05/21/2025 11:24:57 05/20/20 25 05/21/2025 CBC (INCL UDES DIFF/ PLT) absolute eosinophil 0.04 thous and/u L <0.70 normal Not Available [address], [address], 05/21/2025 11:24:57 05/20/20 25 05/21/2025 CBC (INCL UDES DIFF/ PLT) absolute basophil 0.19 thous and/u L <0.20 normal Not Available [address], [address], 05/21/2025 11:24:57 05/20/20 25 05/21/2025 CBC (INCL UDES DIFF/ PLT) absolute immature granulocyte 0.05 thous and/u L <0.03 high Not Available [address], [address], 05/21/2025 11:24:57 05/20/20 25 05/21/2025 OB PANEL - STD BLOOD WORK hep BS Ag Non-Re active non-re active normal Not Available [address], [address], 05/21/2025 11:35:14 05/20/20 25 05/21/2025 OB PANEL - STD BLOOD WORK hep C Ab Non-Re active non-re active normal Not Available [address], [address], 05/21/2025 11:35:14 05/20/20 25 05/21/2025 OB PANEL - STD BLOOD WORK HIV 1/2 Ag/Ab Non-Re active non-re active normal Not Available [address], [address], 05/21/2025 11:35:14 05/20/2005/21/2025 OB PANEL - STD BLOOD WORK syphilis Ab Non-Re active non-re active normal Not Available [address], [address], 05/21/2025 11:35:14 05/20/2005/21/2025 OB PANEL - STD [...] nt infec tion is a signi hany t marycruz velasquez on two appro priat omega timed speci mens, where both tests are done in the same labor atory at the same time. Not Available [address], [address], 05/21/2025 11:35:14 05/20/2005/23/2025 CT/NG chlamydia trachomatis CT neg negati ve normal This repor t is inten ded for use in clini diya monit oring and manag ement of patie nts. It is not inten ded for use in medic al-le gal appli catio n. Not Available [address], [address], 05/23/2025 16:38:07 05/20/2005/23/2025 CT/NG neisseria gonorrhoeae GC neg negati ve normal This repor t is inten ded for use in clini diya monit oring and manag ement of patie nts. It is not inten ded for use in medic al-le gal appli catio n. Not Available [facility] [address] [place], [address], 05/23/2025 16:38:07 05/20/2005/23/2025 VARIC BRODERICK ZOSTE R [...] Immun ity Scree n, ACIF. Not Available [facility] [address] [place], [address], 05/23/2025 18:01:16 05/20/20 25 05/23/2025 MEASL ES [...] ional infor mariya farr refer to http: //[facility] ar[facility]old[facility] ryan.Marcell stDia gnost ics.c om/fa q/FAQ 162 (This link is being provi ded for infor romel mendez/ educa patti l purpo ses only. ) Not Available [address] [place], [address], 05/23/2025 18:01:17 05/20/2005/23/2025 ANTIB AVIS SCREE N, [...] alloi mmuni zed pregn cee. Not Available [facility] [address] [place], [address], 05/23/2025 18:01:18 05/20/2005/23/2025 ABO GROUP AND RH TYPE ABO group B Not Available [facility] [address] [place], [address], 05/23/2025 18:01:18 05/20/2005/23/2025 ABO GROUP AND RH TYPE Rh type RH(D) POSITI VE For addit ional infor mariya farr e refer to http: //[facility] Bernard stDia gnost ics.c om/fa q/FAQ 111 (This link is being provi ded for infor romel mendez/ mariah le purpo ses only. ) Not Available [facility] [address] [place], [address], 05/23/2025 18:01:18 05/20/2005/23/2025 CULTU RE, URINE , ROUTI NE culture, urine, routine SEE NOTE CULTU RE, URINE , ROUTI NE Micro Numbe r: [id number] Test Statu s: Final Speci men Sourc e: Urine Speci men Quali ty: Adequ ate Resul t: No Growt h Not Available [facility] [address] [place], [address], 05/23/2025 18:01:19 05/20/2005/20/2025 urina lysis , dipst ick Leukocytes Small Not Available [address], [address], 05/20/2025 12:22:17 05/20/20 25 05/20/2025 urina lysis , dipst ick Nitrite negati ve Not Available [address], [address], 05/20/2025 12:22:17 05/20/20 25 05/20/2025 urina lysis , dipst ick Urobilinogen 1 Not Available [address], [address], 05/20/2025 12:22:17 05/20/20 25 05/20/2025 urina lysis , dipst ick Protein 30 Not Available [address], [address], 05/20/2025 12:22:17 05/20/20 25 05/20/2025 urina lysis , dipst ick pH 6.0 Not Available [facility] [address], [place], [address], 05/20/2025 12:22:17 05/20/20 25 05/20/2025 urina lysis , dipst ick Blood Negati ve Not Available [facility] [address], [place], [address], 05/20/2025 12:22:17 05/20/20 25 05/20/2025 urina lysis , dipst ick Specific [place] 1.020 Not Available [facility] [address], [place], [address], 05/20/2025 12:22:17 05/20/20 25 05/20/2025 urina lysis , dipst ick Ketone Large (160) Not Available [facility] [address], [place], [address], 05/20/2025 12:22:17 05/20/20 25 05/20/2025 urina lysis , dipst ick Bilirubin Small Not Available [facility] [address], [place], [address], 05/20/2025 12:22:17 05/20/20 25 05/20/2025 urina lysis , dipst ick Glucose Negati ve Not Available [facility] [address], [place], [address], 05/20/2025 12:22:17 05/20/20 25 05/20/2025 urina lysis , dipst ick Appearance Cloudy Not Available [facility] [address], [place], [address], 05/20/2025 12:22:17 05/20/20 25 05/20/2025 urina lysis , dipst ick Color Dark Yellow Not Available [facility] [address] [facility], [place], [address], 05/20/2025 12:22:17 05/21/20 25 05/21/2025 CHROM OSOME [...] risks provi ded repre sent [facility] e that the pregn cee is affec [...] loidy scree esperanza resul t. Not Available [facility] [address], [place], [address], 05/24/2025 16:41:49 05/23/2005/23/2025 ZOYA MENTA L (CF + SMA) [871] fundamental (CF + sma) [871] Positi ve: Fadia r abnormal See PDF for compl ete resul ts. Overa ll Resul t: Posit bob: Mariella er TIFFANIE PRINGLE S: * Posit bob: Mariella er: cysti c fibro sis Not Available [facility] [address], [place], [address], 05/29/2025 06:12:10 Result Notes None recorded. Problems Name Problem SNOMED Code Status Onset Date Resolution Date Notes Provider Name and Address Organization Details Recorded Time Bipolar II disorder 52763025 Active 2024 JUAN KEE, [address], [address] , [facility] 5 11:24:29 Bipolar affective disorder, currently depressed , moderate 723395905 Active 2024 Wilfredo Bowles JAUN [address] [place] [address], [address] , [facility] 5 13:04:40 Generaliz ed anxiety disorder 20108975 Active 2024 [address], [address] , [facility] 5 13:04:44 Post-trau matic stress disorder 16384937 Active 2024 [address], [address] , [facility] - [facility] 5 13:04:49 Alcohol use disorder Active 2024 Wilfredo Bowles [address], [address] , [facility] - [facility] 5 13:04:55 Opioid use disorder Active 2024 Wilfredo Bowles [address], [address] , [facility] - [facility] 5 13:05:02 85955799 Active 2024 Aurea de la cruz, [place] - [facility] 5 12:02:42 Hyperemes is gravidaru m 44188074 Active 2024 -Taking Antonino KEE, [facility] [address] [place], [address] , [facility] 5 12:44:34 Carrier of cystic fibrosis gene mutation 058526905 Active 2024 Recommend FOB get tested JUAN KEE, SAUD [address] [place], [address] , [facility] 11:01:43 Problem Notes None recorded. Procedures Surgical History Date Name Laterality Status Provider Name and Address Organization Details Recorded Time 5 IV Infusion completed Malaika Sanon CNM [address] [place], [address], [facility] 06/12/2025 06:53:59 5 IV Infusion completed LOPEZ Soto [address] [place] [address], [address], [facility] 05/20/2025 15:25:44 3 Nexplanon Removal completed Marisa Munoz [facility] [address] [place], [address], [facility] 01/14/2023 11:42:37 3 Nexplanon Removal cancelled Leonela Wilhelm MD [address] [place], [address], [facility] 07/28/2022 06:31:48 3 Nexplanon Insertion cancelled Leonela Wilhelm MD [facility] [place], [address], [facility] 07/28/2022 06:31:47 Imaging Results None recorded. [...] Updated DateTime 05/31/2025 175.26 cm 26.1 kg/m2 67048.41 g 110/60 mm[Hg] Gaye Veras [facility] 05/31/2025 15:49:16 Social History Question Answer Notes LastModified by Organizat ion Details LastModified Time Tobacco Smoking Status Never Smoker Gaye Veras jono, [facility] 01/14/2023 11:24:09 If You Are , [...] available 01/14/2023 Are you currently employed? No [email or web address] Information not available 05/03/2025 Do you or have you ever used e-cigarettes or vape? Current user of electronic cigarettes Information not available 01/14/2023 What is your exercise level? None Information not available 01/14/2023 Mental Status None recorded. Family History Relationship Description Onset Age of this Age Resolved Age Notes LastModified by Organization Details LastModified Time Father No current problems or disability [email or web address] Not available 09/14 15:59:20 Mother No current problems or disability [email or web address] Not available 09/14 15:59:20 Medical History Condition [...] ICD10 Code Diagnosis IMO Codes Diagnosis Note [id number] Leonela Wilhelm MD [facility] [address] [place] [address] 05/03/2025 10:25:49 05/03/2025 12:31:22 test positive 922758346 Z32.01 457398 25 yo @ 11w 4d based on [...] 26.6 Bipolar II disorder 8322 5003 F31.81 768134 Mixed anxi ety and depressive disorder 109809904 F41.8 525472 Nausea and vomiting in 8065770419 O21.9 41782664 [id number] SHARMILA Gale [facility] [address] [place] [address] 05/13/2025 16:45:46 05/13/2025 17:43:30 Bipolar affective disorder, currently depressed, moderate 478917571 F31.32 311359 Problem 1- Active- Discussed restarting medication ; consider Lamotrigin e as a mood stabilizer compatible with ; may reintroduc e Olanzapine (Zyprexa) if inadequate response. Mood stabilizat ion reduces relapse risk during and , minimizing harm to mother and fetus. - Patient will consider- provided resources ([facility], [facility]ment [facility], MotherToBa by). Generalize d anxiety disorder 04190287 F41.1 459698 Problem 2- Active- Provided psychoeduc ation re: Mirtazapin e safety in ; - Consider reinitiati on if depression /anxiety symptoms persist. Mirtazapin e is low risk for teratogeni city and can improve sleep, mood, and appetite. Post-traum atic stress disorder 56202409 F43.10 168685 Problem 3- Chronic- Recommend referral to therapy; declines at this time Alcohol use disorder 720 8785872 F10.90 29061909 Problem 4- in early remissionD enies cravings- Encouraged sober support. Opioid use disorder 1336 738131 F11.90 12637426 Problem 5- in early remissionD enies cravings- encouraged sober supports. Medication management is available and we will further discuss if the patient agrees to medication Mental [facility] screening 091881385 Z13.30 [id number] EBTO-7: 11PHQ-9: 11 [id number] SAUD JESSICA [facility] [address] [place] [address] 05/20/2025 11:26:12 05/20/2025 12:54:43 screening 220662802 Z36.89 Z36.0 Hyperemesi s gravidarum 53612551 O21.0 56307 -Was seen at [facility] 05/19/2025 and was given 2 IV [...] under control. Patient voices understand ing. Normal 8430931 2 Z34.82 7471180 - - PMH: Anxiety, Depression -Seeing Anja for management --Unsure of FOB, possible 2 choices. Pt reports good support system-- Medication s: Taking daily PNV, Zofran when she can keep it down-- Previous OB History: -- History of Genital HSV: Declines-- Genetic Questions in OB Episode Done--Conf irmation BMI: 25.8 [id number] Malaika Sanon CNM [facility] [place] [address] [place] [address] 05/20/2025 13:05:20 05/20/2025 15:50:20 Hyperemesis gravidarum 99850161 O21.0 91336 Pt was sent from the office for [...] 1 tablet unisom w/Vit B6 at night [id number] Malaika Sanon CNM [facility] [address] [place] [address] 05/31/2025 14:55:41 05/31/2025 17:14:22 Gestation period, 15 weeks 8997616 Z3A.15 6683863 Advised pt to f/u immediatel y if temp>101.; abdominal pain, vaginal bleeding greater than 1 pad/hr for greater than 2 hours; vaginal bleeding with or without cramping; bleeding w/clots; cramping like a period. Nausea 404979890 R11.0 65042 Health Concerns Section Related Observation LastModified by Organization Detai ls LastModified Time None Recorded Concern Status LastModified by Organization Details LastModified Time None Recorded Payers Encounter Date Sequence Insurance Name Policy Number Policy Mark Covered Member ID Mark Member ID Guarantor Name 05/31/2025 1 [employer] BETTER HEALTH OF [place] [place] ON OR AFTER 06/06/2020 (MEDICAID REPLACEMENT - HMO) Maximiliano Mchugh [id number] Maximiliano Mchugh Notes Date Note Type Note Provider Name and Address Organization Details Recorded Time 05/31/2025 text/html OB ProblemReport ed by PatientPatient c/o here for IV fluids, but she has been feeling better with her medication zofranpatient c/o she is able to keep foods down and drinksROS as noted in the HPI Malaika Sanon CNM [address] [place], [address], [facility] 05/31/2025 16:20:25 OBGyn Episode Ob Episode Information Episode Created Date Number of Fetuses Patient Bloodtype Patient rh Status Prepregnancy Weight lbs Domestic Partner Domestic Partner Phone Father Name Combination Presser Status 05/20/20 25 1 B Positive OPEN Fetus Data First Name Last Name Admitted to NICU Weight (g) Sex Living Outcome Pediatric Complications Fetus ID Race Codes Race Delivery Type [id number] Problems Problem Notes Problem Name Start Date End Date Resolution Snomed Code Not e Carrier of cystic fibrosis gene mutation 06/16/2025 [id number] Recom mend FOB get tested Hyperemesis gravidarum 05/20/2025 843551 01 -Taking Zofran Bobby Calculation Initial Bobby [...] Latest Days Gestation 0 11/19/19 26 0 Pre-jhony Flowsheet Flowsheet Date 05/20/2025 Salguero Score Blood Edema Fundus Height Fundus Units Glucose Ketones Leukocytes Nitrite Labor Signs Protein Cervic Dilation Cervic Effacement Cervic Station none none none 1+ Type Weight in lbs Pre/Post Dialysis Refused With clothes 174.413372534144 BP Diastolic BP Location Tested BP Systolic BP Type 62 102 sitting Fetus Heart Rate Present A 150 Present Fetus Movement A No Comments -1st OB visit. NOB and NIPT today. Needs pap at next visit, not feeling well today. Confirmation BMI: 25.8-Was seen at [facility] 05/19/2025 for hyperemesis and was given 2 IV bags, 2 medications and d/c home. Patient states she is having trouble keeping anything down. Has been using Zofran at home. Has lost 6lbs since last visit -Urine dip today remarkable for SG 1.020 and Large Ketones-Sent to to for IV fluid replacement-Seeing Ancristiano for anxiety/depression. Patient states moods are doing [...] in lbs Pre/Post Dialysis Refused With clothes 176.037002640650 BP Diastolic BP Location Tested BP Systolic [...] in lbs Pre/Post Dialysis Refused With clothes 169.924081849631 BP Diastolic BP Location Tested BP Systolic BP Type 60 110 sitting Fetus Heart Rate Present A 157 Fetus Movement Comments visit for hyperemesis Flowsheet Date 06/16/2025 Salguero Score Blood Edema Fundus Height Fundus Units Glucose Ketones Leukocytes Nitrite Labor Signs Protein Cervic Dilation Cervic Effacement Cervic Station none none none neg Type Weight in lbs Pre/Post Dialysis Refused With clothes 178.839969187072 BP Diastolic BP Location Tested BP Systolic [...]
--- OUTSIDE RECORDS SUMMARY | 2025-07-01 09:02 | XMS_ITS | Continuity of Care Document ---
Author Organization [facility], [facility] Address [address] [place] [id number] Assessment No assessment recorded. 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 Was on Zyprexa , hydroyx ine, and mirtaza pine. Stopped because she is pregnan cy and feels moods decreas ing. No thought s of self harm and does not really care for chestnu t that she was getting the medicat ion from. 2024 025 [email or web address] Wilfredo Bowles [facility], [address] [place] [address], [id number], 05/25/2025 11:29:52 Procedures None recorde d. Surgeries None recorde d. Imaging US, obstetr ic 2024 025 [facility], [place], [address] [place], [address], 05/03/2025 13:15:22 Medication Orders Prenata l 28 mg-800 mcg tablet 2024 [id number], [address] [place], [address], 05/20/2025 12:05:59 ondanse becky 4 mg disinte grating tablet 2024 [id number], [address] [place], [address], 05/03/2025 11:31:43 Patient TargetsNo targets recorded. Patient InstructionsNo instructions recorded. Reason for Referral Mental Health Clinic Referra l for Bipolar II disorder Hx of bipolar, anxiety/depression. Was on Zyprexa, hydroyxine, and mirtazapine. Stopped because she is and feels moods decreasing. No thoughts of self harm and does not really care for chestnut that she was getting the medication from. Referring Physician: Leonela Wilhelm, GMAT INSTRUCTOR, Encounter Date: 05/03/2025 Results Created Date Observation Date Name Description Value Unit Range Abnormal Flag Note LastModifiedBy Organization Detail LastModifiedTime 05/03/20 25 05/03/2025 pregn cee test, urine HCG positi ve Not Available [facility] [place] [address] [place], [address], 05/03/2025 11:00:38 Result Notes None recorded. Problems Name Problem SNOMED Code Status Onset Date Resolution Date Notes Provider Name and Address Organization Details Recorded Time Bipolar II disorder 50615915 Active 2024 SAUD JESSICA [address] [place], [address] , [facility] IV 11:24:29 Bipolar affective disorder, currently depressed , moderate 035175402 Active 2024 SHARMILA Gale [address] [place], [address] , [facility] 5 13:04:40 Generaliz ed anxiety disorder 50826935 Active 2024 Wilfredo Bowles JUAN [address] [place], [address] , [facility] 5 13:04:44 Post-trau matic stress disorder 10832111 Active 2024 Wilfredo Bowles JUAN [address] [place] [address], [address] , [facility] 5 13:04:49 Alcohol use disorder Active 2024 Wilfredo Bowles JUAN [address] [place] [address], [address] , [facility] 5 13:04:55 Opioid use disorder Active 2024 Wilfredo Bowles JUAN [address] [place] [address], [address] , [facility] 5 13:05:02 82753658 Active 2024 Aurea de la cruz, [place] - [facility] IV 12:02:42 Hyperemes is gravidaru m 41677819 Active 2024 -Taking Zofran JUAN KEE [address], [address] , [facility] 5 12:44:34 Carrier of cystic fibrosis gene mutation 093359607 Active 2024 Recommend FOB get tested JUAN KEE [address], [address] , [facility] 5 11:01:43 Problem Notes None recorded. Procedures Surgical History Date Name Laterality Status Provider Name and Address Organization Details Recorded Time IV Infusion completed LOPEZ Soto [address] [place], [address], [facility] [employer] IV 06/12/2025 06:53:59 5 IV Infusion completed Malaika Sanon, [facility] [address] [place], [address], [facility] [employer] IV 05/20/2025 15:25:44 3 Nexplanon Removal completed Marisa Alexander, [facility] [address] [place], [address], [facility] [employer] [facility] 01/14/2023 11:42:37 3 Nexplanon Removal cancelled Leonela Wilhelm MD [address] [place], [address], [facility] [employer] [facility] 07/28/2022 06:31:48 3 Nexplanon Insertion cancelled Leonela Wilhelm MD [address] [place], [address], [facility] [employer] [facility] 07/28/2022 06:31:47 Imaging Results None recorded. [...] Address Organization Details Last Updated DateTime 05/03/2025 44763.91 g 26.6 kg/m2 175.26 cm 100/60 mm[Hg] Aline Bean [employer] [facility] 05/03/2025 11:00:32 Social History Question Answer Notes LastModified by [employer] Details LastModified Time Tobacco Smoking Status Never Smoker Gaye de la cruz, [employer] [facility] 01/14/2023 11:24:09 If You Are , [...] Functional Status Question Answer Note LastModified by [employer] Details LastModified Time Do you use any [...] Time Father No current problems or disability [email or web address] Not available 09/14 15:59:20 Mother No current problems or disability [email or web address] Not available 09/14 15:59:20 Medical History Condition [...] ICD10 Code Diagnosis IMO Codes Diagnosis Note [id number] Leonela Wilhelm MD [facility] [address] [place] [address] 05/03/2025 10:25:49 05/03/2025 12:31:22 test positive 477867359 Z32.01 106561 25 yo @ 11w 4d based on [...] 26.6 Bipolar II disorder 8322 5003 F31.81 484238 Mixed anxi ety and depressive disorder 267784097 F41.8 826765 Nausea and vomiting in 1589150646 O21.9 [id number] Health Concerns Section Related Observation LastModified by Organization Detai ls LastModified Time None Recorded Concern Status LastModified by Organization Details LastModified Time None Recorded Payers Encounter Date Sequence Insurance Name Policy Number Policy Mark Covered Member ID Mark Member ID Guarantor Name 05/03/2025 1 [employer] [place] ON OR AFTER 06/06/2020 (MEDICAID REPLACEMENT - HMO) Maximiliano Mchugh [id number] Maximiliano Mchugh OBGyn Episode Ob Episode Information Episode Created Date Number of Fetuses Patient Bloodtype Patient rh Status Prepregnancy Weight lbs Domestic Partner Domestic Partner Phone Father Name Water/Waste[employer] 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 Status 05/20/20 25 1 B Positive OPEN Fetus Data First Name Last Name Admitted to NICU Weight (g) Sex Living Outcome Pediatric Complications Fetus ID Race Codes Race Delivery Type [id number] Problems Problem Notes Problem Name Start Date End Date Resolution Snomed Code Not e Carrier of cystic fibrosis gene mutation 06/16/2025 [id number] Recom mend FOB get tested Hyperemesis gravidarum 05/20/2025 986731 01 -Taking Zofran Bobby Calculation Initial Bobby [...] in lbs Pre/Post Dialysis Refused With clothes 174.641631334244 BP Diastolic BP Location Tested BP Systolic BP Type 62 102 sitting Fetus Heart Rate Present A 150 Present Fetus Movement A No Comments -1st OB visit. NOB and NIPT today. Needs pap at next visit, not feeling well today. Confirmation BMI: 25.8-Was seen at [facility] 05/19/2025 for hyperemesis and was given [...] in lbs Pre/Post Dialysis Refused With clothes 176.963899249150 BP Diastolic BP Location Tested BP Systolic [...] in lbs Pre/Post Dialysis Refused With clothes 169.377451220662 BP Diastolic BP Location Tested BP Systolic BP Type 60 110 sitting Fetus Heart Rate Present A 157 Fetus Movement Comments UC visit for hyperemesis Flowsheet Date 06/16/2025 Salguero Score Blood Edema Fundus Height Fundus Units Glucose Ketones Leukocytes Nitrite Labor Signs Protein Cervic Dilation Cervic Effacement Cervic Station none none none neg Type Weight in lbs Pre/Post Dialysis Refused With clothes 178.718560943029 BP Diastolic BP Location Tested BP Systolic [...]
[2025-07-01 09:06] LABS: Alanine Aminotransferase 16 U/L (6-35); Albumin Level 4.2 g/dL (3.5-5.1); Alkaline Phosphatase 61 U/L (38-126); Anion Gap 11 mmol/L (4-12); Aspartate Amino Transferase 22 U/L (14-36); Bilirubin,Total 0.3 mg/dL (0.2-1.3); Blood Urea Nitrogen 3 mg/dL (7-17); Calcium 9.2 mg/dL (8.4-10.2); Carbon Dioxide 19 mmol/L (22-30); Chloride 104 mmol/L (98-107); Estimated Glomerular Filt Rate > 60; Glucose 111 mg/dL (65-110); Potassium 3.5 mmol/L (3.4-5.0); Sodium 134 mmol/L (137-145); Total Protein 7.5 g/dL (6.3-8.2)
[2025-07-01 09:18] LABS: Influenza A QL RT-PCR Positive (Negative); Influenza B QL RT-PCR Negative (Negative); RSV RNA, RT-PCR Negative (Negative); SARS-CoV-2 RNA PCR Negative (Negative)
[2025-07-01 10:00] VITALS: BP 131/73; PULSE 100; RESP 16; O2SAT 100
== END 2025-07-01 10:01 | disposition home or self-care (01) ==
PROVIDERS: Emergency Provider Emergency Medicine; PCP Family Medicine
DX: O99.512 Diseases of the respiratory system complicating pregnancy, second trimester (principal); J10.1 Influenza due to other identified influenza virus with other respiratory manifestations; Z20.822 Contact with and (suspected) exposure to COVID-19; Z3A.20 20 weeks gestation of pregnancy
CPT/HCPCS: 36415; 71045; 80053; 85025; 85055; 87637; 96360; 99283; J7030